=== PATIENT | female | born 1970 | race Caucasian/White ===

== ENCOUNTER 2020-05-02 09:00 | Outpatient (RCR) | payer OTHER, SELFPAY ==
[2020-04-13 12:28] VITALS: BMI 44.9
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
--- NOTE | 2020-04-14 08:54 | PC.NURSE ---
case opened in treatment team 03/14/2020
--- NOTE | 2020-04-17 14:27 | PC.NURSE ---
I called client to check in and review treatment plan. She did not answer and I left a message to call.
--- NOTE | 2020-04-20 11:51 | P.PNPSP_ITS ---
Subjective Subjective Date of Service: 04/20/20 Reason For Visit: depression Interim History: A difficult day. So many emotions. Overwhelmed with mindfulness, pt prefers a smaller group. Talked of anger-election process, confusion-symptoms, sadness, feeling exhausted, being unable to ground herself, Lorazepam/Gabapentin not helping her anxiety nor clarity. Reports she was very agitated last night- was unable to help her to calm. Discussed father leaving for [place] and not being able to have dinner with the family prior to leaving-pt had prepared dinner and wanted an opportunity to spend time with him. Having many feelings about this. Discussed options for grounding ( medications). Medication Compliance: Yes Side effects from medications: Yes (Sedation may be adverse and increasing sx.) Attending Groups: Yes Review of Systems Reports behavioral changes Psychiatric: Reports anxiety, Reports behavioral changes, Reports change in appetite, Reports depression, Reports difficulty concentrating, Reports hopelessness, Reports irritability, Reports anhedonia, Reports mood swings and Reports panic attacks Mental Status Exam Mental Status Exam Patient Orientation: Person, Place, Time and Situation Level of Consciousness: Awake, Appropriate and Alert Patient Behavior: Talkative, Hyperactive, Cooperative, Restless, Anxious, Fearful, Fatigued, Distractible and Crying Mood Description: Constricted, Fearful, Anxious, Nervous and Apprehensive Affect Description: Constricted Patient Cognition Impaired: No Ability to Follow Directions: Excellent Speech Pattern: Clear, Appropriate, Spontaneous Speech, Coherent and Rapid (at times) Memory Description: Intact Hallucinations: None Delusions: Not Present Thought Process: Intact Thought Content: positive for Intact Depressive Symptoms: Increased Anxiety, Diff. Making Decisions, Increased Irritability, Crying Spells, Loss of Int. in Activity, Feelings of Worthlessness, Hopelessness, Isolating-Friends/Family, Feelings of Guilt, Unhappiness, Increased Fatigue, Low Self Esteem, Loss of Energy and Difficulty C oncentrating Judgement: Good Diagnostics Vital Signs (24Hr): Body Mass Index 44.9 Assessment & Plan Patient educated on: medication risk/benefits and therapeutic strategies Informed Consent: understands and further education needed Reason for contiued partial hosp. stay Substantial Risk for: inability to function and rapid decompensation Certification I certify that partial hospital treatment is medically necessary due to the symptoms and problems resulting from the patient's mental illness and the failure to treat the patient at the partial hospital level of care would likely result in the patient requiring inpatient psychiatric care which could not be prevented at a less intensive level of care. Greater than 50% of the session was spent on counseling and/or coordination of care Discharge Plan Discharge Attending provider: Kehinde Macias Additional Instructions: 04/20/20: Risperdal 0.125 mg bid prn sx of PTSD where pt needs assistance in grounding. Medications: New risperidone 0.25 mg tablet 0.125 mg PO BID MDD 0.25 mg PRN (Reason: agitation) Qty: 10 RF: 0 No Action fexofenadine [Emily] 180 mg Tablet 540 mg PO BID RF: 0 atorvastatin 80 mg Tablet 80 mg PO DAILY RF: 0 gabapentin 600 mg Tablet 600 mg PO BEDTIME RF: 0 tizanidine 2 mg Tablet 2 mg PO DAILY PRN (Reason: Muscle Pain) RF: 0 cetirizine [Zyrtec] 10 mg Tablet 10 mg PO DAILY RF: 0 tizanidine 4 mg Tablet 4 mg PO BEDTIME PRN (Reason: Muscle Pain) RF: 0 methylphenidate HCl [Ritalin] 10 mg Tablet 10 mg PO DAILY RF: 0 clopidogrel 75 mg Tablet 75 mg PO DAILY RF: 0 carvedilol 3.125 mg Tablet 3.125 mg PO BID RF: 0 pantoprazole 40 mg Tablet,Delayed Release (Dr/Ec) 40 mg PO DAILY RF: 0 metformin 1,000 mg Tablet 1,000 mg PO BID RF: 0 aspirin 81 mg Tablet,Chewable 81 mg PO DAILY RF: 0 montelukast [Singulair] 10 mg Tablet 10 mg PO BEDTIME RF: 0 hydroxychloroquine 200 mg Tablet 200 mg PO BID RF: 0 albuterol sulfate [ProAir HFA] 90 mcg/actuation Hfa Aerosol Inhaler 2 puff INHALATION Q4H PRN (Reason: Shortness Of Breath) RF: 0 glipizide 5 mg Tablet 15 mg PO BID RF: 0 oxycodone 5 mg Tablet 5 mg PO Q8H PRN (Reason: Pain) RF: 0 gabapentin 300 mg Tablet 300 mg PO BID PRN (Reason: Pain) RF: 0 cholecalciferol (vitamin D3) [Vitamin D3] 25 mcg (1,000 unit) Tablet 25 mcg PO DAILY RF: 0 magnesium chloride 70 mg Tablet,Delayed Release (Dr/Ec) 70 mg PO BID RF: 0 lorazepam 1 mg Tablet 1 mg PO BID PRN (Reason: Anxiety) RF: 0 fluoxetine [Prozac] 20 mg Capsule 60 mg PO DAILY RF: 0 Lantus Solostar U-100 Insulin 100 unit/mL (3 mL) Insulin Pen 31 unit SUBCUT QPM RF: 0 Trulicity 1.5 mg/0.5 mL Pen Injector 1.5 mg SUBCUT QWEEK RF: 0
--- NOTE | 2020-04-21 15:36 | PC.NURSE ---
the client called yesterday afternoon to let us know that she was admitted to the medical unit of the hospital for observation of some possible cardiac issues. She called this afternoon to let me know that she will be discharged from the hospital on Friday and will return to [facility] on Friday
--- NOTE | 2020-04-24 14:12 | PC.NURSE ---
Angie called to cancel today stating that she has severe shoulder pain and didn't sleep well. She took a tylenol pm early this am and is very tired.
--- NOTE | 2020-04-24 15:44 | HO.PHPPROGNO ---
Subjective Subjective Date of Service: 04/24/20 Reason For Visit: depression Interim History: Angie reports feeling groggy this a.m. with shoulder pain which increased on 04/22/20. She used Tylenol PM and Naprosyn for sleep/pain last evening as she did not sleep on 04/22/20. Shoulder pain has been a symptom for many years. She has talked with her medical team about MRI, injections as she has calcifications and narrowing, hx of pinched nerves, L4-L5 arthritis, cervical arthritis. She believes there may be a frozen shoulder or torn rotator at this time. Oxycontin 5 mg has not helped on 04/22 as well. She attributes increase in pain to increase in involvement in daily activities on 04/22 as she used Risperdal x 2 doses with positive results. On 04/21 she used a prn in group and found it helped her to ground and focus, with less lability. She used another prn on 04/21 evening and mood was improved, thoughts grounded, focus specific. This carried into 04/22 where she describes her mood as with amazing relief from symptoms. Pt discussed return to work paperwork. She will return on 05/08/20. Medication Compliance: Yes Side effects from medications: No Attending Groups: No (home today due to feeling sedated from pain medications.) Review of Systems Musculoskeletal: Reports other (shoulder pain) Psychiatric: Reports abnormal sleep pattern and Reports depression Mental Status Exam Mental Status Exam Patient Appearance: Well Grooomed Patient Orientation: Person, Place, Time and Situation Level of Consciousness: Awake and Alert Patient Behavior: Appropriate Mood Description: Calm Affect Description: Calm Patient Cognition Impaired: No Ability to Follow Directions: Excellent Speech Pattern: Clear, Appropriate and Spontaneous Speech Memory Description: Intact Hallucinations: None Delusions: Not Present Thought Process: Intact and Goal Oriented Thought Content: positive for Intact Depressive Symptoms: Insomnia, Difficulty Sleeping, Muscle Pain and Significant Weight Gain Judgement: Good Diagnostics Vital Signs (24Hr): Body Mass Index 44.9 Assessment & Plan Patient educated on: medication risk/benefits and therapeutic strategies Informed Consent: understands and further education needed Reason for contiued partial hosp. stay Substantial Risk for: inability to function and med/psych decompensation Certification I certify that partial hospital treatment is medically necessary due to the symptoms and problems resulting from the patient's mental illness and the failure to treat the patient at the partial hospital level of care would likely result in the patient requiring inpatient psychiatric care which could not be prevented at a less intensive level of care. Greater than 50% of the session was spent on counseling and/or coordination of care Discharge Plan Discharge Attending provider: Kehinde Macias Additional Instructions: 04/20/20: Risperdal 0.125 mg bid prn sx of PTSD where pt needs assistance in grounding. 04/24/20: Continue Risperdal prn Medications: New risperidone 0.25 mg tablet 0.125 mg PO BID MDD 0.25 mg PRN (Reason: agitation) Qty: 10 RF: 0 No Action fexofenadine [Emily] 180 mg Tablet 540 mg PO BID RF: 0 atorvastatin 80 mg Tablet 80 mg PO DAILY RF: 0 gabapentin 600 mg Tablet 600 mg PO BEDTIME RF: 0 tizanidine 2 mg Tablet 2 mg PO DAILY PRN (Reason: Muscle Pain) RF: 0 cetirizine [Zyrtec] 10 mg Tablet 10 mg PO DAILY RF: 0 tizanidine 4 mg Tablet 4 mg PO BEDTIME PRN (Reason: Muscle Pain) RF: 0 methylphenidate HCl [Ritalin] 10 mg Tablet 10 mg PO DAILY RF: 0 clopidogrel 75 mg Tablet 75 mg PO DAILY RF: 0 carvedilol 3.125 mg Tablet 3.125 mg PO BID RF: 0 pantoprazole 40 mg Tablet,Delayed Release (Dr/Ec) 40 mg PO DAILY RF: 0 metformin 1,000 mg Tablet 1,000 mg PO BID RF: 0 aspirin 81 mg Tablet,Chewable 81 mg PO DAILY RF: 0 montelukast [Singulair] 10 mg Tablet 10 mg PO BEDTIME RF: 0 hydroxychloroquine 200 mg Tablet 200 mg PO BID RF: 0 albuterol sulfate [ProAir HFA] 90 mcg/actuation Hfa Aerosol Inhaler 2 puff INHALATION Q4H PRN (Reason: Shortness Of Breath) RF: 0 glipizide 5 mg Tablet 15 mg PO BID RF: 0 oxycodone 5 mg Tablet 5 mg PO Q8H PRN (Reason: Pain) RF: 0 gabapentin 300 mg Tablet 300 mg PO BID PRN (Reason: Pain) RF: 0 cholecalciferol (vitamin D3) [Vitamin D3] 25 mcg (1,000 unit) Tablet 25 mcg PO DAILY RF: 0 magnesium chloride 70 mg Tablet,Delayed Release (Dr/Ec) 70 mg PO BID RF: 0 lorazepam 1 mg Tablet 1 mg PO BID PRN (Reason: Anxiety) RF: 0 fluoxetine [Prozac] 20 mg Capsule 60 mg PO DAILY RF: 0 Lantus Solostar U-100 Insulin 100 unit/mL (3 mL) Insulin Pen 31 unit SUBCUT QPM RF: 0 Trulicity 1.5 mg/0.5 mL Pen Injector 1.5 mg SUBCUT QWEEK RF: 0
--- NOTE | 2020-04-27 16:08 | HO.PHPPROGNO ---
Subjective Subjective Date of Service: 04/27/20 Reason For Visit: depression Interim History: I am confused about the medicine Reports using prn Risperdal on Friday and feeling tired, Friday, along with Gabapentin and feeling improved. Reports mood lability as well. Discussed uses for prn medications and possibly adding a regularly scheduled mood stabilizer. Pt also talked of her difficulty with telehealth-wanting to be here, with people, with the team and feels the experience is suffering for her as a result. Medication Compliance: Yes Side effects from medications: No Attending Groups: Yes Review of Systems Musculoskeletal: Reports arthralgias, Reports limited range of motion, Reports muscle weakness and Reports other Comments: shoulder pain Reports behavioral changes Psychiatric: Reports behavioral changes Mental Status Exam Mental Status Exam Patient Orientation: Person, Place, Time and Situation Level of Consciousness: Awake and Alert Patient Behavior: Appropriate, Talkative, Cooperative and Anxious Mood Description: Constricted, Depressed, Anxious and Sad Affect Description: Flat Patient Cognition Impaired: No Ability to Follow Directions: Excellent Speech Pattern: Clear, Appropriate, Spontaneous Speech and Coherent Memory Description: Intact Hallucinations: None Delusions: Not Present Thought Process: Intact and Rumination Thought Content: positive for Intact, positive for [place] and positive for Circumstantial Depressive Symptoms: Increased Anxiety, Increased Irritability, Hopelessness and Unhappiness Judgement: Good Diagnostics Vital Signs (24Hr): Body Mass Index 44.9 Assessment & Plan Patient educated on: medication risk/benefits (Review of how to utilize prn medications) and therapeutic strategies Informed Consent: understands and further education needed Reason for contiued partial hosp. stay Substantial Risk for: inability to function and rapid decompensation Certification I certify that partial hospital treatment is medically necessary due to the symptoms and problems resulting from the patient's mental illness and the failure to treat the patient at the partial hospital level of care would likely result in the patient requiring inpatient psychiatric care which could not be prevented at a less intensive level of care. Greater than 50% of the session was spent on counseling and/or coordination of care Discharge Plan Discharge Attending provider: Kehinde Macias Additional Instructions: 04/20/20: Risperdal 0.125 mg bid prn sx of PTSD where pt needs assistance in grounding. 04/24/20: Continue Risperdal prn 04/27/20: Begin Lamictal 25 mg daily Medications: New risperidone 0.25 mg tablet 0.125 mg PO BID MDD 0.25 mg PRN (Reason: agitation) Qty: 10 RF: 0 lamotrigine [Lamictal] 25 mg tablet 25 mg PO DAILY 14 Days Qty: 14 RF: 0 No Action fexofenadine [Emily] 180 mg Tablet 540 mg PO BID RF: 0 atorvastatin 80 mg Tablet 80 mg PO DAILY RF: 0 gabapentin 600 mg Tablet 600 mg PO BEDTIME RF: 0 tizanidine 2 mg Tablet 2 mg PO DAILY PRN (Reason: Muscle Pain) RF: 0 cetirizine [Zyrtec] 10 mg Tablet 10 mg PO DAILY RF: 0 tizanidine 4 mg Tablet 4 mg PO BEDTIME PRN (Reason: Muscle Pain) RF: 0 methylphenidate HCl [Ritalin] 10 mg Tablet 10 mg PO DAILY RF: 0 clopidogrel 75 mg Tablet 75 mg PO DAILY RF: 0 carvedilol 3.125 mg Tablet 3.125 mg PO BID RF: 0 pantoprazole 40 mg Tablet,Delayed Release (Dr/Ec) 40 mg PO DAILY RF: 0 metformin 1,000 mg Tablet 1,000 mg PO BID RF: 0 aspirin 81 mg Tablet,Chewable 81 mg PO DAILY RF: 0 montelukast [Singulair] 10 mg Tablet 10 mg PO BEDTIME RF: 0 hydroxychloroquine 200 mg Tablet 200 mg PO BID RF: 0 albuterol sulfate [ProAir HFA] 90 mcg/actuation Hfa Aerosol Inhaler 2 puff INHALATION Q4H PRN (Reason: Shortness Of Breath) RF: 0 glipizide 5 mg Tablet 15 mg PO BID RF: 0 oxycodone 5 mg Tablet 5 mg PO Q8H PRN (Reason: Pain) RF: 0 gabapentin 300 mg Tablet 300 mg PO BID PRN (Reason: Pain) RF: 0 cholecalciferol (vitamin D3) [Vitamin D3] 25 mcg (1,000 unit) Tablet 25 mcg PO DAILY RF: 0 magnesium chloride 70 mg Tablet,Delayed Release (Dr/Ec) 70 mg PO BID RF: 0 lorazepam 1 mg Tablet 1 mg PO BID PRN (Reason: Anxiety) RF: 0 fluoxetine [Prozac] 20 mg Capsule 60 mg PO DAILY RF: 0 Lantus Solostar U-100 Insulin 100 unit/mL (3 mL) Insulin Pen 31 unit SUBCUT QPM RF: 0 Trulicity 1.5 mg/0.5 mL Pen Injector 1.5 mg SUBCUT QWEEK RF: 0
--- NOTE | 2020-05-01 14:15 | HO.PHPPROGNO ---
Subjective Subjective Date of Service: 05/01/20 Reason For Visit: depression Interim History: Difficult weekend. Pt believes Lamictal to be acting adversely. Reports panic attacks in public on 04/29 and irritability, anger today. Will hold Lamictal for 48 hours and re-evaluate efficacy/contribution to mood. Medication Compliance: Yes Side effects from medications: Yes (possibly) Attending Groups: No (Internet is not working today in pt's home.) Review of Systems Reports behavioral changes Psychiatric: Reports anxiety, Reports behavioral changes, Reports depression, Reports difficulty concentrating, Reports hopelessness, Reports irritability, Reports anhedonia, Reports mood swings and Reports panic attacks Mental Status Exam Mental Status Exam Patient Orientation: Person, Place, Time and Situation Level of Consciousness: Awake, Appropriate and Alert Patient Behavior: Appropriate, Cooperative and Anxious Mood Description: Constricted, Labile, Angry and Apprehensive Affect Description: Constricted Patient Cognition Impaired: No Ability to Follow Directions: Excellent Speech Pattern: Clear, Appropriate and Spontaneous Speech Memory Description: Intact Hallucinations: None Delusions: Not Present Thought Process: Distracted and Rumination Thought Content: positive for [place], positive for Circumstantial and positive for Perseveration Depressive Symptoms: Increased Anxiety, Increased Irritability, Hopelessness and Unhappiness Judgement: Fair Diagnostics Vital Signs (24Hr): Body Mass Index 44.9 Assessment & Plan Patient educated on: medication risk/benefits and therapeutic strategies Informed Consent: further education needed Reason for contiued partial hosp. stay Substantial Risk for: inability to function and rapid decompensation Certification I certify that partial hospital treatment is medically necessary due to the symptoms and problems resulting from the patient's mental illness and the failure to treat the patient at the partial hospital level of care would likely result in the patient requiring inpatient psychiatric care which could not be prevented at a less intensive level of care. Greater than 50% of the session was spent on counseling and/or coordination of care Discharge Plan Discharge Attending provider: Kehinde Macias Additional Instructions: 04/20/20: Risperdal 0.125 mg bid prn sx of PTSD where pt needs assistance in grounding. 04/24/20: Continue Risperdal prn 04/27/20: Begin Lamictal 25 mg daily 05/01/20: Hold Lamictal on 05/02- as pt experiencing lability and panic attacks. Medications: New risperidone 0.25 mg tablet 0.125 mg PO BID MDD 0.25 mg PRN (Reason: agitation) Qty: 10 RF: 0 lamotrigine [Lamictal] 25 mg tablet 25 mg PO DAILY 14 Days Qty: 14 RF: 0 No Action fexofenadine [Emily] 180 mg Tablet 540 mg PO BID RF: 0 atorvastatin 80 mg Tablet 80 mg PO DAILY RF: 0 gabapentin 600 mg Tablet 600 mg PO BEDTIME RF: 0 tizanidine 2 mg Tablet 2 mg PO DAILY PRN (Reason: Muscle Pain) RF: 0 cetirizine [Zyrtec] 10 mg Tablet 10 mg PO DAILY RF: 0 tizanidine 4 mg Tablet 4 mg PO BEDTIME PRN (Reason: Muscle Pain) RF: 0 methylphenidate HCl [Ritalin] 10 mg Tablet 10 mg PO DAILY RF: 0 clopidogrel 75 mg Tablet 75 mg PO DAILY RF: 0 carvedilol 3.125 mg Tablet 3.125 mg PO BID RF: 0 pantoprazole 40 mg Tablet,Delayed Release (Dr/Ec) 40 mg PO DAILY RF: 0 metformin 1,000 mg Tablet 1,000 mg PO BID RF: 0 aspirin 81 mg Tablet,Chewable 81 mg PO DAILY RF: 0 montelukast [Singulair] 10 mg Tablet 10 mg PO BEDTIME RF: 0 hydroxychloroquine 200 mg Tablet 200 mg PO BID RF: 0 albuterol sulfate [ProAir HFA] 90 mcg/actuation Hfa Aerosol Inhaler 2 puff INHALATION Q4H PRN (Reason: Shortness Of Breath) RF: 0 glipizide 5 mg Tablet 15 mg PO BID RF: 0 oxycodone 5 mg Tablet 5 mg PO Q8H PRN (Reason: Pain) RF: 0 gabapentin 300 mg Tablet 300 mg PO BID PRN (Reason: Pain) RF: 0 cholecalciferol (vitamin D3) [Vitamin D3] 25 mcg (1,000 unit) Tablet 25 mcg PO DAILY RF: 0 magnesium chloride 70 mg Tablet,Delayed Release (Dr/Ec) 70 mg PO BID RF: 0 lorazepam 1 mg Tablet 1 mg PO BID PRN (Reason: Anxiety) RF: 0 fluoxetine [Prozac] 20 mg Capsule 60 mg PO DAILY RF: 0 Lantus Solostar U-100 Insulin 100 unit/mL (3 mL) Insulin Pen 31 unit SUBCUT QPM RF: 0 Trulicity 1.5 mg/0.5 mL Pen Injector 1.5 mg SUBCUT QWEEK RF: 0
--- NOTE | 2020-05-04 15:52 | HO.OPPROGNO ---
Subjective Subjective Date of Service: 05/04/20 Reason For Visit: depression Interim History: Angie reports no real change with holding Lamictal except she does not have the intensity of anger. Reports feeling irritable with mood swings, lability. Feels her thought process is clearer, less crying-continues to find Risperdal helpful. Plans a return to work on 05/08/20. Medication Compliance: Yes Side effects from medications: No Review of Systems Psychiatric: Reports anxiety, Reports irritability and Reports mood swings Mental Status Exam Mental Status Exam Patient Orientation: Person, Place, Time and Situation Level of Consciousness: Awake and Appropriate Patient Behavior: Appropriate and Cooperative Mood Description: Constricted and Anxious Affect Description: Constricted Patient Cognition Impaired: No Ability to Follow Directions: Excellent Speech Pattern: Clear Memory Description: Intact Hallucinations: None Delusions: Not Present Thought Process: Intact Thought Content: positive for Intact and positive for Goal Oriented Depressive Symptoms: Increased Irritability Judgement: Good Diagnostics Vital Signs (24Hr): Body Mass Index 44.9 Discharge Plan Discharge Attending provider: Kehinde Macias Additional Instructions: 04/20/20: Risperdal 0.125 mg bid prn sx of PTSD where pt needs assistance in grounding. 04/24/20: Continue Risperdal prn 04/27/20: Begin Lamictal 25 mg daily 05/01/20: Hold Lamictal on 05/02- as pt experiencing lability and panic attacks. 05/04/20: Re-start Lamictal 25 mg daily Medications: Continued lamotrigine [Lamictal] 25 mg tablet 25 mg PO DAILY 14 Days Qty: 14 RF: 1 risperidone 0.25 mg tablet 0.125 mg PO BID MDD 0.25 mg PRN (Reason: agitation) Qty: 14 RF: 1 No Action fexofenadine [Emily] 180 mg Tablet 540 mg PO BID RF: 0 atorvastatin 80 mg Tablet 80 mg PO DAILY RF: 0 gabapentin 600 mg Tablet 600 mg PO BEDTIME RF: 0 tizanidine 2 mg Tablet 2 mg PO DAILY PRN (Reason: Muscle Pain) RF: 0 cetirizine [Zyrtec] 10 mg Tablet 10 mg PO DAILY RF: 0 tizanidine 4 mg Tablet 4 mg PO BEDTIME PRN (Reason: Muscle Pain) RF: 0 methylphenidate HCl [Ritalin] 10 mg Tablet 10 mg PO DAILY RF: 0 clopidogrel 75 mg Tablet 75 mg PO DAILY RF: 0 carvedilol 3.125 mg Tablet 3.125 mg PO BID RF: 0 pantoprazole 40 mg Tablet,Delayed Release (Dr/Ec) 40 mg PO DAILY RF: 0 metformin 1,000 mg Tablet 1,000 mg PO BID RF: 0 aspirin 81 mg Tablet,Chewable 81 mg PO DAILY RF: 0 montelukast [Singulair] 10 mg Tablet 10 mg PO BEDTIME RF: 0 hydroxychloroquine 200 mg Tablet 200 mg PO BID RF: 0 albuterol sulfate [ProAir HFA] 90 mcg/actuation Hfa Aerosol Inhaler 2 puff INHALATION Q4H PRN (Reason: Shortness Of Breath) RF: 0 glipizide 5 mg Tablet 15 mg PO BID RF: 0 oxycodone 5 mg Tablet 5 mg PO Q8H PRN (Reason: Pain) RF: 0 gabapentin 300 mg Tablet 300 mg PO BID PRN (Reason: Pain) RF: 0 cholecalciferol (vitamin D3) [Vitamin D3] 25 mcg (1,000 unit) Tablet 25 mcg PO DAILY RF: 0 magnesium chloride 70 mg Tablet,Delayed Release (Dr/Ec) 70 mg PO BID RF: 0 lorazepam 1 mg Tablet 1 mg PO BID PRN (Reason: Anxiety) RF: 0 fluoxetine [Prozac] 20 mg Capsule 60 mg PO DAILY RF: 0 Lantus Solostar U-100 Insulin 100 unit/mL (3 mL) Insulin Pen 31 unit SUBCUT QPM RF: 0 Trulicity 1.5 mg/0.5 mL Pen Injector 1.5 mg SUBCUT QWEEK RF: 0 Assessment & Plan Patient educated on: medication risk/benefits and therapeutic strategies Informed Consent: understands Reason for contiued therapy Substantial Risk for: inability to function Greater than 50% of the session was spent on counseling and/or coordination of care
--- NOTE | 2020-05-10 16:12 | P.PNPSO_ITS ---
Subjective Subjective Date of Service: 05/10/20 Reason For Visit: depression Interim History: Call from pt- reports I feel strange and reports weight gain. Asks if Lamictal/Risperdal will cause these SE. Education provided. Pt reports she feels out of it spacey . Slept well last night. Medication Compliance: Yes Side effects from medications: Yes Review of Systems Psychiatric: Reports as per [facility] Mental Status Exam Mental Status Exam Patient Orientation: Person, Place, Time and Situation Level of Consciousness: Awake, Appropriate and Alert Patient Behavior: Appropriate Mood Description: Calm Affect Description: Calm Patient Cognition Impaired: No Ability to Follow Directions: Excellent Speech Pattern: Clear, Appropriate and Spontaneous Speech Memory Description: Intact Hallucinations: None Delusions: Not Present Thought Process: Intact Thought Content: positive for Intact Depressive Symptoms: Increased Anxiety Judgement: Good Diagnostics Vital Signs (24Hr): Body Mass Index 44.9 Discharge Plan Discharge Attending provider: Kehinde Macias Additional Instructions: 04/20/20: Risperdal 0.125 mg bid prn sx of PTSD where pt needs assistance in grounding. 04/24/20: Continue Risperdal prn 04/27/20: Begin Lamictal 25 mg daily 05/01/20: Hold Lamictal on 05/02- as pt experiencing lability and panic attacks. 05/04/20: Re-start Lamictal 25 mg daily Medications: Continued lamotrigine [Lamictal] 25 mg tablet 25 mg PO DAILY 14 Days Qty: 14 RF: 1 risperidone 0.25 mg tablet 0.125 mg PO BID MDD 0.25 mg PRN (Reason: agitation) Qty: 14 RF: 1 No Action fexofenadine [Emily] 180 mg Tablet 540 mg PO BID RF: 0 atorvastatin 80 mg Tablet 80 mg PO DAILY RF: 0 gabapentin 600 mg Tablet 600 mg PO BEDTIME RF: 0 tizanidine 2 mg Tablet 2 mg PO DAILY PRN (Reason: Muscle Pain) RF: 0 cetirizine [Zyrtec] 10 mg Tablet 10 mg PO DAILY RF: 0 tizanidine 4 mg Tablet 4 mg PO BEDTIME PRN (Reason: Muscle Pain) RF: 0 methylphenidate HCl [Ritalin] 10 mg Tablet 10 mg PO DAILY RF: 0 clopidogrel 75 mg Tablet 75 mg PO DAILY RF: 0 carvedilol 3.125 mg Tablet 3.125 mg PO BID RF: 0 pantoprazole 40 mg Tablet,Delayed Release (Dr/Ec) 40 mg PO DAILY RF: 0 metformin 1,000 mg Tablet 1,000 mg PO BID RF: 0 aspirin 81 mg Tablet,Chewable 81 mg PO DAILY RF: 0 montelukast [Singulair] 10 mg Tablet 10 mg PO BEDTIME RF: 0 hydroxychloroquine 200 mg Tablet 200 mg PO BID RF: 0 albuterol sulfate [ProAir HFA] 90 mcg/actuation Hfa Aerosol Inhaler 2 puff INHALATION Q4H PRN (Reason: Shortness Of Breath) RF: 0 glipizide 5 mg Tablet 15 mg PO BID RF: 0 oxycodone 5 mg Tablet 5 mg PO Q8H PRN (Reason: Pain) RF: 0 gabapentin 300 mg Tablet 300 mg PO BID PRN (Reason: Pain) RF: 0 cholecalciferol (vitamin D3) [Vitamin D3] 25 mcg (1,000 unit) Tablet 25 mcg PO DAILY RF: 0 magnesium chloride 70 mg Tablet,Delayed Release (Dr/Ec) 70 mg PO BID RF: 0 lorazepam 1 mg Tablet 1 mg PO BID PRN (Reason: Anxiety) RF: 0 fluoxetine [Prozac] 20 mg Capsule 60 mg PO DAILY RF: 0 Lantus Solostar U-100 Insulin 100 unit/mL (3 mL) Insulin Pen 31 unit SUBCUT QPM RF: 0 Trulicity 1.5 mg/0.5 mL Pen Injector 1.5 mg SUBCUT QWEEK RF: 0 Assessment & Plan Assessment & Plan (1) Recurrent major depression: Status: Acute Code(s): F33.9 - Major depressive disorder, recurrent, unspecified Assessment and Plan: Decrease Lamictal to 12.5 mg daily Hold Risperdal-will review on 05/15/20. Greater than 50% of the session was spent on counseling and/or coordination of care
--- NOTE | 2020-05-15 16:37 | P.EN_ITS ---
Event Note Date of Service: 05/15/20 Event Note: Pt reports a.m. panic attack today. She has stopped Lamictal and b elieves it makes her feel less grounded and more symptomatic overall. She will resume Risperdal prn with the remainder of her regime.
== END 2020-05-02 23:55 | disposition home or self-care (01) ==
LOC: HO.PHPA 09:00
PROVIDERS: Visit Provider Psychiatry & Neurology Psychiatry
DX: F33.2 Major depressive disorder, recurrent severe without psychotic features (principal)
CPT/HCPCS: 90792; 90853; 99213; 99214

== ENCOUNTER 2020-05-10 15:00 | Outpatient (RCR) | payer OTHER, SELFPAY | END 2020-06-15 23:55 | disposition home or self-care (01) | LOC: HO.PAOS 15:00 | PROVIDERS: Visit Provider Clinical Nurse Specialist Psychiatric/Mental Health, Adult | DX: F32.9 Major depressive disorder, single episode, unspecified (principal) ==

== ENCOUNTER 2020-05-15 07:09 | Outpatient (REF) | payer OTHER, SELFPAY ==
[2020-05-15 07:57] LABS: COVID-19 Test Negative (Negative); IDNOW Serial# 55D5AD1C
== END 2020-05-15 07:10 | disposition home or self-care (01) ==
LOC: HO.EMPCOV 07:09
PROVIDERS: Visit Provider Internal Medicine
DX: Z20.828 Contact with and (suspected) exposure to other viral communicable diseases (principal)
CPT/HCPCS: 87635; C9803

== ENCOUNTER 2020-05-17 11:20 | Outpatient (REF) | payer OTHER, SELFPAY ==
[2020-05-17 11:40] LABS: COVID-19 Test Negative (Negative)
== END 2020-05-17 11:21 | disposition home or self-care (01) ==
LOC: HO.LAB 11:20
PROVIDERS: PCP Internal Medicine Sports Medicine; Visit Provider Internal Medicine
DX: Z20.828 Contact with and (suspected) exposure to other viral communicable diseases (principal)
CPT/HCPCS: 87635; C9803

== ENCOUNTER 2020-05-22 18:00 | Outpatient (RCR) | payer OTHER, SELFPAY | END 2020-05-25 23:55 | disposition home or self-care (01) | LOC: HO.PAOS 18:00 | PROVIDERS: Visit Provider Counselor Mental Health | DX: F33.2 Major depressive disorder, recurrent severe without psychotic features (principal); F41.0 Panic disorder [episodic paroxysmal anxiety] | CPT/HCPCS: 90832; 90834 ==

== ENCOUNTER → 2020-06-20 11:24 | Outpatient (REF) | payer OTHER, SELFPAY ==
--- NOTE | 2020-06-20 11:30 | CA_ITS ---
Transthoracic Echocardiogram Patient (Last, First, Middle): Angie Lomax M Gender: Female Date of : 1970 Age: 49 Procedure Date: 06/20/2020 Procedure Type: Transthoracic Echocardiogram Location: OP Height: 165.1 cm Weight: 122.47 kg BSA: 2.25 m2 Heart Rate: bpm BP: 102 / 70 mmHg Heading Repairer: EBONY Referring MD: Clarisse Coe DEPUTY K 9-C Symptoms: I21.11 STEMI,Z95.5 STENTED COR ART, I10 HTN E11.8 DM E78.5 H Study Quality: Fair ECG Rhythm: Sinus Conclusions: - The left ventricular systolic function is normal. The visually estimated ejection fraction is between 55-60%. - No obvious valvular pathology seen on this study. Findings Procedure Information Contrast agent, definity, is being given per protocol without apparent complications. Left Ventricle Normal left ventricular cavity size. There is mildly increased left ventricular wall thickness. The left ventricular systolic function is normal. The visually estimated ejection fraction is between 55-60%. There is no evidence of regional wall motion abnormalities. E/E prime ratio is between 8 and 15 consistent with indeterminate filling pressures. Evidence suggests grade I (mild) diastolic dysfunction. Right Ventricle Normal right ventricular cavity size and systolic function. Atria The left atrium is normal in size. The right atrium is normal in size. Aortic Valve The aortic valve was not well visualized. There is no aortic valve stenosis. There is no aortic valve regurgitation. Mitral Valve The mitral valve appears normal. There is no mitral valve regurgitation. There is no mitral valve stenosis. Pulmonic Valve The pulmonic valve was not well visualized. Tricuspid Valve There is trace tricuspid valve regurgitation. The pulmonary artery systolic pressure is normal. Great Vessels The aortic annulus, sinuses of valsalva, and asc aorta are normal in size. Venous The inferior vena cava was not well visualized. Pericardium/Pleural There is no evidence of pericardial effusion. Prior Study Comparison Changes noted compared to prior study dated: 03/16/2019. Previously described wall motion abnormalities not seen, but image quality is also less than optimal. Recommendations, Care & Conclusions No obvious valvular pathology seen on this study. Measurements 2D Linear Measurements IVSd: 1.25 0.6-0.9/0.6-1.0 cm LVIDd: 4.76 3.9-5.3/4.2-5.9 cm LVIDd Index: 2.12 2.4-3.2/2.2-3.1 cm/m2 LVIDs: 2.95 2.0-3.6 cm LVPWd: 1.27 0.7-1.1 cm Ao Root: 3.10 2.1-3.5 cm LA Diam: 3.30 2.7-3.8/3.0-4.0 cm LAIDs Index: 1.47 1.5-2.3 cm/m2 LV Mass: 289.10 67-162/88-224 g LV Mass Index: 128.49 43-95/49-115 g/m2 LVOT Diam: 2.00 3.0+(-)1.3 cm 2D Systolic Function EF 4C: 56.50 >55% EF 2C: 58.40 >55% EF BiP: 56.10 >55% Mitral Valve MV Pk E: 0.99 MV PK A: 0.95 MV Decel Time: 145.00 E/A: 1.00 E'Lateral: 7.45 E'Medial: 6.29 E/E' Med: 15.70 E/E' Lat: 13.20 PHT: 43.00 MVA PHT: 5.12 Decel [place]: 6.78 Aortic Valve AoV Pk Zaid: 1.81 AoV Pk Grad: 13.00 LVOT LVOT Pk Zaid: 1.10 LVOT Mn Zaid: 0.76 LVOT VTI: 0.24 LVOT Pk Grad: 5.00 LVOT Mn Grad: 3.00 LVOT Diam: 2.00 LVOT Area: 3.14 Diastolic Function MV Pk E: 0.99 MV Pk A: 0.95 E/A: 1.00 E'Medial: 6.29 E/E' Med: 15.70 E' Laterial: 7.45 E/E' Lat: 13.20 Tricuspid Valve TR Pk Zaid: 1.94 TR Pk Grad: 15.00 Great Vessels Aorta Ao Root-2D: 3.10 2.0-3.7 cm Ao Asc: 3.00 2.1-3.4 cm Updated in Other Vendor System with Status of Final Stanislav Mendez MD electronically signed on 06/20/2020 4:57:18 PM with status of Final
== END ==
LOC: HO.CARD 11:24
PROVIDERS: Visit Provider Nurse Practitioner Family
DX: I21.11 ST elevation (STEMI) myocardial infarction involving right coronary artery (principal); I10 Essential (primary) hypertension; E78.5 Hyperlipidemia, unspecified; E11.8 Type 2 diabetes mellitus with unspecified complications; Z95.5 Presence of coronary angioplasty implant and graft
CPT/HCPCS: 93306; Q9957

== ENCOUNTER 2020-06-29 09:07 | Emergency (ER) | payer OTHER, SELFPAY ==
[2020-06-29 09:11] VITALS: BP 133/80; PULSE 95; RESP 17; TEMP 36.8; O2SAT 96; BMI 45.7
--- NOTE | 2020-06-29 09:42 | CT_ITS ---
EXAMINATION: CT HEAD WITHOUT CONTRAST (STROKE PROTOCOL) CLINICAL INFORMATION: Stroke protocol. . Numbness left face and arm, sudden onset COMPARISON: None TECHNIQUE: Contiguous axial imaging was performed from the skull base to vertex without intravenous administration of contrast. This CT examination was performed using dose optimization techniques as appropriate, variously including the following: *Automated exposure control *Adjustment of mA and/or kV according to patient size (this includes techniques or standardized protocols for targeted exams where dose is matched to indication/reason for exam; i.e. extremities or head) *Use of iterative reconstruction technique DLP: 696 mGy-cm FINDINGS: There is no intracranial hemorrhage, hematoma, or extra-axial fluid collection. The ventricles are normal in size. There is no hydrocephalus, edema, or mass effect. The philippe-white matter differentiation appears symmetric. There is no acute infarct or mass lesion. The calvarium appears intact. There is no pneumocephalus or orbital emphysema. The visualized sinuses and middle ears and mastoid air cells show no significant mucosal thickening. There are no air-fluid levels. CT/CT head for stroke IMPRESSION: No acute intracranial process seen. This critical result was discussed with RADHA Summers at 11:00 AM. It was ascertained that the content and urgency of the report was understood at the time of direct communication.
--- NOTE | 2020-06-29 09:42 | ECG_ITS ---
Test Reason : STROKE SYMPTOMS Blood Pressure : / mmHG Vent. Rate : 090 BPM Atrial Rate : 090 BPM P-R Int : 142 ms QRS Dur : 086 ms QT Int : 376 ms P-R-T Axes : 045 -13 002 degrees QTc Int : 459 ms Normal sinus rhythm Inferior infarct (cited on or before 08-SEP-2019) Abnormal ECG When compared with ECG of 08-SEP-2019 13:43, Premature atrial complexes are no longer Present Referred By: Sussy Valerio Electronically Signed By:RAMÍREZ DEUTSCH MD
--- NOTE | 2020-06-29 09:42 | XR_ITS ---
EXAMINATION: XR CHEST CLINICAL INFORMATION: Left arm and face numbness. COMPARISON: January 14, 2019 TECHNIQUE: 2 views of the chest were obtained. FINDINGS: No significant abnormality is noted involving the heart, lungs, mediastinum, bony thorax or soft tissues. XR/XR chest 2V IMPRESSION: No acute disease.
--- NOTE | 2020-06-29 10:00 | ED.GENADULT ---
HPI - General Adult General Chief complaint: General Medical Stated complaint: see stated Time Seen by Provider: 06/29/20 09:11 Source: patient Mode of arrival: ambulatory Limitations: no limitations History of Present Illness HPI narrative: 49yoF c PMHx of NC, DM type II, anxiety, depression, PTSD, neuropathy, arthritis and asthma presenting to the ED after having sudden onset of numbness to her left shoulder after receiving her 2nd COVID vaccine prior to arrival with associated dizziness shortly after. Reports since then she feels dizzy with any type of movement even opening her eyes and she feels like her brain is ?numb , per patient. She reports the numbness has now spread to the left side of her face. She reports she feels like she may be having an allergic reaction she feels like her left side of her face she feels numbness around her mouth and cheek on the left side she compares it to when she gets allergic reactions from eating coconut. Denies any headaches, prior head trauma, changes in vision including blurry vision or loss of vision, nausea vomiting, jaw pain, chest pain, shortness of breath, neck pain, dyspnea on exertion, orthopnea, palpitations, any symptoms. Related Data Home Medications Medication Instructions Recorded Confirmed albuterol sulfate [ProAir HFA] 2 puff INHALATION Q4H PRN 04/13/20 04/13/20 aspirin 81 mg PO DAILY 04/13/20 04/13/20 atorvastatin 80 mg PO DAILY 04/13/20 04/13/20 carvedilol 3.125 mg PO BID 04/13/20 04/13/20 cetirizine [Zyrtec] 10 mg PO DAILY 04/13/20 04/13/20 cholecalciferol (vitamin D3) 25 mcg PO DAILY 04/13/20 04/13/20 [Vitamin D3] clopidogrel 75 mg PO DAILY 04/13/20 04/13/20 dulaglutide [Trulicity] 1.5 mg SUBCUT QWEEK 04/13/20 04/13/20 fexofenadine [Emily] 540 mg PO BID 04/13/20 04/13/20 fluoxetine [Prozac] 60 mg PO DAILY 04/13/20 04/13/20 gabapentin 300 mg PO BID PRN 04/13/20 04/13/20 gabapentin 600 mg PO BEDTIME 04/13/20 04/13/20 glipizide 15 mg PO BID 04/13/20 04/13/20 hydroxychloroquine 200 mg PO BID 04/13/20 04/13/20 insulin glargine [Lantus Solostar 31 unit SUBCUT QPM 04/13/20 04/13/20 U-100 Insulin] lorazepam 1 mg PO BID PRN 04/13/20 04/13/20 magnesium chloride 70 mg PO BID 04/13/20 04/13/20 metformin 1,000 mg PO BID 04/13/20 04/13/20 methylphenidate HCl [Ritalin] 10 mg PO DAILY 04/13/20 04/13/20 montelukast [Singulair] 10 mg PO BEDTIME 04/13/20 04/13/20 oxycodone 5 mg PO Q8H PRN 04/13/20 04/13/20 pantoprazole 40 mg PO DAILY 04/13/20 04/13/20 tizanidine 2 mg PO DAILY PRN 04/13/20 04/13/20 tizanidine 4 mg PO BEDTIME PRN 04/13/20 04/13/20 Previous Rx's Medication Instructions Recorded lamotrigine [Lamictal] 25 mg PO DAILY 14 Days #14 tab 05/04/20 risperidone 0.125 mg PO BID PRN #14 tab MDD 05/04/20 0.25 mg meclizine 25 mg PO TID PRN #10 tab 06/29/20 Allergies Allergy/AdvReac Type Severity Reaction Status Date / Time bee pollen [BEE STINGS] Allergy Severe ANAPHYLAXIS Verified 06/29/20 09:15 coconut [COCONUT] Allergy Unknown HIVES Unverified 03/02/20 19:41 buspirone [BUSPIRONE] AdvReac Intermediate Sedation Unverified 03/02/20 19:41 bees Allergy Unknown swelling Uncoded 02/14/20 00:00 nuts Allergy Unknown swelling,hi Uncoded 02/14/20 00:00 ves Review of Systems Review of Systems: Constitutional : No Fever, No Chills, No Night Sweats, No Fatigue, No Malaise ENT/Mouth : No Ear Pain, No Nasal Congestion, No Sinus Pain, No sore throat, No Rhinorrhea Eyes: No Eye Pain, No Swelling, No Redness, No Foreign Body, No Discharge, No Vision Changes Cardiovascular : No Chest Pain, No SOB, No Dyspnea on Exertion, No Orthopnea, No Palpitations Respiratory : No Cough, No Sputum, No Wheezing, No Dyspnea Gastrointestinal : No Nausea, No Vomiting, No Diarrhea, No Constipation, No abdominal Pain, No Hematochezia, No Melena Genitourinary : No Dysuria, No Urinary Frequency, No Urinary Incontinence, No Urgency, No Flank Pain Musculoskeletal : No joint pain, No Myalgias Skin : No lacerations Neuro : + Numbness, + Paresthesias, + Dizziness, No Loss of Consciousness, No Headache Yes all other systems are reviewed and are negative [facility] Past Medical History Attestation statement: The following information was validated with the patient. Medical History Anxiety Arthritis Asthma Bleeding ulcer delivery delivered History of heart attack Hives Left shoulder pain Neuropathy Recurrent major depression Type 2 diabetes mellitus Social History Social History Household Members: Spouse, Children and Other Alcohol intake: unknown Smoking Status: Unknown if ever smoked Smoked in Last 30 Days: No Use of substances other than those prescribed or required for medical reasons: Unknown Advance Directives: No Advance Directives Information Provided: No Physical Exam Vital Signs: Vital Signs: Last Vital Signs Temp 98.3 F 06/29/20 09:11 Pulse 98 06/29/20 10:44 Resp 17 06/29/20 09:11 BP 113/60 06/29/20 10:44 Pulse Ox 96 06/29/20 09:11 Body Mass Index 45.7 Vital signs have been reviewed as normal and appeared to be correct. Blood pressure normal. Heart rate normal. Respiration rate normal. Temperature normal. Oxygen saturation normal. Appearance: Alert. Oriented X3. No acute distress. Head: Normal external exam. Normocephalic. Atraumatic. Able to rotate head bilaterally. Eyes: PERRLA. EOMI. No nystagmus noted. Conjunctiva and sclera normal. Eyelids normal. Corneal reflex normal. ENT: EAC normal. TM's Normal. Hearing normal. Pharynx normal. Uvula midline. tongue midline. Moist mucous membranes. No trismus noted. No drooling noted. No muffled voice noted. Neck: Normal inspection. Neck supple. FROM. No adenopathy. Thyroid Normal. No meningeal signs. No neck mass noted. CVS: Normal heart rate and rhythm. Heart sound normal. No murmurs noted. Pulses normal throughout. Respiratory: No respiratory distress. Painless inspiration. Breath sounds normal. No wheezes/rales/rhonchi noted. Chest nontender. No accessory muscle usage noted or decreased air movement noted. Abdomen: Soft and nontender. Bowel sounds normal in all 4 quadrants. No distention noted. No organomegaly noted. No visible injury noted. Back: No CVA tenderness. Full range of motion noted. Skin: Skin warm and dry. Normal skin color. Normal skin turgor. No rashes/lesions/lacerations noted. Extremities: No lower extremity edema. Extremities exhibit normal range of motion. Extremities nontender. Able to shrug shoulders bilaterally and keep up against resistance. Neuro: Oriented X 3. No motor deficit. No sensory deficit. Reflexes normal. Moving all extremities. No focal motor deficits. Cranial nerves II-XI intact bilaterally. Facial strength normal. Normal cognition. Speech normal. Gait normal. Strength 5/5 throughout. No pronator drift. No tremor noted. No fasciculations noted. Muscle tone normal throughout. No asterixis noted. [id number] test normal. Heel to soria test normal. Tandem gait normal. Does not sway with eyes open. Romberg test negative. Rapid alternating movement upper extremity normal. Rapid alternating movement lower extremity normal. Hand drop from overhead-Missess. face. No rigidity noted. NIHSS score 0. NIH Stroke Scale Internal: Initial- Upon Arrival Time: 09:42 Level of Consciousness: Alert Level of Consciousness Questions: Answers both questions correctly Level of Consciousness Commands: Performs both tasks correctly Best Gaze: Normal Visual: No visual loss Facial Palsy: Normal Motor Arm (Right): No drift Motor Arm (Left): No drift Motor Leg (Right): No drift Motor Leg (Left): No drift Limb Ataxia: Absent Sensory: Normal Best Language: No aphasia Dysarthia: Normal Extinction and Inattention: No abnormality Score: 0 Course Course Course Narrative: 9;42am - 49yoF c PMHx of NC, DM type II, anxiety, depression, PTSD, neuropathy, arthritis and asthma presenting to the ED c sudden onset of paresthesias to the left arm/face/head with associated dizziness after receiving her 2nd COVID vaccine. - on exam patient is alert and oriented x3. No acute focal neuro deficits noted. Vital signs are within normal limits. NIHSS score is 0 at this time. - Plan: Labs, CXR, EKG, CT scan of brain then consult with Neurology and re-evaluate. Reevaluation(s) Reevaluation #1: - magnesium 1.5. - otherwise all other labs WNL. - CT scan of brain within normal limits no acute processes noted. EKG normal sinus rhythm no acute ischemic changes noted similar when compared to prior EKG.CXR WNL no acute processes noted. Orthostatic vitals within normal limits. - patient was offered Ativan although she refused and reported she took an Ativan in the parking lot prior to arriving to work due to she was already anxious about the COVID vaccine. Reports that she usually takes Ativan intermittently before work and she has never had dizziness before. I offered the patient meclizine and she agreed to take 50 mg. Will replace the patient's magnesium with p.o. magnesium at this time. - Dr. Marcial came and evaluated the patient and he believes that this could be an adverse effect due to the vaccine and conversion reaction. He reported that the patient did not need any further imaging such as a CTA of the brain and neck or MRI. Plan is to discharge the patient with a family member and to return if any new or worsening symptoms. Patient understands agrees with this plan. Time: 11:21 Medical Decision Making Medical Records Medical records reviewed: Yes I reviewed the patient's medical records. Lab Data Lab results reviewed: Yes I reviewed the patient's lab results. Result diagrams: 06/29/20 10:26 06/29/20 10:26 Labs: Lab Results 06/29/20 06/29/20 06/29/20 Range/Units 09:57 10:01 10:18 WBC (4.8-10.8) X10*3/uL RBC (4.20-5.50) X10*6/uL Hgb (12.0-16.0) g/dl Hct (37-47) % MCV (80-98) fL MCH (27.0-33.0) pg MCHC (31.0-35.0) g/dl RDW (11.0-16.0) % Plt Count (160-400) X10*3/uL MPV (9.4-12.3) fL Immature Gran % (Auto) (0.0-0.4) % Neut % (Auto) (45-73) % Lymph % (Auto) (20-40) % [place] % (Auto) (2-11) % Eos % (Auto) (0-4) % Baso % (Auto) (0-2) % Lymph # (Auto) (1.2-4.9) X10*3/uL [place] # (Auto) (0.1-1.2) X10*3/uL Eos # (Auto) (0.0-0.4) X10*3/uL Baso # (Auto) (0.0-0.2) X10*3/uL Abs Immat Gran (auto) (0.00-0.03) X10*3/uL Absolute Neuts (auto) (2.0-8.3) X10*3/uL Absolute Nucleated RBC (0.0-0.012) X10*3/uL Nucleated RBC % (auto) (0.0-0.2) /100WBC PT (10.8-13.0) SEC Whole Blood PT 11.5 (11.1-13.5) sec INR (0.9-1.1) Whole Blood INR 1.0 (0.9-1.1) APTT (24.1-38.0) SEC Sodium (135-145) mmol/L Potassium (3.3-5.1) mmol/l Chloride (96-108) mmol/L Carbon Dioxide (22-29) mmol/L Anion Gap (12-20) BUN (9-16) mg/dL Creatinine (0.5-1.4) mg/dL Estim Creat Clear Calc Estimated GFR POC Glucose 282 H (60-115) mg/dL Random Glucose (60-115) mg/dL Calcium (8.4-10.2) mg/dL Magnesium (1.6-2.6) mg/dL Total Bilirubin (0.0-1.0) mg/dL Direct Bilirubin (0.0-0.5) mg/dL AST (5-31) U/L ALT (0-31) U/L Alkaline Phosphatase (39-117) U/L Total Creatine Kinase (26-140) U/L Troponin I High Sens (<3.5-17.0) ng/L Total Protein (6.5-8.0) g/dL Albumin (3.5-5.0) g/dL TSH (0.32-4.0) uIU/mL Coronavirus (PCR) NEGATIVE (Negative) Influenza Type A (PCR) NEGATIVE (Negative) Influenza Type B (PCR) NEGATIVE (Negative) RSV RNA Qual (PCR) NEGATIVE (Negative) 06/29/20 06/29/20 06/29/20 Range/Units 10:26 10:26 10:26 WBC 7.2 (4.8-10.8) X10*3/uL RBC 4.64 (4.20-5.50) X10*6/uL Hgb 12.9 (12.0-16.0) g/dl Hct 39.2 (37-47) % MCV 84.5 (80-98) fL MCH 27.8 (27.0-33.0) pg MCHC 32.9 (31.0-35.0) g/dl RDW 13.6 (11.0-16.0) % Plt Count 234 (160-400) X10*3/uL MPV 10.5 (9.4-12.3) fL Immature Gran % (Auto) 0.1 (0.0-0.4) % Neut % (Auto) 67.1 (45-73) % Lymph % (Auto) 23.2 (20-40) % [place] % (Auto) 5.6 (2-11) % Eos % (Auto) 3.6 (0-4) % Baso % (Auto) 0.4 (0-2) % Lymph # (Auto) 1.7 (1.2-4.9) X10*3/uL [place] # (Auto) 0.4 (0.1-1.2) X10*3/uL Eos # (Auto) 0.3 (0.0-0.4) X10*3/uL Baso # (Auto) 0.0 (0.0-0.2) X10*3/uL Abs Immat Gran (auto) 0.01 (0.00-0.03) X10*3/uL Absolute Neuts (auto) 4.8 (2.0-8.3) X10*3/uL Absolute Nucleated RBC 0.000 (0.0-0.012) X10*3/uL Nucleated RBC % (auto) 0.0 (0.0-0.2) /100WBC PT 11.4 (10.8-13.0) SEC Whole Blood PT (11.1-13.5) sec INR 1.0 (0.9-1.1) Whole Blood INR (0.9-1.1) APTT 26.0 (24.1-38.0) SEC Sodium 138 (135-145) mmol/L Potassium 4.6 (3.3-5.1) mmol/l Chloride 105 (96-108) mmol/L Carbon Dioxide 22 (22-29) mmol/L Anion Gap 16 (12-20) BUN 10 (9-16) mg/dL Creatinine 0.75 (0.5-1.4) mg/dL Estim Creat Clear Calc 120.4 Estimated GFR > 60 POC Glucose (60-115) mg/dL Random Glucose 292 H (60-115) mg/dL Calcium 8.4 (8.4-10.2) mg/dL Magnesium 1.5 L (1.6-2.6) mg/dL Total Bilirubin 0.7 (0.0-1.0) mg/dL Direct Bilirubin 0.3 (0.0-0.5) mg/dL AST 12 (5-31) U/L ALT 20 (0-31) U/L Alkaline Phosphatase 63 (39-117) U/L Total Creatine Kinase 25 L (26-140) U/L Troponin I High Sens (<3.5-17.0) ng/L Total Protein 5.8 L (6.5-8.0) g/dL Albumin 3.8 (3.5-5.0) g/dL TSH 1.07 (0.32-4.0) uIU/mL Coronavirus (PCR) (Negative) Influenza Type A (PCR) (Negative) Influenza Type B (PCR) (Negative) RSV RNA Qual (PCR) (Negative) 06/29/20 Range/Units 10:26 WBC (4.8-10.8) X10*3/uL RBC (4.20-5.50) X10*6/uL Hgb (12.0-16.0) g/dl Hct (37-47) % MCV (80-98) fL MCH (27.0-33.0) pg MCHC (31.0-35.0) g/dl RDW (11.0-16.0) % Plt Count (160-400) X10*3/uL MPV (9.4-12.3) fL Immature Gran % (Auto) (0.0-0.4) % Neut % (Auto) (45-73) % Lymph % (Auto) (20-40) % [place] % (Auto) (2-11) % Eos % (Auto) (0-4) % Baso % (Auto) (0-2) % Lymph # (Auto) (1.2-4.9) X10*3/uL [place] # (Auto) (0.1-1.2) X10*3/uL Eos # (Auto) (0.0-0.4) X10*3/uL Baso # (Auto) (0.0-0.2) X10*3/uL Abs Immat Gran (auto) (0.00-0.03) X10*3/uL Absolute Neuts (auto) (2.0-8.3) X10*3/uL Absolute Nucleated RBC (0.0-0.012) X10*3/uL Nucleated RBC % (auto) (0.0-0.2) /100WBC PT (10.8-13.0) SEC Whole Blood PT (11.1-13.5) sec INR (0.9-1.1) Whole Blood INR (0.9-1.1) APTT (24.1-38.0) SEC Sodium (135-145) mmol/L Potassium (3.3-5.1) mmol/l Chloride (96-108) mmol/L Carbon Dioxide (22-29) mmol/L Anion Gap (12-20) BUN (9-16) mg/dL Creatinine (0.5-1.4) mg/dL Estim Creat Clear Calc Estimated GFR POC Glucose (60-115) mg/dL Random Glucose (60-115) mg/dL Calcium (8.4-10.2) mg/dL Magnesium (1.6-2.6) mg/dL Total Bilirubin (0.0-1.0) mg/dL Direct Bilirubin (0.0-0.5) mg/dL AST (5-31) U/L ALT (0-31) U/L Alkaline Phosphatase (39-117) U/L Total Creatine Kinase (26-140) U/L Troponin I High Sens < 3.5 (<3.5-17.0) ng/L Total Protein (6.5-8.0) g/dL Albumin (3.5-5.0) g/dL TSH (0.32-4.0) uIU/mL Coronavirus (PCR) (Negative) Influenza Type A (PCR) (Negative) Influenza Type B (PCR) (Negative) RSV RNA Qual (PCR) (Negative) Imaging Data Chest x-ray: Attestation: I personally reviewed and interpreted this imaging study as follows: Radiologist's impression: FINDINGS: No significant abnormality is noted involving the heart, lungs, mediastinum, bony thorax or soft tissues. XR/XR chest 2V IMPRESSION: No acute disease. CT scan - head: Attestation: I personally reviewed and interpreted this imaging study as follows: Radiologist's impression: [place] [id number] CT Scan Report Signed Patient: Angie Lomax [facility]#: [id number] : 1970Acct:[id number] Age/Sex: 49 / FADM Date: 06/29/20 Loc: HO.ED Attending Dr: Ordering Physician: SIDDHARTHA JARRETT Date of Service: 06/29/20 Procedure(s): CT head for stroke Accession Number(s): [id number] cc: SIDDHARTHA JARRETT~ EXAMINATION: CT HEAD WITHOUT CONTRAST (STROKE PROTOCOL) CLINICAL INFORMATION: Stroke protocol. . Numbness left face and arm, sudden onset COMPARISON: None TECHNIQUE: Contiguous axial imaging was performed from the skull base to vertex without intravenous administration of contrast. This CT examination was performed using dose optimization techniques as appropriate, variously including the following: *Automated exposure control *Adjustment of mA and/or kV according to patient size (this includes techniques or standardized protocols for targeted exams where dose is matched to indication/reason for exam; i.e. extremities or head) *Use of iterative reconstruction technique DLP: 696 mGy-cm FINDINGS: There is no intracranial hemorrhage, hematoma, or extra-axial fluid collection. The ventricles are normal in size. There is no hydrocephalus, edema, or mass effect. The philippe-white matter differentiation appears symmetric. There is no acute infarct or mass lesion. The calvarium appears intact. There is no pneumocephalus or orbital emphysema. The visualized sinuses and middle ears and mastoid air cells show no significant mucosal thickening. There are no air-fluid levels. CT/CT head for stroke IMPRESSION: No acute intracranial process seen. This critical result was discussed with RADHA Summers at 11:00 AM. It was ascertained that the content and urgency of the report was understood at the time of direct communication. ECG Data Attestation: I personally reviewed and interpreted this ECG as follows: Interpretation: Normal sinus rhythm with a ventricular rate of [address] changes no acute ischemic changes today. Similar compared to prior EKG on 09/08/2019. Critical Care Time Critical Care Time Critical Care Time: Yes Total Critical Care Time: 60 Attestation: I personally attest to this time spent taking care of the patient Discharge Plan Discharge Clinical Impression: Low blood magnesium, Dizziness, Paresthesias, Post-vaccination reaction Patient Disposition: Home, Self-Care Instructions: Paresthesia (ED), Hypomagnesemia (ED), Dizziness (ED) Prescriptions: New meclizine 25 mg tablet 25 mg PO TID PRN (Reason: dizziness) Qty: 10 RF: 0 No Action fexofenadine [Emily] 180 mg Tablet 540 mg PO BID RF: 0 atorvastatin 80 mg Tablet 80 mg PO DAILY RF: 0 gabapentin 600 mg Tablet 600 mg PO BEDTIME RF: 0 tizanidine 2 mg Tablet 2 mg PO DAILY PRN (Reason: Muscle Pain) RF: 0 cetirizine [Zyrtec] 10 mg Tablet 10 mg PO DAILY RF: 0 tizanidine 4 mg Tablet 4 mg PO BEDTIME PRN (Reason: Muscle Pain) RF: 0 methylphenidate HCl [Ritalin] 10 mg Tablet 10 mg PO DAILY RF: 0 clopidogrel 75 mg Tablet 75 mg PO DAILY RF: 0 carvedilol 3.125 mg Tablet 3.125 mg PO BID RF: 0 pantoprazole 40 mg Tablet,Delayed Release (Dr/Ec) 40 mg PO DAILY RF: 0 metformin 1,000 mg Tablet 1,000 mg PO BID RF: 0 aspirin 81 mg Tablet,Chewable 81 mg PO DAILY RF: 0 montelukast [Singulair] 10 mg Tablet 10 mg PO BEDTIME RF: 0 hydroxychloroquine 200 mg Tablet 200 mg PO BID RF: 0 albuterol sulfate [ProAir HFA] 90 mcg/actuation Hfa Aerosol Inhaler 2 puff INHALATION Q4H PRN (Reason: Shortness Of Breath) RF: 0 glipizide 5 mg Tablet 15 mg PO BID RF: 0 oxycodone 5 mg Tablet 5 mg PO Q8H PRN (Reason: Pain) RF: 0 gabapentin 300 mg Tablet 300 mg PO BID PRN (Reason: Pain) RF: 0 cholecalciferol (vitamin D3) [Vitamin D3] 25 mcg (1,000 unit) Tablet 25 mcg PO DAILY RF: 0 magnesium chloride 70 mg Tablet,Delayed Release (Dr/Ec) 70 mg PO BID RF: 0 lorazepam 1 mg Tablet 1 mg PO BID PRN (Reason: Anxiety) RF: 0 fluoxetine [Prozac] 20 mg Capsule 60 mg PO DAILY RF: 0 Lantus Solostar U-100 Insulin 100 unit/mL (3 mL) Insulin Pen 31 unit SUBCUT QPM RF: 0 Trulicity 1.5 mg/0.5 mL Pen Injector 1.5 mg SUBCUT QWEEK RF: 0 lamotrigine [Lamictal] 25 mg tablet 25 mg PO DAILY 14 Days Qty: 14 RF: 1 risperidone 0.25 mg tablet 0.125 mg PO BID MDD 0.25 mg PRN (Reason: agitation) Qty: 14 RF: 1 Referrals: Jefferson Sinclair MD [Primary Care Provider] - 2 days Stand Alone Forms: Work/School Release Print Language: Yi
[2020-06-29 10:05] LABS: Glucose, Whole Blood 282 mg/dL (60-115)
[2020-06-29 10:07] LABS: Prothrombin Time Whole Bld POC 11.5 sec (11.1-13.5)
[2020-06-29 10:29] LABS: MANUAL DIFF FLAG NO
[2020-06-29 10:33] LABS: Basophils Percent Auto 0.4 % (0-2); Eosinophils Absolute Auto 0.3 X10*3/uL (0.0-0.4); Eosinophils Percent Auto 3.6 % (0-4); Hematocrit 39.2 % (37-47); Hemoglobin 12.9 g/dl (12.0-16.0); Imm Gran Abs Auto 0.01 X10*3/uL (0.00-0.03); Imm Gran Pct Auto 0.1 % (0.0-0.4); Lymphocytes Absolute Auto 1.7 X10*3/uL (1.2-4.9); Lymphocytes Percent Auto 23.2 % (20-40); Mean Corpuscular HGB Conc 32.9 g/dl (31.0-35.0); Mean Corpuscular Hemoglobin 27.8 pg (27.0-33.0); Mean Corpuscular Volume 84.5 fL (80-98); Mean Platelet Volume 10.5 fL (9.4-12.3); Monocytes Absolute Auto 0.4 X10*3/uL (0.1-1.2); Monocytes Percent Auto 5.6 % (2-11); Neutrophils Absolute Auto 4.8 X10*3/uL (2.0-8.3); Neutrophils Percent Auto 67.1 % (45-73); Platelet Count 234 X10*3/uL (160-400); Red Blood Count 4.64 X10*6/uL (4.20-5.50); Red Cell Distribution Width 13.6 % (11.0-16.0); White Blood Count 7.2 X10*3/uL (4.8-10.8)
--- NOTE | 2020-06-29 10:34 | PM.NEUROCN ---
History of Present Illness Data of Consult Service Date: 06/29/20 Primary Care Provider: Jefferson Sinclair MD 49 years old woman with underlying history of anxiety/panic disorder, diabetes, coronary artery disease who had COVID injection or vaccination today after which she started having symptoms bring her to emergency room. She said that she had a numb feeling and pain in left side of her arm and neck and then the numb feeling traveling to her face on the left side and then to the other side and it was like her whole brain was numb. She had complained of numbness on left side of her body. She was brought to emergency room and a stroke alert was called. I saw her before she was going to have CT scan of brain. There was no nausea or vomiting and she denied any headache. She did say that she had a headache few days ago and she was not getting frequent headaches. Review of Systems Review of Systems: No recent cold or flu-like illness or trauma. [facility] Past Medical History Medical History (Updated 06/29/20 @ 10:39 by Dmitriy Marcial MD) Anxiety Arthritis Asthma Bleeding ulcer delivery delivered History of heart attack Hives Left shoulder pain Neuropathy Recurrent major depression Type 2 diabetes mellitus Social History Social History Household Members: Spouse, Children and Other Smoking Status: Unknown if ever smoked Advance Directives: No Advance Directives Information Provided: No Meds Allergies Allergy/AdvReac Type Severity Reaction Status Date / Time bee pollen [BEE STINGS] Allergy Severe ANAPHYLAXIS Verified 06/29/20 09:15 coconut [COCONUT] Allergy Unknown HIVES Unverified 03/02/20 19:41 buspirone [BUSPIRONE] AdvReac Intermediate Sedation Unverified 03/02/20 19:41 bees Allergy Unknown swelling Uncoded 02/14/20 00:00 nuts Allergy Unknown swelling,hi Uncoded 02/14/20 00:00 ves Home Medications Medication Instructions Recorded Confirmed Type albuterol sulfate [ProAir HFA] 2 puff INHALATION Q4H PRN 04/13/20 04/13/20 History aspirin 81 mg PO DAILY 04/13/20 04/13/20 History atorvastatin 80 mg PO DAILY 04/13/20 04/13/20 History carvedilol 3.125 mg PO BID 04/13/20 04/13/20 History cetirizine [Zyrtec] 10 mg PO DAILY 04/13/20 04/13/20 History cholecalciferol (vitamin D3) 25 mcg PO DAILY 04/13/20 04/13/20 History [Vitamin D3] clopidogrel 75 mg PO DAILY 04/13/20 04/13/20 History dulaglutide [Trulicity] 1.5 mg SUBCUT QWEEK 04/13/20 04/13/20 History fexofenadine [Emily] 540 mg PO BID 04/13/20 04/13/20 History fluoxetine [Prozac] 60 mg PO DAILY 04/13/20 04/13/20 History gabapentin 300 mg PO BID PRN 04/13/20 04/13/20 History gabapentin 600 mg PO BEDTIME 04/13/20 04/13/20 History glipizide 15 mg PO BID 04/13/20 04/13/20 History hydroxychloroquine 200 mg PO BID 04/13/20 04/13/20 History insulin glargine [Lantus Solostar 31 unit SUBCUT QPM 04/13/20 04/13/20 History U-100 Insulin] lorazepam 1 mg PO BID PRN 04/13/20 04/13/20 History magnesium chloride 70 mg PO BID 04/13/20 04/13/20 History metformin 1,000 mg PO BID 04/13/20 04/13/20 History methylphenidate HCl [Ritalin] 10 mg PO DAILY 04/13/20 04/13/20 History montelukast [Singulair] 10 mg PO BEDTIME 04/13/20 04/13/20 History oxycodone 5 mg PO Q8H PRN 04/13/20 04/13/20 History pantoprazole 40 mg PO DAILY 04/13/20 04/13/20 History tizanidine 2 mg PO DAILY PRN 04/13/20 04/13/20 History tizanidine 4 mg PO BEDTIME PRN 04/13/20 04/13/20 History Physical Exam Vital Signs: Vital Signs: Last Vital Signs Temp 98.3 F 06/29/20 09:11 Pulse 95 06/29/20 09:11 Resp 17 06/29/20 09:11 BP 133/80 06/29/20 09:11 Pulse Ox 96 06/29/20 09:11 Body Mass Index 45.7 Results Labs CBC & Chem 7: 06/29/20 10:26 06/29/20 10:26 Labs: Short CBC 06/29/20 Range/Units 10:26 WBC 7.2 (4.8-10.8) X10*3/uL Hgb 12.9 (12.0-16.0) g/dl Hct 39.2 (37-47) % Plt Count 234 (160-400) X10*3/uL She was alert and awake with normal spontaneity of speech fluency comprehension and anxious affect. Pupils were equal reactive to light. External ocular muscles were intact. Visual rosas are full. Face was symmetrical. There was no definite focal weakness though she was slow to lift her arms or legs. Deep tendon reflexes are 1+ with flexor planters. Noncontrast head CT did not reveal any significant abnormality. Chest x-ray did not reveal any significant abnormality. Assessment and Plan (1) Conversion reaction: Status: Acute 49 years old woman with complicated underlying medical and psychiatric history who had number of symptoms after COVID vaccination. Overall symptomatology its description and presentation was suggestive of conversion reaction triggered by psychological factors. Mainstay of management is reassurance and education.
[2020-06-29 10:36] LABS: Prothrombin Time 11.4 SEC (10.8-13.0)
[2020-06-29 10:40] LABS: Stroke Lab Use COMPLETE
[2020-06-29 10:42] VITALS: BP 105/53; PULSE 87
[2020-06-29 10:43] VITALS: BP 116/64; PULSE 99
[2020-06-29 10:44] VITALS: BP 113/60; PULSE 98
[2020-06-29] MEDS: Meclizine HCl 25 MG TABLET 50 MG PO (10:49)
[2020-06-29 10:54] LABS: Alanine Aminotransferase 20 U/L (0-31); Albumin Level 3.8 g/dL (3.5-5.0); Alkaline Phosphatase 63 U/L (39-117); Anion Gap 16 (12-20); Aspartate Amino Transferase 12 U/L (5-31); Bilirubin Direct 0.3 mg/dL (0.0-0.5); Bilirubin Total 0.7 mg/dL (0.0-1.0); Blood Urea Nitrogen 10 mg/dL (9-16); Calcium 8.4 mg/dL (8.4-10.2); Carbon Dioxide 22 mmol/L (22-29); Chloride 105 mmol/L (96-108); Creatinine Clr Calc Pharmacy 120.4; Estimated Glomerular Filt Rate > 60; Glucose Random 292 mg/dL (60-115); Magnesium 1.5 mg/dL (1.6-2.6); Potassium 4.6 mmol/l (3.3-5.1); Sodium 138 mmol/L (135-145); Total Protein 5.8 g/dL (6.5-8.0)
[2020-06-29 11:00] LABS: Troponin-I High Sensitivity < 3.5 ng/L (<3.5-17.0)
[2020-06-29 11:15] LABS: Thyroid Stimulating Hormone 1.07 uIU/mL (0.32-4.0)
[2020-06-29 11:27] LABS: Influenza A PCR NEGATIVE (Negative); Influenza B PCR NEGATIVE (Negative); Resp Syncy Virus RNA Qual PCR NEGATIVE (Negative); SARS COV2 PCR INHOUSE NEGATIVE (Negative)
[2020-06-29] MEDS: Magnesium Oxide 400 MG TABLET 800 MG PO (11:28)
--- NOTE | 2020-06-29 11:39 | MHC.STROKE ---
0907 WALK-IN. NOTIFIED [address] DR KENNEDY OF A STROKE PROTOCOL ACTIVATION. CT HEAD DONE. AT 0949, COMPLETED AT 0956, I ALSO VERIFIED THAT DR HURT CALLED THE RESULTS AT [address]1. SEE DR KENNEDY'S CONSULTATION NOTE.
== END 2020-06-29 11:53 | disposition home or self-care (01) ==
PROVIDERS: Physician Assistant Medical; Emergency Provider Emergency Medicine Emergency Medical Services; PCP Internal Medicine Sports Medicine
DX: R20.0 Anesthesia of skin (principal); R42 Dizziness and giddiness; E83.40 Disorders of magnesium metabolism, unspecified; T88.1XXA Other complications following immunization, not elsewhere classified, initial encounter; X58.XXXA Exposure to other specified factors, initial encounter; Z20.822 Contact with and (suspected) exposure to COVID-19
CPT/HCPCS: 0241U; 36415; 70450; 71046; 80048; 80076; 82550; 82947; 83735; 84443; 84484; 85025; 85610; 85730; 93005; 96360; 99284; 99291

== ENCOUNTER 2020-07-11 13:10 | Emergency (ER) | payer OTHER, SELFPAY ==
--- NOTE | 2020-07-11 13:22 | CT_ITS ---
EXAMINATION: CT HEAD WITHOUT CONTRAST CLINICAL INFORMATION: Left-sided facial numbness and weakness COMPARISON: None TECHNIQUE: Contiguous axial imaging was performed from the skull base to vertex without intravenous administration of contrast. This CT examination was performed using dose optimization techniques as appropriate, variously including the following: *Automated exposure control *Adjustment of mA and/or kV according to patient size (this includes techniques or standardized protocols for targeted exams where dose is matched to indication/reason for exam; i.e. extremities or head) *Use of iterative reconstruction technique DLP: 698 mGy-cm FINDINGS: There is no evidence of acute intracranial hemorrhage or territorial infarction. No abnormal mass effect or midline shift is seen. [place] to white matter differentiation is well preserved. No extra-axial fluid collections are identified. The ventricles are normal in size. There is no abnormal attenuation within the brain parenchyma. The osseous structures and soft tissues are normal. The mastoid air cells and visualized portions of the paranasal sinuses are well aerated. CT/CT head/brain wo con IMPRESSION: No acute intracranial process seen
--- NOTE | 2020-07-11 13:22 | ECG_ITS ---
Test Reason : R/O CVA Blood Pressure : / mmHG Vent. Rate : 077 BPM Atrial Rate : 077 BPM P-R Int : 152 ms QRS Dur : 096 ms QT Int : 400 ms P-R-T Axes : 125 184 168 degrees QTc Int : 452 ms Suspect limb lead reversal, interpretation assumes no reversal Unusual P axis, possible ectopic atrial rhythm Right superior axis deviation Abnormal ECG When compared with ECG of 29-JUN-2020 10:08, Ectopic atrial rhythm has replaced Sinus rhythm QRS axis Shifted left Referred By: Kaitlyn Garcia Electronically Signed By:David Redd
--- NOTE | 2020-07-11 13:27 | ED_ITS ---
HPI - Neuro Symptoms/Deficit General Chief Complaint: Weakness Stated Complaint: STROKE SYMPTONS Time Seen by Provider: 07/11/20 13:21 Source: patient Mode of arrival: wheelchair (from her job) Limitations: no limitations History of Present Illness HPI Narrative: just seen about 10 days ago with dizziness, facial numbness - had workup including Neurology consult and dx with conversion disorder at that time the PA on staff in ED felt this was related to benzo use, today she tells me and RN she took 1mg ativan this AM drove here (driving scares me) then worked until her co workers urged her to come, she c/o facial numbness and dizziness since last night Its the same thing I just had after the vaccine but she did not receive the vaccine today Onset (ago): hour(s) (12) Location: left face and other (dizziness) History of same: Yes Severity: moderate Quality: numb and constant Relieving factors: none Exacerbating factors: none Context: sudden onset On Anticoagulants: No Associated symptoms: vertigo and weakness Treatments Prior to Arrival: none Related Data Home Medications Medication Instructions Recorded Confirmed albuterol sulfate [ProAir HFA] 2 puff INHALATION Q4H PRN 04/13/20 04/13/20 aspirin 81 mg PO DAILY 04/13/20 04/13/20 atorvastatin 80 mg PO DAILY 04/13/20 04/13/20 carvedilol 3.125 mg PO BID 04/13/20 04/13/20 cetirizine [Zyrtec] 10 mg PO DAILY 04/13/20 04/13/20 cholecalciferol (vitamin D3) 25 mcg PO DAILY 04/13/20 04/13/20 [Vitamin D3] clopidogrel 75 mg PO DAILY 04/13/20 04/13/20 dulaglutide [Trulicity] 1.5 mg SUBCUT QWEEK 04/13/20 04/13/20 fexofenadine [Emily] 540 mg PO BID 04/13/20 04/13/20 fluoxetine [Prozac] 60 mg PO DAILY 04/13/20 04/13/20 gabapentin 300 mg PO BID PRN 04/13/20 04/13/20 gabapentin 600 mg PO BEDTIME 04/13/20 04/13/20 glipizide 15 mg PO BID 04/13/20 04/13/20 hydroxychloroquine 200 mg PO BID 04/13/20 04/13/20 insulin glargine [Lantus Solostar 31 unit SUBCUT QPM 04/13/20 04/13/20 U-100 Insulin] lorazepam 1 mg PO BID PRN 04/13/20 04/13/20 magnesium chloride 70 mg PO BID 04/13/20 04/13/20 metformin 1,000 mg PO BID 04/13/20 04/13/20 methylphenidate HCl [Ritalin] 10 mg PO DAILY 04/13/20 04/13/20 montelukast [Singulair] 10 mg PO BEDTIME 04/13/20 04/13/20 oxycodone 5 mg PO Q8H PRN 04/13/20 04/13/20 pantoprazole 40 mg PO DAILY 04/13/20 04/13/20 tizanidine 2 mg PO DAILY PRN 04/13/20 04/13/20 tizanidine 4 mg PO BEDTIME PRN 04/13/20 04/13/20 Previous Rx's Medication Instructions Recorded lamotrigine [Lamictal] 25 mg PO DAILY 14 Days #14 tab 05/04/20 risperidone 0.125 mg PO BID PRN #14 tab MDD 05/04/20 0.25 mg meclizine 25 mg PO TID PRN #10 tab 06/29/20 Allergies Allergy/AdvReac Type Severity Reaction Status Date / Time bee pollen [BEE STINGS] Allergy Severe ANAPHYLAXIS Verified 07/11/20 15:22 coconut [COCONUT] Allergy Unknown HIVES Verified 07/11/20 15:22 buspirone [BUSPIRONE] AdvReac Intermediate Sedation Verified 07/11/20 15:22 bees Allergy Unknown swelling Uncoded 02/14/20 00:00 Review of Systems Review of Systems: Constitutional : No Weight loss, No Fever, No Chills, No Fatigue, No Malaise ENT/Mouth : No sore throat, No Rhinorrhea Eyes: No Eye Pain, No Swelling, No Redness Cardiovascular : No Chest Pain, No SOB, No Dyspnea on Exertion, No Orthopnea, No Edema, No Palpitations Respiratory : No Cough, No Sputum, No Wheezing Gastrointestinal : No Nausea, No Vomiting, No Diarrhea, No Constipation, No abdominal Pain, No Hematochezia, No Melena Genitourinary : No Dysuria, No Urinary Frequency, No Hematuria, Musculoskeletal : No joint pain, No Myalgias, No Joint Swelling Skin : No Skin Lesions, No rash Neuro : No Weakness, pos Numbness, pos Dizziness, No Headache Psych : No Anxiety/Panic, No Depression Heme/Lymph: No Bruising, No Bleeding,No Lymphadenopathy Endocrine : No Polyuria, No Polydipsia All other systems reviewed and are negative [facility] Past Medical History Attestation statement: The following information was validated with the patient. Medical History Anxiety Arthritis Asthma Bleeding ulcer delivery delivered History of heart attack Hives Left shoulder pain Neuropathy Recurrent major depression Type 2 diabetes mellitus Social History Social History Household Members: Spouse, Children and Other Alcohol intake: current Alcohol intake frequency: a few times a month Smoking Status: Never smoker Use of substances other than those prescribed or required for medical reasons: No Advance Directives: No Advance Directives Information Provided: No Physical Exam Vital Signs: Vital Signs: Last Vital Signs Temp 98.0 F 07/11/20 13:53 Pulse 73 07/11/20 15:24 Resp 15 07/11/20 15:24 BP 133/79 07/11/20 15:24 Pulse Ox 99 07/11/20 15:24 Body Mass Index 44.9 Appearance: sluggish. Oriented X3. No acute distress. Eyes: Pupils equal, round and reactive to light. no nystagmus no visual field deficits ENT: Pharynx normal. Neck: Normal inspection. Neck supple. CVS: Normal heart rate and rhythm. Pulses normal. Respiratory: No respiratory distress. Breath sounds normal. Abdomen: Soft and nontender. Skin: Skin warm and dry. Normal skin color. Normal skin turgor. Extremities: No lower extremity edema. No calf ttp Neuro: Oriented X 3. No motor deficit. L sided facial numbness per her report, no drift, will not ambulate comes in WC - she has intermittent L sided facial weakness at mouth only but then it resolves Course Course Course Narrative: mag repleted at this time, no focal deficits, states she feels fine, RN machining and assembly supervisor involved repeat neuro exam, she attempted to have L sided facial weakness - I asked her to please stop and she had full symmetric smile, at this time DC home with work connection follow up MDM - Neuro Symptoms/Deficit MDM Narrative Medical decision making narrative: 49 yo female with [place] on asa and plavix, PTSD just seen by Neurology for same exact symptoms dx with conversion disorder at this time the patient has L sided facial numbness L facial weakness that seems intermittent and reported dizziness onset last night - my concern is that the patient appears under the influence, she is laughing at times, appears it is hard to focus, she is sedated, she admits to taking ativan prior to driving and coming to work. I suspect some of her symptoms might be due to benzodiazepine intoxication - labs, ETOH, drugs of abuse, EKG, repeat CT scan dispo per results, I have notified RN machining and assembly supervisor as I am concerned about her driving and coming to work after ativan use. Lab Data Result diagrams: 07/11/20 14:08 07/11/20 14:08 Labs: Lab Results 07/11/20 07/11/20 07/11/20 Range/Units 14:08 14:08 14:08 WBC 7.7 (4.8-10.8) X10*3/uL RBC 4.71 (4.20-5.50) X10*6/uL Hgb 13.3 (12.0-16.0) g/dl Hct 39.8 (37-47) % MCV 84.5 (80-98) fL MCH 28.2 (27.0-33.0) pg MCHC 33.4 (31.0-35.0) g/dl RDW 13.9 (11.0-16.0) % Plt Count 190 (160-400) X10*3/uL MPV 11.0 (9.4-12.3) fL Immature Gran % (Auto) 0.4 (0.0-0.4) % Neut % (Auto) 65.0 (45-73) % Lymph % (Auto) 24.2 (20-40) % [place] % (Auto) 6.1 (2-11) % Eos % (Auto) 3.9 (0-4) % Baso % (Auto) 0.4 (0-2) % Lymph # (Auto) 1.9 (1.2-4.9) X10*3/uL [place] # (Auto) 0.5 (0.1-1.2) X10*3/uL Eos # (Auto) 0.3 (0.0-0.4) X10*3/uL Baso # (Auto) 0.0 (0.0-0.2) X10*3/uL Abs Immat Gran (auto) 0.03 (0.00-0.03) X10*3/uL Absolute Neuts (auto) 5.0 (2.0-8.3) X10*3/uL Absolute Nucleated RBC 0.000 (0.0-0.012) X10*3/uL Nucleated RBC % (auto) 0.0 (0.0-0.2) /100WBC Sodium 135 (135-145) mmol/L Potassium 4.4 (3.3-5.1) mmol/l Chloride 102 (96-108) mmol/L Carbon Dioxide 23 (22-29) mmol/L Anion Gap 14 (12-20) BUN 9 (9-16) mg/dL Creatinine 0.72 (0.5-1.4) mg/dL Estim Creat Clear Calc 124.1 Estimated GFR > 60 Random Glucose 199 H (60-115) mg/dL Calcium 8.5 (8.4-10.2) mg/dL Magnesium 1.5 L (1.6-2.6) mg/dL Total Bilirubin 0.6 (0.0-1.0) mg/dL Direct Bilirubin 0.2 (0.0-0.5) mg/dL AST 16 (5-31) U/L ALT 19 (0-31) U/L Alkaline Phosphatase 55 (39-117) U/L Troponin I High Sens < 3.5 (<3.5-17.0) ng/L Total Protein 6.0 L (6.5-8.0) g/dL Albumin 3.7 (3.5-5.0) g/dL Urine Color Urine Appearance Urine pH (5.0-8.0) Ur Specific [place] (1.005-1.025) Urine Protein (NEG-TRACE) MG/DL Urine Glucose (UA) (NEG) MG/DL Urine Ketones (NEG) MG/DL Urine Blood (NEG) Urine Nitrite (NEG) Ur Leukocyte Esterase (NEG) Urine Opiates Screen (Not Detect) Ur Barbiturates Screen (Not Detect) Ur Phencyclidine Scrn (Not Detect) Ur Amphetamines Screen (Not Detect) U Benzodiazepines Scrn (Not Detect) Urine Cocaine Screen (Not Detect) U Marijuana (THC) Screen (Not Detect) Ethyl Alcohol mg/dL 07/11/20 07/11/20 07/11/20 Range/Units 14:08 14:43 14:50 WBC (4.8-10.8) X10*3/uL RBC (4.20-5.50) X10*6/uL Hgb (12.0-16.0) g/dl Hct (37-47) % MCV (80-98) fL MCH (27.0-33.0) pg MCHC (31.0-35.0) g/dl RDW (11.0-16.0) % Plt Count (160-400) X10*3/uL MPV (9.4-12.3) fL Immature Gran % (Auto) (0.0-0.4) % Neut % (Auto) (45-73) % Lymph % (Auto) (20-40) % [place] % (Auto) (2-11) % Eos % (Auto) (0-4) % Baso % (Auto) (0-2) % Lymph # (Auto) (1.2-4.9) X10*3/uL [place] # (Auto) (0.1-1.2) X10*3/uL Eos # (Auto) (0.0-0.4) X10*3/uL Baso # (Auto) (0.0-0.2) X10*3/uL Abs Immat Gran (auto) (0.00-0.03) X10*3/uL Absolute Neuts (auto) (2.0-8.3) X10*3/uL Absolute Nucleated RBC (0.0-0.012) X10*3/uL Nucleated RBC % (auto) (0.0-0.2) /100WBC Sodium (135-145) mmol/L Potassium (3.3-5.1) mmol/l Chloride (96-108) mmol/L Carbon Dioxide (22-29) mmol/L Anion Gap (12-20) BUN (9-16) mg/dL Creatinine (0.5-1.4) mg/dL Estim Creat Clear Calc Estimated GFR Random Glucose (60-115) mg/dL Calcium (8.4-10.2) mg/dL Magnesium (1.6-2.6) mg/dL Total Bilirubin (0.0-1.0) mg/dL Direct Bilirubin (0.0-0.5) mg/dL AST (5-31) U/L ALT (0-31) U/L Alkaline Phosphatase (39-117) U/L Troponin I High Sens (<3.5-17.0) ng/L Total Protein (6.5-8.0) g/dL Albumin (3.5-5.0) g/dL Urine Color YELLOW Urine Appearance CLEAR Urine pH 5.5 (5.0-8.0) Ur Specific [place] 1.010 (1.005-1.025) Urine Protein NEG (NEG-TRACE) MG/DL Urine Glucose (UA) NEG (NEG) MG/DL Urine Ketones NEG (NEG) MG/DL Urine Blood TRACE (NEG) Urine Nitrite NEG (NEG) Ur Leukocyte Esterase TRACE H (NEG) Urine Opiates Screen Not Detected (Not Detect) Ur Barbiturates Screen Not Detected (Not Detect) Ur Phencyclidine Scrn Not Detected (Not Detect) Ur Amphetamines Screen Not Detected (Not Detect) U Benzodiazepines Scrn Not Detected (Not Detect) Urine Cocaine Screen Not Detected (Not Detect) U Marijuana (THC) Screen Not Detected (Not Detect) Ethyl Alcohol < 10 mg/dL ECG Data Attestation: I personally reviewed and interpreted this ECG as follows: ECG interpretation date: 07/11/20 ECG interpretation time: 14:05 Interpretation: Rate: 79 Rhythm: NSR [place]: left Normal P waves. Normal JAYMIE. Normal QRS complex. ST T wave : normal, no MIRYAM qTC: normal prior studies: no acute ischemia The study has been interpreted contemporaneously by me. . Discharge Plan Discharge Clinical Impression: Anxiety, Hypomagnesemia Patient Disposition: Home, Self-Care Instructions: Hypomagnesemia (ED), Anxiety (ED) Additional Instructions: return to ED for any worsening symptoms or concerns Prescriptions: No Action fexofenadine [Emily] 180 mg Tablet 540 mg PO BID RF: 0 atorvastatin 80 mg Tablet 80 mg PO DAILY RF: 0 gabapentin 600 mg Tablet 600 mg PO BEDTIME RF: 0 tizanidine 2 mg Tablet 2 mg PO DAILY PRN (Reason: Muscle Pain) RF: 0 cetirizine [Zyrtec] 10 mg Tablet 10 mg PO DAILY RF: 0 tizanidine 4 mg Tablet 4 mg PO BEDTIME PRN (Reason: Muscle Pain) RF: 0 methylphenidate HCl [Ritalin] 10 mg Tablet 10 mg PO DAILY RF: 0 clopidogrel 75 mg Tablet 75 mg PO DAILY RF: 0 carvedilol 3.125 mg Tablet 3.125 mg PO BID RF: 0 pantoprazole 40 mg Tablet,Delayed Release (Dr/Ec) 40 mg PO DAILY RF: 0 metformin 1,000 mg Tablet 1,000 mg PO BID RF: 0 aspirin 81 mg Tablet,Chewable 81 mg PO DAILY RF: 0 montelukast [Singulair] 10 mg Tablet 10 mg PO BEDTIME RF: 0 hydroxychloroquine 200 mg Tablet 200 mg PO BID RF: 0 albuterol sulfate [ProAir HFA] 90 mcg/actuation Hfa Aerosol Inhaler 2 puff INHALATION Q4H PRN (Reason: Shortness Of Breath) RF: 0 glipizide 5 mg Tablet 15 mg PO BID RF: 0 oxycodone 5 mg Tablet 5 mg PO Q8H PRN (Reason: Pain) RF: 0 gabapentin 300 mg Tablet 300 mg PO BID PRN (Reason: Pain) RF: 0 cholecalciferol (vitamin D3) [Vitamin D3] 25 mcg (1,000 unit) Tablet 25 mcg PO DAILY RF: 0 magnesium chloride 70 mg Tablet,Delayed Release (Dr/Ec) 70 mg PO BID RF: 0 lorazepam 1 mg Tablet 1 mg PO BID PRN (Reason: Anxiety) RF: 0 fluoxetine [Prozac] 20 mg Capsule 60 mg PO DAILY RF: 0 Lantus Solostar U-100 Insulin 100 unit/mL (3 mL) Insulin Pen 31 unit SUBCUT QPM RF: 0 Trulicity 1.5 mg/0.5 mL Pen Injector 1.5 mg SUBCUT QWEEK RF: 0 lamotrigine [Lamictal] 25 mg tablet 25 mg PO DAILY 14 Days Qty: 14 RF: 1 risperidone 0.25 mg tablet 0.125 mg PO BID MDD 0.25 mg PRN (Reason: agitation) Qty: 14 RF: 1 meclizine 25 mg tablet 25 mg PO TID PRN (Reason: dizziness) Qty: 10 RF: 0 Referrals: Jefferson Sinclair MD [Primary Care Provider] - 2 days Stand Alone Forms: Work/School Release
[2020-07-11 13:53] VITALS: BP 154/85; PULSE 80; RESP 17; TEMP 36.7; O2SAT 99; BMI 44.9
[2020-07-11 14:17] LABS: MANUAL DIFF FLAG NO
[2020-07-11 14:23] LABS: Basophils Percent Auto 0.4 % (0-2); Eosinophils Absolute Auto 0.3 X10*3/uL (0.0-0.4); Eosinophils Percent Auto 3.9 % (0-4); Hematocrit 39.8 % (37-47); Hemoglobin 13.3 g/dl (12.0-16.0); Imm Gran Abs Auto 0.03 X10*3/uL (0.00-0.03); Imm Gran Pct Auto 0.4 % (0.0-0.4); Lymphocytes Absolute Auto 1.9 X10*3/uL (1.2-4.9); Lymphocytes Percent Auto 24.2 % (20-40); Mean Corpuscular HGB Conc 33.4 g/dl (31.0-35.0); Mean Corpuscular Hemoglobin 28.2 pg (27.0-33.0); Mean Corpuscular Volume 84.5 fL (80-98); Monocytes Absolute Auto 0.5 X10*3/uL (0.1-1.2); Monocytes Percent Auto 6.1 % (2-11); Platelet Count 190 X10*3/uL (160-400); Red Blood Count 4.71 X10*6/uL (4.20-5.50); Red Cell Distribution Width 13.9 % (11.0-16.0); White Blood Count 7.7 X10*3/uL (4.8-10.8)
[2020-07-11 14:49] LABS: Ethanol < 10 mg/dL
[2020-07-11 14:54] LABS: Alanine Aminotransferase 19 U/L (0-31); Albumin Level 3.7 g/dL (3.5-5.0); Alkaline Phosphatase 55 U/L (39-117); Anion Gap 14 (12-20); Aspartate Amino Transferase 16 U/L (5-31); Bilirubin Direct 0.2 mg/dL (0.0-0.5); Bilirubin Total 0.6 mg/dL (0.0-1.0); Blood Urea Nitrogen 9 mg/dL (9-16); Calcium 8.5 mg/dL (8.4-10.2); Carbon Dioxide 23 mmol/L (22-29); Chloride 102 mmol/L (96-108); Creatinine Clr Calc Pharmacy 124.1; Estimated Glomerular Filt Rate > 60; Glucose Random 199 mg/dL (60-115); Magnesium 1.5 mg/dL (1.6-2.6); Potassium 4.4 mmol/l (3.3-5.1); Sodium 135 mmol/L (135-145)
[2020-07-11 14:55] LABS: Troponin-I High Sensitivity < 3.5 ng/L (<3.5-17.0)
[2020-07-11] MEDS: Magnesium Sulfate/H2O 2 GM/50 ML PIGGYBACK IV (15:21)
[2020-07-11 15:24] VITALS: BP 133/79; PULSE 73; RESP 15; O2SAT 99
[2020-07-11 15:25] LABS: Amphetamine Screen Urine Not Detected (Not Detect); Barbiturates, Urine Not Detected (Not Detect); Benzodiazepines Screen Urine Not Detected (Not Detect); Cannabinoid Screen Urine Not Detected (Not Detect); Cocaine Screen Urine Not Detected (Not Detect); Opiate Screen Urine Not Detected (Not Detect); Phencyclidine Screen Urine Not Detected (Not Detect)
[2020-07-11 16:30] LABS: Glucose Urine UA NEG (NEG); Leukocyte Esterase Urine TRACE (NEG); Nitrite Urine NEG (NEG); PH 5.5 (5.0-8.0); UACC Culture Trigger YES; Urine Blood TRACE (NEG); Urine Ketones NEG (NEG); Urine Protein NEG (NEG-TRACE)
[2020-07-11 16:32] LABS: Appearance Urine CLEAR; Color Urine YELLOW
--- NOTE | 2020-07-11 16:37 | PC.NURSE ---
Pt able to speak clearly with no noticed facial droop. When asked to evaluate pt's face pt appears to have a droop.
[2020-07-11 16:45] LABS: Bacteria Urine 1+ /LPF; RBC Urine 0 /HPF (0); Squamous Epithelial Cell Urine TRACE /LPF
--- NOTE | 2020-07-11 17:04 | PC.NURSE ---
It was explained to jeremy by Luisa Moya at the [facility] that she needs to return to work connection tomorrow at 8am The patient agrees with this plan.
== END 2020-07-11 16:49 | disposition home or self-care (01) ==
PROVIDERS: Emergency Provider Emergency Medicine; PCP Internal Medicine Sports Medicine
DX: F41.9 Anxiety disorder, unspecified (principal); E83.42 Hypomagnesemia; E11.9 Type 2 diabetes mellitus without complications; F33.9 Major depressive disorder, recurrent, unspecified; Z79.899 Other long term (current) drug therapy; Z79.4 Long term (current) use of insulin
CPT/HCPCS: 36415; 70450; 80048; 80076; 80307; 80320; 81001; 81003; 83735; 84484; 85025; 87086; 87088; 87186; 93005; 96365; 99284; J3475

== ENCOUNTER 2020-07-26 11:34 | Outpatient (REF) | payer OTHER, SELFPAY ==
[2020-07-26 12:06] LABS: COVID-19 Test Positive (Negative)
== END 2020-07-26 11:35 | disposition home or self-care (01) ==
LOC: HO.EMPCOV 11:34
PROVIDERS: Visit Provider Internal Medicine
DX: Z20.822 Contact with and (suspected) exposure to COVID-19 (principal)
CPT/HCPCS: 36415; 87635; C9803

== ENCOUNTER 2020-08-02 08:28 | Emergency (ER) | payer OTHER, SELFPAY ==
--- NOTE | ~2020-08-02 | XR_ITS ---
EXAMINATION: XR CHEST CLINICAL INFORMATION: Shortness of breath COMPARISON: Chest radiographs 06/29/2020, 01/14/2019 TECHNIQUE: Portable upright AP view of the chest was obtained. FINDINGS: There are low lung volumes with inspiration to the posterior sixth intercostal spaces. There is subtle AP groundglass opacities bilateral mid zones and perihilar region. No lobar segmental airspace consolidation. Tapering cardiac apex is consistent with areolar tissue. The vascularity is normal. The costophrenic sulci are clear. The heart is normal in size. The hilar and mediastinal contours and bony structures are unremarkable. XR/XR chest 1V IMPRESSION: Low lung volumes. Subtle streaky airspace opacities bilateral perihilar region.
[2020-08-02 08:37] VITALS: BP 130/80; BP 135/78; PULSE 107; PULSE 109; RESP 18; TEMP 37.3; O2SAT 97; BMI 46.5
--- NOTE | 2020-08-02 08:46 | PC.NURSE ---
pt seen by provider, ambulating to bathroom w steady gait, rr even/unlabored, speaking in full clear sentences.
--- NOTE | 2020-08-02 08:49 | ECG_ITS ---
Test Reason : SOB Blood Pressure : / mmHG Vent. Rate : 104 BPM Atrial Rate : 104 BPM P-R Int : 126 ms QRS Dur : 088 ms QT Int : 340 ms P-R-T Axes : 046 -06 016 degrees QTc Int : 447 ms Sinus tachycardia Inferior infarct (cited on or before 02-AUG-2020) Abnormal ECG When compared with ECG of 11-JUL-2020 13:45, Sinus rhythm has replaced Ectopic atrial rhythm QRS axis Shifted right Questionable change in initial forces of Inferior leads T wave inversion no longer evident in Lateral leads Referred By: Edith Yañez Electronically Signed By:David Redd
--- NOTE | 2020-08-02 08:51 | ED.SOB ---
HPI - SOB/Dyspnea General Chief Complaint: Dyspnea Stated Complaint: +COVID,INCREASED SOB W/ COUGH,GAMA,CHILLS,N/V,FEVER Time Seen by Provider: 08/02/20 08:39 Source: patient and EMS Mode of arrival: EMS Limitations: no limitations History of Present Illness HPI Narrative: 49 yo female with past medical history of cardiac stents on plavix, chronic idiopathic hives on hydroxychloroquine, PTSD, NIDDM, neuropathy, asthma, anxiety, depression, HLD, HTN here known covid positive 07/26 (received 2nd vaccine 3 weeks prior symptoms began) here with complaints of nausea/vomiting/diarrhea/abdominal pain/fevers/chills/body aches/headache/cough and shortness of breath. No chest pain, leg swelling or pain. MD elicited complaint: shortness of breath and cough Related Data Home Medications Medication Instructions Recorded Confirmed albuterol sulfate [ProAir HFA] 2 puff INHALATION Q4H PRN 04/13/20 04/13/20 aspirin 81 mg PO DAILY 04/13/20 04/13/20 atorvastatin 80 mg PO DAILY 04/13/20 04/13/20 carvedilol 3.125 mg PO BID 04/13/20 04/13/20 cetirizine [Zyrtec] 10 mg PO DAILY 04/13/20 04/13/20 cholecalciferol (vitamin D3) 25 mcg PO DAILY 04/13/20 04/13/20 [Vitamin D3] clopidogrel 75 mg PO DAILY 04/13/20 04/13/20 dulaglutide [Trulicity] 1.5 mg SUBCUT QWEEK 04/13/20 04/13/20 fexofenadine [Emily] 540 mg PO BID 04/13/20 04/13/20 fluoxetine [Prozac] 60 mg PO DAILY 04/13/20 04/13/20 gabapentin 300 mg PO BID PRN 04/13/20 04/13/20 gabapentin 600 mg PO BEDTIME 04/13/20 04/13/20 glipizide 15 mg PO BID 04/13/20 04/13/20 hydroxychloroquine 200 mg PO BID 04/13/20 04/13/20 insulin glargine [Lantus Solostar 31 unit SUBCUT QPM 04/13/20 04/13/20 U-100 Insulin] lorazepam 1 mg PO BID PRN 04/13/20 04/13/20 magnesium chloride 70 mg PO BID 04/13/20 04/13/20 metformin 1,000 mg PO BID 04/13/20 04/13/20 methylphenidate HCl [Ritalin] 10 mg PO DAILY 04/13/20 04/13/20 montelukast [Singulair] 10 mg PO BEDTIME 04/13/20 04/13/20 oxycodone 5 mg PO Q8H PRN 04/13/20 04/13/20 pantoprazole 40 mg PO DAILY 04/13/20 04/13/20 tizanidine 2 mg PO DAILY PRN 04/13/20 04/13/20 tizanidine 4 mg PO BEDTIME PRN 04/13/20 04/13/20 Previous Rx's Medication Instructions Recorded lamotrigine [Lamictal] 25 mg PO DAILY 14 Days #14 tab 05/04/20 risperidone 0.125 mg PO BID PRN #14 tab MDD 05/04/20 0.25 mg meclizine 25 mg PO TID PRN #10 tab 06/29/20 benzonatate [Tessalon Perles] 100 mg PO BID PRN #14 cap 08/02/20 cefuroxime axetil 250 mg PO BID 7 Days #14 tab 08/02/20 doxycycline monohydrate 100 mg PO BID 10 Days #20 cap 08/02/20 Allergies Allergy/AdvReac Type Severity Reaction Status Date / Time bee pollen [BEE STINGS] Allergy Severe ANAPHYLAXIS Verified 07/11/20 15:22 coconut [COCONUT] Allergy Unknown HIVES Verified 07/11/20 15:22 buspirone [BUSPIRONE] AdvReac Intermediate Sedation Verified 07/11/20 15:22 bees Allergy Unknown swelling Uncoded 02/14/20 00:00 Review of Systems Review of Systems: Yes all other systems are reviewed and are negative Constitutional: Constitutional: Reports no additional constitutional complaints, Reports body ache(s), Reports chills, Reports fever(s), Reports headache(s) and Denies weakness Eyes: Eyes: Reports no additional eye complaints and Denies change in vision ENT: Reports system reviewed and no additional complaints, except as documented, Denies dizziness, Reports headache(s), Denies nasal congestion, Denies nasal discharge and Denies neck pain Cardiovascular: Cardiovascular: Reports no additional cardiovascular complaints, Denies chest pain, Denies leg edema and Reports dyspnea Respiratory: Respiratory: Reports no additional respiratory complaints, Reports cough and Reports dyspnea Gastrointestinal: Gastrointestinal: Reports no additional gastrointestinal complaints, Reports abdominal pain, Reports diarrhea, Reports nausea and Reports vomiting Genitourinary: Genitourinary: Reports no additional female genitourinary complaints and Denies urinary incontinence Musculoskeletal: Musculoskeletal: Reports no additional musculoskeletal complaints, Denies back pain, Denies arthralgias, Denies joint swelling, Denies neck pain, Denies numbness and Denies tingling Integumentary/Breasts: Skin/Breast: Reports system reviewed and no additional complaints, except as docu and Denies rash Neurologic: Reports system reviewed and no additional complaints, except as documented, Denies Abnormal speech present, Denies dizziness, Reports headache(s), Denies numbness, Denies tingling and Denies weakness PMFSH Past Medical History Attestation statement: The following information was validated with the patient. Source: old records reviewed and nursing notes reviewed Medical History Anxiety Arthritis Asthma Bleeding ulcer delivery delivered History of heart attack Hives Left shoulder pain Neuropathy Recurrent major depression Type 2 diabetes mellitus Social History Social History Household Members: Spouse, Children and Other Alcohol intake: never Smoking Status: Former smoker Smoked in Last 30 Days: No Use of substances other than those prescribed or required for medical reasons: No Advance Directives: No Advance Directives Information Provided: No Physical Exam Vital Signs: Vital Signs: Last Vital Signs Temp 99.1 F 08/02/20 08:37 Pulse 109 H 08/02/20 08:37 Resp 18 08/02/20 08:37 BP 135/78 08/02/20 08:37 Pulse Ox 97 08/02/20 08:37 Body Mass Index 46.5 Const: General: cooperative, healthy appearing, comfortable and no acute distress Orientation/consciousness: patient oriented x3 Limitations: no limitations HENMT: Head: Yes normal to inspection Ears: hearing grossly normal bilaterally General nose exam: Normal external nose present Face and sinus: Yes normal facial exam Mouth: Normal oral and palatal mucosa present Throat: Yes posterior oropharynx normal Eyes: General: appearance normal, both eyes and all related structures Pupils: Equal, round and reactive pupils present Neck: Neck: Yes normal visual inspection Chest: Chest palpation & inspection: normal inspection of the chest Resp: Other: Speaking short phrases, mild tachypnea Auscultation: clear to auscultation bilaterally Cardio: Rate: regular rate Rhythm: regular rhythm Peripheral pulses: Peripheral pulses 2+ throughout GI: Inspection: Yes normal to inspection Palpation (GI): Soft to palpation, nontender and no guarding Auscultation: normal bowel sounds Back/Spine/Pelvis: Thoracic/Lumbar Spine: thoracic and lumbar spine normal to inspection Skin: General skin exam: no rashes or lesions noted Neuro: General: patient oriented x3, no focal motor deficits and normal sensation to monofilament Cranial nerves: Yes Equal, round and reactive pupils present Cognition (Neuro): normal cognition Speech: No Abnormal speech present Gait exam (Neuro): Normal gait present Motor exam (neuro): 5/5 motor strength present throughout Extrem: General: Yes normal to inspection, Yes no pedal edema and Yes no calf tenderness Course Course Course Narrative: 49 yo female known COVID positive here with complaints of nausea/vomiting/diarrhea/abdominal pain/fevers/chills/body aches/headache/cough and shortness of breath x 7 days. On arrival stable vital signs (w/ exception of mild tachycardia with rate 110). Speaking short phrases with mild tachypnea but clear lung sounds. No leg swelling or pain. No abdominal pain on exam. Overall well appearing. Will check labs including blood cultures, lactic acid, CXR, EKG. 1030-CXR shows low lung volumes. Subtle streaky airspace opacities. Antibiotics ordered 0945. 1200-Labs unremarkable. Patient ambulated with oxygen saturation >96%. Patient feels improved. Plan for discharge home to continue antibiotics. Recommended obtaining pulse oximeter for home. Reviewed worrisome signs/symptoms with patient and when to return to ED. Comfortable with discharge home. MDM - SOB/Dyspnea MDM Narrative Medical decision making narrative: viral syndrome, pna, pe Less likely PE with no clinical signs/symptoms of DVT with PERC score 1 for tachycardia which improved with rest and was transient. CXR c/w with PNA Medical Records Attestation: I reviewed the patient's medical records. Lab Data Attestation: I reviewed the patient's lab results. Result diagrams: 08/02/20 09:12 08/02/20 10:02 Labs: Lab Results 08/02/20 08/02/20 08/02/20 Range/Units 09:12 09:12 09:12 WBC 6.5 (4.8-10.8) X10*3/uL RBC 4.80 (4.20-5.50) X10*6/uL Hgb 13.1 (12.0-16.0) g/dl Hct 39.1 (37-47) % MCV 81.5 (80-98) fL MCH 27.3 (27.0-33.0) pg MCHC 33.5 (31.0-35.0) g/dl RDW 13.5 (11.0-16.0) % Plt Count 214 (160-400) X10*3/uL MPV 10.1 (9.4-12.3) fL Immature Gran % (Auto) 0.3 (0.0-0.4) % Neut % (Auto) 83.0 H (45-73) % Lymph % (Auto) 9.5 L (20-40) % Sabine % (Auto) 6.7 (2-11) % Eos % (Auto) 0.3 (0-4) % Baso % (Auto) 0.2 (0-2) % Lymph # (Auto) 0.6 L (1.2-4.9) X10*3/uL Sabine # (Auto) 0.4 (0.1-1.2) X10*3/uL Eos # (Auto) 0.0 (0.0-0.4) X10*3/uL Baso # (Auto) 0.0 (0.0-0.2) X10*3/uL Abs Immat Gran (auto) 0.02 (0.00-0.03) X10*3/uL Absolute Neuts (auto) 5.4 (2.0-8.3) X10*3/uL Absolute Nucleated RBC 0.000 (0.0-0.012) X10*3/uL Nucleated RBC % (auto) 0.0 (0.0-0.2) /100WBC Smear Tech's Comments VERIFIED PT 14.3 H D (10.8-13.0) SEC INR 1.2 H (0.9-1.1) Sodium (135-145) mmol/L Potassium (3.3-5.1) mmol/L Chloride (96-108) mmol/L Carbon Dioxide (22-29) mmol/L Anion Gap (12-20) BUN (9-16) mg/dL Creatinine (0.5-1.4) mg/dL Estim Creat Clear Calc Estimated GFR Random Glucose (60-115) mg/dL Lactic Acid 1.6 (0.5-2.0) mmol/L Calcium (8.4-10.2) mg/dL Magnesium (1.6-2.6) mg/dL Total Bilirubin (0.0-1.0) mg/dL Direct Bilirubin (0.0-0.5) mg/dL AST (5-31) U/L ALT (0-31) U/L Alkaline Phosphatase (39-117) U/L Troponin I High Sens (<3.5-17.0) ng/L Total Protein (6.5-8.0) g/dL Albumin (3.5-5.0) g/dL 08/02/20 08/02/20 Range/Units 09:12 10:02 WBC (4.8-10.8) X10*3/uL RBC (4.20-5.50) X10*6/uL Hgb (12.0-16.0) g/dl Hct (37-47) % MCV (80-98) fL MCH (27.0-33.0) pg MCHC (31.0-35.0) g/dl RDW (11.0-16.0) % Plt Count (160-400) X10*3/uL MPV (9.4-12.3) fL Immature Gran % (Auto) (0.0-0.4) % Neut % (Auto) (45-73) % Lymph % (Auto) (20-40) % Sabine % (Auto) (2-11) % Eos % (Auto) (0-4) % Baso % (Auto) (0-2) % Lymph # (Auto) (1.2-4.9) X10*3/uL Sabine # (Auto) (0.1-1.2) X10*3/uL Eos # (Auto) (0.0-0.4) X10*3/uL Baso # (Auto) (0.0-0.2) X10*3/uL Abs Immat Gran (auto) (0.00-0.03) X10*3/uL Absolute Neuts (auto) (2.0-8.3) X10*3/uL Absolute Nucleated RBC (0.0-0.012) X10*3/uL Nucleated RBC % (auto) (0.0-0.2) /100WBC Smear Tech's Comments PT (10.8-13.0) SEC INR (0.9-1.1) Sodium 131 L (135-145) mmol/L Potassium 4.6 (3.3-5.1) mmol/L Chloride 97 (96-108) mmol/L Carbon Dioxide 24 (22-29) mmol/L Anion Gap 15 (12-20) BUN 7 L (9-16) mg/dL Creatinine 0.82 (0.5-1.4) mg/dL Estim Creat Clear Calc 111.4 Estimated GFR > 60 Random Glucose 295 H D (60-115) mg/dL Lactic Acid (0.5-2.0) mmol/L Calcium 7.8 L D (8.4-10.2) mg/dL Magnesium 1.8 (1.6-2.6) mg/dL Total Bilirubin 0.7 (0.0-1.0) mg/dL Direct Bilirubin 0.2 (0.0-0.5) mg/dL AST 24 D (5-31) U/L ALT 16 (0-31) U/L Alkaline Phosphatase 56 (39-117) U/L Troponin I High Sens 4.7 (<3.5-17.0) ng/L Total Protein 6.2 L (6.5-8.0) g/dL Albumin 3.4 L (3.5-5.0) g/dL Imaging Data Chest x-ray: Attestation: I personally reviewed and interpreted this imaging study as follows: Radiologist's impression: EXAMINATION: XR CHEST CLINICAL INFORMATION: Shortness of breath COMPARISON: Chest radiographs 06/29/2020, 01/14/2019 TECHNIQUE: Portable upright AP view of the chest was obtained. FINDINGS: There are low lung volumes with inspiration to the posterior sixth intercostal spaces. There is subtle AP groundglass opacities bilateral mid zones and perihilar region. No lobar segmental airspace consolidation. Tapering cardiac apex is consistent with areolar tissue. The vascularity is normal. The costophrenic sulci are clear. The heart is normal in size. The hilar and mediastinal contours and bony structures are unremarkable. XR/XR chest 1V IMPRESSION: Low lung volumes. Subtle streaky airspace opacities bilateral perihilar region ECG Data Attestation: I personally reviewed and interpreted this ECG as follows: ECG interpretation date: 08/02/20 ECG interpretation time: 08:52 Interpretation: ST with rate 104, normal pr, normal qrs, normal qtc Discharge Plan Discharge Clinical Impression: COVID-19, Pneumonia Patient Disposition: Home, Self-Care Instructions: Bacterial Pneumonia (ED), COVID-19 (Coronavirus Disease 2019) (ED) Additional Instructions: Start the ceftin tomorrow Start doxycyline today Increase fluids, rest Consider buying a pulse oximeter to monitor your oxygen saturation Return for worsening symptoms as discussed Prescriptions: New doxycycline monohydrate 100 mg capsule 100 mg PO BID 10 Days Qty: 20 RF: 0 benzonatate [Tessalon Perles] 100 mg capsule 100 mg PO BID PRN (Reason: cough) Qty: 14 RF: 0 cefuroxime axetil 250 mg tablet 250 mg PO BID 7 Days Qty: 14 RF: 0 No Action fexofenadine [Emily] 180 mg Tablet 540 mg PO BID RF: 0 atorvastatin 80 mg Tablet 80 mg PO DAILY RF: 0 gabapentin 600 mg Tablet 600 mg PO BEDTIME RF: 0 tizanidine 2 mg Tablet 2 mg PO DAILY PRN (Reason: Muscle Pain) RF: 0 cetirizine [Zyrtec] 10 mg Tablet 10 mg PO DAILY RF: 0 tizanidine 4 mg Tablet 4 mg PO BEDTIME PRN (Reason: Muscle Pain) RF: 0 methylphenidate HCl [Ritalin] 10 mg Tablet 10 mg PO DAILY RF: 0 clopidogrel 75 mg Tablet 75 mg PO DAILY RF: 0 carvedilol 3.125 mg Tablet 3.125 mg PO BID RF: 0 pantoprazole 40 mg Tablet,Delayed Release (Dr/Ec) 40 mg PO DAILY RF: 0 metformin 1,000 mg Tablet 1,000 mg PO BID RF: 0 aspirin 81 mg Tablet,Chewable 81 mg PO DAILY RF: 0 montelukast [Singulair] 10 mg Tablet 10 mg PO BEDTIME RF: 0 hydroxychloroquine 200 mg Tablet 200 mg PO BID RF: 0 albuterol sulfate [ProAir HFA] 90 mcg/actuation Hfa Aerosol Inhaler 2 puff INHALATION Q4H PRN (Reason: Shortness Of Breath) RF: 0 glipizide 5 mg Tablet 15 mg PO BID RF: 0 oxycodone 5 mg Tablet 5 mg PO Q8H PRN (Reason: Pain) RF: 0 gabapentin 300 mg Tablet 300 mg PO BID PRN (Reason: Pain) RF: 0 cholecalciferol (vitamin D3) [Vitamin D3] 25 mcg (1,000 unit) Tablet 25 mcg PO DAILY RF: 0 magnesium chloride 70 mg Tablet,Delayed Release (Dr/Ec) 70 mg PO BID RF: 0 lorazepam 1 mg Tablet 1 mg PO BID PRN (Reason: Anxiety) RF: 0 fluoxetine [Prozac] 20 mg Capsule 60 mg PO DAILY RF: 0 Lantus Solostar U-100 Insulin 100 unit/mL (3 mL) Insulin Pen 31 unit SUBCUT QPM RF: 0 Trulicity 1.5 mg/0.5 mL Pen Injector 1.5 mg SUBCUT QWEEK RF: 0 lamotrigine [Lamictal] 25 mg tablet 25 mg PO DAILY 14 Days Qty: 14 RF: 1 risperidone 0.25 mg tablet 0.125 mg PO BID MDD 0.25 mg PRN (Reason: agitation) Qty: 14 RF: 1 meclizine 25 mg tablet 25 mg PO TID PRN (Reason: dizziness) Qty: 10 RF: 0 Referrals: Jefferson Sinclair MD [Primary Care Provider] - 2 days Interventions: ED Discharge Assessment Last Done: 08/02/20 12:28 Discharge Date/Time: 08/02/20 12:29
[2020-08-02 09:31] LABS: Basophils Percent Auto 0.2 % (0-2); Eosinophils Percent Auto 0.3 % (0-4); Hematocrit 39.1 % (37-47); Hemoglobin 13.1 g/dl (12.0-16.0); Imm Gran Abs Auto 0.02 X10*3/uL (0.00-0.03); Imm Gran Pct Auto 0.3 % (0.0-0.4); Lymphocytes Absolute Auto 0.6 X10*3/uL (1.2-4.9); Lymphocytes Percent Auto 9.5 % (20-40); Mean Corpuscular HGB Conc 33.5 g/dl (31.0-35.0); Mean Corpuscular Hemoglobin 27.3 pg (27.0-33.0); Mean Corpuscular Volume 81.5 fL (80-98); Monocytes Absolute Auto 0.4 X10*3/uL (0.1-1.2); Monocytes Percent Auto 6.7 % (2-11); Neutrophils Absolute Auto 5.4 X10*3/uL (2.0-8.3); Platelet Count 214 X10*3/uL (160-400); Red Cell Distribution Width 13.5 % (11.0-16.0); White Blood Count 6.5 X10*3/uL (4.8-10.8)
[2020-08-02 09:32] LABS: MANUAL DIFF FLAG SCAN; SCAN SMEAR FLAG 1
[2020-08-02 09:34] LABS: Mean Platelet Volume 10.1 fL (9.4-12.3)
[2020-08-02 09:45] LABS: INTERNATIONAL NORM RATIO 1.2 (0.9-1.1); Prothrombin Time 14.3 SEC (10.8-13.0)
[2020-08-02 09:50] LABS: Lactic Acid 1.6 mmol/L (0.5-2.0)
[2020-08-02 09:53] LABS: SLIDE REVIEW VERIFIED
[2020-08-02 09:59] LABS: Troponin-I High Sensitivity 4.7 ng/L (<3.5-17.0)
[2020-08-02] MEDS: cefTRIAXone sodium 1 GM in 0.9 % Sodium Chloride 50 ML IV (10:04)
[2020-08-02 10:47] LABS: Alanine Aminotransferase 16 U/L (0-31); Albumin Level 3.4 g/dL (3.5-5.0); Alkaline Phosphatase 56 U/L (39-117); Anion Gap 15 (12-20); Aspartate Amino Transferase 24 U/L (5-31); Bilirubin Direct 0.2 mg/dL (0.0-0.5); Bilirubin Total 0.7 mg/dL (0.0-1.0); Blood Urea Nitrogen 7 mg/dL (9-16); Calcium 7.8 mg/dL (8.4-10.2); Carbon Dioxide 24 mmol/L (22-29); Chloride 97 mmol/L (96-108); Creatinine Clr Calc Pharmacy 111.4; Estimated Glomerular Filt Rate > 60; Glucose Random 295 mg/dL (60-115); Magnesium 1.8 mg/dL (1.6-2.6); Potassium 4.6 mmol/L (3.3-5.1); Sodium 131 mmol/L (135-145); Total Protein 6.2 g/dL (6.5-8.0)
--- NOTE | 2020-08-02 12:21 | PC.NURSE ---
pt ambulated through iso unit, lowest 02 sat 96% on ra. provider aware, comfortable w discharge home.
[2020-08-03 07:18] LABS: Glucose, Whole Blood 292 mg/dL (60-115)
== END 2020-08-02 12:29 | disposition home or self-care (01) ==
PROVIDERS: Nurse Practitioner Family; Emergency Provider Emergency Medicine; PCP Internal Medicine Sports Medicine
DX: U07.1 COVID-19 (principal); J12.82 Pneumonia due to coronavirus disease 2019; R06.00 Dyspnea, unspecified; R05 Cough; R50.9 Fever, unspecified; Z79.899 Other long term (current) drug therapy; Z87.891 Personal history of nicotine dependence
CPT/HCPCS: 36415; 71045; 80048; 80076; 82947; 83605; 83735; 84484; 85025; 85610; 87040; 93005; 96365; 99284; J0696

== ENCOUNTER → 2020-08-14 14:33 | Outpatient (BNVA) | payer OTHER, SELFPAY | PROVIDERS: PCP Internal Medicine Sports Medicine; Visit Provider Internal Medicine Pulmonary Disease ==

== ENCOUNTER → 2020-09-04 12:48 | Outpatient (BNVA) | payer OTHER, SELFPAY | PROVIDERS: PCP Internal Medicine Sports Medicine; Visit Provider Internal Medicine Pulmonary Disease ==

== ENCOUNTER 2020-09-04 13:12 | Outpatient (REF) | payer OTHER, SELFPAY ==
--- NOTE | 2020-09-04 16:40 | PFT_ITS ---
INDICATIONS: Cough and shortness of breath. SPIROMETRY: The FEV1 to FVC of 87% with an FEV1 of 2.49 L, which is 85% predicted, and an FVC of 2.86 L, which is 78% predicted. No significant response to bronchodilators noted. Maximum voluntary ventilation 87% predicted. LUNG VOLUMES: Total lung capacity 87% predicted with an expiratory reserve volume of 27% predicted secondary to an elevated BMI. DIFFUSION CAPACITY: DLCO of 70% predicted. This does correct to 82% predicted when corrected for alveolar volume. COMPARISONS: None. COMMENTS: The patient was coughing throughout the procedure, making it difficult to complete the study, but she was able to tolerate it well. INTERPRETATION: No obstructive nor restrictive ventilatory defects identified. No significant response to bronchodilators noted. Normal maximum voluntary ventilation. The patient has a low normal total lung capacity, and significantly decreased expiratory reserve volume, which may be due to her elevated BMI. The patient does have isolated mild diffusion impairment. Clinical correlation warranted. Should also correct for hemoglobin. MD ROLY Forbes/MODL / [id number]
== END 2020-09-04 13:13 | disposition home or self-care (01) ==
LOC: HO.RESP 13:12
PROVIDERS: PCP Internal Medicine Sports Medicine; Visit Provider Internal Medicine Pulmonary Disease
DX: J45.909 Unspecified asthma, uncomplicated (principal); R06.00 Dyspnea, unspecified
CPT/HCPCS: 94060; 94727; 94729

== ENCOUNTER → 2020-10-10 12:56 | Outpatient (REF) | payer OTHER, SELFPAY | LOC: HO.SL 12:56 | PROVIDERS: PCP Internal Medicine Sports Medicine; Visit Provider Internal Medicine Pulmonary Disease | DX: G47.33 Obstructive sleep apnea (adult) (pediatric) (principal); F51.12 Insufficient sleep syndrome; E66.9 Obesity, unspecified; R40.0 Somnolence | CPT/HCPCS: 95806 ==

== ENCOUNTER → 2020-10-24 11:34 | Outpatient (BNVA) | payer OTHER, SELFPAY | PROVIDERS: PCP Internal Medicine Sports Medicine; Visit Provider Nurse Practitioner Family ==

== ENCOUNTER → 2020-10-31 16:02 | Outpatient (BNVA) | payer OTHER, SELFPAY | PROVIDERS: PCP Internal Medicine Sports Medicine; Visit Provider Internal Medicine Pulmonary Disease ==

== ENCOUNTER 2020-11-10 12:59 | Outpatient (REF) | payer OTHER, SELFPAY ==
[2020-11-10 13:28] LABS: COVID-19 Test Negative (Negative)
== END 2020-11-10 13:00 | disposition home or self-care (01) ==
LOC: HO.EMPCOV 12:59
PROVIDERS: Visit Provider Internal Medicine
DX: Z20.822 Contact with and (suspected) exposure to COVID-19 (principal)
CPT/HCPCS: 36415; 87635; C9803

== ENCOUNTER 2020-12-15 11:45 | Outpatient (RCR) | payer OTHER, SELFPAY ==
[2020-12-01 13:35] VITALS: BMI 46.5
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
--- NOTE | 2020-12-04 14:34 | PC.NURSE ---
While in group patient told staff she did not feel well and that she was having GI issues. Called patient to f/u, left message for patient to call me back.
--- NOTE | 2020-12-05 13:32 | PC.NURSE ---
Left a message on patients voicemail to call me back yesterday. Patient did not call me back. Today staff stated patient called out again stating she was not feeling well. I called patient and followed up. Patient stated she thinks she has the, stomach bug . Stated that she vomited yesterday and had diarrhea. Reports today that she is still having some diarrhea however no vomiting and is able to tolerate some food including toast and an egg and is drinking fluids. Patient reports her blood sugars have been fine and that she will continue to drink fluids. Advised patient to call her PCP if she needs an adjustment in her insulin. Patient reports she is feeling better today. Advised patient to discontinue Abilify which was recently started per Kellie Segal NP and patient will be scheduled to see the prescriber tomorrow. Patient plans on resting for today and plans on attending groups tomorrow.
--- NOTE | 2020-12-06 14:26 | PM.EVENT ---
Event Note Date of Service: 12/06/20 Event Note: NO SHOW AT PHP
--- NOTE | 2020-12-07 14:43 | HO.PHPPROGNO ---
Subjective Subjective Date of Service: 12/07/20 Reason For Visit: MDD/Anxiety Medical Problems Affecting Mental Status: No Interim History: Angie reports move improved since starting Abilify 2 mg daily. She did experience approximately 24 hours of nausea and vomiting along with body aches. We discussed side effects of Abilify, of which N&V are notable. She states however that she believes it simply a 24 hour stomach bug. She denies any type of symptoms regarding side effects at this time. No safety concerns. Reports she feels that she is gaining useful skills in information in groups, in that at the same time she feels as if ?I am helping other people ?. She did explain that she and her will be leaving over 17 of December weekend to visit her [id number]-oyz who is experiencing an aggressive cancer. She states that she feels if she does do this S, she will regret it later, as this may be the last time she is able to sit and spend any time with her [id number]. She would like to continue with Abilify 2 mg daily for now. Medication Compliance: Yes Side effects from medications: No (reports brief nausea and vomiting, believes not r/t abilify ) Attending Groups: Yes Review of Systems Review of Systems Yes all other systems are reviewed and are negative Mental Status Exam Mental Status Exam Patient Appearance: Well Grooomed and Appropriate Patient Orientation: Person, Place, Time and Situation Level of Consciousness: Awake, Appropriate and Alert Patient Behavior: Appropriate and Cooperative Mood Description: Appropriate, Depressed, Anxious and Sad (reports sadness over upcoming trip to visit dying [id number]. ) Affect Description: Appropriate, Depressed, Anxious and Sad Patient Cognition Impaired: No Ability to Follow Directions: Excellent Speech Pattern: Clear and Appropriate Memory Description: Intact Hallucinations: None Delusions: Not Present Thought Process: Intact Thought Content: positive for Intact Depressive Symptoms: Increased Anxiety, Loss of Int. in Activity and Increased Fatigue Judgement: Fair Diagnostics Vital Signs (24Hr): Body Mass Index 46.5 Assessment & Plan Assessment & Plan (1) Recurrent major depression: Status: Acute Code(s): F33.9 - Major depressive disorder, recurrent, unspecified Assessment and Plan: Patient reports some mood improvement with addition of Abilify. Would like to continue at current dose 2 mg daily. No changes to any other meds at this time. Plan: Script for 7 days of Abilify 2 mg sent electronically to pharmacy. Will follow-up next week, sooner if needed. (2) Anxiety: Status: Acute Code(s): F41.9 - Anxiety disorder, unspecified Assessment and Plan: Patient currently has medications and place that she is utilizing for anxiety. Does report some level of anxiety, but feels it is beginning to subside and she participates in program. No anxiety medication changes at this time. Patient educated on: diagnosis, medication risk/benefits and therapeutic strategies Informed Consent: understands Reason for contiued partial hosp. stay Substantial Risk for: inability to function and med/psych decompensation Certification I certify that partial hospital treatment is medically necessary due to the symptoms and problems resulting from the patient's mental illness and the failure to treat the patient at the partial hospital level of care would likely result in the patient requiring inpatient psychiatric care which could not be prevented at a less intensive level of care. Greater than 50% of the session was spent on counseling and/or coordination of care Discharge Plan Discharge Attending provider: Sukhi Lemus Medications: New aripiprazole [Abilify] 2 mg tablet 2 mg PO DAILY Qty: 7 RF: 0 No Action pantoprazole 40 mg tablet,delayed release (DR/EC) 40 mg PO BID Qty: 30 RF: 2 tizanidine 2 mg Tablet 2 mg PO Q6H PRN (Reason: Muscle Pain) RF: 0 cetirizine [Zyrtec] 10 mg Tablet 10 mg PO BEDTIME RF: 0 metformin 1,000 mg Tablet 1,000 mg PO BID RF: 0 montelukast [Singulair] 10 mg Tablet 10 mg PO BEDTIME RF: 0 hydroxychloroquine 200 mg Tablet 200 mg PO BID RF: 0 albuterol sulfate [ProAir HFA] 90 mcg/actuation Hfa Aerosol Inhaler 2 puff INHALATION Q4H PRN (Reason: Shortness Of Breath) RF: 0 glipizide 5 mg Tablet 15 mg PO BID RF: 0 lorazepam 1 mg Tablet 1 mg PO BID PRN (Reason: Anxiety) RF: 0 fluoxetine [Prozac] 20 mg Capsule 60 mg PO DAILY RF: 0 Lantus Solostar U-100 Insulin 100 unit/mL (3 mL) Insulin Pen 36 unit SUBCUT QPM RF: 0 atorvastatin 80 mg tablet 80 mg PO BEDTIME RF: 0 gabapentin 600 mg Tablet 600 mg PO BID RF: 0 gabapentin 600 mg Tablet 900 mg PO BEDTIME RF: 0 cholecalciferol (vitamin D3) [Vitamin D3] 50 mcg (2,000 unit) Capsule 50 mcg PO DAILY RF: 0 magnesium chloride [Mag 64] 64 mg Tablet,Delayed Release (Dr/Ec) 64 mg PO BID RF: 0 Trulicity 3 mg/0.5 mL Pen Injector 3 mg SUBCUT QWEEK RF: 0 carvedilol 3.125 mg tablet 3.125 mg PO BID 90 Days Qty: 180 RF: 1 clopidogrel 75 mg tablet 75 mg PO DAILY 90 Days Qty: 90 RF: 1 aspirin 81 mg tablet,chewable 81 mg PO DAILY Qty: 90 RF: 3 Telehealth Telehealth Location of provider rendering services: practice address Location of patient: address on file Patient Identification confirmed using: Name, : Yes Telehealth method: video Patient verbally consented to treatment: Yes Patient verbally consented to billing insurance company: Yes Patient informed of any privacy concerns related to visit: Yes Time spent with patient (mins): 15
--- NOTE | 2020-12-14 13:21 | HO.PHPPROGNO ---
Subjective Subjective Date of Service: 12/14/20 Reason For Visit: MDD/Anxiety Subjective Notes: Tavera Warning Guardianship: No Medical Problems Affecting Mental Status: No Interim History: Angie reports feeling improved mood since she has started Abilify 2 mg. however, she states that as day progresses, especially late afternoon or early evening, she feels that the effect of the Abilify begins to wear down. She would like to discuss an increase in medication. We did review her meds, and it was recommended that she try 5 mg daily Abilify. She was instructed that if she experienced uncomfortable side effects, or felt that it was too much, that she could break the 5 mg tablet in half and take 2.5 daily. She stated that she understood, and that she thinks the 5 mg dose will be very helpful to her going forward. Script sent to pharmacy for abilify 5mg daily, with 1 refill, to bridge her until she sees her outpatient psychiatric provider on 01/31/2021. No safety concerns. Medication Compliance: Yes Side effects from medications: No Attending Groups: Yes Review of Systems Review of Systems A full review of systems was completed and was negative with the exception of pertinent positives noted in history of presenting illness. Yes all other systems are reviewed and are negative Mental Status Exam Mental Status Exam Narrative: Well-groomed, well-developed female, in no apparent distress. Patient Appearance: Well Grooomed and Appropriate Patient Orientation: Person, Place, Time and Situation Level of Consciousness: Awake, Appropriate and Alert Patient Behavior: Appropriate and Cooperative Mood Description: Appropriate Affect Description: Calm and Appropriate Patient Cognition Impaired: No Ability to Follow Directions: Excellent Speech Pattern: Clear, Appropriate and Spontaneous Speech Memory Description: Intact Hallucinations: None Delusions: Not Present Thought Process: Intact Thought Content: positive for Intact Depressive Symptoms: Increased Anxiety and Feelings of Guilt (finds herself overeating at night, has guilt feelings surrounding it. ) Judgement: Good Diagnostics Vital Signs (24Hr): Body Mass Index 46.5 Assessment & Plan Assessment & Plan (1) Recurrent major depression: Status: Acute Code(s): F33.9 - Major depressive disorder, recurrent, unspecified Assessment and Plan: Addiction of abilify appears to be helping manage depressive symptoms. Patient is asking for increased dose, as the 2mg dose does well during am and mid-day, but she notices a lessened effect later in afternoon / evening hours. PLAN: Increase abilfy to 5mg daily. Script sent to pharmacy. Follow-up as per protocol. Patient educated on: diagnosis, medication risk/benefits and therapeutic strategies Informed Consent: understands Reason for contiued partial hosp. stay Substantial Risk for: inability to function Certification I certify that partial hospital treatment is medically necessary due to the symptoms and problems resulting from the patient's mental illness and the failure to treat the patient at the partial hospital level of care would likely result in the patient requiring inpatient psychiatric care which could not be prevented at a less intensive level of care. Greater than 50% of the session was spent on counseling and/or coordination of care Discharge Plan Discharge Attending provider: Sukhi Lemus Medications: New aripiprazole [Abilify] 5 mg tablet 5 mg PO DAILY 30 Days Qty: 30 RF: 1 No Action pantoprazole 40 mg tablet,delayed release (DR/EC) 40 mg PO BID Qty: 30 RF: 2 tizanidine 2 mg Tablet 2 mg PO Q6H PRN (Reason: Muscle Pain) RF: 0 cetirizine [Zyrtec] 10 mg Tablet 10 mg PO BEDTIME RF: 0 metformin 1,000 mg Tablet 1,000 mg PO BID RF: 0 montelukast [Singulair] 10 mg Tablet 10 mg PO BEDTIME RF: 0 hydroxychloroquine 200 mg Tablet 200 mg PO BID RF: 0 albuterol sulfate [ProAir HFA] 90 mcg/actuation Hfa Aerosol Inhaler 2 puff INHALATION Q4H PRN (Reason: Shortness Of Breath) RF: 0 glipizide 5 mg Tablet 15 mg PO BID RF: 0 lorazepam 1 mg Tablet 1 mg PO BID PRN (Reason: Anxiety) RF: 0 fluoxetine [Prozac] 20 mg Capsule 60 mg PO DAILY RF: 0 Lantus Solostar U-100 Insulin 100 unit/mL (3 mL) Insulin Pen 36 unit SUBCUT QPM RF: 0 atorvastatin 80 mg tablet 80 mg PO BEDTIME RF: 0 gabapentin 600 mg Tablet 600 mg PO BID RF: 0 gabapentin 600 mg Tablet 900 mg PO BEDTIME RF: 0 cholecalciferol (vitamin D3) [Vitamin D3] 50 mcg (2,000 unit) Capsule 50 mcg PO DAILY RF: 0 magnesium chloride [Mag 64] 64 mg Tablet,Delayed Release (Dr/Ec) 64 mg PO BID RF: 0 Trulicity 3 mg/0.5 mL Pen Injector 3 mg SUBCUT QWEEK RF: 0 carvedilol 3.125 mg tablet 3.125 mg PO BID 90 Days Qty: 180 RF: 1 clopidogrel 75 mg tablet 75 mg PO DAILY 90 Days Qty: 90 RF: 1 aspirin 81 mg tablet,chewable 81 mg PO DAILY Qty: 90 RF: 3 Stand Alone Forms: Patient Portal Discharge page Telehealth Telehealth Location of provider rendering services: practice address Location of patient: address on file Patient Identification confirmed using: Name, : Yes Telehealth method: video Patient verbally consented to treatment: Yes Patient verbally consented to billing insurance company: Yes Patient informed of any privacy concerns related to visit: Yes Time spent with patient (mins): 15
--- NOTE | 2020-12-15 09:44 | PC.NURSE ---
Patient is scheduled to be discharged from [facility] today. Reviewed patient medications with patient. Patient reports taking them as prescribed. Medication education provided. Patient feeling anxious about leaving the program. No safety concerns per patient.
== END 2020-12-21 07:47 | disposition home or self-care (01) ==
LOC: HO.PHPA 11:45
PROVIDERS: Visit Provider Psychiatry & Neurology Psychiatry
DX: F33.9 Major depressive disorder, recurrent, unspecified (principal); F43.10 Post-traumatic stress disorder, unspecified; F41.9 Anxiety disorder, unspecified; Z79.899 Other long term (current) drug therapy
CPT/HCPCS: 90791; 90853

== ENCOUNTER → 2021-04-30 11:03 | Outpatient (BNVA) | payer OTHER, SELFPAY | PROVIDERS: Visit Provider Internal Medicine | DX: I25.10 Atherosclerotic heart disease of native coronary artery without angina pectoris (principal); E11.8 Type 2 diabetes mellitus with unspecified complications ==

== ENCOUNTER → 2021-11-14 13:59 | Outpatient (BNVA) | payer OTHER, SELFPAY | PROVIDERS: PCP Internal Medicine; Visit Provider Nurse Practitioner Family | DX: I25.10 Atherosclerotic heart disease of native coronary artery without angina pectoris (principal); I10 Essential (primary) hypertension; E78.5 Hyperlipidemia, unspecified; M62.81 Muscle weakness (generalized); Z95.5 Presence of coronary angioplasty implant and graft | CPT/HCPCS: 93005 ==

== ENCOUNTER 2022-04-17 11:19 | Observation (INO) | payer OTHER, SELFPAY ==
--- NOTE | 2022-04-17 | ECG_ITS ---
Test Reason : chest pain Blood Pressure : / mmHG Vent. Rate : 080 BPM Atrial Rate : 080 BPM P-R Int : 146 ms QRS Dur : 084 ms QT Int : 378 ms P-R-T Axes : 050 -06 018 degrees QTc Int : 435 ms Normal sinus rhythm Normal ECG When compared with ECG of 02-AUG-2020 08:52, Heart rate has decreased RSR' or QR pattern in V1 suggests right ventricular conduction delay is no longer Present Referred By: Generic ED Physician Electronically Signed By:MAGGI MADRID MD
--- NOTE | ~2022-04-17 | NM_ITS ---
Exercise Myocardial perfusion study Indication: Atypical chest pain with prior coronary disease to evaluate for myocardial ischemia Technique: The patient was brought in for an exercise perfusion study on 04/18/2022. Patient performed exercise as per Jasbir protocol and was injected 40 mCi of sestamibi was given intravenously one target HR was achieved. Images were obtained using the SPECT gamma camera interlaced with the gating device. Images were obtained in supine position. Resting perfusion study was performed on 04/19/2022. Patient was administered 40 mCi of sestamibi intravenously at rest. Images were then obtained in supine position. Images obtained with and without CT attenuation total DLP 136 mGy-cm. Images were processed with the software and compared side to side in short axis, horizontal long axis and vertical long axis views. Findings: The stress perfusion study showed both attenuated as well as non attenuated corrected images show moderately reduced uptake in the basal inferior wall of the LV myocardium. There is suggestion of left ventricle hypertrophy.. The gated study shows normal LV systolic function with calculated LVEF of 58%. LV cavity is normal in size. The gated study shows normal systolic wall thickening and contraction of all segments. There is no transient ischemic dilation. Resting study shows no change in perfusion pattern compared to stress perfusion study. Gating at rest reveals normal systolic wall motion with ejection fraction at 66%. The findings are consistent with no reversible defect suggestive of ischemia. Fixed basal inferior defect most likely soft tissue attenuation or nontransmural infarct cannot be ruled out.. NM/NM stephen perf SPECT rest & str Impression: 1. No myocardial ischemia with fixed basal inferior wall defect most suggestive soft tissue attenuation 2. Gated LVEF is 58% 3. Transient ischemic dilatation not present Stress EKG is negative for ischemia
--- NOTE | ~2022-04-17 | MR_ITS ---
EXAMINATION: MR BRAIN WITHOUT CONTRAST CLINICAL INFORMATION: Facial numbness. COMPARISON: CT head from 07/11/2020. TECHNIQUE: MRI of the brain was obtained using routine sequences without contrast. FINDINGS: No focal restricted diffusion is demonstrated to suggest acute or subacute cerebral ischemia. No evidence of acute or chronic hemorrhagic products on heme-sensitive imaging. Few nonspecific scattered periventricular and deep white matter T2 FLAIR hyperintensities most commonly seen with mild underlying microangiopathy. The ventricles are normal in morphology and size. No abnormal mass effect. No midline shift. Normal appearance of the pituitary gland. Normal positioning of the cerebellar tonsils. Normal arterial and venous vascular flow voids are present. Normal, homogeneous marrow signal. Mild mucosal thickening of the paranasal sinuses. No signal abnormalities within the mastoids. MR/MR head/brain wo con IMPRESSION: 1. No acute intracranial abnormalities. 2. Mild nonspecific white matter changes most commonly seen with mild underlying microangiopathy.
[2022-04-17 12:01] VITALS: BP 126/83; PULSE 87; RESP 18; TEMP 36.7; O2SAT 100; BMI 44.9
[2022-04-17 12:43] LABS: MANUAL DIFF FLAG NO
[2022-04-17 12:44] LABS: Basophils Percent Auto 0.2 % (0-2); Eosinophils Absolute Auto 0.2 X10*3/uL (0.0-0.4); Hematocrit 42.5 % (37.0-47.0); Hemoglobin 13.7 g/dl (12.0-16.0); Imm Gran Abs Auto 0.01 X10*3/uL (0.00-0.03); Imm Gran Pct Auto 0.1 % (0.0-0.4); Lymphocytes Percent Auto 24.5 % (20-40); Mean Corpuscular HGB Conc 32.2 g/dl (31.0-35.0); Mean Corpuscular Hemoglobin 27.5 pg (27.0-33.0); Mean Corpuscular Volume 85.3 fL (80.0-98.0); Mean Platelet Volume 10.5 fL (9.4-12.3); Monocytes Absolute Auto 0.5 X10*3/uL (0.1-1.2); Monocytes Percent Auto 6.2 % (2-11); Neutrophils Absolute Auto 5.3 x10*3/uL (2.0-8.3); Platelet Count 189 X10*3/uL (160-400); Red Blood Count 4.98 X10*6/uL (4.20-5.50); Red Cell Distribution Width 15.6 % (11.0-16.0)
[2022-04-17 12:59] LABS: D Dimer High Sensitivity < 150 NG/ML
[2022-04-17 13:04] LABS: Anion Gap 17 (12-20); Blood Urea Nitrogen 16 mg/dL (9-16); Calcium 9.2 mg/dL (8.4-10.2); Carbon Dioxide 23 mmol/L (22-29); Chloride 102 mmol/L (96-108); Creatinine Clr Calc Pharmacy 99.3; Estimated Glomerular Filt Rate > 60; Glucose Random 135 mg/dL (60-115); Sodium 137 mmol/L (135-145)
[2022-04-17 13:11] LABS: Troponin-I High Sensitivity < 3.5 ng/L (<3.5-17.0)
[2022-04-17 20:37] VITALS: BP 129/68; PULSE 81; RESP 15; O2SAT 99
--- NOTE | 2022-04-17 20:41 | PC.NURSE ---
patient endorses persistent weird feeling to the left side of her chest and face. HX [place], CVA in the past, on plavix. states she has received tpa in the past. 5/5 strength in all extremities noted. pupils are 4mm and briskly reactive to light. she is alert, oriented x4. speech is clear, patient states she's tired. no facial asymmetry noted.
--- NOTE | 2022-04-17 20:46 | ED_ITS ---
HPI - Chest Pain General Chief Complaint: Chest Pain Stated Complaint: chest pain into r arm headache Time Seen by Provider: 04/17/22 20:46 Source: patient Mode of arrival: ambulatory Limitations: no limitations History of Present Illness HPI narrative: 51-year-old female who presents emergency department for evaluation of chest pain. 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 She points to her upper sternum asked to localize the pain. She states the pain radiated to her left chest left shoulder and down her left arm to her elbow. She states that the pain was a constant sharp, heaviness, 6/10 from 09:00 until noon time and then it resolved. She states that while she was waiting in the emergency department and sitting in the waiting room pain came back at around 14:00 and has been constant since that time. Patient states that she is having pain at the time of my evaluation describes the pain is a heaviness which is 4/10. Pain does radiate down her left arm to her elbow. Patient states that over the last week she has been feeling lightheaded and developed sweats with exertion. She did not have any chest pain until today. She denied shortness of breath or dyspnea on exertion. She also states she has been having headaches for approximately 3 months with ringing in her ears and she has been evaluated by a neurology at this facility.. Patient's cardiac risk factors include high BMI 44.9, diabetes, hypertension hyperlipidemia coronary artery disease. Patient states she had a myocardial infarction 3 years prior and had 4 stents.. Following was obtained from cardiology note dated 11/14/2021: -Inferior STEMI 01/30/2019. Cardiac catheterization done in [place] showing occlusion of the mid RCA and 2 ARIEL is placed, mid circumflex 100% stenosis, ARIEL placed and mid LAD 90% stenosis, ARIEL placed, EF 40%. -Follow up echo 06/20/2020 showing EF 55-60%, no reported wall motion abnormalities MD complaint: chest pain Pertinent past history: coronary artery disease, prior SD and [employer] Onset (ago): hour(s) (12) Timing of current episode: episodic Prior episodes: Yes Onset: during rest Pain location: substernal and left chest Pain radiation: left arm Severity: moderate Pain scale (0-10): 6 Quality: heaviness and sharp Relieving factors: nothing Exacerbating factors: nothing Associated symptoms: diaphoresis and other Treatment prior to arrival: none Risk Factors Coronary artery disease risk factors: diabetes, smoking history, hyperlipidemia and hypertension Related Data Home Medications Medication Instructions Recorded Confirmed albuterol sulfate 90 mcg/actuation 2 puff inhalation Q4H PRN 04/13/20 02/05/22 aerosol inhaler (ProAir HFA) Shortness Of Breath fluoxetine 20 mg capsule (Prozac) 60 mg PO DAILY 04/13/20 02/05/22 insulin glargine 100 unit/mL (3 36 unit subcut QPM 04/13/20 02/05/22 mL) subcutaneous pen (Lantus Solostar U-100 Insulin) lorazepam 1 mg tablet 1 mg PO BID PRN Anxiety 04/13/20 02/05/22 metformin 1,000 mg tablet 1,000 mg PO BID 04/13/20 02/05/22 tizanidine 2 mg tablet 2 mg PO Q6H PRN Muscle Pain 04/13/20 02/05/22 cholecalciferol (vitamin D3) 50 50 mcg PO DAILY 12/01/20 02/05/22 mcg (2,000 unit) capsule (Vitamin D3) dulaglutide 3 mg/0.5 mL 3 mg subcut QWEEK 12/01/20 02/05/22 subcutaneous pen injector (Trulicity) gabapentin 600 mg tablet 600 mg PO BID 12/01/20 02/05/22 gabapentin 600 mg tablet 900 mg PO BEDTIME 12/01/20 02/05/22 magnesium chloride 64 mg 64 mg PO BID 12/01/20 02/05/22 (magnesium chloride) tablet,delayed release (Mag 64) omeprazole 20 mg capsule,delayed 20 mg PO BID 11/14/21 02/05/22 release duloxetine 30 mg capsule,delayed 30 mg PO DAILY 02/05/22 02/05/22 release empagliflozin 10 mg tablet 10 mg PO DAILY 02/05/22 02/05/22 (Jardiance) ferrous sulfate 325 mg (65 mg 325 mg PO DAILY 02/05/22 02/05/22 iron) tablet (iron) lisinopril 2.5 mg tablet 2.5 mg PO DAILY 02/05/22 02/05/22 Previous Rx's Medication Instructions Recorded atorvastatin 80 mg tablet 80 mg PO BEDTIME 90 days #90 tabs 04/27/21 carvedilol 3.125 mg tablet 3.125 mg PO BID 90 days #180 tabs 04/27/21 clopidogrel 75 mg tablet 75 mg PO DAILY 90 days #90 tabs 04/27/21 aspirin 81 mg chewable tablet 81 mg PO DAILY #90 tabs 11/01/21 meclizine 12.5 mg tablet 12.5 - 25 mg PO TID PRN dizziness 02/05/22 14 days #30 tabs ondansetron 4 mg disintegrating 4 mg PO Q6H PRN nausea and 02/05/22 tablet vomiting 30 days #20 tabs riboflavin (vitamin B2) 400 mg 400 mg PO DAILY 30 days #30 tabs 02/05/22 tablet topiramate 25 mg tablet See Rx Instructions PO BEDTIME 30 02/05/22 days #60 tabs Allergies Allergy/AdvReac Type Severity Reaction Status Date / Time bee pollen [BEE STINGS] Allergy Severe ANAPHYLAXIS Verified 02/05/22 08:36 coconut [COCONUT] Allergy Unknown HIVES Verified 02/05/22 08:36 buspirone [BUSPIRONE] AdvReac Intermediate Sedation Verified 02/05/22 08:36 Review of Systems Review of Systems: Yes all other systems are reviewed and are negative [facility] Past Medical History [facility] Narrative: Social history: The patient is a former smoker, she stop smoking 12 years prior, she smoked up to 1 pack per day on and off for 20 years. She rarely drinks alcohol. She denies drug use. Medical History Anxiety Arthritis Asthma Bleeding ulcer delivery delivered Coronary artery disease History of heart attack Hives Hyperlipidemia Left shoulder pain Neuropathy Recurrent major depression Type 2 diabetes mellitus Surgical History Stented coronary artery Social History Social History Household Members: Family Household Members Other:: oldest son's girlfriend also resides in the home. Alcohol intake: never Patient Tobacco Use Status: Former Tobacco user Tobacco use type: Cigarette Advance Directives: No Physical Exam Vital Signs: Vital Signs: Last Vital Signs Temp 98.0 F 04/17/22 12:01 Pulse 81 04/17/22 20:37 Resp 15 04/17/22 20:37 BP 129/68 04/17/22 20:37 Pulse Ox 99 04/17/22 20:37 O2 Del Method 04/17/22 20:37 BMI result Body Mass Index 44.9 Const: Other: Awake, alert, female patient, very pleasant cooperative, does not appear to distress, elevated BMI 44.9 HEENT: Head: Yes normal to inspection, Yes normocephalic and Yes atraumatic Ears: external ears normal General nose exam: Normal external nose present Face and sinus: Yes normal facial exam Mouth: Normal oral and palatal mucosa present Throat: Yes posterior oropharynx normal Eyes: General: appearance normal, both eyes and all related structures Pupils: Equal, round and reactive pupils present Neck: Neck: Yes normal visual inspection, Yes no lymphadenopathy, Yes trachea midline and Yes supple Chest: Chest palpation & inspection: normal inspection of the chest and tenderness (Mild left chest wall tenderness) Resp: Effort & Inspection: normal respiratory effort and able to speak in complete sentences Auscultation: clear to auscultation bilaterally Cardio: Rate: regular rate Rhythm: regular rhythm Heart sounds: S1 normal heart sound present, S2 normal heart sound present and no murmurs GI: Inspection: Yes normal to inspection Palpation (GI): Soft to palpation, nontender and no guarding Auscultation: normal bowel sounds : General: Yes no CVA tenderness Back/Spine/Pelvis: Back: no CVA tenderness Skin: General skin exam: no rashes or lesions noted Neuro: Cranial nerves: Yes CN's II-XII intact bilaterally and Yes Equal, round and reactive pupils present Cognition (Neuro): normal cognition Motor exam (neuro): 5/5 motor strength present throughout Extrem: General: Yes normal to inspection Psych: Appearance: grossly normal Speech and movement: Normal speech and movement present Affect: normal affect Attitude: cooperative Thought process: Normal thought process present Thought content: Normal thought content present Course Course Course Narrative: 51-year-old female with significant cardiac risk factors including previous inferior myocardial infarction in 2019 who presents emergency department for evaluation of 1 week of lightheadedness and diaphoresis with exertion and chest pain that began this morning at 09:00 hours while she was not exerting herself at work. Patient has had intermittent episodes of chest pain while she has been waiting here in the emergency department and was having 4/10 chest pain radiating to her left arm at the time of my evaluation. Patient's laboratory evaluation revealed a normal CBC and BMP with a slight elevation of her glucose of 135. The patient's 1st troponin at 12:34 was below detectable limits, repeat troponin at 21:20 was also below detectable limits. Patient's 1st EKG revealed no evidence for an STEMI or ischemia, repeat EKG at 07/05/2037 was unchanged from the 1st EKG. I did discuss this patient's presentation over tiger text with the on-call counterperson, Dr. Mendez. He recommended the patient be admitted here for further evaluation of her symptoms, therefore I will discuss admission with the covering hospitalist. MDM - Chest Pain Medical Records Data Attestation: I reviewed the patient's medical records. Lab Data Attestation: I reviewed the patient's lab results. Result diagrams: 04/17/22 12:34 04/17/22 12:34 Labs: Lab Results 04/17/22 04/17/22 04/17/22 Range/Units 12:34 12:34 12:34 WBC 8.0 (4.8-10.8) X10*3/uL RBC 4.98 (4.20-5.50) X10*6/uL Hgb 13.7 (12.0-16.0) g/dl Hct 42.5 (37.0-47.0) % MCV 85.3 (80.0-98.0) fL MCH 27.5 (27.0-33.0) pg MCHC 32.2 (31.0-35.0) g/dl RDW 15.6 (11.0-16.0) % Plt Count 189 (160-400) X10*3/uL MPV 10.5 (9.4-12.3) fL Immature Gran % (Auto) 0.1 (0.0-0.4) % Neut % (Auto) 66.0 (45-73) % Lymph % (Auto) 24.5 (20-40) % [place] % (Auto) 6.2 (2-11) % Eos % (Auto) 3.0 (0-4) % Baso % (Auto) 0.2 (0-2) % Lymph # (Auto) 2.0 (1.2-4.9) X10*3/uL [place] # (Auto) 0.5 (0.1-1.2) X10*3/uL Eos # (Auto) 0.2 (0.0-0.4) X10*3/uL Baso # (Auto) 0.0 (0.0-0.2) X10*3/uL Abs Immat Gran (auto) 0.01 (0.00-0.03) X10*3/uL Absolute Neuts (auto) 5.3 (2.0-8.3) x10*3/uL Absolute Nucleated RBC 0.000 (0.0-0.012) X10*3/uL Nucleated RBC % (auto) 0.0 (0.0-0.2) /100WBC D-Dimer High Sensitivty NG/ML Sodium 137 (135-145) mmol/L Potassium 5.0 (3.3-5.1) mmol/L Chloride 102 (96-108) mmol/L Carbon Dioxide 23 (22-29) mmol/L Anion Gap 17 (12-20) BUN 16 (9-16) mg/dL Creatinine 0.88 (0.5-1.4) mg/dL Estim Creat Clear Calc 99.3 Estimated GFR > 60 Random Glucose 135 H (60-115) mg/dL Calcium 9.2 D (8.4-10.2) mg/dL Troponin I High Sens < 3.5 (<3.5-17.0) ng/L 04/17/22 Range/Units 12:34 WBC (4.8-10.8) X10*3/uL RBC (4.20-5.50) X10*6/uL Hgb (12.0-16.0) g/dl Hct (37.0-47.0) % MCV (80.0-98.0) fL MCH (27.0-33.0) pg MCHC (31.0-35.0) g/dl RDW (11.0-16.0) % Plt Count (160-400) X10*3/uL MPV (9.4-12.3) fL Immature Gran % (Auto) (0.0-0.4) % Neut % (Auto) (45-73) % Lymph % (Auto) (20-40) % [place] % (Auto) (2-11) % Eos % (Auto) (0-4) % Baso % (Auto) (0-2) % Lymph # (Auto) (1.2-4.9) X10*3/uL [place] # (Auto) (0.1-1.2) X10*3/uL Eos # (Auto) (0.0-0.4) X10*3/uL Baso # (Auto) (0.0-0.2) X10*3/uL Abs Immat Gran (auto) (0.00-0.03) X10*3/uL Absolute Neuts (auto) (2.0-8.3) x10*3/uL Absolute Nucleated RBC (0.0-0.012) X10*3/uL Nucleated RBC % (auto) (0.0-0.2) /100WBC D-Dimer High Sensitivty < 150 NG/ML Sodium (135-145) mmol/L Potassium (3.3-5.1) mmol/L Chloride (96-108) mmol/L Carbon Dioxide (22-29) mmol/L Anion Gap (12-20) BUN (9-16) mg/dL Creatinine (0.5-1.4) mg/dL Estim Creat Clear Calc Estimated GFR Random Glucose (60-115) mg/dL Calcium (8.4-10.2) mg/dL Troponin I High Sens (<3.5-17.0) ng/L ECG Data EKG 1 and 2: Interpretation: 1225: Normal sinus rhythm rate of 80, normal WI interval, normal QRS duration, normal QTC interval, no ST segment elevation, no ST segment depression, no PACs, no PVCs, Q-waves in 3 and AVF unchanged from previous EKG 2138: Normal sinus rhythm rate of 80, normal WI, QRS and QTC intervals, no ST segment elevation, no ST segment depression, no T-wave abnormalities, no PACs, no PVCs, Q-waves in 3 and AVF unchanged from EKG at 12:25 Critical Care Time Critical Care Time Total Critical Care Time: 30 Attestation: Critical Care: The patient was critically ill with a high probability of imminent or life threatening deterioration. I spent greater than 30 minutes of discontinuous time evaluating the patient,delivering critical care at the bedside, discussing and evaluating pertinent data with consultants. Critical care time does not include time spent performing separately billable procedures or teaching. Total time spent performing critical care was 30 minutes. Discharge Plan Discharge Clinical Impression: Chest pain Patient Disposition: Admitted As Inpatient Prescriptions: No Action carvedilol 3.125 mg tablet 3.125 mg PO BID 90 Days Qty: 180 3RF clopidogrel 75 mg tablet 75 mg PO DAILY 90 Days Qty: 90 3RF atorvastatin 80 mg tablet 80 mg PO BEDTIME 90 Days Qty: 90 3RF aspirin 81 mg tablet,chewable 81 mg PO DAILY Qty: 90 3RF tizanidine 2 mg Tablet 2 mg PO Q6H PRN (Reason: Muscle Pain) Rx Instructions: Last filled 09/05/20 metformin 1,000 mg Tablet 1,000 mg PO BID Rx Instructions: Take before breakfast and before dinner albuterol sulfate [ProAir HFA] 90 mcg/actuation Hfa Aerosol Inhaler 2 puff INHALATION Q4H PRN (Reason: Shortness Of Breath) Rx Instructions: Last filled December 2019 Patient reports she last used in September 2020 lorazepam 1 mg Tablet 1 mg PO BID PRN (Reason: Anxiety) fluoxetine [Prozac] 20 mg Capsule 60 mg PO DAILY Lantus Solostar U-100 Insulin 100 unit/mL (3 mL) Insulin Pen 36 unit SUBCUT QPM gabapentin 600 mg Tablet 600 mg PO BID Rx Instructions: Take 1 tab in the morning and 1 tab in the afternoon gabapentin 600 mg Tablet 900 mg PO BEDTIME Rx Instructions: Take 1 1/2 tab at HS cholecalciferol (vitamin D3) [Vitamin D3] 50 mcg (2,000 unit) Capsule 50 mcg PO DAILY magnesium chloride [Mag 64] 64 mg Tablet,Delayed Release (Dr/Ec) 64 mg PO BID Label Comments: Patient prescribed 2 tabs daily, patient takes 1 tab BID Trulicity 3 mg/0.5 mL Pen Injector 3 mg SUBCUT QWEEK Rx Instructions: Weekly on Friday omeprazole 20 mg capsule,delayed release(DR/EC) 20 mg PO BID Jardiance 10 mg tablet 10 mg PO DAILY ferrous sulfate [iron] 325 mg (65 mg iron) tablet 325 mg PO DAILY duloxetine 30 mg capsule,delayed release(DR/EC) 30 mg PO DAILY lisinopril 2.5 mg tablet 2.5 mg PO DAILY topiramate 25 mg tablet See Rx Instructions PO BEDTIME 30 Days Qty: 60 2RF Rx Instructions: 1 tab qhs x's 2 weeks, then may increase to 2 tabs qhs orally bedtime; 1 tab riboflavin (vitamin B2) 400 mg tablet 400 mg PO DAILY 30 Days Qty: 30 6RF ondansetron 4 mg tablet,disintegrating 4 mg PO Q6H PRN (Reason: nausea and vomiting) 30 Days Qty: 20 2RF meclizine 12.5 mg tablet 12.5 - 25 mg PO TID PRN (Reason: dizziness) 14 Days Qty: 30 2RF
--- NOTE | 2022-04-17 21:22 | ECG_ITS ---
Test Reason : CHEST PAIN Blood Pressure : / mmHG Vent. Rate : 080 BPM Atrial Rate : 080 BPM P-R Int : 146 ms QRS Dur : 090 ms QT Int : 382 ms P-R-T Axes : 057 000 026 degrees QTc Int : 440 ms Normal sinus rhythm Normal ECG When compared with ECG of 17-APR-2022 12:25, No significant change was found Referred By: Tanner Wynne Electronically Signed By:AMGGI MADRID MD
[2022-04-17] MEDS: Aspirin 81 MG TAB.CHEW 324 MG PO (21:24)
[2022-04-17 21:39] VITALS: RESP 17
[2022-04-17] MEDS: Morphine Sulfate 4 MG/ML CARTRIDGE IVPUSH ×2 (21:39→23:00)
[2022-04-17 21:44] LABS: Troponin-I High Sensitivity < 3.5 ng/L (<3.5-17.0)
[2022-04-17] MEDS: ondansetron HCL 4 MG/2 ML VIAL IVPUSH (21:49)
[2022-04-17 22:04] VITALS: BP 115/76; PULSE 78; RESP 12; TEMP 36.8; O2SAT 96
[2022-04-17 22:50] LABS: Prothrombin Time 10.9 SEC (10.0-13.1)
[2022-04-17 22:52] LABS: Partial Thromboplastin Time 34.8 SEC (26.0-36.4)
[2022-04-17 22:59] VITALS: RESP 19
[2022-04-17 23:00] VITALS: RESP 17
[2022-04-17 23:33] LABS: COVID-19 Test Negative (Negative); IDNOW Serial# 16C4AD1C; Influenza A Negative (Negative); Influenza B2 Negative (Negative)
--- NOTE | 2022-04-17 23:55 | P.HPHOSP_ITS ---
History of Present Illness Date of Service: 04/17/22 Chief Complaint: Chest pain 51-year-old female with past medical history of coronary artery disease status post ID, and stents, type 2 diabetes, asthma, PTSD, anxiety, hypertension, hyperlipidemia, HENRIK, presents to the hospital with complaints of chest pain radi ating to the left arm. Patient reports that her symptoms started the day of presentation, she is also complaining of diaphoresis, left-sided face numbness, headache, and dizziness. Patient reports that she felt this may be related to her anxiety and having a panic attack but because the pain radiated to her left arm she decided to come to the hospital. She describes the pain as heaviness, intermittent, lasting few hours, resolving spontaneously. She is able to reproduce the pain when she palpates on her chest. She is also complaining of diffuse headache, and numbness in her skull as well as left face. She denies any numbness tingling or weakness in her upper or lower extremities. She denies any nausea, no vomiting, no change in vision, no no double or blurry vision, no nausea or vomiting, no abdominal pain, no diarrhea constipation, no urinary symptoms and no lower extremity edema. 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 EKG shows no evidence of ST T-wave changes suggestive of ACS Discussed with Cardiology by ED physician, wants patient to be admitted for further evaluation Review of Systems Review of Systems: Yes all other systems are reviewed and are negative [facility] Medical History Anxiety Arthritis Asthma Bleeding ulcer delivery delivered Coronary artery disease History of heart attack Hives Hyperlipidemia Left shoulder pain Neuropathy Recurrent major depression Type 2 diabetes mellitus Surgical History Stented coronary artery Social History Household Members: Family Household Members Other:: oldest son's girlfriend also resides in the home. Alcohol intake: never Patient Tobacco Use Status: Former Tobacco user Tobacco use type: Cigarette Advance Directives: No Meds Allergies Allergy/AdvReac Type Severity Reaction Status Date / Time bee pollen [BEE STINGS] Allergy Severe ANAPHYLAXIS Verified 02/05/22 08:36 coconut [COCONUT] Allergy Unknown HIVES Verified 02/05/22 08:36 buspirone [BUSPIRONE] AdvReac Intermediate Sedation Verified 02/05/22 08:36 Active Medications: Current Medications Pharmacy Consult (Consult Rx Perform Med Rec) 1 each MISCELLANE ONCE PRN PRN Reason: Consult order Home Medications Medication Instructions Recorded Confirmed Last Taken Type albuterol sulfate 90 mcg/actuation 2 puff inhalation Q4H PRN 04/13/20 02/05/22 Unknown History aerosol inhaler (ProAir HFA) Shortness Of Breath fluoxetine 20 mg capsule (Prozac) 60 mg PO DAILY 04/13/20 02/05/22 12/01/20 10:30 History insulin glargine 100 unit/mL (3 36 unit subcut QPM 04/13/20 02/05/22 11/30/20 20:00 History mL) subcutaneous pen (Lantus Solostar U-100 Insulin) lorazepam 1 mg tablet 1 mg PO BID PRN Anxiety 04/13/20 02/05/22 11/28/20 History metformin 1,000 mg tablet 1,000 mg PO BID 04/13/20 02/05/22 12/01/20 10:30 History tizanidine 2 mg tablet 2 mg PO Q6H PRN Muscle Pain 04/13/20 02/05/22 Unknown History cholecalciferol (vitamin D3) 50 50 mcg PO DAILY 12/01/20 02/05/22 12/01/20 10:30 History mcg (2,000 unit) capsule (Vitamin D3) dulaglutide 3 mg/0.5 mL 3 mg subcut QWEEK 12/01/20 02/05/22 11/28/20 History subcutaneous pen injector (Trulicity) gabapentin 600 mg tablet 600 mg PO BID 12/01/20 02/05/22 12/01/20 10:30 History gabapentin 600 mg tablet 900 mg PO BEDTIME 12/01/20 02/05/22 11/30/20 20:00 History magnesium chloride 64 mg 64 mg PO BID 12/01/20 02/05/22 12/01/20 10:30 History (magnesium chloride) tablet,delayed release (Mag 64) omeprazole 20 mg capsule,delayed 20 mg PO BID 11/14/21 02/05/22 Unknown History release duloxetine 30 mg capsule,delayed 30 mg PO DAILY 02/05/22 02/05/22 Unknown History release empagliflozin 10 mg tablet 10 mg PO DAILY 02/05/22 02/05/22 Unknown History (Jardiance) ferrous sulfate 325 mg (65 mg 325 mg PO DAILY 02/05/22 02/05/22 Unknown History iron) tablet (iron) lisinopril 2.5 mg tablet 2.5 mg PO DAILY 02/05/22 02/05/22 Unknown History Physical Exam Vital Signs and Narrative: Vital Signs: Last Vital Signs Temp 98.2 F 04/17/22 22:04 Pulse 78 04/17/22 22:04 Resp 17 04/17/22 23:00 BP 115/76 04/17/22 22:04 Pulse Ox 96 04/17/22 22:04 O2 Del Method 04/17/22 22:04 BMI result Body Mass Index 44.9 Const: General: cooperative and no acute distress Orientation/consciousness: patient oriented x3 Eyes: General: appearance normal, both eyes and all related structures Chest: Other: Reproducible chest pain in the left area Resp: Effort & Inspection: normal respiratory effort Auscultation: clear to auscultation bilaterally Cardio: Rate: regular rate Rhythm: regular rhythm GI: Palpation (GI): Soft to palpation Auscultation: normal bowel sounds Skin: General skin exam: no rashes or lesions noted Neuro: Other: No neurological deficits, strength is 5/5 in all extremities, cranial nerves 2- 12 intact General: patient oriented x3 Cognition (Neuro): normal cognition Extrem: General: Yes normal to inspection and Yes no pedal edema Results Labs CBC and Chem 7: 04/18/22 04:30 04/18/22 04:30 Labs: Laboratory Results - last 24 hr 04/17/22 04/17/22 04/17/22 12:34 12:34 12:34 MCV 85.3 MCH 27.5 MCHC 32.2 RDW 15.6 Plt Count 189 MPV 10.5 Immature Gran % (Auto) 0.1 Neut % (Auto) 66.0 Lymph % (Auto) 24.5 [place] % (Auto) 6.2 Eos % (Auto) 3.0 Baso % (Auto) 0.2 Lymph # (Auto) 2.0 [place] # (Auto) 0.5 Eos # (Auto) 0.2 Baso # (Auto) 0.0 Abs Immat Gran (auto) 0.01 Absolute Neuts (auto) 5.3 Absolute Nucleated RBC 0.000 Nucleated RBC % (auto) 0.0 PT INR APTT D-Dimer High Sensitivty Anion Gap 17 Estim Creat Clear Calc 99.3 Estimated GFR > 60 Random Glucose 135 H Calcium 9.2 D Troponin I High Sens < 3.5 COVID-19 (MERLY) COVID-19 Clin Com Influenza Type A (BECKY) Influenza Type B (BECKY) Influenza A & B Note 04/17/22 04/17/22 04/17/22 12:34 21:20 21:52 MCV MCH MCHC RDW Plt Count MPV Immature Gran % (Auto) Neut % (Auto) Lymph % (Auto) [place] % (Auto) Eos % (Auto) Baso % (Auto) Lymph # (Auto) [place] # (Auto) Eos # (Auto) Baso # (Auto) Abs Immat Gran (auto) Absolute Neuts (auto) Absolute Nucleated RBC Nucleated RBC % (auto) PT 10.9 INR 1.0 APTT 34.8 D-Dimer High Sensitivty < 150 Anion Gap Estim Creat Clear Calc Estimated GFR Random Glucose Calcium Troponin I High Sens < 3.5 COVID-19 (MERLY) COVID-19 Clin Com Influenza Type A (BECKY) Influenza Type B (BECKY) Influenza A & B Note 04/17/22 04/17/22 23:10 23:10 MCV MCH MCHC RDW Plt Count MPV Immature Gran % (Auto) Neut % (Auto) Lymph % (Auto) [place] % (Auto) Eos % (Auto) Baso % (Auto) Lymph # (Auto) [place] # (Auto) Eos # (Auto) Baso # (Auto) Abs Immat Gran (auto) Absolute Neuts (auto) Absolute Nucleated RBC Nucleated RBC % (auto) PT INR APTT D-Dimer High Sensitivty Anion Gap Estim Creat Clear Calc Estimated GFR Random Glucose Calcium Troponin I High Sens COVID-19 (MERLY) Negative COVID-19 Clin Com See Note Influenza Type A (BECKY) Negative Influenza Type B (BECKY) Negative Influenza A & B Note See Note Assessment and Plan (1) Chest pain: Status: Acute (2) Facial numbness: Status: Acute Plan 51-year-old female with past medical history of CAD status post ID, stents, hypertension, hyperlipidemia, HENRIK, documented history of possible stroke on 08/2021 status post tPA presents to the hospital with complaints of chest pain # chest pain -atypical-likely secondary to musculoskeletal - reproducible - troponin negative x2, no EKG changes suggestive of ACS - will treat with 1 dose of ibuprofen - given her past medical history of coronary artery disease and high risk, patient will be admitted with consult to Cardiology # facial numbness t - this is concerning given her history of CVA ( functional as documented) in the past - will obtain MRI - at this time no neurological deficit - neurology consult her MRI findings # hypertension - stable - continue home antihypertensives # HENRIK - does not tolerate CPAP # history of coronary artery disease - continue aspirin, Plavix, lisinopril and lisinopril and carvedilol # diabetes - hold oral antihyperglycemics - start low-dose sliding scale insulin - diabetic diet DVT prophylaxis: Early ambulation Quality Stroke Does the patient have a stroke diagnosis?: No VTE Prior VTE?: No VTE Risk Level:: Medical - low VTE Device Contraindication: Treatment Not Indicated VTE Drug Contraindication: Treatment Not Indicated
[2022-04-18] MEDS: 0.9 % Sodium Chloride Flush 3 ML SYRINGE IVFLUSH ×2 (00:01→08:23)
[2022-04-18 00:08] VITALS: BP 113/70; PULSE 80; RESP 16; O2SAT 96
--- OUTSIDE RECORDS SUMMARY | 2022-04-18 00:21 | XMS_ITS | Continuity of Care Document ---
:1970 Author Organization [facility] Address [address] [place] [address]- Care Team Providers Name Role Phone Jefferson Sinclair MD Primary Care Physician Encounter [facility] [place] Date(s): 05/04/20 - 06/03/20 [facility] [address] [place] [id number] Allergies, Adverse Reactions, Alerts No Known Medication Allergies Medications albuterol (OP) See Instructions, two puffs q 4 hours prn for SOB, 0 Refills, Maintenance, 2 Start Date: 11/05/18 Status: OrderedAuvi-Q 0.3 mg injectable kit = 0.3 mg, Intramuscular, Once, PRN Other, PRN for allergic reaction, 0 Refills, Maintenance, 11/12/18 14:25:02 EDT Start Date: 11/12/18 Status: OrderedClaritin 10 mg oral tablet See Instructions, 2 tablet By Mouth Daily and 1 tab at bedtime, Refills 0, Maintenance, 11/05/18 9:44:51 EDT, Instructions Replace Required Details Start Date: 11/05/18 Status: OrderedFlonase 1 sprays, Nares, Both, 2 times a day, 0 Refills, Maintenance, 11/05/18 9:49:38 EDT Start Date: 11/05/18 Status: Orderedgabapentin 300 mg oral capsule 300 mg, 1, capsule, By Mouth, Daily at bedtime, Refills 0, Maintenance, 11/05/18 9:41:55 EDT Start Date: 11/05/18 Status: OrderedGlucophage 1000 mg oral tablet 1 tablet = 1,000 mg, By Mouth, 2 times a day, # 60 tablet, 0 Refills, Maintenance, 11/05/18 9:33:39 EDT, Tablet Start Date: 11/05/18 Status: OrderedGlucotrol 5 mg oral tablet 15 mg, By Mouth, 2 times a day, Refills 0, Maintenance, 11/05/18 9:34:38 EDT Start Date: 11/05/18 Status: OrderedKlonoPIN 0.5 mg oral tablet 1/2 tab, By Mouth, 2 times a day, 0 Refills, Maintenance, 11/05/18 9:39:04 EDT Start Date: 11/05/18 Status: OrderedLidocaine See Instructions, one 5% patch daily, 0 Refills, Maintenance, 11/05/18 9:43:04 EDT Start Date: 11/05/18 Status: Orderedomeprazole 40 mg oral enteric coated capsule 1 capsule = 40 mg, By Mouth, Daily, # 30 capsule, 0 Refills, Maintenance, 11/05/18 9:37:17 EDT, EC Capsule Start Date: 11/05/18 Status: OrderedPROzac 40 mg oral capsule 2 capsule = 80 mg, By Mouth, Daily, 0 Refills, Maintenance, 11/05/18 9:38:08 EDT Start Date: 11/05/18 Status: OrderedRobaxin 500 mg oral tablet See Instructions, Q 12 hours daily prn, 0 Refills, Maintenance, 11/05/18 9:40:19 EDT Start Date: 11/05/18 Status: OrderedVictoza 18 mg/3 mL subcutaneous solution = 1.2 mg, Subcutaneous Injection, Daily at bedtime, # 6 mL, 0 Refills, Maintenance, 11/05/18 9:35:48EDT, Solution Start Date: 11/05/18 Status: OrderedXolair 150 mg subcutaneous injection Subcutaneous Infusion, 0 Refills, Maintenance, 11/05/18 9:47:09 EDT Start Date: 11/05/18 Status: OrderedXolair 150 mg subcutaneous injection See Instructions, 300 mg Subcutaneous Injection; one shot monthly, 0 Refills, Maintenance, 11/05/18 9:47:15 EDT Start Date: 11/05/18 Status: Ordered Social History Social History Type Response Smoking Status Former smoker, quit more lauren n 30 days ago entered on: 11/05/18 Sex
--- OUTSIDE RECORDS SUMMARY | 2022-04-18 00:21 | XMS_ITS ---
:1970 Author Care Team Providers Name Role Phone Zoya Lackey Primary Care Provider Unavailable Allergies Code Code System Name Reaction Severity Status Onset NKDA ? Medications Name Status Start Date Stop Date ? ? amoxicillin 875 mg-potassium clavulanate 125 mg tablet Completed ? 12/02/2016 Aviane 0.1 mg-20 mcg tablet Unknown ? Not available Take 1 tablet every day by oral route for 28 days. benzonatate 100 mg capsule Completed ? 12/02 carisoprodol 350 mg tablet Completed ? 12/02 TAKE 1 TABLET 3 TIMES A DAY NEEDED Claritin 10 mg tablet Active ? Not availa ble Take 2 tablets every day by oral route. clindamycin 2 % vaginal cream Completed ? Insert 1 applicatorful every day by vaginal route at bedtime fo r 7 days. dexamethasone 4 mg tablet Completed ? 2016 fluconazole 150 mg tablet Active ? Not av ailable fluoxetine 40 mg capsule Active ? Not harshil ilable TAKE ONE CAPSULE BY MOUTH EVERY DAY glipizide 5 mg tablet Completed ? 12/02/2016 glipizide ER 5 mg tablet, extended release 24 hr Active ? Not available hydrocodone 5 mg-acetaminophen 325 mg tablet Completed ? 12/02/2016 metformin 1,000 mg tablet Active ? Not av ailable methylprednisolone 4 mg tablets in a dose pack Completed ? 12/02/2016 nitrofurantoin monohydrate/macrocrystals 100 mg capsule Active ? Not available TAKE ONE CAPSULE BY MOUTH TWICE A DAY FOR 7 DAYS OneTouch Ultra Test strips Active ? Not a vailable OneTouch UltraMini kit Active ? Not avail able OneTouch UltraSoft Lancets Active ? Not a vailable oxycodone-acetaminophen 5 mg-325 mg tablet Completed ? 12/02/2016 peg 3350-electrolytes 236 gram-22.74 gram-6.74 gram-5.86 Complet ed ? 12/02/2016 gram solution prednisone 20 mg tablet Unknown ? Not avai lable promethazine 6.25 mg-codeine 10 mg/5 mL syrup Unknown ? Not available sulfamethoxazole 800 mg-trimethoprim 160 mg tablet Unknown ? Not available Voltaren 1 % topical gel Completed ? 017 Notes: over the counter acid reflux me d. Problems Name Status Onset Date Source ? Diabetes Mellitus Active 12/02/2016 ? Candidal Vulvovaginitis Active ? Encounte r Vulvitis Active ? Encounter Procedures Date Name Performed by ? 06/16/2007 Dilation and Curettage Information not a vailable Notes: 201006/16/1993 Caesarean Section Information not avai lable Notes: 1998,06/16/1989 Other Information not avai lable Notes: ankle ? Other Information not avai lable Notes: eye surgery 10/25/2013 MAMMO, Screening, Digital, Bilateral [facility] (Radiology) [address], [place] [address] (Work Place) Results Lab Results Date Name Specimen Result Interpretation Description Value Range Status Address ? 12/02/2016 Culture, UCC ? Comments ? ? Final [facility]: Urine [address] [facility] Dep[facility] ? ? UCC ? Urine life ? Final [facility]: Culture laboratories [address] [facility] [address] [facility] [place] [address] 10/25/2013 Pap, LB ? [id number] ? ? Final [facility] , Cytopathol ogy Service: 08 07 [facility] ? [place], ? Clue Cells negative ? ? In-Office Vaginal Order: In ternal Use Only D O Not Attach Compendium DO Not Attach Compendium , Do Not Delete/hafsa ge ? ? ? Trichomonas negative ? ? In -Office Order: Int ernal Use Only D O Not Attach Compendium DO Not Attach Compendium , Do Not Delete/hafsa ge ? ? ? Hyphae positive ? ? In-Offi ce Order: Int ernal Use Only D O Not Attach Compendium DO Not Attach Compendium , Do Not Delete/hafsa ge ? ? ? Atrophic negative ? ? In-Of fice Epithelium Order: Internal Use Only D O Not Attach Compendium DO Not Attach Compendium , Do Not Delete/hafsa ge ? Urinalysis, ? Glu Negative ? ? In- Office Dipstick Order: I nternal Use Only D O Not Attach Compendium DO Not Attach Compendium , Do Not Delete/hafsa ge ? ? ? Brian Negative ? ? In-Offic e Order: Int ernal Use Only D O Not Attach Compendium DO Not Attach Compendium , Do Not Delete/hafsa ge ? ? ? Ket Negative ? ? In-Offic e Order: Int ernal Use Only D O Not Attach Compendium DO Not Attach Compendium , Do Not Delete/hafsa ge ? ? ? Sg 1.010 ? ? In-Office Order: Int ernal Use Only D O Not Attach Compendium DO Not Attach Compendium , Do Not Delete/hafsa ge ? ? ? Blo Negative ? ? In-Offic e Order: Int ernal Use Only D O Not Attach Compendium DO Not Attach Compendium , Do Not Delete/hafsa ge ? ? ? Ph 5.0 ? ? In-Office Order: Int ernal Use Only D O Not Attach Compendium DO Not Attach Compendium , Do Not Delete/hafsa ge ? ? ? Pro Negative ? ? In-Offic e Order: Int ernal Use Only D O Not Attach Compendium DO Not Attach Compendium , Do Not Delete/hafsa ge ? ? ? Uro 0.2 E.U. / dl ? ? In- Office Order: Int ernal Use Only D O Not Attach Compendium DO Not Attach Compendium , Do Not Delete/hafsa ge ? ? ? Nit negative ? ? In-Offic e Order: Int ernal Use Only D O Not Attach Compendium DO Not Attach Compendium , Do Not Delete/hafsa ge ? ? ? Gillian Trace ? ? In-Office Order: Int ernal Use Only D O Not Attach Compendium DO Not Attach Compendium , Do Not Delete/hafsa ge ? Wet [place], ? Clue Cells positive ? ? In-Office Vaginal Order: In ternal Use Only D O Not Attach Compendium DO Not Attach Compendium , Do Not Delete/hafsa ge ? ? ? Trichomonas negative ? ? In -Office Order: Int ernal Use Only D O Not Attach Compendium DO Not Attach Compendium , Do Not Delete/hafsa ge ? ? ? Hyphae positive ? ? In-Offi ce Order: Int ernal Use Only D O Not Attach Compendium DO Not Attach Compendium , Do Not Delete/hafsa ge ? ? ? Atrophic negative ? ? In-Of fice Epithelium Order: Internal Use Only D O Not Attach Compendium DO Not Attach Compendium , Do Not Delete/hafsa ge ? Fecal ? Occult Blood negative ? ? I n-Office Occult Order: Int ernal Blood, Use Only D O Not Stool Attach Compendium DO Not Attach Compendium , Do Not Delete/hafsa ge Past Encounters None recorded. Social History Tobacco Smoking Status Former Smoker Vaccine List Vaccine Type influenza, unspecified formulation 03/16/2013 03/18/2016 Tdap 11/15/2011 Plan of Care Reminders Provider Appointments None recorded. ? ? Lab None recorded. ? ? Referral None recorded. ? ? Procedures None recorded. ? ? Surgeries None recorded. ? ? Imaging None recorded. ? ? Vitals 12/02/2016 03:00PM SAME DAY 20 Height Weight BMI Blood Pressure 5 ft 5 in 268 lbs 44.6 kg/m2 145/78 mm[Hg] 10/25/2013 11:30AM ANNUAL EXAM Height Weight BMI Blood Pressure 5 ft 5 in 262.2 lbs 43.6 kg/m2 127/90 mm[Hg]
--- OUTSIDE RECORDS SUMMARY | 2022-04-18 00:21 | XMS_ITS | Continuity of Care Document ---
:1970 Author Organization [facility] Address [address] [place] [address]- Care Team Providers Name Role Phone Jefferson Sinclair MD Primary Care Physician Encounter [facility] [place] Date(s): 10/18/20 - 11/17/20 [facility] [address] [place], [place] [address] Allergies, Adverse Reactions, Alerts No Known Medication [...]
[2022-04-18 03:30] VITALS: BP 109/70; PULSE 80; RESP 17; TEMP 36.5; O2SAT 96
[2022-04-18 04:39] LABS: MANUAL DIFF FLAG NO
[2022-04-18 04:40] LABS: Basophils Percent Auto 0.3 % (0-2); Eosinophils Absolute Auto 0.2 X10*3/uL (0.0-0.4); Eosinophils Percent Auto 3.4 % (0-4); Hemoglobin 13.2 g/dl (12.0-16.0); Imm Gran Abs Auto 0.01 X10*3/uL (0.00-0.03); Imm Gran Pct Auto 0.1 % (0.0-0.4); Lymphocytes Absolute Auto 1.9 X10*3/uL (1.2-4.9); Lymphocytes Percent Auto 28.5 % (20-40); Mean Corpuscular HGB Conc 32.2 g/dl (31.0-35.0); Mean Corpuscular Hemoglobin 27.7 pg (27.0-33.0); Mean Corpuscular Volume 86.1 fL (80.0-98.0); Mean Platelet Volume 10.8 fL (9.4-12.3); Monocytes Absolute Auto 0.5 X10*3/uL (0.1-1.2); Neutrophils Percent Auto 60.7 % (45-73); Platelet Count 168 X10*3/uL (160-400); Red Blood Count 4.76 X10*6/uL (4.20-5.50); Red Cell Distribution Width 15.5 % (11.0-16.0); White Blood Count 6.7 X10*3/uL (4.8-10.8)
[2022-04-18 04:58] LABS: Anion Gap 15 (12-20); Blood Urea Nitrogen 16 mg/dL (9-16); Calcium 8.9 mg/dL (8.4-10.2); Carbon Dioxide 25 mmol/L (22-29); Chloride 105 mmol/L (96-108); Creatinine Clr Calc Pharmacy 98.2; Estimated Glomerular Filt Rate > 60; Glucose Random 208 mg/dL (60-115); Potassium 4.8 mmol/L (3.3-5.1); Sodium 140 mmol/L (135-145)
--- NOTE | 2022-04-18 07:21 | PHA.MEDREC ---
Pharmacy Consult ? Medication Reconciliation Pharmacy has completed the medication reconciliation. Reviewed med rec done by nursing
--- NOTE | 2022-04-18 07:30 | PC.NURSE ---
pt of to mri
[2022-04-18 08:22] VITALS: BP 110/75; PULSE 73; RESP 18; O2SAT 98
[2022-04-18 08:27] LABS: Glucose, Whole Blood 142 mg/dL (60-115)
--- NOTE | 2022-04-18 08:27 | PC.NURSE ---
pt alert and oriented, skin pwd, respirations even and unlabored, pt denies pain at this time, no nuro deficits at this time, sinus on the monitor, vs stable
--- NOTE | 2022-04-18 09:01 | CA_ITS ---
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 Nuclear images pending. Test reviewed with Dr Mendez Referred By: Stanislav Mendez Overread By: SONY ESCALANTE
--- NOTE | 2022-04-18 09:21 | PC.NURSE ---
pt going to cardiology for a stress test, wants to hold off her morning medications at this time because she does not want to take before walking on a treadmill
--- NOTE | 2022-04-18 10:05 | PM.CNCAR ---
History of Present Illness History of Present Illness Date of Service: 04/18/22 Chief complaint: Rule out ACS Narrative: This is a cardiology consultation regarding chest pain and left arm pain. She has a history of coronary disease. She comes to our clinic. To recall, in 2019 she went to the [facility] for a visit. At that time, had severe chest pain leading to hospitalization. Diagnosed to have inferior wall ND. Cardiac catheterization then showed multivessel CAD. She had a thrombotic lesion in the mid RCA that was stented. Also had stents in circumflex and LAD. Since that time, generally getting along. Last seen a few months ago. Current admission is because of recurrent episodes of chest discomfort as well as left arm discomfort. She states that she was also feeling dizzy. Episodes of diaphoresis. She apparently checked her blood sugars and they were okay. Subsequently, seen in the ER. EKG/troponins were unremarkable. Because of high risk history, she has been admitted and Cardiology consult. Currently, she states that she is comfortable. Review of Systems Review of Systems: Yes all other systems are reviewed and are negative Constitutional: Constitutional: Reports as per HPI Eyes: Eyes: Reports as per HPI ENT: Reports as per HPI Cardiovascular: Cardiovascular: Reports as per HPI, Denies acrocyanosis, Denies cool extremities, Reports chest pain, Denies leg edema, Denies lightheadedness, Denies palpitations and Denies dyspnea Respiratory: Respiratory: Reports as per HPI, Reports no additional respiratory complaints and Denies dyspnea Gastrointestinal: Gastrointestinal: Reports as per HPI and Reports no additional gastrointestinal complaints Genitourinary: Genitourinary: Reports as per HPI Musculoskeletal: Musculoskeletal: Reports no additional musculoskeletal complaints and Reports as per HPI Integumentary/Breasts: Skin/Breast: Reports system reviewed and no additional complaints, except as docu Neurologic: Reports system reviewed and no additional complaints, except as documented and Reports as per HPI Psychiatric: Psychiatric: Reports no additional psychiatric complaints and Reports as per HPI Endocrine: Endocrine: Reports no additional endocrine complaints, Reports as per HPI and Denies palpitations Hematologic/Lymphatic: Hematologic/Lymphatic: Reports no additional hematologic/lymphatic complaints and Reports as per HPI Allergic/Immunologic: Allergic/Immunologic: Reports no additional allergic/immunologic complaints and Reports as per HPI [facility] Past Medical History Medical History Anxiety Arthritis Asthma Bleeding ulcer delivery delivered Coronary artery disease History of heart attack Hives Hyperlipidemia Left shoulder pain Neuropathy Recurrent major depression Type 2 diabetes mellitus Family History Family History (Updated 04/18/22 @ 10:08 by Stanislav Mendez MD) Father Coronary artery disease Surgical History Surgical History Stented coronary artery Social History Social History Household Members: Family Household Members Other:: oldest son's girlfriend also resides in the home. Alcohol intake: never Patient Tobacco Use Status: Former Tobacco user Tobacco use type: Cigarette Advance Directives: No Meds Allergies Allergy/AdvReac Type Severity Reaction Status Date / Time bee pollen [BEE STINGS] Allergy Severe ANAPHYLAXIS Verified 02/05/22 08:36 coconut [COCONUT] Allergy Unknown HIVES Verified 02/05/22 08:36 buspirone [BUSPIRONE] AdvReac Intermediate Sedation Verified 02/05/22 08:36 Active Medications: Current Medications Acetaminophen (Acetaminophen 325 Mg Tablet) 650 mg PO Q6H PRN PRN Reason: Pain, Mild (Pain Scale 1-3) Albuterol Sulfate (Albuterol Sulfate 90 Mcg 8 Gm Inhaler) 2 puff INHALE Q4H PRN PRN Reason: Shortness Of Breath Aspirin (Aspirin 81 Mg Tab.Chew) 81 mg PO DAILY [facility] Atorvastatin Calcium (Atorvastatin Calcium 80 Mg Tablet) 80 mg PO BEDTIME [facility] Carvedilol (Carvedilol 3.125 Mg Tablet) 3.125 mg PO BID BETSY; Protocol Clopidogrel Bisulfate (Clopidogrel Bisulfate 75 Mg Tablet) 75 mg PO DAILY [facility] Dextrose (Dextrose 50 % 25 Gm/50 Ml Syringe) 25 gm IVPUSH Q15M PRN; Protocol PRN Reason: per Hypoglycemia Standing Ord. Docusate Sodium (Docusate Sodium 100 Mg Capsule) 100 mg PO DAILY PRN PRN Reason: Constipation Duloxetine HCl (Duloxetine Hcl 30 Mg Capsule.) 30 mg PO DAILY [facility] Ferrous Sulfate (Ferrous Sulfate 324 Mg Tablet.) 324 mg PO DAILY [facility] Fluoxetine HCl (Fluoxetine Hcl 20 Mg Capsule) 60 mg PO DAILY [facility] Gabapentin (Gabapentin 600 Mg Tablet) 600 mg PO BID@0900,1200 [facility] Gabapentin (Gabapentin 600 Mg Tablet) 900 mg PO BEDTIME [facility] Glucose (Glucose Gel 15 Gm Gel..Gram.) 15 gm PO Q15M PRN; Protocol PRN Reason: per Hypoglycemia Standing Ord. Insulin Glargine (Insulin Glargine,Hum.Rec.Anlog 100 Unit/Ml 10 Ml Vial) 60 unit SUBCUT BEDTIME [facility] Insulin Human Lispro (Insulin Lispro 100 Unit/Ml 3 Ml Vial) 0 unit SUBCUT QIDACHS [facility]; Protocol Last Admin: 04/18/22 08:23 Dose: Not Given Lorazepam (Lorazepam 1 Mg Tablet) 1 mg PO BID PRN PRN Reason: Anxiety Meclizine HCl (Meclizine Hcl 12.5 Mg Tablet) 12.5 mg PO TID PRN PRN Reason: dizziness Omeprazole (Omeprazole 20 Mg Capsule.Dr) 20 mg PO BID@0630,1630 [facility] Ondansetron HCl (Ondansetron Hcl 4 Mg/2 Ml Vial) 4 mg IVPUSH Q8H PRN PRN Reason: Nausea and Vomiting Pharmacy Consult (Consult Rx Perform Med Rec) 1 each MISCELLANE ONCE PRN PRN Reason: Consult order Sodium Chloride (0.9 % Sodium Chloride Flush 3 Ml Syringe) 3 ml IVFLUSH QSHIFT [facility] Last Admin: 04/18/22 08:23 Dose: 3 ml Tizanidine HCl (Tizanidine Hcl 4 Mg Tablet) 2 mg PO Q6H PRN PRN Reason: Muscle Pain Topiramate (Topiramate 25 Mg Tablet) 50 mg PO BEDTIME [facility] Vitamin D (Cholecalciferol (Vitamin D3) 25 Mcg Tablet) 50 mcg PO DAILY [facility] Home Medications Medication Instructions Recorded Confirmed Last Taken Type albuterol sulfate 90 mcg/actuation 2 puff inhalation Q4H PRN 04/13/20 04/18/22 Unknown History aerosol inhaler (ProAir HFA) Shortness Of Breath fluoxetine 20 mg capsule (Prozac) 60 mg PO DAILY 04/13/20 04/18/22 12/01/20 10:30 History insulin glargine 100 unit/mL (3 60 unit subcut BEDTIME 04/13/20 04/18/22 11/30/20 20:00 History mL) subcutaneous pen (Lantus Solostar U-100 Insulin) lorazepam 1 mg tablet 1 mg PO BID PRN Anxiety 04/13/20 04/18/2211/28/21 History metformin 1,000 mg tablet 1,000 mg PO BID 04/13/20 04/18/22 12/01/20 10:30 History tizanidine 2 mg tablet 2 mg PO Q6H PRN Muscle Pain 04/13/20 04/18/22 Unknown History cholecalciferol (vitamin D3) 50 50 mcg PO DAILY 12/01/20 04/18/22 12/01/20 10:30 History mcg (2,000 unit) capsule (Vitamin D3) dulaglutide 3 mg/0.5 mL 3 mg subcut TU 12/01/20 04/18/22 11/28/20 History subcutaneous pen injector (Trulicity) gabapentin 600 mg tablet 600 mg PO BID 12/01/20 04/18/22 12/01/20 10:30 History gabapentin 600 mg tablet 900 mg PO BEDTIME 12/01/20 04/18/22 11/30/20 20:00 History magnesium chloride 64 mg 64 mg PO BID 12/01/20 04/18/22 12/01/20 10:30 History (magnesium chloride) tablet,delayed release (Mag 64) omeprazole 20 mg capsule,delayed 20 mg PO BID 11/14/21 04/18/22 Unknown History release duloxetine 30 mg capsule,delayed 30 mg PO DAILY 02/05/22 04/18/22 Unknown History release ferrous sulfate 325 mg (65 mg 325 mg PO DAILY 02/05/22 04/18/22 Unknown History iron) tablet (iron) lisinopril 2.5 mg tablet 2.5 mg PO DAILY 02/05/22 04/18/22 Unknown History empagliflozin 25 mg tablet 25 mg PO DAILY 04/18/22 04/18/22 Unknown History (Jardiance) topiramate 25 mg tablet 50 mg PO BEDTIME 04/18/22 04/18/22 Unknown History Physical Exam Vital Signs: Vital Signs: Last Vital Signs Temp 97.7 F 04/18/22 03:30 Pulse 73 04/18/22 08:22 Resp 18 04/18/22 08:22 BP 110/75 04/18/22 08:22 Pulse Ox 98 04/18/22 08:22 O2 Del Method 04/18/22 08:22 BMI result Body Mass Index 44.9 Const: General: comfortable and no acute distress Orientation/consciousness: patient oriented x3 HEENT: Other: Unremarkable Head: Yes normal to inspection Neck: Neck: Yes normal visual inspection Chest: Chest palpation & inspection: normal inspection of the chest Resp: Auscultation: clear to auscultation bilaterally Cardio: Palpation: normal PMI Heart sounds: S1 normal heart sound present, S2 normal heart sound present, no gallops, no murmurs and no rubs GI: Palpation (GI): Soft to palpation Back/Spine/Pelvis: Other: unremarkable Skin: General skin exam: no rashes or lesions noted Neuro: General: patient oriented x3 Extrem: General: Yes normal to inspection Psych: Mental Status: mental status grossly normal Objective Labs and Meds Result diagrams: 04/18/22 04:30 04/18/22 04:30 Lab results: Laboratory Results - last 24 hr 04/17/22 04/17/22 04/17/22 12:34 12:34 12:34 WBC 8.0 RBC 4.98 Hgb 13.7 Hct 42.5 MCV 85.3 MCH 27.5 MCHC 32.2 RDW 15.6 Plt Count 189 MPV 10.5 Immature Gran % (Auto) 0.1 Neut % (Auto) 66.0 Lymph % (Auto) 24.5 [place] % (Auto) 6.2 Eos % (Auto) 3.0 Baso % (Auto) 0.2 Lymph # (Auto) 2.0 [place] # (Auto) 0.5 Eos # (Auto) 0.2 Baso # (Auto) 0.0 Abs Immat Gran (auto) 0.01 Absolute Neuts (auto) 5.3 Absolute Nucleated RBC 0.000 Nucleated RBC % (auto) 0.0 PT INR APTT D-Dimer High Sensitivty Sodium 137 Potassium 5.0 Chloride 102 Carbon Dioxide 23 Anion Gap 17 BUN 16 Creatinine 0.88 Estim Creat Clear Calc 99.3 Estimated GFR > 60 POC Glucose Random Glucose 135 H Calcium 9.2 D Troponin I High Sens < 3.5 COVID-19 (MERLY) COVID-19 Clin Com Influenza Type A (BECKY) Influenza Type B (BECKY) Influenza A & B Note 04/17/22 04/17/22 04/17/22 12:34 21:20 21:52 WBC RBC Hgb Hct MCV MCH MCHC RDW Plt Count MPV Immature Gran % (Auto) Neut % (Auto) Lymph % (Auto) [place] % (Auto) Eos % (Auto) Baso % (Auto) Lymph # (Auto) [place] # (Auto) Eos # (Auto) Baso # (Auto) Abs Immat Gran (auto) Absolute Neuts (auto) Absolute Nucleated RBC Nucleated RBC % (auto) PT 10.9 INR 1.0 APTT 34.8 D-Dimer High Sensitivty < 150 Sodium Potassium Chloride Carbon Dioxide Anion Gap BUN Creatinine Estim Creat Clear Calc Estimated GFR POC Glucose Random Glucose Calcium Troponin I High Sens < 3.5 COVID-19 (MERLY) COVID-19 Clin Com Influenza Type A (BECKY) Influenza Type B (BECKY) Influenza A & B Note 04/17/22 04/17/22 04/18/22 23:10 23:10 04:30 WBC 6.7 RBC 4.76 Hgb 13.2 Hct 41.0 MCV 86.1 MCH 27.7 MCHC 32.2 RDW 15.5 Plt Count 168 MPV 10.8 Immature Gran % (Auto) 0.1 Neut % (Auto) 60.7 Lymph % (Auto) 28.5 [place] % (Auto) 7.0 Eos % (Auto) 3.4 Baso % (Auto) 0.3 Lymph # (Auto) 1.9 [place] # (Auto) 0.5 Eos # (Auto) 0.2 Baso # (Auto) 0.0 Abs Immat Gran (auto) 0.01 Absolute Neuts (auto) 4.0 Absolute Nucleated RBC 0.000 Nucleated RBC % (auto) 0.0 PT INR APTT D-Dimer High Sensitivty Sodium Potassium Chloride Carbon Dioxide Anion Gap BUN Creatinine Estim Creat Clear Calc Estimated GFR POC Glucose Random Glucose Calcium Troponin I High Sens COVID-19 (MERLY) Negative COVID-19 Clin Com See Note Influenza Type A (BECKY) Negative Influenza Type B (BECKY) Negative Influenza A & B Note See Note 04/18/22 04/18/22 04:30 08:20 WBC RBC Hgb Hct MCV MCH MCHC RDW Plt Count MPV Immature Gran % (Auto) Neut % (Auto) Lymph % (Auto) [place] % (Auto) Eos % (Auto) Baso % (Auto) Lymph # (Auto) [place] # (Auto) Eos # (Auto) Baso # (Auto) Abs Immat Gran (auto) Absolute Neuts (auto) Absolute Nucleated RBC Nucleated RBC % (auto) PT INR APTT D-Dimer High Sensitivty Sodium 140 Potassium 4.8 Chloride 105 Carbon Dioxide 25 Anion Gap 15 BUN 16 Creatinine 0.89 Estim Creat Clear Calc 98.2 Estimated GFR > 60 POC Glucose 142 H Random Glucose 208 H Calcium 8.9 Troponin I High Sens COVID-19 (MERLY) COVID-19 Clin Com Influenza Type A (BECKY) Influenza Type B (BECKY) Influenza A & B Note ECG Interpretation: EKG with sinus rhythm at 80/Min. Old inferior wall infarct but otherwise unremarkable. Imaging Radiologist's impression: Impressions Brain MRI 04/18/22 08:00 IMPRESSION: 1. No acute intracranial abnormalities. 2. Mild nonspecific white matter changes most commonly seen with mild underlying microangiopathy. Assessment and Plan (1) Chest pain: Status: Acute (2) Atherosclerotic cardiovascular disease: Status: Acute Plan Known multivessel CAD now presenting for chest pain, diaphoresis, left arm discomfort. EKG as well as high sensitivity troponins are unremarkable. Not clear if it is still anginal or something else. We will plan on getting an exercise stress perfusion imaging study for further evaluation. Will follow up with you. Procedures Date of Service Date of Service: 04/18/22
[2022-04-18 11:42] LABS: Glucose, Whole Blood 241 mg/dL (60-115)
[2022-04-18 11:45] VITALS: BP 110/60; PULSE 78; RESP 18; O2SAT 97
[2022-04-18] MEDS: Cholecalciferol (Vitamin D3) 25 MCG TABLET 50 MCG PO (11:47)
[2022-04-18] MEDS: carvediloL 3.125 MG TABLET PO (11:47)
[2022-04-18] MEDS: Aspirin 81 MG TAB.CHEW PO (11:47)
[2022-04-18] MEDS: FLUoxetine HCl 20 MG CAPSULE 60 MG PO (11:47)
[2022-04-18] MEDS: Ferrous Sulfate 324 MG TABLET.DR PO (11:47)
[2022-04-18] MEDS: Omeprazole 20 MG CAPSULE.DR PO (11:48)
[2022-04-18] MEDS: Gabapentin 600 MG TABLET PO (11:48)
[2022-04-18] MEDS: Clopidogrel Bisulfate 75 MG TABLET PO (11:48)
[2022-04-18] MEDS: Insulin Lispro 100 UNIT/ML 3 ML VIAL SUBCUT (11:48)
--- NOTE | 2022-04-18 11:57 | PC.NURSE ---
pt a&ox3, vss, am medications held due to pt in MRI and for stress test, pt ate late breakfast on arrival back to ED, medicated per provider order. pt requesting that cymbalta get rescheduled as pm medication. pharmacy notified.
[2022-04-18 12:58] VITALS: BP 116/77; PULSE 88; RESP 20; O2SAT 99
[2022-04-18 16:43] LABS: Glucose, Whole Blood 175 mg/dL (60-115)
[2022-04-18 16:54] VITALS: BP 119/67; PULSE 81; RESP 14; TEMP 36.3; O2SAT 98
--- NOTE | 2022-04-18 16:58 | P.DS_ITS ---
DS: Providers Provider Date of Service: 04/18/22 Date of admission: 04/17/22 23:53 Date of discharge: 04/18/22 Primary care physician: Elizabeth Todd MD Consults: 04/17/22 21:47 Consult to Cardiology Stat Consulting Provider: Stanislav Mendez Reason for consultation: Chest pain at rest, with diaphoresis and lightheaded with exertion Has provider been notified: Yes 04/18/22 08:17 Consult to Cardiology Routine Consulting Provider: Stanislav Mendez Reason for consultation: chest pain Has provider been notified: No Attending physician on discharge: Gunnar Dumont Discharging clinician: Chapis Neil DS: Diagnosis Discharge Diagnosis (1) Chest pain: Status: Acute (2) Atherosclerotic cardiovascular disease: Status: Acute DS: Summary Hospital Course Hospital Course: From H&P on day of admission 51-year-old female with past medical history of co ronary artery disease status post OK, and stents, type 2 diabetes, asthma, PTSD, anxiety, hypertension, hyperlipidemia, HENRIK, presents to the hospital with complaints of chest pain radiating to the left arm.? Patient reports that her symptoms started the day of presentation, she is also complaining of diaphoresis, left-sided face numbness, headache, and dizziness.? Patient reports that she felt this may be related to her anxiety and having a panic attack but because the pain radiated to her left arm she decided to come to the hospital.? She describes the pain as heaviness, intermittent, lasting few hours, resolving spontaneously.? She is able to reproduce the pain when she palpates on her chest.? She is also complaining of diffuse headache, and numbness in her skull as well as left face.? She denies any numbness tingling or weakness in her upper or lower extremities.? She denies any nausea, no vomiting, no change in vision, no no double or blurry vision, no nausea or vomiting, no abdominal pain, no diarrhea constipation, no urinary symptoms and no lower extremity edema.? 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 EKG shows no evidence of ST T-wave changes suggestive of ACS Discussed with Cardiology by ED physician, wants patient to be admitted for further evaluation chest pain - cardiac enzymes were flat and EKG showed no acute ischemic changes. However given her history of coronary artery disease a decision was made to admit her to the hospital for further management. She was seen in consultation by Cardiology who recommended stress test. She had the 1st part of her stress past today and this looked okay, patient requested to be discharged to complete the 2nd part of her stress test tomorrow as an outpatient. Cardiology agreed and have scheduled her to complete the test tomorrow. she is currently chest pain free. She will continue at her baseline aspirin, Plavix, carvedilol Due to some left-sided facial tingling the patient underwent MRI of the brain which showed no acute intracranial abnormalities. It did show mild nonspecific white matter changes commonly seen with mild underlying microangiopathy. No focal neurological deficits were appreciated. No changes to baseline medications were made Time Spent with Patient Time attestation: Total time spent providing and/or coordinating discharge services: Discharge coordination time: Greater than 30 minutes Quality: Safe Use of Opioids Does Pt have an Active Cancer Diagnosis on the Problem List?: No Quality: Stroke Does the patient have a stroke diagnosis?: No Physical Exam Vital Signs: Vital Signs: Last Vital Signs Temp 97.3 F 04/18/22 16:54 Pulse 81 04/18/22 16:54 Resp 14 04/18/22 16:54 BP 119/67 04/18/22 16:54 Pulse Ox 98 04/18/22 16:54 O2 Del Method 04/18/22 16:54 BMI result Body Mass Index 44.9 Const: General: cooperative, comfortable, well developed, alert and awake Nutritional Appearance: obese Orientation/consciousness: patient oriented x3 Resp: Effort & Inspection: normal respiratory effort and able to speak in complete sentences Auscultation: clear to auscultation bilaterally Cardio: Rate: regular rate Heart sounds: S1 normal heart sound present and S2 normal heart sound present GI: Inspection: No distended Palpation (GI): Soft to palpation and nontender Neuro: Other: moving all 4 extremities spontaneously General: patient oriented x3 and CN's II-XI intact bilaterally Extrem: General: Yes no pedal edema DS: Data Data Completed and Pending Labs on day of discharge: Laboratory Results - last 24 hr 04/17/22 04/17/22 04/17/22 21:20 21:52 23:10 WBC RBC Hgb Hct MCV MCH MCHC RDW Plt Count MPV Immature Gran % (Auto) Neut % (Auto) Lymph % (Auto) [place] % (Auto) Eos % (Auto) Baso % (Auto) Lymph # (Auto) [place] # (Auto) Eos # (Auto) Baso # (Auto) Abs Immat Gran (auto) Absolute Neuts (auto) Absolute Nucleated RBC Nucleated RBC % (auto) PT 10.9 INR 1.0 APTT 34.8 Sodium Potassium Chloride Carbon Dioxide Anion Gap BUN Creatinine Estim Creat Clear Calc Estimated GFR POC Glucose Random Glucose Calcium Troponin I High Sens < 3.5 COVID-19 (MERLY) COVID-19 Clin Com Influenza Type A (BECKY) Negative Influenza Type B (BECKY) Negative Influenza A & B Note See Note 04/17/22 04/18/22 04/18/22 23:10 04:30 04:30 WBC 6.7 RBC 4.76 Hgb 13.2 Hct 41.0 MCV 86.1 MCH 27.7 MCHC 32.2 RDW 15.5 Plt Count 168 MPV 10.8 Immature Gran % (Auto) 0.1 Neut % (Auto) 60.7 Lymph % (Auto) 28.5 [place] % (Auto) 7.0 Eos % (Auto) 3.4 Baso % (Auto) 0.3 Lymph # (Auto) 1.9 [place] # (Auto) 0.5 Eos # (Auto) 0.2 Baso # (Auto) 0.0 Abs Immat Gran (auto) 0.01 Absolute Neuts (auto) 4.0 Absolute Nucleated RBC 0.000 Nucleated RBC % (auto) 0.0 PT INR APTT Sodium 140 Potassium 4.8 Chloride 105 Carbon Dioxide 25 Anion Gap 15 BUN 16 Creatinine 0.89 Estim Creat Clear Calc 98.2 Estimated GFR > 60 POC Glucose Random Glucose 208 H Calcium 8.9 Troponin I High Sens COVID-19 (MERLY) Negative COVID-19 Clin Com See Note Influenza Type A (BECKY) Influenza Type B (BECKY) Influenza A & B Note 04/18/22 04/18/22 04/18/22 08:20 11:34 16:34 WBC RBC Hgb Hct MCV MCH MCHC RDW Plt Count MPV Immature Gran % (Auto) Neut % (Auto) Lymph % (Auto) [place] % (Auto) Eos % (Auto) Baso % (Auto) Lymph # (Auto) [place] # (Auto) Eos # (Auto) Baso # (Auto) Abs Immat Gran (auto) Absolute Neuts (auto) Absolute Nucleated RBC Nucleated RBC % (auto) PT INR APTT Sodium Potassium Chloride Carbon Dioxide Anion Gap BUN Creatinine Estim Creat Clear Calc Estimated GFR POC Glucose 142 H 241 H 175 H Random Glucose Calcium Troponin I High Sens COVID-19 (MERLY) COVID-19 Clin Com Influenza Type A (BCEKY) Influenza Type B (BECKY) Influenza A & B Note Discharge Plan Discharge Patient Disposition: Home, Self-Care Discharge Diagnosis: chest pain Referrals: Elizabeth Todd MD [Primary Care Provider] - 1 Week Discharge Medications: Continued carvedilol 3.125 mg tablet 3.125 mg PO BID 90 Days Qty: 180 3RF clopidogrel 75 mg tablet 75 mg PO DAILY 90 Days Qty: 90 3RF atorvastatin 80 mg tablet 80 mg PO BEDTIME 90 Days Qty: 90 3RF aspirin 81 mg tablet,chewable 81 mg PO DAILY Qty: 90 3RF tizanidine 2 mg Tablet 2 mg PO Q6H PRN (Reason: Muscle Pain) Rx Instructions: Last filled 09/05/20 metformin 1,000 mg Tablet 1,000 mg PO BID Rx Instructions: Take before breakfast and before dinner albuterol sulfate [ProAir HFA] 90 mcg/actuation Hfa Aerosol Inhaler 2 puff INHALATION Q4H PRN (Reason: Shortness Of Breath) Rx Instructions: Last filled December 2019 Patient reports she last used in September 2020 lorazepam 1 mg Tablet 1 mg PO BID PRN (Reason: Anxiety) fluoxetine [Prozac] 20 mg Capsule 60 mg PO DAILY insulin glargine [Lantus Solostar U-100 Insulin] 100 unit/mL (3 mL) Insulin Pen 60 unit SUBCUT BEDTIME gabapentin 600 mg Tablet 600 mg PO BID Rx Instructions: Take 1 tab in the morning and 1 tab in the afternoon gabapentin 600 mg Tablet 900 mg PO BEDTIME Rx Instructions: Take 1 1/2 tab at HS cholecalciferol (vitamin D3) [Vitamin D3] 50 mcg (2,000 unit) Capsule 50 mcg PO DAILY Mag 64 64 mg Tablet,Delayed Release (Dr/Ec) 64 mg PO BID Label Comments: Patient prescribed 2 tabs daily, patient takes 1 tab BID Trulicity 3 mg/0.5 mL Pen Injector 3 mg SUBCUT Rx Instructions: Weekly on Friday Jardiance 25 mg Tablet 25 mg PO DAILY topiramate 25 mg tablet 50 mg PO BEDTIME omeprazole 20 mg capsule,delayed release(DR/EC) 20 mg PO BID ferrous sulfate [iron] 325 mg (65 mg iron) tablet 325 mg PO DAILY duloxetine 30 mg capsule,delayed release(DR/EC) 30 mg PO DAILY lisinopril 2.5 mg tablet 2.5 mg PO DAILY riboflavin (vitamin B2) 400 mg tablet 400 mg PO DAILY 30 Days Qty: 30 6RF meclizine 12.5 mg tablet 12.5 - 25 mg PO TID PRN (Reason: dizziness) 14 Days Qty: 30 2RF Discharge Orders: Discharge Order (Routine); Ordered 04/18/22 Ordered By: Chapis Neil Activity on Discharge: As tolerated Stand Alone Forms: Patient Portal Discharge page, Work/School Release Care Plan Goals: see below Health Concerns: chest pain facial tingling Plan of Treatment: first part of stress test done, to complete second part tomorrow as outpatient as requested Brain MRI shows no acute intracranial abnormalities Assessment: follow up tomorrow as scheduled to complete stress test for chest pain call to schedule follow up with PCP Discharge Date/Time: 04/18/22 17:39
--- NOTE | 2022-04-18 17:04 | MHC.CM.PN ---
Addendum entered by Selin Jang 04/18/22 18:06: Returned at 1750 to complete CM assessment, but patient had requested discharge, to complete further testing on outpatient basis. Pt gone when CM returned. Unable to complete CM assessment or review KATZ. Original Note: CM attempted to meet with patient in regards to discharge planning, but pt sleeping. Will attempt again when patient wakes.
== END 2022-04-18 17:39 | disposition home or self-care (01) ==
LOC: HO.ED 21:57 → HO.EDOVER 04-18 00:20
PROVIDERS: Admitting Provider Internal Medicine; Emergency Provider Emergency Medicine Emergency Medical Services; PCP Internal Medicine; Visit Provider Physician Assistant Medical
DX: R07.89 Other chest pain (principal); R20.0 Anesthesia of skin; I25.10 Atherosclerotic heart disease of native coronary artery without angina pectoris; E11.9 Type 2 diabetes mellitus without complications; I10 Essential (primary) hypertension; R51.9 Headache, unspecified; I25.2 Old myocardial infarction; G47.33 Obstructive sleep apnea (adult) (pediatric); Z20.822 Contact with and (suspected) exposure to COVID-19; Z79.899 Other long term (current) drug therapy; Z87.891 Personal history of nicotine dependence; Z79.84 Long term (current) use of oral hypoglycemic drugs; Z79.82 Long term (current) use of aspirin; Z79.01 Long term (current) use of anticoagulants
CPT/HCPCS: 36415; 70551; 78452; 80048; 82947; 84484; 85025; 85379; 85610; 85730; 87502; 87635; 93005; 93017; 96374; 96375; 96376; 99215; 99218; 99285; A9500; J2270; J2405

== ENCOUNTER 2023-04-14 14:54 | Outpatient (AMB) | payer OTHER, SELFPAY ==
[2023-04-14 14:56] VITALS: BP 140/72; PULSE 73; BMI 48.1
--- NOTE | 2023-04-14 14:56 | MHC.OFFVIS ---
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: No Allergies bee pollen [BEE STINGS] Allergy (Severe, Verified 04/14/23 15:00) ANAPHYLAXIS coconut [COCONUT] Allergy (Unknown, Verified 04/14/23 15:00) HIVES buspirone [BUSPIRONE] Adverse Reaction (Intermediate, Verified 04/14/23 15:00) Sedation Medication List - Last Reconciled 04/14/23 by VICTORINA Mcdaniel albuterol sulfate 90 mcg/actuation (ProAir HFA) 2 puffs inhalation Q4H PRN aspirin 81 mg PO DAILY aspirin 81 mg PO DAILY atorvastatin 80 mg PO BEDTIME carvedilol 3.125 mg PO BID cholecalciferol (vitamin D3) (Vitamin D3) 50 mcg PO DAILY clopidogrel 75 mg PO DAILY dulaglutide (Trulicity) 3 mg subcut TU empagliflozin (Jardiance) 25 mg PO DAILY ferrous sulfate (iron) 325 mg PO DAILY fluoxetine (Prozac) 60 mg PO DAILY gabapentin 600 mg PO BID gabapentin 900 mg PO BEDTIME insulin glargine (Lantus Solostar U-100 Insulin) 60 units subcut BEDTIME lisinopril 2.5 mg PO DAILY magnesium chloride (Mag 64) 64 mg PO BID omeprazole 20 mg PO BID riboflavin (vitamin B2) 400 mg PO DAILY 30 days tizanidine 2 mg PO Q6H PRN HPI 6 month follow up HPI Details Angie is a 52-year-old female with past medical history of morbid obesity, hypertension, hyperlipidemia, diabetes, obstructive sleep apnea, multi-vessel CAD with coronary stents, TIA/CVA who presents for follow-up. Her last prior visit to our office was 11/14/2021. today she reports that since her last visit she has gained over 20 lb. She says she is now doing a job that is more sedentary. She has not had any ER visits or hospital admissions since 04/2022. She denies any chest discomfort at rest or with activity. She denies shortness of breath at rest, palpitations, presyncope, syncope, PND, orthopnea or edema. she does have some shortness of breath with activity which she relates to her current weight. She takes her medications as directed. No bleeding issues reported. No recurrent neurological issues. [facility] Medical History Atherosclerotic cardiovascular disease Hyperlipidemia Coronary artery disease Anxiety Recurrent major depression Arthritis Left shoulder pain delivery delivered Bleeding ulcer Neuropathy History of heart attack Hives Asthma Type 2 diabetes mellitus Surgical History Stented coronary artery Family History Father Coronary artery disease Social History Household Members: Family Household Members Other:: oldest son's girlfriend also resides in the home. Alcohol intake: never Patient Tobacco Use Status: Former Tobacco user Tobacco use type: Cigarette Review of Systems Const All systems reviewed & are unremarkable except as noted in HPI and below ENT Denies dizziness Card Denies chest pain, Denies chest pain at rest, Denies chest pain with activity, Denies rapid heart rate, Denies pedal edema, Denies edema, Denies leg edema, Denies lightheadedness, Denies palpitations, Denies dyspnea, Denies dyspnea on exertion and Denies orthopnea Resp Denies cough, Denies dyspnea and Denies dyspnea on exertion GI Denies hematochezia and Denies change in stool character Musc Details: soreness left thorax and left knee from recent fall on playground Denies abnormal gait, Denies limited range of motion, Denies muscle cramps, Denies muscle weakness, Denies numbness, Denies radiating pain into limb, Denies stiffness and Denies tingling Neuro Denies abnormal gait, Denies dizziness, Denies numbness and Denies tingling Endo Denies palpitations Physical Exam Vital Signs: Last Vital Signs Pulse 73 04/14/23 14:56 BP 140/72 H 04/14/23 14:56 BMI result Body Mass Index 48.1 Const Other: morbidly obese General: cooperative, comfortable and no acute distress Orientation/consciousness: patient oriented x3 Neck Neck: Yes normal visual inspection Resp Effort & Inspection: normal respiratory effort Auscultation: clear to auscultation bilaterally, no crackles, no rales, no rhonchi and no wheezes Cardio Jugular venous distension: no JVD Rate: regular rate Rhythm: regular rhythm Heart sounds: S1 normal heart sound present, S2 normal heart sound present, no gallops, no murmurs and no rubs Neuro General: patient oriented x3 Extrem General: Yes normal to inspection Psych Appearance: grossly normal Mental Status: mental status grossly normal Speech and movement: Normal speech and movement present Office Procedures EKG Details: Today, read by me, SR, inferior infarct, rate 73, QTc 429ms [id number], Complete Assessment & Plan Assessment & Plan (1) Coronary artery disease: Code(s): I25.10 - Atherosclerotic heart disease of tribe coronary artery without angina pectoris Qualifiers: Coronary Disease-Associated Artery/Lesion type: tribe artery [place] vs. transplanted heart: tribe heart Associated angina: without angina Qualified Code(s): I25.10 - Atherosclerotic heart disease of tribe coronary artery without angina pectoris Plan: Inferior STEMI 01/30/2019. Cardiac catheterization done in [place] showing occlusion of the mid RCA and 2 ARIEL is placed, mid circumflex 100% stenosis, ARIEL placed and mid LAD 90% stenosis, ARIEL placed, EF 40%. Echo 03/17/2019 with EF 60-65%, grade 1 diastolic dysfunction, mid inferior and mid inferior lateral hypokinesis. She was continued on appropriate medical mgt and Follow up echo 06/20/2020 showing EF 55-60%, no reported wall motion abnormalities. She was admitted to [facility] 04/2022 with report of chest discomfort. She ruled out for ACS. A nuclear stress test was done at that time showing no ischemia, a fixed defect most suggestive of soft tissue artifact. Today she reports no recurrent hospital admissions since that time. She has not had issues with chest discomfort recently. Her primary concern is of weight gain. She has some shortness of breath with activity. She is now doing a more sedentary job and has put on 20 lb recently. EKG done today shows sinus rhythm with inferior infarct, unchanged from prior, rate 73. her shortness of breath symptom may be related to weight and deconditioning. Will update echocardiogram to reassess EF and look for any recurrent wall motion abnormalities. If abnormal then will require a pharmacological nuclear stressTest. Plan to call her with results. If echo is unchanged from last than her cardiology could follow-up can be 6 months from now. Benefits of weight loss and increasing her physical activity reviewed with her. May benefit from bariatric Referral. (2) Stented coronary artery: Code(s): Z95.5 - Presence of coronary angioplasty implant and graft Plan: RCA, LAD, LCx 03/2019 (3) Hypertension: Code(s): I10 - Essential (primary) hypertension Qualifiers: Hypertension type: primary hypertension Qualified Code(s): I10 - Essential (primary) hypertension Plan: Adequately controlled at present. Continue carvedilol and lisinopril. Weight lost would Help with blood pressure controlled. She has known sleep apnea but is unable to tolerate CPAP. (4) Hyperlipidemia: Code(s): E78.5 - Hyperlipidemia, unspecified Plan: [place] LDL goal less than 70 and patient with diabetes and known CAD. no recent labs in our system. She says labs are done by her PCP. Continue statin therapy. Will request most recent labs from her PCP at [place]. (5) Left-sided muscle weakness: Comment: Onset 08/23/21 w/ left facial/LUE/LLE weakness, dysarthria, and RUE weakness. TPA tx given. Head CT, TTE, head/neck CTA, BLE doppler US- neg (at [facility]). [facility] neurology raised ? functional process. Code(s): M62.81 - Muscle weakness (generalized) Plan: Pt tells me that she on the 2nd day of her new job in August 2021, she developed slurred speech and left arm/ leg weakness. She was taken by ambulance to [facility] and was treated with TPA for possible CVA. She was monitored for few days, had scans ( CT/ MRI) which she state were normal. She says she was told that she did Not have a CVA. She initially felt some mild residual weakness if left leg which has since fully resolved. she has had no recurrent episodes of slurred speech or arm/leg weakness in the last year. Records from [facility] reviewed last year and no definite finding of CVA reported. no history of atrial fibrillation. EKG today shows SR. Continue on her usual DAPT at this time. Emergency care if she feels any recurrent stroke like symptoms. Orders: Orders CA echo transthoracic complete Today I25.10 - Atherosclerotic heart disease of tribe coronary artery without angina pectoris, R01.1 - Cardiac murmur, unspecified Medications: New aspirin 81 mg PO DAILY 90 tabs 3RF Refilled clopidogrel 75 mg PO DAILY 90 tabs 3RF Coding Level of Care Code Est Pt Level 4 (23217) Diagnoses Coronary artery disease involving tribe coronary artery of tribe heart without angina pectoris I25.10 Coronary Disease-Associated Artery/Lesion type: tribe artery [place] vs. transplanted heart: tribe heart Associated angina: without angina Stented coronary artery Z95.5 Primary hypertension I10 Hypertension type: primary hypertension Hyperlipidemia E78.5 Left-sided muscle weakness M62.81 CPT Codes EKG - CPT: 21018-[id number], Complete ([id number]) Time Spent (min) 28
== END 2023-04-14 15:27 | disposition home or self-care (01) ==
PROVIDERS: PCP Internal Medicine; Visit Provider Nurse Practitioner Family
DX: I25.10 Atherosclerotic heart disease of native coronary artery without angina pectoris (principal); Z95.5 Presence of coronary angioplasty implant and graft; I10 Essential (primary) hypertension; E78.5 Hyperlipidemia, unspecified; M62.81 Muscle weakness (generalized)
CPT/HCPCS: 93010; 99214

== ENCOUNTER → 2023-04-14 14:54 | Outpatient (BNVA) | payer SELFPAY | PROVIDERS: PCP Internal Medicine; Visit Provider Nurse Practitioner Family | DX: I25.2 Old myocardial infarction (principal); I10 Essential (primary) hypertension; E78.5 Hyperlipidemia, unspecified; M62.81 Muscle weakness (generalized); Z95.2 Presence of prosthetic heart valve; Z79.899 Other long term (current) drug therapy | CPT/HCPCS: 93005 ==

== ENCOUNTER → 2024-05-07 14:44 | Outpatient (REF) | payer OTHER, SELFPAY ==
--- NOTE | 2024-05-07 14:47 | CA_ITS ---
Transthoracic Echocardiogram Patient (Last, First, Middle): Angie Lomax M Gender: Female Date of : 1970 Age: 53 Procedure Date: 05/07/2024 Procedure Type: Transthoracic Echocardiogram Location: OP Height: 165.1 cm Weight: 127.01 kg BSA: 2.28 m2 Heart Rate: bpm BP: 124 / 80 mmHg Software Designer: HUONG Referring MD: Clarisse Coe MARITIME ENGINEER-[employer]a [employer] Consultant: Rocco Martin MD Symptoms: I21.9 - Acute myocardial infarction, H/X of [place], stents Study Quality: Technically Difficult due to body habitus ECG Rhythm: Sinus Conclusions: - 1. Technically difficult study 2. Normal LV ejection fraction 55-60% with mild LVH with grade 2 diastolic dysfunction 3. Early mild aortic stenosis Findings Procedure Information Contrast agent, definity, is being given per protocol without apparent complications. Left Ventricle Normal left ventricular size and systolic function. There is mildly increased left ventricular wall thickness. The visually estimated ejection fraction is between 55-60%. Spectral Doppler is indicative of a pseudonormal filling pattern. E/E prime ratio is >15, consistent with elevated filling pressures. Evidence suggests grade II (moderate) diastolic dysfunction. Right Ventricle The right ventricle was not well visualized. There is normal right ventricular systolic function. Atria The left atrium is normal in size. Interatrial shunt cannot be excluded. The right atrium was not well visualized. Aortic Valve The aortic valve was not well visualized. There is mild aortic valve stenosis. The peak aortic velocity is 2.12 m/s with a calculated peak gradient of 18 mmHg. The mean gradient is 9 mmHg. The aortic valve area is 2.15 cm2. There is no aortic valve regurgitation. Mitral Valve The mitral valve was not well visualized. There is no mitral valve regurgitation. There is no mitral valve stenosis. Pulmonic Valve The pulmonic valve was not well visualized. Tricuspid Valve The tricuspid valve was not well visualized. Tricuspid regurgitation envelope is inadequate for calculation of right ventricular systolic pressure. Normal right atrial pressure. Great Vessels The aorta was not well visualized. The pulmonary artery was not well visualized. Venous The inferior vena cava is normal in size and collapses greater than 50% with inspiration. Pericardium/Pleural The pericardium was not well visualized. Prior Study Comparison Changes noted compared to prior study dated: 06/20/2020. mild early aortic stenosis noted Measurements 2D Linear Measurements IVSd: 1.28 0.6-0.9/0.6-1.0 cm LVIDd: 4.29 3.9-5.3/4.2-5.9 cm LVIDd Index: 1.88 2.4-3.2/2.2-3.1 cm/m2 LVIDs: 2.92 2.0-3.6 cm LVPWd: 1.24 0.7-1.1 cm Ao Root: 3.40 2.1-3.5 cm LA Diam: 3.10 2.7-3.8/3.0-4.0 cm LAIDs Index: 1.36 1.5-2.3 cm/m2 LV Mass: 246.34 67-162/88-224 g LV Mass Index: 108.04 43-95/49-115 g/m2 LVOT Diam: 2.20 3.0+(-)1.3 cm 2D Systolic Function EF 4C: 57.50 >55% EF 2C: 51.30 >55% EF BiP: 55.90 >55% Mitral Valve MV Pk E: 1.05 MV PK A: 0.92 MV Decel Time: 168.00 E/A: 1.10 E'Lateral: 6.31 E'Medial: 4.35 E/E' Med: 24.10 E/E' Lat: 16.60 PHT: 49.00 MVA PHT: 4.49 Decel Mellette: 6.21 Aortic Valve AoV Pk Zaid: 2.12 AoV Mn Zaid: 1.37 AoV VTI: 0.41 AoV Pk Grad: 18.00 Aov Mn Grad: 9.00 ARIELLE Cont.VTI: 2.15 LVOT LVOT Pk Zaid: 1.11 LVOT Mn Zaid: 0.68 LVOT VTI: 0.23 LVOT Pk Grad: 5.00 LVOT Mn Grad: 2.00 LVOT Diam: 2.20 LVOT Area: 3.80 Diastolic Function MV Pk E: 1.05 MV Pk A: 0.92 E/A: 1.10 E'Medial: 4.35 E/E' Med: 24.10 E' Laterial: 6.31 E/E' Lat: 16.60 Tricuspid Valve TR Pk Zaid: 1.89 TR Pk Grad: 14.00 Great Vessels Aorta Ao Root-2D: 3.40 2.0-3.7 cm Ao Asc: 3.50 2.1-3.4 cm Pulmonary Valve PV Pk Zaid: 1.07 Peak PV Grad: 5.00 Updated in Other Vendor System with Status of Final Rocco Martin MD electronically signed on 05/08/2024 10:33:26 AM with status of Final
== END ==
LOC: HO.CARD 14:44
PROVIDERS: PCP Internal Medicine; Visit Provider Nurse Practitioner Family
DX: I21.9 Acute myocardial infarction, unspecified (principal); I25.10 Atherosclerotic heart disease of native coronary artery without angina pectoris; I10 Essential (primary) hypertension; R01.1 Cardiac murmur, unspecified
CPT/HCPCS: 93306; Q9957

== ENCOUNTER → 2024-05-07 14:47 | Outpatient (BNV) | payer OTHER, SELFPAY | PROVIDERS: PCP Internal Medicine; Visit Provider Internal Medicine Cardiovascular Disease | DX: I35.0 Nonrheumatic aortic (valve) stenosis (principal); I21.9 Acute myocardial infarction, unspecified | CPT/HCPCS: 93306 ==

== ENCOUNTER 2024-10-06 20:31 | Inpatient (IN) | payer MEDICAID, SELFPAY ==
[2024-10-06 20:34] VITALS: BP 154/87; PULSE 82; RESP 18; TEMP 36.7; O2SAT 96; BMI 46.6
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
[2024-10-06 21:03] LABS: MANUAL DIFF FLAG NO
[2024-10-06 21:04] LABS: Basophils Percent Auto 0.5 % (0-2); Eosinophils Absolute Auto 0.2 X10*3/uL (0.0-0.4); Eosinophils Percent Auto 2.2 % (0-4); Hematocrit 43.9 % (37.0-47.0); Imm Gran Abs Auto 0.03 X10*3/uL (0.00-0.03); Imm Gran Pct Auto 0.3 % (0.0-0.4); Lymphocytes Absolute Auto 1.7 X10*3/uL (1.2-4.9); Lymphocytes Percent Auto 20.1 % (20-40); Mean Corpuscular HGB Conc 34.2 g/dl (31.0-35.0); Mean Corpuscular Hemoglobin 28.2 pg (27.0-33.0); Mean Corpuscular Volume 82.5 fL (80.0-98.0); Mean Platelet Volume 10.5 fL (9.4-12.3); Monocytes Absolute Auto 0.5 X10*3/uL (0.1-1.2); Neutrophils Absolute Auto 6.1 x10*3/uL (2.0-8.3); Neutrophils Percent Auto 70.9 % (45-73); Platelet Count 192 X10*3/uL (160-400); Red Blood Count 5.32 X10*6/uL (4.20-5.50); White Blood Count 8.6 X10*3/uL (4.8-10.8)
[2024-10-06 21:06] LABS: Appearance Urine Clear; Color Urine Yellow; Glucose Urine UA >=1000 mg/dL (Negative); Leukocyte Esterase Urine Trace (Negative); Nitrite Urine Negative (Negative); Specific Gravity - Urine >= 1.030 (1.005-1.025); UMIC TRIGGER UACC YES; Urine Blood Negative (Negative); Urine Ketones Negative (Negative); Urine Protein Negative (Neg-Trace)
[2024-10-06 21:07] LABS: UPreg QC Valid YES; Urine Pregnancy NEGATIVE (NEGATIVE)
--- OUTSIDE RECORDS SUMMARY | 2024-10-06 21:09 | XMS_ITS | Encounter Summary ---
Author Organization [facility] Address [address] [place] [address] Care Team Providers Care Pigment Mixer Name Role Phone Jefferson Sinclair MD Primary Care Provider [place] [facility] Hallie Todd MD Primary Care Provider [phone] Encounter Details Date Type Department Care Team Description 02/01/2019 Hospital Medical Records [address] [place] [address] Abstract, Provider Social History Tobacco Use Types Packs/Day Years Used Date Smoking Tobacco: Former Cigarettes Q uit: 02/14/2009 Smokeless Tobacco: Never Alcohol Use Standard Drinks/Week Comments Yes 0 (1 standard drink = 0.6 oz pur e alcohol) 1 drink per month Sex Assigned at Date Recorded Not on file Job Start Date Occupation Industry Not on file Not on file Not on file documented as of this encounter Plan of Treatment Not on file documented as of this encounter Visit Diagnoses Not on filedocumented in this encounter Care Teams Pigment Mixer Relationship Specialty Start Date End Date Jefferson Sinclair MD PCP - General Internal Medicine 05/01/17 01/08/21 Hallie Todd MD [address] [place] [id number] PCP - General Internal Medicine 01/09/21 documented as of this encounter
--- OUTSIDE RECORDS SUMMARY | 2024-10-06 21:09 | XMS_ITS | Encounter Summary ---
Author Organization [facility] Address [address] [place] [address] Care Team Providers Care Recyclable Materials Distributor Name Role Phone Jefferson Sinclair MD Primary [facility] Hallie Todd MD Primary Care Provider [phone] Encounter Details Date Type Department Care Team Description 10/12/2019 [employer] Report Medical Records [address] [place] [address] Clarisse Coe FNP Social History Tobacco Use Types Packs/Day Years Used Date Smoking Tobacco: Former Cigarettes Q uit: 02/14/2009 Smokeless Tobacco: Never Comments:5 cig/ day Alcohol Use Standard Drinks/Week Comments Yes 0 [...] on filedocumented in this encounter Care Teams Recyclable Materials Distributor Relationship Specialty Start Date End Date Jefferson Sinclair MD PCP - General Internal Medicine 05/01/17 01/08/21 Hallie Todd MD [address] [place] [address] PCP - General Internal Medicine 01/09/21 documented as of this encounter
--- OUTSIDE RECORDS SUMMARY | 2024-10-06 21:09 | XMS_ITS ---
Author Name [facility] Unknown Encounters Encounter Type Encounter Reason Primary Diagnosis Location Date Ambulatory Contusion of right front wall of thorax, subsequent encounter Contusion of right front wall of thorax, subsequent encounter [facility] 05/01/2023 Ambulatory Contusion of right front wall of thorax, subsequent encounter Contusion of right front wall of thorax, subsequent encounter [facility] 04/24/2023 Ambulatory Contusion of right front wall of thorax, subsequent encounter Contusion of right front wall of thorax, subsequent encounter [facility] 04/18/2023 Ambulatory Contusion of right front wall of thorax, subsequent encounter Contusion of right front wall of thorax, subsequent encounter [facility] 04/14/2023 Ambulatory Contusion of right front wall of thorax, initial encounter Contusion of right front wall of thorax, initial encounter [facility] 04/10/2023 Ambulatory Civilian activity done for income or pay Civilian activity done for income or pay [facility] 04/07/2023 Ambulatory Time Warden 02/12/2023 Care Team Organization Name Specialty Phone Email Start Date End Da te [facility] PCP,No Primary Care 02/12/2023 09/01/2024 [facility] NO PCP Primary Care 02/12/2023 02/12/2023
--- OUTSIDE RECORDS SUMMARY | 2024-10-06 21:09 | XMS_ITS | Encounter Summary ---
Author Organization [facility] Address [address] [place] [address] Care Team Providers Care Polishing Machine Tender Name Role Phone Hallie Todd MD Primary Care Provider [phone] Encounter Details Date Type Department Care Team Description 09/19/2022 Refill Respiratory and Diabetes Medicaid/[employer] Pharmacist [address] [place] [address] [id number] Teresa Bernal, Pharm.D [address] [place] [phone] Social History Tobacco Use Types Packs/Day Years [...] file Not on file Not on file COVID-19 Exposure Response Date Recorded In the last 10 days, have yo u been in contact with someone who was confirmed or suspected to have Coronavirus/COVID-19? Unable to assess 08/29/2022 7:55 AM EDT documented as of this encounter Plan of Treatment Not on file documented as of this encounter Visit Diagnoses Not on filedocumented in this encounter Care Teams Polishing Machine Tender Relationship Specialty Start Date End Date Hallie Todd, [address] [place] [address] [place] [address] PCP - General Internal Medicine 01/09/21 documented as of this encounter
--- OUTSIDE RECORDS SUMMARY | 2024-10-06 21:09 | XMS_ITS | Encounter Summary ---
Author Organization [facility] Address [address] [place] [address] Care Team Providers Care Supervisor Firearms Name Role Phone Jefferson Sinclair MD Primary Care Provider Unava jodi Todd Ch MD Primary Care Provider +1 [phone] Reason for Referral * EXTERNAL (Routine) - Authorized/Booked Specialty Diagnoses / Procedures Referred By Contac t Referred To Contact Home Health Care / Home care Procedures REFERRAL TO HOME CARE Kelin Lei PA-C [address] [place] [id number] [place] [address] Referral ID Status Reason Start Date Expiration Date V isits Requested Visits Authorized SEE REVIEW 05/28 Authorized/ Booked 05/29/2017 08/28/2017 1 1 Reason for Visit * Reason Onset Date Comments Provider Call Back 05/28/2017 Encounter Details Date Type Department Care Team Description 05/28/2017 Telephone General Surgery - [address] [place] [address] eKlin Lei PA-C Provider Call Back Social History Tobacco Use Types Packs/Day Years [...] on file documented as of this encounter Miscellaneous Notes * Telephone Encounter - Bee Mendez L.P.N. - 05/30/2017 11:07 AM EST Spoke to [facility] and given referral info and faxed. Not able to go out today. Called pt and scheduled her for in office dressing change today. * Telephone Encounter - Patricia Kumar - 05/30/2017 10:41 AM EST Patient called to follow up for VNA services. Pt states she still has not heard anything about it. Pt would like to know if she can come in to the office today and have her dressing change. Pls review. She can be reached at [phone]. * Telephone Encounter - Kelin Lei PA-C - 05/29/2017 9:[address] an order * Telephone Encounter - Bee Mendez L.P.N. - 05/29/2017 9:23 AM EST Spoke to pt and she would like VNA services. [facility] if possible. She doesn't have any one to do dressing change today. Encouraged pt to shower and take pain meds prior to a visit today Packing change * Telephone Encounter - Gaby Leon - 05/29/2017 9:14 AM EST Patient returning nurse call she can be reached at . * Telephone Encounter - Bee Mendez L.P.N. - 05/28/2017 12:58 PM EST Tried to call patient at this number * Telephone Encounter - Nancy Lange - 05/28/2017 12:08 PM EST Patient returned your call. * Telephone Encounter - Pastor Dempsey - 05/28/2017 12:00 PM EST Patient is returning nurse call. She can be reached on cell phone at [phone] * Telephone Encounter - Bee Mendez L.P.N. - 05/28/2017 10:06 AM EST Callled and had to leave message for patient to return call. * Telephone Encounter - Kelin Lei PA-C - 05/28/2017 9:58 AM EST Can you please contact the patient to see if she would like daily VNA services? If so, she will need daily VNA services for packing of the back wound with iodoform gauze and daily dry dressing changes with gauze and tape. Thank you! documented in this encounter Plan of Treatment Not on file documented as of this encounter Visit Diagnoses Not on filedocumented in this encounter Care Teams Supervisor Firearms Relationship Specialty Start Date End Date Jefferson Sinclair MD PCP - General Internal Medicine 05/01/17 01/08/21 Hallie Todd MD [address] [place] [address] PCP - General Internal Medicine 01/09/21 documented as of this encounter
--- OUTSIDE RECORDS SUMMARY | 2024-10-06 21:09 | XMS_ITS | Encounter Summary ---
Author Organization [facility] Address [address] [place] [address] Care Team Providers Care Quality Assurance Assessor Name Role Phone Jefferson Sinclair MD Primary Care Provider Unava jodi Todd Ch MD Primary Care Provider +1 [phone] Reason for Referral * EXTERNAL (Routine) - Authorized/Booked Specialty Diagnoses / Procedures Referred By Contac t Referred To Contact Pulmonology Diagnoses Moderate persistent asthma without complication Procedures REFERRAL TO PULMONOLOGY Jefferson Sinclair MD [address] [place] [address] Louie Dye MD [address] [place] [phone] Referral ID Status Reason Start Date Expiration Date V isits Requested Visits Authorized SEE NOTE Authorized/B ooked 01/03/2019 04/07/2019 1 1 Encounter Details Date Type Department Care Team Description 01/01/2019 Pt. Non Urgent Medical Question Medicine/Pediatrics - [address] [phone] Jefferson Sinclair MD Moderate persistent asthma without complication (Primary Dx) Social History Tobacco Use Types Packs/Day Years [...] on file documented as of this encounter Progress Notes * Concepción Noble RN - 01/01/2019 9:31 AM EDTFrom: Angie Lomax To: Jefferson Sinclair MD Sent: 01/01/2019 12:24 AM EDT Subject: Referral Dr. Sinclair, I do need a referral to Pulmonary Dr. Tillman here at [facility]. Also the steroid inhaler is not working at the dosage you started me on. I think we need to go up in dosage like we discussed. Thank you. documented in this encounter Plan of Treatment Not on file documented as of this encounter Visit Diagnoses Diagnosis Moderate persistent asthma without complication- Primary Unspecified asthma documented in this encounter Care Teams Quality Assurance Assessor Relationship Specialty Start Date End Date Jefferson Sinclair MD PCP - General Internal Medicine 05/01/17 01/08/21 Hallie Todd MD [address] [place] [address] PCP - General Internal Medicine 01/09/21 documented as of this encounter
--- OUTSIDE RECORDS SUMMARY | 2024-10-06 21:09 | XMS_ITS | Encounter Summary ---
Author Organization [facility] Address [address] [place] [address] Care Team Providers Care Crib Clerk Name Role Phone Jefferson Sinclair MD Primary Care Provider [facility] Hallie Todd MD Primary Care Provider [phone] Encounter Details Date Type Department Care Team Description 03/23/2020 Orders Only Medicine/Pediatrics - [address] [phone] Jefferson Sinclair MD Social History Tobacco Use Types Packs/Day Years [...] Exposure Response Date Recorded In the last month, have you been in contact with someone who was confirmed or suspected to have Coronavirus / COVID-19? Unable to assess 03/06/2020 8:36 AM EDT documented as of this encounter Plan of Treatment Not on file documented as of this encounter Visit Diagnoses Not on filedocumented in this encounter Care Teams Crib Clerk Relationship Specialty Start Date End Date Jefferson Sinclair MD PCP - General Internal Medicine 05/01/17 01/08/21 Hallie Todd, [address] [place] [address] [place] [address] PCP - General Internal Medicine 01/09/21 documented as of this encounter
--- OUTSIDE RECORDS SUMMARY | 2024-10-06 21:09 | XMS_ITS | Encounter Summary ---
Author Organization [facility] Address [address] [place] [address] Care Team Providers Care Accident Report Clerk Name Role Phone Jefferson Sinclair MD Primary Care Provider Unava dcwero Todd Ch MD Primary Care Provider [phone] [phone] Reason for Visit * Reason Onset Date Comments Error 01/14/2019 Encounter Details Date Type Department Care Team Description 01/14/2019 Refill Medicine/Pediatrics - [address] [phone] Jefferson Sinclair MD Error Social History Tobacco Use Types Packs/Day Years [...] encounter Miscellaneous Notes * Telephone Encounter - Caity Elaine - 01/14/2019 3:06 PM EDT documented in this encounter Plan of Treatment Not on file documented as of this encounter Visit Diagnoses Not on filedocumented in this encounter Care Teams Accident Report Clerk Relationship Specialty Start Date End Date Jefferson Sinclair MD PCP - General Internal Medicine 05/01/17 01/08/21 Hallie Todd, [address] [place] [address] PCP - General Internal Medicine 01/09/21 documented as of this encounter
--- OUTSIDE RECORDS SUMMARY | 2024-10-06 21:09 | XMS_ITS | Encounter Summary ---
Author Organization [facility] Address [address] [place] [address] Care Team Providers Care Foam Rubber Molder Name Role Phone Kirill Hou Primary Care Provider Jefferson Dinh MD Primary Care Provider Ana Mariava jodi Todd Ch MD Primary Care Provider [phone] [phone] Encounter Details Date Type Department Care Team Description 06/20/2010 Nuclear Fuel Enrichment Technician Report Medical Records [address] [place] [address] Monica Dexter MD Social History Tobacco Use Types Packs/Day Years Used Date Smoking Tobacco: Former Cigarettes Q uit: 02/14/2009 Comments:5 cig/ day Alcohol Use Standard Drinks/Week Comments Yes 0 (1 standard drink = 0.6 oz pur e alcohol) occassionally Sex Assigned at Date Recorded Not on file Job Start Date Occupation Industry Not on file Not on file Not on file documented as of this encounter Plan of Treatment Not on file documented as of this encounter Visit Diagnoses Not on filedocumented in this encounter Care Teams Foam Rubber Molder Relationship Specialty Start Date End Date Kirill Hou PCP - General 04/10/09 04/30/17 Jefferson Sinclair MD PCP - General Internal Medicine 05/01/17 01/08/21 Hallie Todd, [address] [place] [id number] PCP - General Internal Medicine 01/09/21 documented as of this encounter
--- OUTSIDE RECORDS SUMMARY | 2024-10-06 21:09 | XMS_ITS | Encounter Summary ---
Author Organization [facility] Address [address] [place] [address] Care Team Providers Care C++ Quant Developer Name Role Phone Jefferson Sinclair MD Primary Care Provider Unava mtwero Todd Ch MD Primary Care Provider [phone] [phone] Encounter Details Date Type Department Care Team Description 05/26/2017 Telephone Adult Medicine - [place] [address] [place] [address] Hallie Todd MD [address] [place] [address] Social History Tobacco Use Types Packs/Day Years [...] encounter Miscellaneous Notes * Telephone Encounter - Kelin Lei PA-C - 05/27/2017 7:58 AM EST Yes, the patient was seen in the surgical clinic yesterday. We are planning incision and drainage and debridement of involved tissue today in the OR. Please let me know if you have any questions, or anything I can help with, thank you. * Telephone Encounter - Hallie Todd MD - 05/26/2017 7:36 PM EST Unable to reach patient but it looks like she has an infection she is on diabetes meds did not leave a message because no identifying name on answering machine documented in this encounter Plan of Treatment Not on file documented as of this encounter Visit Diagnoses Not on filedocumented in this encounter Care Teams C++ Quant Developer Relationship Specialty Start Date End Date Jefferson Sinclair MD PCP - General Internal Medicine 05/01/17 01/08/21 Hallie Todd MD [address] [place] [address] PCP - General Internal Medicine 01/09/21 documented as of this encounter
--- OUTSIDE RECORDS SUMMARY | 2024-10-06 21:09 | XMS_ITS | Clinical Summary ---
Author Organization [facility] Address [address] [place] [address] Care Team Providers Care Manager Union Name Role Phone Pcp, No Primary Care Provider Unavailabl e Allergies Active Allergy Reactions Criticality Noted Date Comments Bee Venom Swelling Medium 05/20/2017 Age 19 - arm swelled and was tired, treated with Epipen; Age 50: stepped on bee and leg swelled Coconut Oil Hives,Swelling Medium 05/20/2017 Lip swelled Medications albuterol (PROVENTIL HFA; VENTOLIN HFA) 108 (90 Base) MCG/ACT inhaler Inhale 2 puffs 4 times daily (every 6 hours) as needed. Active ALPRAZolam (XANAX) 0.25 MG tablet 3 Active ARIPiprazole (ABILIFY) 5 MG tablet 3 Active Aspirin Low Dose 81 MG EC tablet Take 81 mg by mouth daily. 3 Active atorvastatin (LIPITOR) 80 MG tablet Take 80 mg by mouth. Active Symbicort 80-4.5 MCG/ACT inhaler INHALE 2 PUFFS INTO THE LUNGS TWICE A DAY 3 Active carvedilol (COREG) 3.125 MG tablet Take 3.125 mg by mouth 2 (two) times a day. 3 Active clonazePAM (KlonoPIN) 0.5 MG disintegrating tablet Take 0.5 mg by mouth 2 (two) times a day as needed. Active clopidogrel (PLAVIX) 75 MG tablet Take 75 mg by mouth daily. 3 Active dulaglutide (Trulicity) 1.5 MG/0.5ML prefilled pen injection Inject 3 mg under the skin. Active Jardiance 25 MG tablet Take 1 tablet by mouth every morning. 3 Active FLUoxetine (PROzac) 40 MG capsule Take 60 mg by mouth. Active fluticasone (FloNASE) 50 mcg/spray nasal spray 1 spray into each nostril. Active gabapentin (NEURONTIN) 600 MG tablet TAKE 1 TABLET BY MOUTH EVERY MORNING, 1 TAB IN THE AFTERNOON, AND 1 AND 1/2 TABETS AT NIGHT 3 Active glipiZIDE (GLUCOTROL XL) 10 mg 24 hr tablet Take 15 mg by mouth. Active insulin glargine, BASAGLAR LATRICIAIKPEN, 100 UNIT/ML prefilled pen injection INJECT 60 UNITS INTO THE SKIN AT BEDTIME. 90 DAY SUPPLY 3 Active lisinopril (PRINIVIL,ZeSTRIL) 2.5 MG tablet Take 1 tablet by mouth daily. 3 Active metFORMIN (FORTAMET) 1000 MG (OSM) 24 hr tablet Take 1,000 mg by mouth. Active montelukast (SINGULAIR) 10 MG tablet Take 10 mg by mouth. Active OMEprazole (PriLOSEC) 40 MG capsule Take 40 mg by mouth. Active riboflavin (VITAMIN B-2) 100 MG tablet Take 4 tablets by mouth nightly. Active tiZANidine (ZANAFLEX) 2 MG tablet Take 2 mg by mouth 4 times daily (every 6 hours) as needed. for pain 3 Active traZODone (DESYREL) 50 MG tablet 3 Active Immunizations Immunization Administration Dates Next Due MMR 01/06/2019,11/30/2018 Tdap 06/04/2021 Social History Tobacco Use Types Packs/Day Years Used Date Smoking Tobacco: Former Cigarettes Q uit: 07/17/2008 Tobacco Cessation:Counseling Given: Not Answered Alcohol Use Standard Drinks/Week Comments Yes 2 (1 standard drink = 0.6 oz pur e alcohol) Comments No Sex and Gender Information Value Date Recorded Sex Assigned at Female 04/09/2023 6:00 PM EDT Legal Sex Female 11:03 AM EDT Gender Identity Female 04/09/2023 6:00 PM EDT Sexual Orientation Heterosexual (straight) 04/09 6:00 PM EDT Last Filed Vital Signs Vital Sign Reading Time Taken Comments Blood Pressure 110/74 04/24/2023 2:43 PM EST Pulse 80 04/24/2023 2:43 PM EST Temperature 36.9 ??C (98.4 ??F) 04/24/2023 2:43 PM ES T Respiratory Rate 18 04/07/2023 3:03 PM EDT Oxygen Saturation 98% 04/24/2023 2:43 PM EST Inhaled Oxygen Concentration - - Weight 129 kg (285 lb) 04/10/2023 2:50 PM EDT Height 165.1 cm (5' 5 ) 04/10/2023 2:50 PM EDT Body Mass Index 47.43 04/10/2023 2:50 PM EDT Plan of Treatment Health Maintenance Due Date Last Done Comments Hepatitis C Virus Screening 1970 HIV Screening 1983 Hepatitis B Vaccines (1 of 3 - 19+ 3-dose series) 1989 Pap Smear (Ages 21-65) 1991 Mammogram 2010 Colonoscopy 2015 Pneumococcal Vaccines 50+ (1 of 1 - PCV) 2020 Zoster (Shingles) Vaccine (1 of 2) 2020 Influenza Vaccine 01/15/2024 04/14/2019, , 02/21/2010 COVID-19 Vaccine (2023- season) 2024 03/22/2021, 06/29/2020, 06/06/2020 DTaP/Tdap/Td Vaccines (2 - T d or Tdap) 06/04/2031 06/04/[address] [place] [phone] [place] [address] [place] [address] [place] [address] Care Teams Manager Union Relationship Specialty Start Date End Date Pcp, No [address] [place] [address] PCP - General 02/03/23
--- OUTSIDE RECORDS SUMMARY | 2024-10-06 21:09 | XMS_ITS | Encounter Summary ---
Author Organization [employer] [facility] Address [address] [place] [address] Care Team Providers Care Agricultural Pilot Name Role Phone Jefferson Sinclair MD Primary Care Provider Unava jodi Todd Ch MD Primary Care Provider [phone] Reason for Visit * Reason Comments E-prescribe Rx Request Encounter Details Date Type Department Care Team Description 08/27/2020 Refill Allergy Sweet Grass [address] [place] [phone] Orquidea Vargas MD E-prescribe Rx Request Social History Tobacco Use Types Packs/Day Years [...] or suspected to have Coronavirus / COVID-19? No / Unsure 08/17/2020 8:39 AM EST documented as of this encounter Miscellaneous Notes * Telephone Encounter - Kristine Garcia LPN - 08/29/2020 9:39 AM EDT PRIYANKA: 08/17/20 F/U: due 02/17/21, not scheduled BSR- please schedule the f/u appointment. documented in this encounter Plan of Treatment Not on file documented as of this encounter Visit Diagnoses Diagnosis Chronic idiopathic urticaria Idiopathic urticaria documented in this encounter Care Teams Agricultural Pilot Relationship Specialty Start Date End Date Jefferson Sinclair MD PCP - General Internal Medicine 05/01/17 01/08/21 Hallie Todd MD [address] [place] [address] PCP - General Internal Medicine 01/09/21 documented as of this encounter
--- OUTSIDE RECORDS SUMMARY | 2024-10-06 21:09 | XMS_ITS | Encounter Summary ---
Author Organization [facility] Address [address] [place] [address] Care Team Providers Care Flexo Folder Gluer Operator Name Role Phone Kirill Hou Primary Care Provider Jefferson Dinh MD Primary Care Provider Ana Mariava jodi Todd Ch MD Primary Care Provider [phone] [phone] Encounter Details Date Type Department Care Team Description 06/20/2010 Relationship Banker Report Medical Records [address] [place] [address] Monica Dexter MD Social History Tobacco Use [...] on filedocumented in this encounter Care Teams Flexo Folder Gluer Operator Relationship Specialty Start Date End Date Kirill Hou PCP - General 04/10/09 04/30/17 Jefferson Sinclair MD PCP - General Internal Medicine 05/01/17 01/08/21 Hallie Todd, [address] [place] [address] PCP - General Internal Medicine 01/09/21 documented as of this encounter
--- OUTSIDE RECORDS SUMMARY | 2024-10-06 21:09 | XMS_ITS | Encounter Summary ---
Author Organization [facility] Address [address] [place] [address] Care Team Providers Care Paper Colorer Name Role Phone Jefferson Sinclair MD Primary Care Provider [facility] Todd Ch MD Primary Care Provider [phone] Encounter Details Date Type Department Care Team Description 12/22/2017 Pt. Non Urgent Medic al Question Medicine/Pediatrics - [address] [phone] Jefferson Sinclair MD Social History Tobacco Use [...] as of this encounter Progress Notes * Tiffanie Queen L.P.N. - 12/22/2017 3:26 PM EDTFrom: Angie Lomax To: Jefferson Sinclair MD Sent: 12/22/2017 2:48 PM EDT Subject: X/R results Was wonder exactly what these results mean and could any of this be causing my pain? It???s gettingworse rather than better documented in this encounter Plan of Treatment Not on file documented as of this encounter Visit Diagnoses Not on filedocumented in this encounter Care Teams Paper Colorer Relationship Specialty Start Date End Date Jefferson Sinclair MD PCP - General Internal Medicine 05/01/17 01/08/21 Hallie Todd MD [address] [place] [address] PCP - General Internal Medicine 01/09/21 documented as of this encounter
--- OUTSIDE RECORDS SUMMARY | 2024-10-06 21:09 | XMS_ITS | Encounter Summary ---
Author Organization [facility] Address [address] [place] [address] Care Team Providers Care Jacquard Card Cutter Name Role Phone Jefferson Sinclair MD Primary Care Provider [facility] Hallie Todd MD Primary Care Provider [phone] [phone] Encounter Details Date Type Department Care Team Description 08/14/2020 Client Retention Specialist Report Medical Records [address] [place] [address] Louie Dye MD Social History Tobacco Use Types Packs/Day [...] AM EST documented as of this encounter Plan of Treatment Not on file documented as of this encounter Visit Diagnoses Not on filedocumented in this encounter Care Teams Jacquard Card Cutter Relationship Specialty Start Date End Date Jefferson Sinclair MD PCP - General Internal Medicine 05/01/17 01/08/21 Hallie Todd MD [address] [place] [address] PCP - General Internal Medicine 01/09/21 documented as of this encounter
--- OUTSIDE RECORDS SUMMARY | 2024-10-06 21:09 | XMS_ITS | Encounter Summary ---
Author Organization [employer] [facility] Address [address] [place] [address] Care Team Providers Care Campus Chaplain Name Role Phone Jefferson Sinclair MD Primary Care Provider [facility] Hallie Todd MD Primary Care Provider [phone] [phone] Encounter Details Date Type Department Care Team Description 02/23/2019 Door Closer Mechanic Report Medical Records [address] [place] [address] Stanislav Mendez MD Social History Tobacco Use Types Packs/Day [...] on filedocumented in this encounter Care Teams Campus Chaplain Relationship Specialty Start Date End Date Jefferson Sinclair MD PCP - General Internal Medicine 05/01/17 01/08/21 Hallie Todd MD [address] [place] [address] PCP - General Internal Medicine 01/09/21 documented as of this encounter
--- OUTSIDE RECORDS SUMMARY | 2024-10-06 21:09 | XMS_ITS | Encounter Summary ---
Author Organization [facility] Address [address] [place] [address] Care Team Providers Care Poultry Scientist Name Role Phone Jefferson Sinclair MD Primary Care Provider [facility] Hallie Todd MD Primary Care Provider [phone] [phone] Encounter Details Date Type Department Care Team Description 09/04/2020 Machine Ii Trimmer Report Medical Records [address] [place] [address] Louie Dye MD Social History Tobacco Use [...] on filedocumented in this encounter Care Teams Poultry Scientist Relationship Specialty Start Date End Date Jefferson Sinclair MD PCP - General Internal Medicine 05/01/17 01/08/21 Hallie Todd MD [address] [place] [address] PCP - General Internal Medicine 01/09/21 documented as of this encounter
--- OUTSIDE RECORDS SUMMARY | 2024-10-06 21:09 | XMS_ITS | Encounter Summary ---
Author Organization [employer] [facility] Address [address] [place] [address] Care Team Providers Care Panelbeater Name Role Phone Jefferson Sinclair MD Primary [facility] Ch MD Primary Care Provider [phone] [phone] Reason for Visit * Reason Onset Date Comments anxiety 12/03/2017 Encounter Details Date Type Department Care Team Description 12/03/2017 Telephone Medicine/Pediatrics - [address] [phone] Jefferson Sinclair MD anxiety Social History Tobacco Use Types Packs/Day Years [...] encounter Miscellaneous Notes * Telephone Encounter - Concepción Noble RN - 12/03/2017 3:22 PM EDT Patient continues to complain of pain, anxiety. Advised of below. Appt scheduled for tomorrow at 10:30 with PA Blanks, no availability with PCP Advised patient to seek ED care if pain worsens or she can't get comfortable * Telephone Encounter - Jefferson Sinclair MD - 12/03/2017 2:23 PM EDT Patient needs to come to office for visit to further discuss, I will not have time to call until after 5pm today. thanks * Telephone Encounter - Concepción Noble RN - 12/03/2017 1:49 PM EDT Pain is in chest, down arms back of arms hard time breathing In car driving home Cries easily. Driving home Hoping for call from Dr. Sinclair * Telephone Encounter - Judy Mccoy - 12/03/2017 1:42 PM EDT See patients mychart message Made an appt with gastro to rule that out but it is not until December 23. ??I did not sleep a wink last night my axiety is thru the roof. ??Pain is all the time now having pain down both arms on the inside and very nauseous and dry heaving. ??What else can be done I can???t do this pain until December 23 and it keeps spiking my anxiety majorly documented in this encounter Plan of Treatment Not on file documented as of this encounter Visit Diagnoses Not on filedocumented in this encounter Care Teams Panelbeater Relationship Specialty Start Date End Date Jefferson Sinclair MD PCP - General Internal Medicine 05/01/17 01/08/21 Hallie Todd MD [facility] [place] [address] PCP - General Internal Medicine 01/09/21 documented as of this encounter
--- OUTSIDE RECORDS SUMMARY | 2024-10-06 21:09 | XMS_ITS | Encounter Summary ---
Author Organization [facility] Address [address] [place] [address] Care Team Providers Care Cloth Desizing Range Tender Name Role Phone Jefferson Sinclair MD Primary Care Provider Ana Mariamd jodi Todd Ch MD Primary Care Provider [phone] [phone] Reason for Visit * Reason Comments E-prescribe Rx Request Encounter Details Date Type Department Care Team Description 05/26/2018 Refill Medicine/Pediatrics - [address] [phone] Jefferson Sinclair MD E-prescribe Rx Request Social History Tobacco [...] encounter Miscellaneous Notes * Telephone Encounter - Jefferson Sinclair MD - 06/01/2018 5:14 PM EST Scripts sent, thanks * Telephone Encounter - Concepción Noble RN - 06/01/2018 1:42 PM EST Patient reports glipizide is the same 3 tabs of the 5mg twice daily. Was never told by Endo that itwas decreased. Prozac is 80mg daily, she never picked up the script from March. Will have therapist order it after this bridge script. Pended glipizide and prozac * Telephone Encounter - Concepción Noble RN - 06/01/2018 12:27 PM EST Left message for patient to call back * Telephone Encounter - Jefferson Sinclair MD - 06/01/2018 12:16 PM EST I would still like to have clarification on both of these meds in terms of dosing. Endocrine decreased glipizide dose to 10mg twice daily, is that the dose she is taking? Also, re: prozac, I want to make sure only one provider is filling this medication. If following with Dr. Parrish, then she should fill it based on her increase. I am happy to bridge this med, but don't want two different providers refilling this med. thanks * Telephone Encounter - Concepción Lima M.A. - 06/01/2018 11:57 AM EST Pt scheduled for ov 06/23/18. RX pended with no refill. Lab Results Component Value Date HGBA1C 9.5 10/20/2017 MALBUR 69.7 10/20/2017 MALBCR 48.0 10/20/2017 CHOL 173 05/26/2017 LDL 95 05/26/2017 HDL 30 05/26/2017 TRIG 243 05/26/2017 GLU 400 04/02/2018 CREAT 0.5 04/02/2018 * Telephone Encounter - Akanksha Bowman - 06/01/2018 11:47 AM EST Patient booked med check for 06/23/18. Please refill until then. * Telephone Encounter - Jefferson Sinclair MD - 05/26/2018 10:41 PM EST Note sent to patient to clarify her glipizde dosing; her oven tender bagels recommended her decreasingdose to 10mg BID over the summer. I will await er return response prior to sending script * Telephone Encounter - Tiffanie GravesP.N. 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 * Telephone Encounter - Tiffanie GravesP.N. - 05/26/2018 9:05 AM EST Needs to be seen Before September 3 month fu for DM due in dec * Telephone Encounter - Gay Hinson - 05/26/2018 8:49 AM EST Patient would like script to be: E-PRESCRIBED/FAXED TO PHARMACY WHEN WAS THE PATIENT'S LAST APPOINTMENT IN ADULT MEDICINE? 02/25/18 WHEN WAS THE LAST TIME THE PATIENT SAW THEIR PCP? 02/23/18 Does patient have an upcoming appointment? Yes 09/15/18 (THE MEDICATION REQUESTED IS ON THE MED LIST ABOVE) All of the medications requested were on the CURRENT MEDS list Did you check the Pharmacy information above?: YES Patient wants: 90 -day supply Is this a mail order prescription request ? NO If the refill is from a FAXED refill request what is the RX # listed on the fax? N/A Patients current insurance carrier is: Payor: [employer] / Plan: [employer] EMP EPO $20/$30 / Product Type: EPO documented in this encounter Plan of Treatment Not on file documented as of this encounter Visit Diagnoses Diagnosis Controlled type 2 diabetes mellitus without complication, without long-term current use of insulin (HCC) documented in this encounter Care Teams Cloth Desizing Range Tender Relationship Specialty Start Date End Date Jefferson Sinclair MD PCP - General Internal Medicine 05/01/17 01/08/21 Hallie Todd MD [address] [place] [address] PCP - General Internal Medicine 01/09/21 documented as of this encounter
--- OUTSIDE RECORDS SUMMARY | 2024-10-06 21:09 | XMS_ITS | Encounter Summary ---
Author Organization [facility] Address [address] [place] [address] Care Team Providers Care Manager Cleaning Name Role Phone Jefferson Sinclair MD Primary Care Provider [facility] Hallie Todd MD Primary Care Provider [phone] Encounter Details Date Type Department Care Team Description 09/06/2020 Telephone Medicine/Pediatrics - [address] [phone] Jefferson Sinclair MD Social History Tobacco Use [...] on filedocumented in this encounter Care Teams Manager Cleaning Relationship Specialty Start Date End Date Jefferson Sinclair MD PCP - General Internal Medicine 05/01/17 01/08/21 Hallie Todd, [address] [facility] [place] [address] PCP - General Internal Medicine 01/09/21 documented as of this encounter
--- OUTSIDE RECORDS SUMMARY | 2024-10-06 21:09 | XMS_ITS | Encounter Summary ---
Author Organization [employer] [facility] Address [address] [place] [address] Care Team Providers Care Sheet Metal Assembler And Riveter Name Role Phone Jefferson Sinclair MD Primary Care Provider [facility] Hallie Todd MD Primary Care Provider [phone] Encounter Details Date Type Department Care Team Description 11/14/2018 Release of Information Medical Records [address] [place] [address] Abstract, Provider Social History Tobacco Use Types [...] on filedocumented in this encounter Care Teams Sheet Metal Assembler And Riveter Relationship Specialty Start Date End Date Jefferson Sinclair MD PCP - General Internal Medicine 05/01/17 01/08/21 Hallie Todd MD [address] [place] [address] PCP - General Internal Medicine 01/09/21 documented as of this encounter
--- OUTSIDE RECORDS SUMMARY | 2024-10-06 21:09 | XMS_ITS | Encounter Summary ---
Author Organization [facility] Address [address] [place] [address] Care Team Providers Care Public Health Physician Name Role Phone Jefferson Sinclair MD Primary Care [facility] Hallie Todd MD Primary Care Provider [phone] Encounter Details Date Type Department Care Team Description 05/27/2017 Hospital Medical Records [address] [place] [address] Anthony High MD [address] [place] [address] Social History Tobacco Use Types Packs/Day Years [...] on filedocumented in this encounter Care Teams Public Health Physician Relationship Specialty Start Date End Date Jefferson Sinclair MD PCP - General Internal Medicine 05/01/17 01/08/21 Hallie Todd MD [address] [place] [address] PCP - General Internal Medicine 01/09/21 documented as of this encounter
--- OUTSIDE RECORDS SUMMARY | 2024-10-06 21:09 | XMS_ITS | Encounter Summary ---
[facility] Address [address] [place] [address] Care Team Providers Care Digital Community Manager Name Role Phone Hallie Todd MD Primary Care Provider [phone] Reason for Visit * Reason Onset Date Comments lab test 07/27/2021 tb test and vari abraham vaccine Encounter Details Date Type Department Care Team Description 07/27/2021 Telephone Adult Medicine - [place] [address] [place] [address] Hallie Todd MD [address] [place] [address] lab test (tb test and varicella vaccine) Social History Tobacco Use Types Packs/Day Years [...] encounter Miscellaneous Notes * Telephone Encounter - Berta Dyer M.A. - 07/30/2021 12:46 PM EST Spoke to patient and message was given below. * Telephone Encounter - Hallie Todd MD - 07/30/2021 12:18 PM EST Order signed * Telephone Encounter - Carmen Mcadams M.A. - 07/27/2021 1:48 PM EST Patient requesting blood work for quantiferon gold and varicella. Lab work pending * Telephone Encounter - Marysol Bhakta - 07/27/2021 1:22 PM EST Patient calling to request labs be ordered: What lab work is patient requesting? Patient is requesting to have tb test and receive varicella vaccine Does patient have an upcoming appointment, if yes when and WITH WHO? no Patients PCP is: Elizabeth Todd documented in this encounter Plan of Treatment Not on file documented as of this encounter Results * VARICELLA-ZOSTER ANTIBODY SCREENING (08/07/2021 2:48 PM EST) [facility] VARICELLA ANTIBODY IGG POSITIVE POSITIVE 08/10/2021 8:43 AM EST [facility] Varicella IGG Quant 221.4 >165 INDEX 08/10/2021 8:43 AM EST [facility] Comment:>165 Index is consid ered to be consistent with Immunity. 08/07/2021 2:48 PM EST 08/07/2021 2:48 PM EST Narrative [facility] - 08/10/2021 8:43 AM EST Release to patient->Immediate Hallie Todd MD LAB [facility] * QUANTIFERON TB GOLD (08/07/2021 2:48 PM EST) [facility] QFT PLUS INTERPRETATION NEGATIVE NEGATIVE 08/10/2021 11:32 AM EST [facility] 08/07/2021 2:48 PM EST 08/07/2021 2:48 PM EST Narrative [facility] - 08/10/2021 11:32 AM EST Release to patient->Immediate Ch Peyton ALVAREZ LAB [facility] [employer] documented in this encounter Visit Diagnoses Diagnosis At risk for infection- Primary Other specified conditions influencing health status documented in this encounter Care Teams Digital Community Manager Relationship Specialty Start Date End Date Hallie Todd MD [address] [place] [address] PCP - General Internal Medicine 01/09/21 documented as of this encounter
--- OUTSIDE RECORDS SUMMARY | 2024-10-06 21:10 | XMS_ITS | Encounter Summary ---
Author Organization [facility] Address [address] [place] [address] Care Team Providers Care Regional Agronomist Name Role Phone Hallie Todd MD Primary Care Provider [phone] Reason for Visit * Reason Onset Date Comments Note, Work 10/09/2021 Encounter Details Date Type Department Care Team Description 10/09/2021 Telephone Adult Medicine - [place] [address] [place] [address] Hallie Todd MD [address] [place] [address] Note, Work Social History Tobacco Use Types Packs/Day Years [...] was confirmed or suspected to have Coronavirus/COVID-19? No / Unsure 10/01/2021 9:25 AM EDT documented as of this encounter Miscellaneous Notes * Telephone Encounter - Berta Dyer M.A. - 10/10/2021 12:50 PM EDT Left voicemail to pt regarding message below * Telephone Encounter - Tiffanie Sears NP - 10/10/2021 11:40 AM EDT I thought the letter was provided by my center medical specialist. However, I looked at the chart and it has never been finished. My apologies. Letter has been created, printed and signed and ready to be picked up in my out box * Telephone Encounter - Nancy Patel - 10/09/2021 3:48 PM EDT Patient saw Tiffanie Sears on and states she was supposed to get a not from Tiffanie taking her out of work until 10/18/2021. Please advise documented in this encounter Plan of Treatment Not on file documented as of this encounter Visit Diagnoses Not on filedocumented in this encounter Care Teams Regional Agronomist Relationship Specialty Start Date End Date Hallie Todd MD [address] [place] [address] PCP - General Internal Medicine 01/09/21 documented as of this encounter
--- OUTSIDE RECORDS SUMMARY | 2024-10-06 21:10 | XMS_ITS | Encounter Summary ---
Author Organization [facility] [employer] [facility] Address [address] [place] [address] Care Team Providers Care Blueprint Processor Name Role Phone Jefferson Sinclair MD Primary Care Provider [facility] Ch MD Primary Care Provider [phone] Encounter Details Date Type Department Care Team Description 01/16/2020 Orders Only Medicine/Pediatrics - [address] [phone] Jefferson Sinclair MD Vitamin D deficiency (Primary Dx); Hypomagnesemia Social History Tobacco Use Types Packs/Day Years [...] documented as of this encounter Results * 25 HYDROXY INCLUDES FRACTIONS IF PERFORMED (04/03/2020 2:01 PM EDT) VITAMIN D, 25-HYDROXY 41 30 - 80 ng/mL 04/03/2020 5:08 PM EDT [facility] 04/03/2020 2:01 PM EDT 04/03/2020 2:06 PM EDT Jefferson Sinclair MD LAB Performing Organization Address City/[facility] [address]/ZIP Co de Phone Number [facility] * (ABNORMAL) MAGNESIUM,SERUM (04/03/2020 2:01 PM EDT) MAGNESIUM (MG) 1.8(L) 1.9 - 2.6 mg/dL 04/03/2020 4:55 PM EDT [facility] 04/03/2020 2:0 1 PM EDT 04/03/2020 2:06 PM EDT Jefferson Sinclair MD LAB Performing Organization Address [facility] [address]/[facility] Co de Phone Number [facility] documented in this encounter Visit Diagnoses Diagnosis Vitamin D deficiency- Primary Unspecified vitamin D deficiency Hypomagnesemia Disorders of magnesium metabolism documented in this encounter Care Teams Blueprint Processor Relationship Specialty Start Date End Date Jefferson Sinclair MD PCP - General Internal Medicine 05/01/17 01/08/21 Hallie Todd MD [address] [place] [address] PCP - General Internal Medicine 01/09/21 documented as of this encounter
--- OUTSIDE RECORDS SUMMARY | 2024-10-06 21:10 | XMS_ITS | Encounter Summary ---
Author Organization [facility] Address [address] [place] [address] Care Team Providers Care Finnish Rubber Name Role Phone Jefferson Sinclair MD Primary Care Provider Unawv jodi Todd Ch MD Primary Care Provider [phone] Reason for Visit * Reason Onset Date Comments pain, chest 11/24/2017 Shortness Of Breath 11/24/2017 Encounter Details Date Type Department Care Team Description 11/24/2017 Telephone Medicine/Pediatrics - [address] [phone] Jefferson Sinclair MD pain, chest; Shortness Of Breath Social History Tobacco Use Types Packs/Day Years [...] Telephone Encounter - Concepción Noble RN - 11/24/2017 11:39 AM EDT FYI Patient reports chest pain worsening through out morning, sob getting harder to catch my breath and now getting lightheaded> Advised ED due to worsening chest pain, increasing respiratory symptoms and history of chest pain. Advised not to drive * Telephone Encounter - Akanksha Bowman - 11/24/2017 11:38 AM EDT Chest pain and sob causing light headed. documented in this encounter Plan of Treatment Not on file documented as of this encounter Visit Diagnoses Not on filedocumented in this encounter Care Teams Finnish Rubber Relationship Specialty Start Date End Date Jefferson Sinclair MD PCP - General Internal Medicine 05/01/17 01/08/21 Hallie Todd MD [address] [place] [address] PCP - General Internal Medicine 01/09/21 documented as of this encounter
--- OUTSIDE RECORDS SUMMARY | 2024-10-06 21:10 | XMS_ITS | Encounter Summary ---
Author Organization [facility] Address [address] [place] [address] Care Team Providers Care Connection Worker Name Role Phone Jefferson Sinclair MD Primary Care Provider Unava ilable Hallie Todd MD Primary Care Provider [phone] Encounter Details Date Type Department Care Team Description 02/16/2020 Orders Only Medicine/Pediatrics - [address] [phone] Jefferson Sinclair MD Social History Tobacco Use [...] on filedocumented in this encounter Care Teams Connection Worker Relationship Specialty Start Date End Date Jefferson Sinclair MD PCP - General Internal Medicine 05/01/17 01/08/21 Hallie Todd MD [address] [place] [address] PCP - General Internal Medicine 01/09/21 documented as of this encounter
--- OUTSIDE RECORDS SUMMARY | 2024-10-06 21:10 | XMS_ITS | Encounter Summary ---
Author Organization [email or web address] [facility] Address [address] [place] [address] Care Team Providers Care Assembler Motor Vehicle Name Role Phone Hallie Todd MD Primary Care Provider [phone] Reason for Visit * Reason Comments E-prescribe Rx Request Encounter Details Date Type Department Care Team Description 02/29/2024 Refill Medicine/Pediatrics - [address] [phone] Kavin Cook PA-C [address] [place] [address] E-prescribe Rx Request Social History Tobacco Use [...] encounter Miscellaneous Notes * Telephone Encounter - Joana Root - 03/01/2024 2:14 PM EDT Patient would like script to be: E-PRESCRIBED/FAXED TO PHARMACY WHEN WAS THE PATIENT'S LAST APPOINTMENT IN ADULT MEDICINE? 10/13/23 WHEN WAS THE LAST TIME THE PATIENT SAW THEIR PCP? Same as above Does patient have an upcoming appointment? Yes 04/13/24 (THE MEDICATION REQUESTED IS ON THE MED [...] N/A Patients current insurance carrier is: Payor: [employer]AN / Plan: DIRECT CONNECT $0/$18 [place] [address] / Product Type: OTHER documented in this encounter Plan of Treatment Not on file documented as of this encounter Visit Diagnoses Not on filedocumented in this encounter Care Teams Assembler Motor Vehicle Relationship Specialty Start Date End Date Hallie Todd MD [address] [place] [address] PCP - General Internal Medicine 01/09/21 documented as of this encounter
--- OUTSIDE RECORDS SUMMARY | 2024-10-06 21:10 | XMS_ITS | Encounter Summary ---
Author Organization [facility] Address [address] [place] [address] Care Team Providers Care Automotive Parts Advisor Name Role Phone Jefferson Sinclair MD Primary Care Provider [facility] Hallie Todd MD Primary Care Provider [phone] Encounter Details Date Type Department Care Team Description 07/28/2019 Release of Information Medical Records [address] [place] [address] Abstract, Provider Social History Tobacco Use Types [...] on filedocumented in this encounter Care Teams Automotive Parts Advisor Relationship Specialty Start Date End Date Jefferson Sinclair MD PCP - General Internal Medicine 05/01/17 01/08/21 Hallie Todd MD [address] [place] [address] PCP - General Internal Medicine 01/09/21 documented as of this encounter
--- OUTSIDE RECORDS SUMMARY | 2024-10-06 21:10 | XMS_ITS | Clinical Summary ---
Author Organization [facility] Address [address] [place] [address] Care Team Providers Care Academic Affairs Specialist Name Role Phone Hallie Todd MD Primary Care Provider [phone] [phone] Allergies Active Allergy Reactions Severity Noted Date Comments Bee Stings Swelling/Edema 05/20/2017 Age 19 - arm swelled and was tired, treated with Epipen; Age 50: stepped on bee and leg swelled Coconut Oil Hives/Urticaria,Swel ling /Edema 05/20/2017 Lip swelled Seasonal Allergies 10/18/2021 Medications Medication Sig Dispensed Refills Start Date End Date Status Continuous Blood Gluc Sensor (TechnitrolSTYLE PAUL SENSOR SYSTEM) Misc by Does not apply route. 0 Active [facility] ASPIRIN ADULT LOW DOSE 81 MG chewable tablet Take 81 mg by mouth daily. 0 02/01/2019 Active atorvastatin (LIPITOR) 80 MG tablet Take 80 mg by mouth daily. 0 02/01/2019 Active carvedilol (COREG) 3.125 MG tablet Take by mouth 2 Times Daily. 0 02/01/2019 Active clopidogrel (PLAVIX) 75 MG tablet Take by mouth daily. 0 02/01/2019 Active lidocaine (LIDODERM) 5 %Indications:DM type 2 with diabetic peripheral neuropathy (HCC) Place 1 Patch onto the skin every 12 hours for 28 days. Apply for no more than 12 hours in any 24 hour period. Apply before bed to both feet for pain relief 56 Patch 1 08/11/2019 Active VITAMIN D, ERGOCALCIFEROL, OR Take by mouth. 0 Ac tive omeprazole (PRILOSEC) 40 MG capsule Take 40 mg by mouth daily. 0 Active ondansetron (ZOFRAN) 4 MG tablet Take 4 mg by mouth every 8 hours as needed. 0 Active Riboflavin (Vitamin B-2) 100 MG Tab Take 4 Tablets by mouth at bedtime. 0 Active Loratadine-Pseudoe phedrine (CLARITIN-D 12 HOUR OR) Take 1 Tablet by mouth daily. 0 Active Insulin Pen Needle (BD Pen Needle Jodee 2nd Gen) 32G X 4 MM MiscIndications:DM (diabetes mellitus), type 2, uncontrolled, with renal complications,Type 2 diabetes mellitus with peripheral neuropathy (HCC) Inject 1 Device into the skin every evening. 30 Each 11 11/07/2022 Active ALBUTEROL SULFATE 108 (90 Base) MCG/ACT Aero Soln Inhale 2 Puffs into the lungs every 6 hours as needed for Cough or Wheezing. 25 g 0 04/01/2023 Active alprazolam (Xanax) 0.25 MG tablet Take 1 Tablet by mouth 3 times daily as needed for Anxiety. 84 Tablet 0 05/07/2023 Active trazodone (DESYREL) 50 MG tablet Take 0.5-1 Tablets by mouth at bedtime. 30 Tablet 0 05/07/2023 Active tizanidine (ZANAFLEX) 2 MG tablet Take 1 Tablet by mouth every 6 hours as needed for Other (pain). 45 Tablet 5 05/14/2023 Active Continuous Blood Gluc Sensor (FreeStyle Paul 2 Sensor) Mis 1 Applicator by Does not apply route every 14 days. 90 day supply 6 Each 3 05/20/2023 Active Magnesium Chloride 64 MG Tab EC TAKE 2 TABLETS BY MOUTH EVERY DAY 180 Tablet 0 07/11/2023 Active Meclizine HCl 25 MG Tab Take 1 Tablet by mouth 3 times daily as needed (dizziness). 45 Tablet 1 09/05/2023 Active Empagliflozin (Jardiance) 25 MG Tab TAKE 1 TABLET BY MOUTH EVERY DAY IN THE MORNING 90 Tablet 1 11/04/2023 Active fluoxetine (PROZAC) 20 MG capsule Take 3 Capsules by mouth daily. 270 Capsule 1 11/25/2023 Active aripiprazole (Abilify) 5 MG tablet Take 0.5 Tablets by mouth daily. 45 Tablet 1 11/25/2023 Active lisinopril (PRINIVIL,ZESTRIL) 2.5 MG tablet Take 1 Tablet by mouth daily. 90 Tablet 1 01/26/2024 Active gabapentin (NEURONTIN) 600 MG tabletIndications: Type 2 diabetes mellitus with peripheral neuropathy (HCC) TAKE 1 TABLET BY MOUTH EVERY MORNING, 1 TAB IN THE AFTERNOON, AND 1 AND 1/2 TABETS AT NIGHT 315 Tablet 0 02/20/2024 Active Tirzepatide (Mounjaro) 7.5 MG/0.5ML Solution Pen-injector Inject 7.5 mg into the skin once a week. 2 mL 1 03/10/2024 Active Insulin Glargine, 2 Unit Dial, (Touseema Astorga SoloStar) 300 UNIT/ML Solution Pen-injector Inject 90 Units into the skin at bedtime. 27 mL 1 04/01/2024 Active Active Problems Problem Noted Date NPDR (nonproliferative diabetic retinopa thy) 12/03/2021 COVID-19 virus infection 07/27/2020 Overview: 07/2020 per patient Anxiety 10/29/2019 Vitamin D deficiency 10/29/2019 CAD (coronary artery disease) 02/09/2019 Overview: S/p stenting x4 01/2019; [place] Hx of myocardial infarction 02/09/2019 Overview: 01/2019 s/p multipal ARIEL placement Chronic urticaria 02/09/2019 Morbidity or mortality, unknown cause Adjustment disorder with mixed anxiety a nd depressed mood 10/20/2018 Episode of recurrent major depressive di sorder 10/20/2018 Type 2 diabetes mellitus with peripheral neuropathy 09/15/2018 Chronic idiopathic urticaria 06/04/2018 Seasonal allergic rhinitis 06/04/2018 Seasonal allergic conjunctivitis 018 External hemorrhoids 12/16/2017 Osteoarthritis 08/05/2017 Overview: Spine, knee, ankle Spinal stenosis 08/05/2017 Overview: lumbar Fatty liver 08/05/2017 Overview: U/S 05/2017 Hyperlipidemia 08/05/2017 Morbid obesity with BMI of 40.0-44.9, ad ult 08/05/2017 Hypertension 08/05/2017 Overview: Patient denies this diagnosis, has had elevated BP's but no formal diagnosis Duodenal ulcer perforation 10/31/2009 Overview: 05/2009 Depression 04/17/2009 DM (diabetes mellitus), type 2, uncontro lled, with renal complications 08/04/2005 Asthma 08/04/2005 Overview: Patient denies any formal diagnostic work-up, has only used inhaler with bronchitis and pneumonia Resolved Problems Problem Noted Date Resolved Date Shortness of breath 06/04/2018 09/15/2018 Mechanical strabismus 08/04/2005 08/05/2017 Encounters Date Type Specialty Care Team Description 09/29/2024 Refill Adult Teresa Kramer, Pharm.D E-prescribe Rx Request from Last 3 Months Immunizations Name Administration Dates Next Due COVID-19 (Pfizer) 03/22/2021,06/29/2020,06/06/20 Influenza (> 6 Months) 04/11/2017,02/21/2010 Influenza Flu (PT Reported) 07/27/2021 Influenza Vaccine-preservati ve Free-quadrivalent 4 Years 04/14/2019 MMR (Oywlxxo-Wmocd-Flltekf) 01/06/2019, 9 TD (STATE SUPPLIED FOR ADULTS AND CHILDREN) 06/2000 Tdap 06/04/2021 Family History Medical History Relation Name Comments cancer other Aunt pat great aunt cervical, gaby ast ca x2 Diabetes Father No Known Problems Mother CA Prostate Paternal Grandfather ovarian cancer Paternal Grandmother DM leukemia Son 1 at age 2, cured , ADHD, autism spectrum learning disability Depression/Anxiety Son 2 ADHD, aut ism spectrum ?aspergers ?depression Son 3 pancreatic Cancer Uncle Relation Name Status Comments Aunt pat great aunt Father Alive Mother Alive Paternal Grandfather Paternal Grandmother Son 1 Alive Son 2 Alive Son 3 Alive Uncle Social History Tobacco Use Types Packs/Day Years Used Date Smoking Tobacco: Former Cigarettes Q uit: 02/14/2009 Smokeless Tobacco: Never Tobacco Cessation:Counseling Given: Not Answered Alcohol Use Standard Drinks/Week Comments Yes 0 (1 standard drink = 0.6 oz pur e alcohol) 1 drink per month Sex Assigned at Date Recorded Not on file Job Start Date Occupation Industry Not on file Not on file Not on file Last Filed Vital Signs Vital Sign Reading Time Taken Comments Blood Pressure 104/71 10/13/2023 9:05 AM EDT Pulse 98 10/13/2023 9:05 AM EDT Temperature 36.9 ??C (98.4 ??F) 10/13/2023 9:05 AM ED T Respiratory Rate 18 02/06/2023 1:01 PM EDT Oxygen Saturation 98% 09/15/2023 5:44 PM EDT Inhaled Oxygen Concentration - - Weight 129.3 kg (285 lb) 10/13/2023 9:05 AM EDT Height 162.6 cm (5' 4 ) 10/13/2023 9:05 AM EDT Body Mass Index 48.92 10/13/2023 9:05 AM EDT Plan of Treatment Health Maintenance Due Date Last Done Comments HEPATITIS C SCREENING 1988 PNEUMOCOCCAL VACCINE FOR HIG H RISK PATIENTS (#1) 1989 DIABETES: ANNUAL FOOT EXAM 10/09/2011 10/08/2010 SHINGLES VACCINE (1 of 2) 2020 MAMMOGRAM 12/08/2022 12/08/2021, 02/14, 10/22/2013 DIABETES/HEART DISEASE: ANAMARIA AL CHOLESTEROL (LDL) 11/30/2023 11/29/2022, 08/07/2021, 08/07/2021, Additional history exists DIABETES: BLOOD SUGAR CONTRO L TEST (HGBA1C) 12/05/2023 09/04/2023, 11/29/2022, 05/06/2022, Additional history exists Covid-19 Vaccine (2022-07 4 season) 2024 03/22/2021, 06/29/2020, 06/06/2020 DIABETES: ANNUAL EYE EXAM 02/25/20242022, 01/11/2023, 11/27/2021, Additional history exists BMI CHECK/ADVISE 06/16/2024 10/13/2023, , 04/01/2023, Additional history exists DIABETES: ANNUAL URINE PROTE IN TEST (MICROALBUMIN) 09/03/2024 09/04/2023, 12/07/2021, 10/20/2017, Additional history exists INFLUENZA (Season Ended) 2025 022, 04/14/2019, 04/11/2017, Additional history exists COLON CANCER SCREENING 03/31/2025 5 (External Completion), 03/31/2015 BASELINE HEALTH EXAM 40-64 10/12/202510/12, 11/29/2022, 10/11/2022, Additional history exists CERVICAL CANCER SCREENING 09/03/20262023, 07/27/2018, 11/01/2009, Additional history exists DTAP/TDAP/TD (2 - Td or Tdap) 06/04/2031 06/04/2021, 06/16/2000 Care Teams Academic Affairs Specialist Relationship Specialty Start Date End Date Hallie Todd, [address] [place] [id number] PCP - General Internal Medicine 01/09/21
--- OUTSIDE RECORDS SUMMARY | 2024-10-06 21:10 | XMS_ITS | Encounter Summary ---
Author Organization [employer] [facility] Address [address] [place] [address] Care Team Providers Care Fleet Director Name Role Phone Hallie Todd MD Primary Care Provider [phone] [phone] Encounter Details Date Type Department Care Team Description 03/06/2023 Orders Only Medical Records [address] [place] [address] Abstract, Provider Social History Tobacco Use Types [...] suspected to have Coronavirus/COVID-19? No / Unsure 02/06/2023 12:51 PM EDT documented as of this encounter Plan of Treatment Not on file documented as of this encounter Procedures Procedure Name Priority Date/Time Associated Diagnosis Comments OUTSIDE EYE EXAM Routine 02/24/2023 documented in this encounter Results * OUTSIDE EYE EXAM (02/24/2023) Provider Abstract PROCEDURES documented in this encounter Visit Diagnoses Not on filedocumented in this encounter Care Teams Fleet Director Relationship Specialty Start Date End Date Hallie Todd, [address] [place] [id number] PCP - General Internal Medicine 01/09/21 documented as of this encounter
--- OUTSIDE RECORDS SUMMARY | 2024-10-06 21:10 | XMS_ITS | Encounter Summary ---
Author Organization [facility] Address [address] [place] [address] Care Team Providers Care House Repairer Name Role Phone Hallie Todd MD Primary Care Provider [phone] [phone] Reason for Visit * Reason Onset Date Comments Appointment-Internal Referral 09/12/2021 Encounter Details Date Type Department Care Team Description 09/12/2021 Telephone PHARMACY CLINIC [address] [place] [address] Karen Felder DO Appointment-Internal Referral Social History Tobacco Use Types Packs/Day Years [...] have Coronavirus / COVID-19? No / Unsure 08/29/2021 1:16 PM EDT documented as of this encounter Miscellaneous Notes * Telephone Encounter - Leia Bell - 09/12/2021 2:10 PM EDT Referral to Pharmacy Clinic: FYI to referring. Calls made -no response. Letter sent to patient to call and book appt with Internal Spclty Scheduling. documented in this encounter Plan of Treatment Not on file documented as of this encounter Visit Diagnoses Not on filedocumented in this encounter Care Teams House Repairer Relationship Specialty Start Date End Date Hallie Todd MD [address] [place] [id number] PCP - General Internal Medicine 01/09/21 documented as of this encounter
--- OUTSIDE RECORDS SUMMARY | 2024-10-06 21:10 | XMS_ITS | Encounter Summary ---
Author Organization [facility] Address [address] [place] [address] Care Team Providers Care Head Housekeeper Name Role Phone Hallie Todd MD Primary Care Provider [phone] [phone] Reason for Visit * Reason Comments E-prescribe Rx Request Encounter Details Date Type Department Care Team Description 09/29/2024 Refill Respiratory and Diabetes Medicaid/ACO Pharmacist [address] [place], [place] [id number] Teresa Bernal, Pharm.D [address] [place] [address] E-prescribe Rx Request Social History Tobacco Use [...] on filedocumented in this encounter Care Teams Head Housekeeper Relationship Specialty Start Date End Date Hallie Todd, [address] [place] [address] PCP - General Internal Medicine 01/09/21 documented as of this encounter
--- OUTSIDE RECORDS SUMMARY | 2024-10-06 21:10 | XMS_ITS | Encounter Summary ---
Author Organization [facility] Address [address] [place] [address] Care Team Providers Care Pulper Name Role Phone Jefferson Sinclair MD Primary Care Provider Ana Mariaoh jodi Todd Ch MD Primary Care Provider [phone] [phone] Encounter Details Date Type Department Care Team Description 12/22/2019 Pt. Non Urgent Medic al Question Adult Medicine [address] [address] Jefferson Sinclair MD Social History Tobacco Use [...] Progress Notes * Tiffanie Queen L.P.N. - 12/23/2019 8:25 AM EDTFrom: Angie Lomax To: Jefferson Sinclair MD Sent: 12/22/2019 9:54 PM EDT Subject: Muscle Relaxers Dr Sinclair You have me on Tizanidine 2 MG and I find myself having to take 2 to get any relief. Is there a 4 MG on these muscle relaxers that you can prescribe? Thank you documented in this encounter Plan of Treatment Not on file documented as of this encounter Visit Diagnoses Not on filedocumented in this encounter Care Teams Pulper Relationship Specialty Start Date End Date Jefferson Sinclair MD PCP - General Internal Medicine 05/01/17 01/08/21 Hallie Todd MD [address] [place] [id number] PCP - General Internal Medicine 01/09/21 documented as of this encounter
--- OUTSIDE RECORDS SUMMARY | 2024-10-06 21:10 | XMS_ITS | Encounter Summary ---
Author Organization [facility] Address [address] [place] [address] Care Team Providers Care Vp Account Director Name Role Phone Jefferson Sinclair MD Primary [facility] Hallie Todd MD Primary Care Provider [phone] Encounter Details Date Type Department Care Team Description 12/30/2017 Golf Cart Assembler Report Medical Records [address] [place] [address] Nimisha Benton PA-C Social History Tobacco Use Types Packs/Day Years [...] on filedocumented in this encounter Care Teams Vp Account Director Relationship Specialty Start Date End Date Jefferson Sinclair MD PCP - General Internal Medicine 05/01/17 01/08/21 Hallie Todd MD [address] [place] [address] PCP - General Internal Medicine 01/09/21 documented as of this encounter
--- OUTSIDE RECORDS SUMMARY | 2024-10-06 21:10 | XMS_ITS | Encounter Summary ---
Author Organization [facility] Address [address] [place] [address] Care Team Providers Care Paving And Surfacing Labourer Name Role Phone Jefferson Sinclair MD Primary Care Provider Unanm jodi Todd Ch MD Primary Care Provider [phone] [phone] Encounter Details Date Type Department Care Team Description 12/29/2017 Pt. Non Urgent Medic al Question Medicine/Pediatrics - [address] [phone] Jefferson Sinclair MD Social History Tobacco Use [...] Progress Notes * Tiffanie Queen L.P.N. - 12/29/2017 11:36 AM EDTFrom: Angie Lomax To: Jefferson Sinclair MD Sent: 12/29/2017 11:28 AM EDT Subject: Chest and Shoulder pain I would like to be contacted by Dr Sinclair directly about this message either thru my chart or a call please. I have started Chiropractic treatment but since doing so the pain in the shoulder and chest have been getting worse due to the stretches I believe. Was up the last 2 nights with such sever pain that I did not sleep. My anxiety has been thru the roof with this pain and meds are not helping the anxiety. The Motrin and Tylenol are not helping much anymore. I really believe the chest pain has everything to with a pinched nerve now because since starting stretches the shoulder now hurts more than the chest sometimes and or triggers the chest pain even more than usual. Was trying to get a visitwith you today or Friday but you have nothing available. The only appointments you have are on Friday and the time slots are when I have my diabetes appointment. Do I come in and see another provider? Can we do steroids? I know you were afraid of the diabetes but I can???t go on like this. I have an appointment tomorrow with the diabetes doctor and I can make them aware of the steroids and maybe they can put me on something that will help my sugars while on the steroids. documented in this encounter Plan of Treatment Not on file documented as of this encounter Visit Diagnoses Not on filedocumented in this encounter Care Teams Paving And Surfacing Labourer Relationship Specialty Start Date End Date Jefferson Sinclair MD PCP - General Internal Medicine 05/01/17 01/08/21 Hallie Todd MD [address] [place] [address] PCP - General Internal Medicine 01/09/21 documented as of this encounter
--- OUTSIDE RECORDS SUMMARY | 2024-10-06 21:10 | XMS_ITS | Encounter Summary ---
Author Organization [facility] Address [address] [place] [address] Care Team Providers Care Family Consumer Science Teacher Name Role Phone Hallie Todd MD Primary Care Provider [phone] [phone] Encounter Details Date Type Department Care Team Description 10/29/2022 Pt. Referral Request [facility] MyChart [address] [place] [address] [address] Edd Social History Tobacco Use Types Packs/Day Years [...] suspected to have Coronavirus/COVID-19? No / Unsure 10/29/2022 9:19 AM EDT documented as of this encounter Plan of Treatment Not on file documented as of this encounter Visit Diagnoses Not on filedocumented in this encounter Care Teams Family Consumer Science Teacher Relationship Specialty Start Date End Date Hallie Todd, [address] [place] [address] PCP - General Internal Medicine 01/09/21 documented as of this encounter
--- OUTSIDE RECORDS SUMMARY | 2024-10-06 21:10 | XMS_ITS | Encounter Summary ---
Author Organization [facility] Address [address] [place] [address] Care Team Providers Care Mobility Scooter Repairer Name Role Phone Jefferson Sinclair MD Primary Care Provider Unava mnwero Todd Ch MD Primary Care Provider [phone] [phone] Encounter Details Date Type Department Care Team Description 12/29/2017 Telephone Medicine/Pediatrics - [address] [phone] Jefferson Sinclair MD Social History Tobacco Use [...] Telephone Encounter - Jefferson Sinclair MD - 12/29/2017 4:57 PM EDT Left message re: mycahrt message from today, will await call [facility] documented in this encounter Plan of Treatment Not on file documented as of this encounter Visit Diagnoses Not on filedocumented in this encounter Care Teams Mobility Scooter Repairer Relationship Specialty Start Date End Date Jefferson Sinclair MD PCP - General Internal Medicine 05/01/17 01/08/21 Hallie Todd, [address] [place] [address] PCP - General Internal Medicine 01/09/21 documented as of this encounter
--- OUTSIDE RECORDS SUMMARY | 2024-10-06 21:10 | XMS_ITS | Encounter Summary ---
Author Organization [facility] [facility] Address [address] [place] [address] Care Team Providers Care Mate Ship Name Role Phone Hallie Todd MD Primary Care Provider [phone] [phone] Encounter Details Date Type Department Care Team Description 12/21/2022 Refill Medicine/Pediatrics - [address] [phone] Elena Howard PA-C [address] [place] [address] Social History Tobacco Use Types Packs/Day Years [...] as of this encounter Visit Diagnoses Diagnosis Type 2 diabetes mellitus with peripheral neuropathy (HCC) documented in this encounter Care Teams Mate Ship Relationship Specialty Start Date End Date Hallie Todd MD [address] [place] [address] PCP - General Internal Medicine 01/09/21 documented as of this encounter
--- OUTSIDE RECORDS SUMMARY | 2024-10-06 21:10 | XMS_ITS | Encounter Summary ---
Author Organization [facility] Address [address] [place] [address] Care Team Providers Care Instrument Technician Helper Name Role Phone Hallie Todd MD Primary Care Provider [phone] [phone] Encounter Details Date Type Department Care Team Description 08/07/2021 Refill Adult Medicine [address] [address] Elena Howard PA-C [address] [place] [address] Social History Tobacco Use Types Packs/Day Years [...] have Coronavirus / COVID-19? No / Unsure 08/07/2021 2:48 PM EST documented as of this encounter Plan of Treatment Not on file documented as of this encounter Visit Diagnoses Not on filedocumented in this encounter Care Teams Instrument Technician Helper Relationship Specialty Start Date End Date Hallie Todd, [address] [place] [address] [place] [address] PCP - General Internal Medicine 01/09/21 documented as of this encounter
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
--- OUTSIDE RECORDS SUMMARY | 2024-10-06 21:10 | XMS_ITS | Encounter Summary ---
Author Organization [facility] Address [address] [place] [address] Care Team Providers Care Standard Machine Stitcher Name Role Phone Hallie Todd MD Primary Care Provider [phone] [phone] Reason for Visit * Reason Comments E-prescribe Rx Request Encounter Details Date Type Department Care Team Description 03/01/2024 Refill Respiratory and Diabetes Medicaid/ACO Pharmacist [address] [place] [address] Elena Howard PA-C [address] [place] [address] E-prescribe Rx Request Social History Tobacco Use [...] encounter Miscellaneous Notes * Telephone Encounter - Angeles De Leon - 03/01/2024 2:40 PM EDT Patient would like script to be: E-PRESCRIBED/FAXED TO PHARMACY WHEN WAS THE PATIENT'S LAST APPOINTMENT IN ADULT MEDICINE? 10/13/2023 WHEN WAS THE LAST TIME THE PATIENT SAW THEIR PCP? Same as above Does patient have an upcoming appointment? Yes 04/13/2024 (THE MEDICATION REQUESTED IS ON THE MED [...] N/A Patients current insurance carrier is: Payor: [facility] [employer] PLAN / Plan: DIRECT CONNECT $0/$18 [place] [id number] / Product Type: OTHER documented in this encounter Plan of Treatment Not on file documented as of this encounter Visit Diagnoses Not on filedocumented in this encounter Care Teams Standard Machine Stitcher Relationship Specialty Start Date End Date Hallie Todd MD [address] [place] [address] PCP - General Internal Medicine 01/09/21 documented as of this encounter
--- OUTSIDE RECORDS SUMMARY | 2024-10-06 21:10 | XMS_ITS | Encounter Summary ---
Author Organization [facility] Address [address] [place] [address] Care Team Providers Care Surfboard Maker Name Role Phone Juliana Levine MD Primary Care Provider Unatn jodi Todd Ch MD Primary Care Provider [phone] Reason for Visit * Reason Onset Date Comments Call From Md Office 04/09/2019 Encounter Details Date Type Department Care Team Description 04/09/2019 Telephone Medicine/Pediatrics - [address] [phone] Juliana Levine MD Call From Md Office Social History Tobacco Use Types Packs/Day Years [...] encounter Miscellaneous Notes * Telephone Encounter - Juliana Levine MD - 04/09/2019 1:46 PM EDT Will discuss with patient at visit 04/13/19 * Telephone Encounter - Zi Curtis M.A. - 04/09/2019 1:10 PM EDT negra * Telephone Encounter - Judy Mccoy - 04/09/2019 11:33 AM EDT [facility], would like to update JULIANA LEVINE, patient started rehab end up february. Came in 3 times, last time being 03/19/19. The office has tried to contact her for moreappt's and she has come returned their calls. documented in this encounter Plan of Treatment Not on file documented as of this encounter Visit Diagnoses Not on filedocumented in this encounter Care Teams Surfboard Maker Relationship Specialty Start Date End Date Juliana Levine MD PCP - General Internal Medicine 05/01/17 01/08/21 Hallie Todd MD [address] [place] [address] PCP - General Internal Medicine 01/09/21 documented as of this encounter
--- OUTSIDE RECORDS SUMMARY | 2024-10-06 21:10 | XMS_ITS | Encounter Summary ---
Author Organization [facility] Address [address] [place] [address] Care Team Providers Care Top Collar Baster Name Role Phone Jefferson Sinclair MD Primary Care Provider Ana Mariava jodi Todd Ch MD Primary Care Provider [phone] [phone] Encounter Details Date Type Department Care Team Description 03/25/2019 Pt. Non Urgent Medic al Question Allergy [place] [address] [place] [phone] Orquidea Vargas MD Social History Tobacco Use Types Packs/Day [...] as of this encounter Progress Notes * Heena Kaufamn M.A. - 03/26/2019 8:11 AM EDTFrom: Angie Lomax To: Orquidea Vargas MD Sent: 03/25/2019 6:23 PM EDT Subject: Medication Dr. Vargas, I woke up from my nap I went home to take after my visit with you today. When I woke up I called about the Sulfasalaz shayna were suppose to send in after my lab work came back but [facility] did not have it and it was 5:30 and your office was closed. Your office is not open tomorrow and I do not have anymore of the medication not even to take tonight and I am leaving for the cruise Friday and need the med. Please someone call me and let me know what's going on. documented in this encounter Plan of Treatment Not on file documented as of this encounter Visit Diagnoses Not on filedocumented in this encounter Care Teams Top Collar Baster Relationship Specialty Start Date End Date Jefferson Sinclair MD PCP - General Internal Medicine 05/01/17 01/08/21 Hallie Todd MD [address] [place] [address] PCP - General Internal Medicine 01/09/21 documented as of this encounter
--- OUTSIDE RECORDS SUMMARY | 2024-10-06 21:10 | XMS_ITS | Encounter Summary ---
Author Organization [facility] Address [address] [place] [address] Care Team Providers Care Vice President Network Development Name Role Phone Hallie Todd MD Primary Care Provider [phone] Encounter Details Date Type Department Care Team Description 08/07/2021 Telephone Adult Medicine A - [place] [address] [place] [address] Erica Dos Santos MD Social History Tobacco Use Types Packs/Day [...] PM EST documented as of this encounter Miscellaneous Notes * Telephone Encounter - Erica Dos Santos MD - 08/07/2021 8:05 PM EST Paged as overnight supervisory air intercept controller provider for critical lab of glucose 460. Called and spoke with patient who stated she did the labs after food (nonfasting). She has since rechecked her sugars and it was 219 pre dinner. She verified that she is currently on glipizide 15mg BID, metformin 1000mg BID, trulicity 3mg once weekly and insulin lantus 33 units at bedtime. She denies dizziness, fatigue, polyuria, n/v at this time. I have advised her to increase to lantus 36 units tonight, and monitor her sugars regularly QID premeals. Discussed that she should consider ED visit if having any of the above mentioned sxs. Patient verbalized understanding and was appreciative of the call. FYI to PCP documented in this encounter Plan of Treatment Not on file documented as of this encounter Visit Diagnoses Not on filedocumented in this encounter Care Teams Vice President Network Development Relationship Specialty Start Date End Date Hallie Todd MD [address] [place] [address] PCP - General Internal Medicine 01/09/21 documented as of this encounter
--- OUTSIDE RECORDS SUMMARY | 2024-10-06 21:10 | XMS_ITS | Encounter Summary ---
Author Organization [facility] Address [address] [place] [address] Care Team Providers Care Recreation Professor Name Role Phone Jefferson Sinclair MD Primary Care Provider Unava jodi Todd Ch MD Primary Care Provider [phone] Encounter Details Date Type Department Care Team Description 10/22/2017 Telephone Medicine/Pediatrics - [address] [phone] Jefferson Sinclair MD Social History Tobacco Use [...] Telephone Encounter - Jefferson Sinclair MD - 10/22/2017 12:05 PM EDT Left message, planned on discussing labs, will discuss with her at appt 10/24/17 documented in this encounter Plan of Treatment Not on file documented as of this encounter Visit Diagnoses Not on filedocumented in this encounter Care Teams Recreation Professor Relationship Specialty Start Date End Date Jefferson Sinclair MD PCP - General Internal Medicine 05/01/17 01/08/21 Hallie Todd MD [address] [place] [address] PCP - General Internal Medicine 01/09/21 documented as of this encounter
--- OUTSIDE RECORDS SUMMARY | 2024-10-06 21:10 | XMS_ITS | Encounter Summary ---
Author Organization [facility] Address [address] [place] [address] Care Team Providers Care Scraper Operator Name Role Phone Hallie Todd MD Primary Care Provider [phone] Reason for Referral * Non GERMAN (Routine) - Closed Specialty Diagnoses / Procedures Referred By Paul alvarez Referred To Contact Internal Medicine / Adult Med Procedures REFERRAL TO PHARMACY CLINIC Hallie Todd MD [address] [place] [address] Referral ID Status Reason Start Date Expiration Date Visits Re quested Visits Authorized [id number] Closed 11/06/2022 11/06/2023 1 1 Encounter Details Date Type Department Care Team Description 11/06/2022 Pt. Non Urgent Medic al Question Adult Medicine - [address] [address] Hallie Todd MD [address] [place], [place] Social History Tobacco Use Types Packs/Day Years [...] encounter Miscellaneous Notes * Telephone Encounter - La Carrington M.A. - 11/06/2022 9:40 AM EDTFrom: Angie Lomax To: Ana Todd Sent: 11/06/2022 9:39 AM EDT Subject: Pain and vomiting Dr Todd I was Minnie Contreras last week and was sent to emergency room for acute ULQ pain with nausea. Nothing was found said was probably peptic ulcers and to see a blind slat stapling machine operator (which I requested a referral thru [facility]). She did mention stopping trulicity because I was in a high dosag e of it on andoff for a while. Ernestine has discharged me from the pharmacy program and said to just have you monitor it. So should I stop the truliciy? If so do I replace it with anything? I feel she maybe right because I forgot and did take it this week and I am now having pain again and vomiting and zolfran is not helping. Should I put a call out to Ernestine and see what she suggests? Sincerely, Angie Lomax documented in this encounter Plan of Treatment Not on file documented as of this encounter Visit Diagnoses Not on filedocumented in this encounter Care Teams Scraper Operator Relationship Specialty Start Date End Date Hallie Todd MD [facility] [place] [address] PCP - General Internal Medicine 01/09/21 documented as of this encounter
--- OUTSIDE RECORDS SUMMARY | 2024-10-06 21:10 | XMS_ITS | Encounter Summary ---
Author Organization [facility] Address [address] [place] [address] Care Team Providers Care Mining And Quarrying Machinery Repairer Name Role Phone Hallie Todd MD Primary Care Provider [phone] [phone] Encounter Details Date Type Department Care Team Description 01/27/2023 Orders Only Medical Records [address] [place] [address] Abstract, Provider Social History Tobacco Use Types [...] Associated Diagnosis Comments OUTSIDE EYE EXAM Routine 01/11/2023 documented in this encounter Results * OUTSIDE EYE EXAM (01/11/2023) Provider Abstract PROCEDURES documented in this encounter Visit Diagnoses Not on filedocumented in this encounter Care Teams Mining And Quarrying Machinery Repairer Relationship Specialty Start Date End Date Hallie Todd, [address] [place] [address] PCP - General Internal Medicine 01/09/21 documented as of this encounter
--- OUTSIDE RECORDS SUMMARY | 2024-10-06 21:10 | XMS_ITS | Encounter Summary ---
Author Organization [employer] [facility] Address [address] [place] [address] Care Team Providers Care Penciller Name Role Phone Jefferson Sinclair MD Primary Care Provider [facility] Hallie Todd MD Primary Care Provider [phone] Encounter Details Date Type Department Care Team Description 10/31/2020 School Office Manager Report Medical Records [address] [place] [address] Louie Dye MD Social History Tobacco Use [...] on filedocumented in this encounter Care Teams Penciller Relationship Specialty Start Date End Date Jefferson Sinclair MD PCP - General Internal Medicine 05/01/17 01/08/21 Hallie Todd MD [address] [place] [address] PCP - General Internal Medicine 01/09/21 documented as of this encounter
--- OUTSIDE RECORDS SUMMARY | 2024-10-06 21:10 | XMS_ITS | Encounter Summary ---
Author Organization [employer] [facility] Address [address] [place] [address] Care Team Providers Care Die Caster Name Role Phone Hallie Todd MD Primary Care Provider [phone] [phone] Reason for Visit * Reason Onset Date Comments Patient Outreach 12/03/2023 Encounter Details Date Type Department Care Team Description 12/03/2023 Telephone Respiratory and Diabetes Medicaid/ACO Pharmacist [address] [place] [address] Teresa Bernal, Pharm.D [address] [place] [address] Patient Outreach Social History Tobacco Use Types Packs/Day Years [...] on filedocumented in this encounter Care Teams Die Caster Relationship Specialty Start Date End Date Hallie Todd, [address] [place] [address] PCP - General Internal Medicine 01/09/21 documented as of this encounter
--- OUTSIDE RECORDS SUMMARY | 2024-10-06 21:10 | XMS_ITS | Encounter Summary ---
Author Organization [facility] Address [address] [place] [address] Care Team Providers Care Senior Technologist Name Role Phone Hallie Todd MD Primary Care Provider [phone] Reason for Visit * Reason Comments E-prescribe Rx Request Encounter Details Date Type Department Care Team Description 06/10/2023 Refill Adult Medicine - [address] [address] Elena Howard PA-C [address] [place] [address] E-prescribe Rx Request Social History Tobacco Use [...] Miscellaneous Notes * Telephone Encounter - Joana Dk - 06/11/2023 2:46 PM EST Refills Last office visit: 04/01/23 Last pcp: 10/11/22 Next office visit: 10/13/23 documented in this encounter Plan of Treatment Not on file documented as of this encounter Visit Diagnoses Not on filedocumented in this encounter Care Teams Senior Technologist Relationship Specialty Start Date End Date Hallie Todd MD [address] [place] [address] PCP - General Internal Medicine 01/09/21 documented as of this encounter
--- OUTSIDE RECORDS SUMMARY | 2024-10-06 21:10 | XMS_ITS | Encounter Summary ---
Author Organization [facility] Address [address] [place] [address] Care Team Providers Care Software Licensing Specialist Name Role Phone Hallie Todd MD Primary Care Provider [phone] Reason for Visit * Reason Onset Date Comments Medication 09/05/2023 Encounter Details Date Type Department Care Team Description 09/05/2023 Telephone PHARMACY CLINIC [address] [place] [address] Teresa Bernal, Pharm.D [address] [place] [address] [id number] Medication Social History Tobacco Use Types Packs/Day Years [...] encounter Miscellaneous Notes * Telephone Encounter - Courtney Puente - 09/05/2023 3:34 PM EDT Call from pt requesting call back from Teresa re: medication documented in this encounter Plan of Treatment Not on file documented as of this encounter Visit Diagnoses Not on filedocumented in this encounter Care Teams Software Licensing Specialist Relationship Specialty Start Date End Date Hallie Todd MD [address] [place] [address] PCP - General Internal Medicine 01/09/21 documented as of this encounter
--- OUTSIDE RECORDS SUMMARY | 2024-10-06 21:10 | XMS_ITS | Encounter Summary ---
[facility] Address [address] [place] [address] Care Team Providers Care Director Of Enterprise Architecture Name Role Phone Hallie Todd MD Primary Care Provider [phone] [phone] Encounter Details Date Type Department Care Team Description 02/14/2021 Refill Medicine/Pediatrics - [address] [phone] Elena Howard PA-C [address] [place] [address] Social History Tobacco Use Types Packs/Day Years [...] as of this encounter Visit Diagnoses Diagnosis Duodenal ulcer perforation (HCC) Chronic or unspecified duodenal ulcer with perforation, without mention of obstruction documented in this encounter Care Teams Director Of Enterprise Architecture Relationship Specialty Start Date End Date Hallie Todd MD [address] [place], [place] PCP - General Internal Medicine 01/09/21 documented as of this encounter
--- OUTSIDE RECORDS SUMMARY | 2024-10-06 21:10 | XMS_ITS | Encounter Summary ---
Author Organization [employer] [facility] Address [address] [place] [address] Care Team Providers Care Tailings Man Name Role Phone Jefferson Sinclair MD Primary [facility] Hallie Todd MD Primary Care Provider [phone] Encounter Details Date Type Department Care Team Description 05/21/2019 Release of Information Medical Records [address] [place] [address] Abstract, Provider Social History Tobacco Use Types [...] on filedocumented in this encounter Care Teams Tailings Man Relationship Specialty Start Date End Date Jefferson Sinclair MD PCP - General Internal Medicine 05/01/17 01/08/21 Hallie Todd MD [address] [place] [address] PCP - General Internal Medicine 01/09/21 documented as of this encounter
--- OUTSIDE RECORDS SUMMARY | 2024-10-06 21:10 | XMS_ITS | Encounter Summary ---
Author Organization [employer] [facility] Address [address] [place] [address] Care Team Providers Care Flexible Babysitter Name Role Phone Hallie Todd MD Primary Care Provider [phone] [phone] Encounter Details Date Type Department Care Team Description 03/01/2021 Orders Only Adult Medicine - [place] [address] [place] [address] Hallie Todd MD [address] [place] [address] Duodenal ulcer perforation (HCC) Social History Tobacco Use Types Packs/Day Years [...] obstruction documented in this encounter Care Teams Flexible Babysitter Relationship Specialty Start Date End Date Hallie Todd MD [address] [place], [place] PCP - General Internal Medicine 01/09/21 documented as of this encounter
--- OUTSIDE RECORDS SUMMARY | 2024-10-06 21:10 | XMS_ITS | Clinical Summary ---
Author Organization [facility] [address] [facility] lding Address [address] [place] [address] Phone Care Team Providers Care Lab Support Technician Name Role Phone Elizabeth Todd MD Primary Care Prov ider Allergies Active Allergy Reactions Criticality Noted Date Comments Bee Venom Protein (Honey Bee) Swelling 05/20/2017 Age 19 - arm swelled and was tired, treated with Epipen; Age 50: stepped on bee and leg swelled Coconut Oil Hives,Swelling 05/20/2017 Lip swelled Other 10/18/2021 Medications empagliflozin (Jardiance) 25 mg tablet Take 1 tablet (25 mg total) by mouth 1 (one) time each day in the morning. 90 tablet 1 4 Active ARIPiprazole (ABILIFY) 5 mg tablet Take 0.5 tablets (2.5 mg total) by mouth 1 (one) time each day. 45 tablet 1 4 Active FLUoxetine (PROzac) 20 mg capsule Take 3 capsules (60 mg total) by mouth 1 (one) time each day. 270 capsule 1 4 Active flash glucose sensor (FreeStyle Paul 2 Sensor) kit 1 Applicator by Does not apply route every 14 days. 90 day supply 3 Active flash glucose sensor (FREESTYLE PAUL 2 SENSOR MISC) by Does not apply route. Active pen needle, diabetic 32 gauge x 5/32 needle Inject 1 Device into the skin every evening. 3 Active LORATADINE-PSEUDO EPHEDRINE ORAL Take 1 tablet by mouth 1 (one) time each day. Active magnesium chloride 64 mg magnesium tablet Take 2 tablets by mouth 1 (one) time each day. 4 Active ERGOCALCIFEROL, VITAMIN D2, ORAL Take by mouth. Active albuterol HFA (PROAIR HFA ; PROVENTIL HFA ; VENTOLIN HFA) 90 mcg/actuation inhaler Inhale 2 Puffs into the lungs every 6 hours as needed for Cough or Wheezing. 3 Active ALPRAZolam (XANAX) 0.25 mg tablet Take 1 tablet (0.25 mg total) by mouth 3 (three) times a day if needed. Max Daily Amount: 0.75 mg 3 Active atorvastatin (LIPITOR) 80 mg tablet Take 80 mg by mouth daily. 9 Active carvediloL (COREG) 3.125 mg tablet Take by mouth 2 Times Daily. 9 Active clopidogreL (PLAVIX) 75 mg tablet Take by mouth daily. 9 Active aspirin 81 mg chewable tablet Take 81 mg by mouth daily. 9 Active gabapentin (NEURONTIN) 600 mg tablet TAKE 1 TABLET BY MOUTH EVERY MORNING, 1 TAB IN THE AFTERNOON, AND 1 AND 1/2 TABETS AT NIGHT 4 Active insulin glargine U-300 conc (Toujeo Max U-300 SoloStar) 300 unit/mL (3 mL) CONCENTRATED injection pen Inject 90 Units into the skin at bedtime. 4 Active lidocaine (LIDODERM) 5 % patch Place 1 Patch onto the skin every 12 hours for 28 days. Apply for no more than 12 hours in any 24 hour period. Apply before bed to both feet for pain relief 0 Active meclizine (ANTIVERT) 25 mg tablet Take 1 Tablet by mouth 3 times daily as needed (dizziness). 4 Active omeprazole (PriLOSEC) [address] capsule Take 40 mg by mouth daily. Active ondansetron (ZOFRAN) 4 mg tablet Take 4 mg by mouth every 8 hours as needed. Active riboflavin (VITAMIN B2) 100 mg tablet Take 4 Tablets by mouth at bedtime. Active tirzepatide (Mounjaro) 7.5 mg/0.5 mL injection Inject 7.5 mg into the skin once a week. 4 Active tiZANidine (ZANAFLEX) 2 mg tablet Take 1 Tablet by mouth every 6 hours as needed for Other (pain). 3 Active traZODone (DESYREL) 50 mg tablet Take 0.5-1 Tablets by mouth at bedtime. 3 Active lisinopriL (PRINIVIL,ZESTRIL ) 2.5 mg tablet TAKE 1 TABLET BY MOUTH EVERY DAY 90 tablet 5 Active Active Problems Problem Noted Date Diagnosed Date NPDR (nonproliferative diabe tic retinopathy) ([facility] V24, [facility] V28) 12/03/2021 COVID-19 virus infection 07/27/2020 Overview (05/27/2024): 07/2020 per patient Anxiety 10/29/2019 Vitamin D deficiency 10/29/2019 CAD (coronary artery disease) 02/09/2019 Overview (05/27/2024): S/p stenting x4 01/2019; NV Chronic urticaria 02/09/2019 Hx of myocardial infarction 02/09/2019 Overview (05/27/2024): 01/2019 s/p multipal ARIEL placement Morbid obesity with BMI of 4 0.0-44.9, adult ([facility] V24, [facility] V28) 10/21/2018 Adjustment disorder with mixed anxiety and depre ssed mood 10/20/2018 Episode of recurrent major d epressive disorder ([facility] V24) 10/20/2018 Type 2 diabetes mellitus wit h peripheral neuropathy ([facility] V24, [facility] V28) 09/15/2018 Chronic idiopathic urticaria 06/04/2018 Seasonal allergic conjunctivitis 06/04/2018 Seasonal allergic rhinitis 06/04/2018 External hemorrhoids 12/16/2017 Fatty liver 08/05/2017 Overview (05/27/2024): U/S 05/2017 Hyperlipidemia 08/05/2017 Hypertension 08/05/2017 Overview (05/27/2024): Patient denies this diagnosis, has had elevated BP's but no formal diagnosis Osteoarthritis 08/05/2017 Overview (05/27/2024): Spine, knee, ankle Spinal stenosis 08/05/2017 Overview (05/27/2024): lumbar Duodenal ulcer perforation ([facility] V24, [facility] V28) 10/31/2009 Overview (05/27/2024): 05/2009 Depression 04/17/2009 Asthma 08/04/2005 Overview (05/27/2024): Patient denies any formal diagnostic work-up, has only used inhaler with bronchitis and pneumonia DM (diabetes mellitus), type 2 with renal complications ([facility] V24, [facility] V28) 08/04/2005 Encounters Date Type Department Care Team Description 07/21/2024 4:27 PM EST - 07/21/2024 11:59 PM [facility] Encounter [facility] [address] [place] [address] Fall Discharge Disposition: Home or Self Care 07/21/2024 4:27 PM EST - 07/21/2024 11:59 PM [facility] Encounter [facility] [address] [place] [address] Fall Discharge Disposition: Home or Self Care from Last 3 Months Immunizations Name Administration Dates Next Due Influenza Quadravalent, MDCK , 0.5ml, preservative free (Flucelvax) 6mo and older 04/14/2019 Influenza trivalent, 0.5mL, preservative free (Fluarix; FluLaval; Fluzone) ages 6mo and older (Afluria) 3 years and older 04/11/2017,02/21/2010 Influenza, Unspecified 07/27/2021 MMR, measles mumps and rubel la Live (Priorix; M-M-R II) 12mo and older 01/06/2019,11/30/2018 Td Tetanus diptheria (Tdvax) 7yo and older 06/16 Tdap Tetanus diptheria acell ular pertussis (Boostrix; Adacel) 7yo and older 06/04/2021 Surgical History Surgery Date Site/Laterality Comments OTHER SURGICAL HISTORY may 26 2008 PROCEDURE: [place] DILATION & CURETTAGE DX&/THER NONOBSTETRIC; COMMENT: Dr. Hill] SECTION PROCEDURE: HISTORICAL ; COMMENT: times three OTHER SURGICAL HISTORY PROCEDURE: ARTHROSCOPY PROCEDURE NEC; COMMENT: left ankle 1989 OTHER SURGICAL HISTORY 05/27/2017 PROCEDURE: ABSCESS, SOFT TISSUE DEBRIDEMENT; COMMENT: Back EYE SURGERY PROCEDURE: HISTORICAL EYE SURGERY; COMMENT: Mechanical stabismus-when age 3 and 12 COLONOSCOPY 03/31/2015 PROCEDURE: HISTORICAL COLONOSCOPY; COMMENT: external hemorrhoids UPPER GASTROINTESTINAL ENDOSCOPY 03/31/2015 PROCEDURE: [place] UPPER GI ENDOSCOPY PERFORMED; COMMENT: normal Medical History Medical History Date Comments Asthma 08/04/2005 DX:Asthma Diabetes mellitus type 2, uncomplicated ([facility] V24, [facility] V28) 08/04/2005 DX:Diabetes mellitus type 2, uncomplicated ([facility]) Osteoarthritis 08/05/2017 DX:Osteoarthriti s; COMMENT: Spine, knee, ankle Fatty liver 08/05/2017 DX:Fatty liver; COMMENT: U/S 05/2017 Depression 04/17/2009 DX:Depression Duodenal ulcer perforation ( [facility] V24, [facility] V28) 10/31/2009 DX:Duodenal ulcer perforatio n ([facility]); COMMENT: 05/2009 Spinal stenosis 08/05/2017 DX:Spinal stenos is; COMMENT: lumbar Hyperlipidemia 08/05/2017 DX:Hyperlipidemi a Morbid obesity with BMI of 4 0.0-44.9, adult ([facility] V24, [facility] V28) 08/05/2017 DX:Morbid obesity wit h BMI of 40.0-44.9, adult ([facility]) Hypertension 08/05/2017 DX:Hypertension External hemorrhoids 12/16/2017 DX:External hemorrhoids Anxiety 10/29/2019 Asthma 08/04/2005 Fatty liver 08/05/2017 Hypertension 08/05/2017 Family History Medical History Relation Name Comments Other: cancer other Aunt pat great aunt cervic al, breast ca x2 Diabetes Father No Known Problems Mother Prostate cancer Paternal Grandfather Other: ovarian cancer Paternal Grandmother DM Other: leukemia Son 1 at age 2, cu red, ADHD, autism spectrum learning disability Depression Son 2 ADHD, autism sp ectrum ?aspergers Other: ?depression Son 3 Other: pancreatic Cancer Uncle Relation Name Status Comments [...] = 0.6 oz pur e alcohol) Comments Unknown Sex and Gender Information Value Date Recorded Sex Assigned at Not on file Legal Sex Female 9:19 PM EST Gender Identity Not on file Sexual Orientation Not on file Obstetrics History Last Filed Vital Signs Vital Sign Reading Time Taken Comments Blood Pressure 104/71 10/13/2023 9:05 AM EDT Pulse 98 10/13/2023 9:05 AM EDT Temperature - - Respiratory Rate - - Oxygen Saturation - - Inhaled Oxygen Concentration - - Weight 129 kg (285 lb) 10/13/2023 9:05 AM EDT Height 162.6 cm (5' 4 ) 10/13/2023 9:05 AM EDT Body Mass Index 48.92 10/13/2023 9:05 AM EDT Plan of Treatment Upcoming Encounters Date Type Department Care Team (Late st Contact Info) Description 11/25/2024 3:45 PM EDT Office Visit Adult Medicine [facility] [address] [place] [address] Kavin Cook PA [address] [place] [address] Health Maintenance Due Date Last Done Comments Diabetes: Annual Foot Exam 1980 Diabetes: Annual Retina Eye Exam 1980 Hepatitis B Vaccines (1 of 3 - 19+ 3-dose series) 1989 Pneumococcal Vaccine: 50+ Years (1 of 2 - PCV) 1989 Pneumococcal Vaccine: Pediatrics (0 to 5 Years) and At-Risk Patients (6 to 64 Years) (1 of 2 - PCV) 1989 Zoster Vaccines (1 of 2) 2020 Depression Screening 05/24/2022 Hepatitis C Screening 05/24/2022 Social Influencers of Health Screening 05/24/2022 Diabetes: Annual GFR (Glomerular Filtration Rate) 11/30/2023 11/29/2022 Hypertension/CHF/CAD Annual BMP Blood Test 11/30/2023 11/29/2022 Breast Cancer Screening 12/09/2023 12/08/2021 COVID-19 Vaccine ( season) 2024 03/22/2021, 06/29/2020, 06/06/2020 Diabetes: Blood Sugar Control Test (HGBA1C) 03/06/2024 09/04/2023 Diabetes: Annual Urine Albumin-Creatinine Ratio (uACR) 09/03/2024 09/04/2023 Influenza Vaccine (Season Ended) 2025 07/27/2021, 07/26/2021, 04/14/2019, Additional history exists Colorectal Cancer Screening: Colonoscopy 03/31/2025 03/31/2015 Cholesterol Screening (Lipid Panel) 11/30/2027 11/29/2022 Cervical Cancer Screening: HPV 09/03/2028 09/04/2023 DTaP,Tdap,and Td Vaccines (4 - Td or Tdap) 06/04/2031 06/04/2021, 11/15/2011, 06/16/2000 HIV Screening Completed 06/22/2010 MMR Vaccines Aged Out 01/06/2019, 11/30/2018 No lo nger eligible based on patient's age to complete this topic HIB Vaccines Aged Out No longer eligi ble based on patient's age to complete this topic HPV Vaccines Aged Out No longer eligi ble based on patient's age to complete this topic Hepatitis A Vaccines Aged Out No long er eligible based on patient's age to complete this topic IPV Vaccines Aged Out No longer eligi ble based on patient's age to complete this topic Meningococcal ACWY Vaccine Aged Out N o longer eligible based on patient's age to complete this topic Meningococcal B Vaccine Aged Out No l onger eligible based on patient's age to complete this topic RSV Immunization Patients Under 20 months Aged Out No longer eligible based on patient's age to complete this topic Varicella Vaccines Aged Out No longer eligible based on patient's age to complete this topic Procedures Procedure Name Priority Date/Time Associated Diagnosis Comments XR KNEE 3 VIEWS RIGHT Routine 07/21/2024 5:32 PM EST Fall XR FINGERS 2+ VIEWS RIGHT Routine 07/21/2024 5:07 PM EST Fall HPV Routine 09/04/2023 URINE ALBUMIN CREATININE RATIO Routine 09/04/2023 HEMOGLOBIN A1C Routine 09/04/2023 ANNUAL BMP BLOOD TEST Routine 11/29/2022 LIPID PANEL Routine 11/29/2022 SCREENING MAMMOGRAPHY BI 2-VIEW BREAST INC CAD Routine 12/08/2021 1:47 PM EDT Encounter for gynecological examination (general) (routine) without abnormal findings COLONOSCOPY Routine 03/31/2015 HIV SCREENING Routine 06/22/2010 from Last 3 Months or Most Recently Relevant to Health Maintenance Results * XR Knee 3 Views Right (07/21/2024 5:32 PM EST) Anatomical Region Laterality Modality Lower Extremities, Knee Right Radiogra [facility] 07/22/2024 8:09 AM EST Impressions 07/22/2024 8:11 AM EST No acute findings. ??There is evidence of mild to moderate osteoarthritis. Code 51604 CT Teleradiology -------- FINAL REPORT -------- Dictated By: Michael Ruby Dictated Date: 07/22/2024 08:09 ET Assigned Physician: Michael Ruby Reviewed and Electronically Signed By: Michael Ruby Signed Date: 07/22/2024 08:11 ET Workstation ID: [id number] Transcribed By: Self Edit Transcribed Date: 07/22/2024 08:09 ET Narrative 07/22/2024 8:11 AM EST HISTORY: The patient is a 53-year-old female with right knee pain following a fall. FINDINGS: AP, lateral, and skyline views of the right knee are obtained. ??The study demonstrates no fracture or dislocation. ??There is narrowing of the medial compartment of the femoral-tibial joint space and there is peaking of the tibial spines. ??An osteophyte arises from the upper pole of the patella. ??These findings are consistent with mild to moderate osteoarthritis. ??No joint effusion or other soft tissue abnormality is seen. Procedure Note Michael Ruby MD - 07/22/2024 HISTORY: The patient is a 53-year-old female with right knee painfollowing a fall. FINDINGS: AP, lateral, and skyline views of the right knee are obtained.The study demonstrates no fracture or dislocation. There is narrowing ofthe medial compartment of the femoral-tibial joint space and there ispeaking of the tibial spines. An osteophyte arises from the upper pole ofthe patella. These findings are consistent with mild to moderateosteoarthritis. No joint effusion or other soft tissue abnormality isseen. IMPRESSION: No acute findings. There is evidence of mild to moderateosteoarthritis. Code 99971 CT Teleradiology -------- FINAL REPORT -------- Dictated By: Michael Ruby Dictated Date: 07/22/2024 08:09 ET Assigned Physician: Michael Ruby Reviewed and Electronically Signed By: Michael Ruby Signed Date: 07/22/2024 08:11 ET Workstation ID: [id number] Transcribed By: Self Edit Transcribed Date: 07/22/2024 08:09 ET Riky Chavez DO IMG XR PROCEDURES Final Resul t * XR Fingers 2+ Views Right (07/21/2024 5:07 PM EST) Anatomical Region Laterality Modality Upper Extremities, Fingers Right [facility] 07/22/2024 8:04 AM EST Impressions 07/22/2024 8:07 AM EST No fracture, dislocation, or other acute findings. ??There is osteoarthritis of the second through fifth distal interphalangeal joints. Code 07779 CT Teleradiology -------- FINAL REPORT -------- Dictated By: Michael Ruby Dictated Date: 07/22/2024 08:04 ET Assigned Physician: Michael Ruby Reviewed and Electronically Signed By: Michael Ruby Signed Date: 07/22/2024 08:07 ET Workstation ID: [id number] Transcribed By: Self Edit Transcribed Date: 07/22/2024 08:04 ET Narrative 07/22/2024 8:07 AM EST HISTORY: The patient is a 53-year-old female with pain in the right third finger following a fall. FINDINGS: AP radiograph of the right hand, along with coned-down oblique and lateral views of the right third finger, are obtained. ??The study demonstrates no fracture or dislocation. ??There is narrowing of the second, third, fourth, and fifth distal interphalangeal joints consistent with osteoarthritis. ??No soft tissue abnormality is seen. Procedure Note Michael Ruby MD - 07/22/2024 HISTORY: The patient is a 53-year-old female with pain in the right thirdfinger following a fall. FINDINGS: AP radiograph of the right hand, along with coned-down obliqueand lateral views of the right third finger, are obtained. The studydemonstrates no fracture or dislocation. There is narrowing of thesecond, third, fourth, and fifth distal interphalangeal joints consistentwith osteoarthritis. No soft tissue abnormality is seen. IMPRESSION: No fracture, dislocation, or other acute findings. There isosteoarthritis of the second through fifth distal interphalangealjoints. Code [address]17 CT Teleradiology -------- FINAL REPORT -------- Dictated By: Michael Ruby Dictated Date: 07/22/2024 08:04 ET Assigned Physician: Michael Ruby Reviewed and Electronically Signed By: Michael Ruby Signed Date: 07/22/2024 08:07 ET Workstation ID: [id number] Transcribed By: Self Edit Transcribed Date: 07/22/2024 08:04 ET Riky Chavez DO IMG XR PROCEDURES Final Resul t * Urine Albumin Creatinine Ratio (09/04/2023) Urine Albumin Creatinine Ratio abstracted us Historical Provider [facility] Final Result * Cervical Cancer Screening: HPV (09/04/2023) Pathologist [facility] Cervical Cancer Screening: HPV negative, abstracted Result [facility] Final Result * (ABNORMAL) Hemoglobin A1c (09/04/2023) [facility] Hemoglobin A1C 9.7(A) <=6.5 % Blood Venous blood specimen / Unknown Result [facility] BLOOD ORDERABLES [place] Result * Annual BMP Blood Test (11/29/2022) Pathologist [facility] Annual BMP Blood Test abstracted Result [facility] Final Result * Lipid panel (11/29/2022) [facility] LDL/HDL Ratio 3 0 - 4 Triglycerides 111 0 - 150 mg/dL Cholesterol 127 0 - 200 mg/dL HDL 50 >=40 mg/dL LDL Cholesterol 55 0 - 100 mg/dL Blood Venous blood specimen / Unknown Result [facility] BLOOD ORDERABLES [place] Result * SCREENING MAMMOGRAPHY BI 2-VIEW BREAST INC CAD (12/08/2021 1:47 PM EDT) Anatomical Region Laterality Modality Radiographic Kathy ging 08/14/2021 10:1 4 AM EST Narrative 12/10/2021 4:34 PM EDT This is a summary report. The complete report is available in the patient's medical record. If you cannot access the medical record, please contact the sending organization for a detailed fax or copy. Exam: Screening mammogram Findings: Digital bilateral full-field screening mammography is performed with tomosynthesis and interpreted with the aid of computer-aided detection. ??Comparison is made with 03/02/2015 and 10/14/2013. Breast parenchyma is composed of scattered fibroglandular densities. ??No new suspicious mass, architectural distortion, or suspicious calcifications. Impression: No mammographic evidence of malignancy. BI-RADS 1 - negative Procedure Note Rupinder, [place], MD - 06/04/2022 This is a summary report. The complete report is available in thepatient's medical record. If you cannot access the medical record, pleasecontact the sending organization for a detailed fax or copy. Exam: Screening mammogram Findings: Digital bilateral full-field screening mammography is performedwith tomosynthesis and interpreted with the aid of computer-aideddetection. Comparison is made with 03/02/2015 and 10/14/2013. Breast parenchyma is composed of scattered fibroglandular densities. Nonew suspicious mass, architectural distortion, or suspiciouscalcifications. Impression: No mammographic evidence of malignancy. BI-RADS 1 - negative Marium Jaramillo DO IMG XR PROCEDURES Final Resul t * Colonoscopy (03/31/2015) Colonoscopy abnormal, abstracted Anatomical Region Laterality Modality Other Historical Provider [facility] Final Result * HIV Screening (06/22/2010) HIV Screening abstracted Historical Provider [facility] Final Result from Last 3 Months or Most Recently Relevant to Health Maintenance [place] [id number] Care Teams Lab Support Technician Relationship Specialty Start Date End Date Elizabeth Todd MD [address] [place] [id number] PCP - General Internal Medicine 01/09/21
[2024-10-06 21:11] LABS: Bacteria Urine None Seen (None Seen); Hyaline Casts Urine 0-2 /LPF (0-2); RBC Urine 0-2 /HPF (0-2); UACC Culture Trigger YES; WBC Urine 21-50 /HPF (0-5)
[2024-10-06 21:17] LABS: Amphetamine Screen Urine Not Detected (Not Detect); Barbiturates, Urine Not Detected (Not Detect); Benzodiazepines Screen Urine Not Detected (Not Detect); Buprenorphine Scr Not Detected (Not Detect); Cannabinoid Screen Urine POSITIVE (Not Detect); Cocaine Screen Urine Not Detected (Not Detect); Fentanyl, urine Not Detected (Not Detect); Methadone Screen, Urine Not Detected (Not Detect); Opiate Screen Urine Not Detected (Not Detect); Oxycodone Screen Urine Not Detected (Not Detect); Phencyclidine Screen Urine Not Detected (Not Detect)
[2024-10-06 21:25] LABS: Alanine Aminotransferase 35 U/L (0-31); Albumin Level 3.9 g/dL (3.5-5.0); Alkaline Phosphatase 88 U/L (39-117); Anion Gap 15 (12-20); Aspartate Amino Transferase 20 U/L (5-31); Bilirubin Direct 0.2 mg/dL (0.0-0.5); Bilirubin Total 0.8 mg/dL (0.0-1.0); Blood Urea Nitrogen 17 mg/dL (9-16); Calcium 9.3 mg/dL (8.4-10.2); Carbon Dioxide 23 mmol/L (22-29); Chloride 100 mmol/L (96-108); Creatinine Clr Calc Pharmacy 95.9; Estimated Glomerular Filt Rate > 60; Ethanol < 10 mg/dL; Glucose Random 499 mg/dL (60-115); Magnesium 1.7 mg/dL (1.6-2.6); Potassium 4.3 mmol/L (3.3-5.1); Sodium 134 mmol/L (135-145); Total Protein 6.9 g/dL (6.5-8.0)
[2024-10-06 21:43] LABS: Influenza A PCR NEGATIVE (Negative); Influenza B PCR NEGATIVE (Negative); Resp Syncy Virus RNA Qual PCR NEGATIVE (Negative); SARS COV2 PCR INHOUSE NEGATIVE (Negative)
[2024-10-06 21:50] VITALS: BP 119/62; PULSE 74; RESP 16; TEMP 36.8; O2SAT 97
[2024-10-06 22:05] LABS: Beta-Hydroxybutyrate 0.15 mmol/L (0.02-0.27)
[2024-10-06] MEDS: 0.9 % Sodium Chloride 1,000 ML 999 ML IV (22:19)
[2024-10-06] MEDS: Insulin Regular, Human 100 UNIT/ML 10 ML VIAL 8 UNIT IVPUSH (22:27)
[2024-10-06 23:43] LABS: Glucose, Whole Blood 294 mg/dL (60-115)
[2024-10-06 23:45] VITALS: BP 135/79; PULSE 78; RESP 20; TEMP 36.4; O2SAT 98
--- NOTE | 2024-10-07 | ECG_ITS ---
Test Reason : medical clearance Blood Pressure : */* mmHG Vent. Rate : 80 BPM Atrial Rate : 80 BPM P-R Int : 144 ms QRS Dur : 92 ms QT Int : 396 ms P-R-T Axes : 57 1 11 degrees QTcB Int : 456 ms Normal sinus rhythm Normal EKG When compared with ECG of 17-Apr-2022 21:38, No significant change was found Referred By: Michael La Electronically Signed By: JT BOWERS
[2024-10-07] MEDS: 0.9 % Sodium Chloride 1,000 ML 999 ML IV (00:09)
[2024-10-07] MEDS: Gabapentin 600 MG TABLET PO ×2 (00:37→12:58)
[2024-10-07 02:18] VITALS: BP 127/54; PULSE 72; RESP 16; TEMP 36.5; O2SAT 96
[2024-10-07 02:38] LABS: Glucose, Whole Blood 250 mg/dL (60-115)
--- NOTE | 2024-10-07 08:40 | PC.NURSE ---
care team meeting with patient
[2024-10-07 08:50] LABS: Glucose, Whole Blood 274 mg/dL (60-115)
--- NOTE | 2024-10-07 09:04 | MHC.CARE ---
Pt meets the criteria for IPLOC. Section 12a in chart. Provider in agreement.
[2024-10-07] MEDS: Insulin Lispro 100 UNIT/ML 3 ML VIAL SUBCUT ×4 (09:15→20:39)
[2024-10-07 10:45] VITALS: BP 157/76; PULSE 77; RESP 16; TEMP 36.6; O2SAT 96
[2024-10-07] MEDS: FLUoxetine HCl 20 MG CAPSULE 60 MG PO (11:03)
[2024-10-07] MEDS: Aspirin Enteric Coated 81 MG TABLET.DR PO (11:03)
[2024-10-07] MEDS: ARIPiprazole 5 MG TABLET 2.5 MG PO (11:04)
[2024-10-07] MEDS: carvediloL 3.125 MG TABLET PO ×2 (11:05→20:40)
[2024-10-07] MEDS: lisinopriL 2.5 MG TABLET PO (11:05)
[2024-10-07] MEDS: Cholecalciferol (Vitamin D3) 25 MCG TABLET 50 MCG PO (11:05)
[2024-10-07] MEDS: Clopidogrel Bisulfate 75 MG TABLET PO (11:05)
[2024-10-07] MEDS: Empagliflozin 25 MG TABLET PO (11:41)
[2024-10-07 11:46] LABS: Glucose, Whole Blood 332 mg/dL (60-115)
--- NOTE | 2024-10-07 13:41 | PHA.MEDREC ---
Pharmacy Consult ? Medication Reconciliation Pharmacy has completed the medication reconciliation. Spoke with patient at bedside to confirm meds. She was able to tell me them and states she doesn't take Glargine anymore but now has Toujeo 90 units at bedtime.
[2024-10-07 15:01] VITALS: BP 139/72; PULSE 81; RESP 16; TEMP 36.1; O2SAT 95
[2024-10-07 17:15] LABS: Glucose, Whole Blood 277 mg/dL (60-115)
[2024-10-07 17:24] VITALS: BMI 44.1
[2024-10-07] MEDS: Pantoprazole Sodium 20 MG TABLET.DR 40 MG PO (18:28)
--- NOTE | 2024-10-07 18:49 | PC.ADMIT ---
Angie was admitted to M3 from [facility] ED pod on 10/07/24 at 16:52 on a CV for the treatment of depression/SI. Skin/contraband check was completed upon arrival to the unit. She reports feeling overwhelmed and was encouraged to seek help by her hospital and several of her friends. She reports financial issues and states she has not been able to afford her medications for several weeks, including her jardiance and abilify, and this has led to her feeling physically and mentally unwell. 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 She states she met with a financial counselor r/t her insurance while in the ED and would like to follow up with financial counselor while on the unit. She reports several recent stressors including two of her children recently moving out and her mother not returning her phone calls. Utox was positive for THC and she reports using edibles at night to help with sleep. She reports she seldom drinks alcohol. She denies suicidal and homicidal thoughts and intent. She denies auditory and visual hallucinations. She was pleasant and cooperative with admission process. She reports that she has attended the partial hospitalization program at [facility] twice. She was tearful when talking about financial issues. She was placed on 15 minute checks for safety and pocs QID.
[2024-10-07 20:00] VITALS: BP 123/71; PULSE 80; RESP 16; TEMP 36.3; O2SAT 96
[2024-10-07 20:22] LABS: Glucose, Whole Blood 288 mg/dL (60-115)
[2024-10-07] MEDS: Insulin Glargine,Hum.rec.anlog 100 UNIT/ML 10 ML VIAL 20 UNIT SUBCUT (20:38)
[2024-10-07] MEDS: hydrOXYzine HCL 25 MG TABLET PO (20:39)
[2024-10-07] MEDS: Atorvastatin Calcium 80 MG TABLET PO (20:40)
[2024-10-07] MEDS: Gabapentin 600 MG TABLET 900 MG PO (20:40)
[2024-10-07] MEDS: TiZANidine HCL 4 MG TABLET 2 MG PO (20:41)
[2024-10-07] MEDS: traZODone HCL 50 MG TABLET PO (20:41)
[2024-10-08] MEDS: Pantoprazole Sodium 20 MG TABLET.DR 40 MG PO ×2 (06:49→18:18)
[2024-10-08 07:52] VITALS: BP 122/63; PULSE 77; RESP 20; TEMP 36.4; O2SAT 95
[2024-10-08 07:59] LABS: Glucose, Whole Blood 224 mg/dL (60-115)
[2024-10-08] MEDS: Insulin Lispro 100 UNIT/ML 3 ML VIAL SUBCUT ×4 (08:09→21:30)
--- NOTE | 2024-10-08 08:57 | P.HPPS_ITS ---
[facility] Date of Service: 10/08/24 Chief Complaint: SI Sources of Information: patient interviewed, chart reviewed and crisis/core team assessment reviewed HPI Subjective Notes: Tavera Warning and Conditional Voluntary Narrative: Patient is a 54-year-old female with history of MDD, PTSD who self presented to ER due to suicidal ideation with plan to overdose on medications or cut herself with a box brander secondary to increased depression. Per crisis report, patient self presented to ER endorsing suicide ideation with plan to overdose on anxiety medications or cut herself with a box brander. Patient is uninsured and has not had access to her psychiatric medications for a month. She denies HI/VH/AH. This is patient's 1st inpatient psychiatric hospitalization. She has attended [facility] twice in the past. Patient was recently fired from her job due to missing too much time for her mental health issues. Patient reports she was behind on rent and life stressors are becoming overwhelming. Patient does not currently have outpatient psychiatric providers however was seeing a prescriber and therapist at [facility]. Denies substance use. Utox positive for cannabis. During admission assessment, patient presents alert and oriented x3. Calm and cooperative. Patient reports feeling depressed; pt stated, I am behind on rent in my car payment. My relationship with my mom isn't going great. My new job is also not good. I got fired from my last job . Patient reports she has not had access to her psychiatric medications for the last month due to being uninsured. Patient stated, everything combined together made me feel worthless and I felt people would be better off without me . Patient currently denies suicidal ideation; she reports she spoke to family who stated that their lives would be better with her in it. Patient denies SI/HI/VH/AH. Patient reports she would like referrals to outpatient psychiatric providers and to be restarted on her medications. Past Psychiatric History: This is patient's 1st inpatient psychiatric hospitalization. History of attending [facility] 3x Denies history of SA/SIB. Does not have outpatient psychiatric providers currently however reports she was seeing a prescriber and therapist through [facility]. Medical Evaluation Reviewed: Yes [facility] Medical History Atherosclerotic cardiovascular disease Hyperlipidemia Coronary artery disease Anxiety Recurrent major depression Arthritis Left shoulder pain delivery delivered Bleeding ulcer Neuropathy History of heart attack Hives Asthma Type 2 diabetes mellitus Surgical History Stented coronary artery Family History: anxiety, depression, bipolar disorder, addiction Pt believes her grandfather may have had schizophrenia Social History: Lives with and 24-year-old autistic son. 3 adult children total. 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 Substance History: Takes THC gummies daily for sleep. Denies any other substance use. Trauma History: Yes Diagnostics Vital Signs (24Hr): Vital Signs - 24 hr 10/07/24 10:45 10/07/24 15:01 10/07/24 20:00 Temperature 97.9 F 97.0 F 97.3 F Pulse Rate 77 81 80 Respiratory Rate 16 16 16 Blood Pressure 157/76 H 139/72 123/71 Pulse Oximetry 96 95 96 Oxygen Delivery Method Room Air Room Air Room Air 10/08/24 07:52 Temperature 97.5 F Pulse Rate 77 Respiratory Rate 20 Blood Pressure 122/63 Pulse Oximetry 95 Oxygen Delivery Method Room Air BMI result Body Mass Index 44.1 Labs 10/06/24 20:56 10/08/24 08:17 Labs: Laboratory Results - last 48 hr 10/06/24 10/06/24 10/07/24 20:56 23:37 02:33 WBC 8.6 RBC 5.32 Hgb 15.0 Hct 43.9 MCV 82.5 MCH 28.2 MCHC 34.2 RDW 14.0 Plt Count 192 MPV 10.5 Immature Gran % (Auto) 0.3 Neut % (Auto) 70.9 Lymph % (Auto) 20.1 Haines % (Auto) 6.0 Eos % (Auto) 2.2 Baso % (Auto) 0.5 Lymph # (Auto) 1.7 Haines # (Auto) 0.5 Eos # (Auto) 0.2 Baso # (Auto) 0.0 Abs Immat Gran (auto) 0.03 Absolute Neuts (auto) 6.1 Absolute Nucleated RBC 0.000 Nucleated RBC % (auto) 0.0 Sodium 134 L Potassium 4.3 Chloride 100 Carbon Dioxide 23 Anion Gap 15 BUN 17 H Creatinine 0.90 Estim Creat Clear Calc 95.9 Estimated GFR > 60 POC Glucose 294 H 250 H Random Glucose 499 H* Calcium 9.3 Magnesium 1.7 Total Bilirubin 0.8 Direct Bilirubin 0.2 AST 20 ALT 35 H Alkaline Phosphatase 88 Total Protein 6.9 Albumin 3.9 Beta-Hydroxybutyrate 0.15 Urine Color Yellow Urine Appearance Clear Urine pH 5.0 Ur Specific [place] >= 1.030 H Urine Protein Negative Urine Glucose (UA) >=1000 H Urine Ketones Negative Urine Blood Negative Urine Nitrite Negative Ur Leukocyte Esterase Trace H Urine RBC 0-2 Urine WBC 21-50 H Ur Squamous Epith Cells 3-5 Urine Bacteria None Seen Hyaline Casts 0-2 Urine Test NEGATIVE Urine Opiates Screen Not Detected Ur Buprenorphine Scrn Not Detected Ur Oxycodone Screen Not Detected Urine Methadone Screen Not Detected Urine Fentanyl Screen Not Detected Ur Barbiturates Screen Not Detected Ur Phencyclidine Scrn Not Detected Ur Amphetamines Screen Not Detected U Benzodiazepines Scrn Not Detected Urine Cocaine Screen Not Detected U Marijuana (THC) Screen POSITIVE H Ethyl Alcohol < 10 Influenza Type A (PCR) NEGATIVE Influenza Type B (PCR) NEGATIVE RSV RNA Qual (PCR) NEGATIVE SARS-CoV-2 RNA (RT-PCR) NEGATIVE 10/07/24 10/07/24 10/07/24 08:46 11:42 17:10 WBC RBC Hgb Hct MCV MCH MCHC RDW Plt Count MPV Immature Gran % (Auto) Neut % (Auto) Lymph % (Auto) Haines % (Auto) Eos % (Auto) Baso % (Auto) Lymph # (Auto) Haines # (Auto) Eos # (Auto) Baso # (Auto) Abs Immat Gran (auto) Absolute Neuts (auto) Absolute Nucleated RBC Nucleated RBC % (auto) Sodium Potassium Chloride Carbon Dioxide Anion Gap BUN Creatinine Estim Creat Clear Calc Estimated GFR POC Glucose 274 H 332 H 277 H Random Glucose Calcium Magnesium Total Bilirubin Direct Bilirubin AST ALT Alkaline Phosphatase Total Protein Albumin Beta-Hydroxybutyrate Urine Color Urine Appearance Urine pH Ur Specific [place] Urine Protein Urine Glucose (UA) Urine Ketones Urine Blood Urine Nitrite Ur Leukocyte Esterase Urine RBC Urine WBC Ur Squamous Epith Cells Urine Bacteria Hyaline Casts Urine Test Urine Opiates Screen Ur Buprenorphine Scrn Ur Oxycodone Screen Urine Methadone Screen Urine Fentanyl Screen Ur Barbiturates Screen Ur Phencyclidine Scrn Ur Amphetamines Screen U Benzodiazepines Scrn Urine Cocaine Screen U Marijuana (THC) Screen Ethyl Alcohol Influenza Type A (PCR) Influenza Type B (PCR) RSV RNA Qual (PCR) SARS-CoV-2 RNA (RT-PCR) 10/07/24 10/08/24 20:10 07:54 WBC RBC Hgb Hct MCV MCH MCHC RDW Plt Count MPV Immature Gran % (Auto) Neut % (Auto) Lymph % (Auto) Haines % (Auto) Eos % (Auto) Baso % (Auto) Lymph # (Auto) Haines # (Auto) Eos # (Auto) Baso # (Auto) Abs Immat Gran (auto) Absolute Neuts (auto) Absolute Nucleated RBC Nucleated RBC % (auto) Sodium Potassium Chloride Carbon Dioxide Anion Gap BUN Creatinine Estim Creat Clear Calc Estimated GFR POC Glucose 288 H 224 H Random Glucose Calcium Magnesium Total Bilirubin Direct Bilirubin AST ALT Alkaline Phosphatase Total Protein Albumin Beta-Hydroxybutyrate Urine Color Urine Appearance Urine pH Ur Specific [place] Urine Protein Urine Glucose (UA) Urine Ketones Urine Blood Urine Nitrite Ur Leukocyte Esterase Urine RBC Urine WBC Ur Squamous Epith Cells Urine Bacteria Hyaline Casts Urine Test Urine Opiates Screen Ur Buprenorphine Scrn Ur Oxycodone Screen Urine Methadone Screen Urine Fentanyl Screen Ur Barbiturates Screen Ur Phencyclidine Scrn Ur Amphetamines Screen U Benzodiazepines Scrn Urine Cocaine Screen U Marijuana (THC) Screen Ethyl Alcohol Influenza Type A (PCR) Influenza Type B (PCR) RSV RNA Qual (PCR) SARS-CoV-2 RNA (RT-PCR) Meds/Allergies Meds Home Medications ?Medication ?Instructions ?Recorded ?Confirmed ?Type fluoxetine 20 mg capsule (Prozac) 60 mg PO DAILY 04/13/20 10/07/24 History tizanidine 2 mg tablet 2 mg PO Q6H PRN Muscle Pain 04/13/20 10/07/24 History cholecalciferol (vitamin D3) 50 50 mcg PO DAILY 12/01/20 10/07/24 History mcg (2,000 unit) capsule (Vitamin D3) gabapentin 600 mg tablet 600 mg PO BID@0900,1300 12/01/20 10/07/24 History gabapentin 600 mg tablet 900 mg PO BEDTIME 12/01/20 10/07/24 History magnesium chloride 64 mg 64 mg PO BID 12/01/20 10/07/24 History (magnesium chloride) tablet,delayed release (Mag 64) omeprazole 20 mg capsule,delayed 20 mg PO BID 11/14/21 10/07/24 History release ferrous sulfate 325 mg (65 mg 325 mg PO DAILY 02/05/22 10/07/24 History iron) tablet (iron) lisinopril 2.5 mg tablet 2.5 mg PO DAILY 02/05/22 10/07/24 History empagliflozin 25 mg tablet 25 mg PO DAILY 04/18/22 10/07/24 History (Jardiance) aspirin 81 mg tablet,delayed 81 mg PO DAILY 04/14/23 10/07/24 History release aripiprazole 5 mg tablet 2.5 mg PO DAILY 10/07/24 10/07/24 History insulin glargine U-300 conc 300 90 unit subcut BEDTIME 10/07/24 10/07/24 History unit/mL (3 mL) subcutaneous pen (Toujeo Max U-300 SoloStar) Allergies Allergies Allergy/AdvReac Type Severity Reaction Status Date / Time bee pollen [BEE STINGS] Allergy Severe ANAPHYLAXIS Verified 10/06/24 20:37 coconut [COCONUT] Allergy Unknown HIVES Verified 10/06/24 20:37 buspirone [BUSPIRONE] AdvReac Intermediate Sedation Verified 10/06/24 20:37 Mental Status Exam Mental Status Exam Narrative: Pt is alert and oriented; behavior is cooperative and calm; dressed in casual attire; mood is described as depressed ; eye contact appropriate; Speech is normal rate, volume and not pressured; thought process is organized; Thought content is on tx; otherwise pertinent to relevant topics and without any delusional content, paranoid ideations or grandiosity; denies SI/HI/VH/AH. Assessment & Plan Assessment & Plan (1) MDD (major depressive disorder), recurrent episode, moderate: Status: Acute Code(s): F33.1 - Major depressive disorder, recurrent, moderate (2) PTSD (post-traumatic stress disorder): Status: Acute Code(s): F43.10 - Post-traumatic stress disorder, unspecified Plan Patient is a 54-year-old female with history of MDD, PTSD who self presented to ER due to suicidal ideation with plan to overdose on medications or cut herself with a box brander secondary to increased depression. Plan: CV 15 minute safety checks Continue home medications Obtain collateral Referral to outpatient psychiatric providers Encourage groups Discharge planning Patient educated on: diagnosis and medication risk/benefits Reason for continued inpatient stay Substantial Risk for: med/psych decompensation Statement Statement: I have reviewed the history and physical and performed a pertinent examination on my patient. No changes have occurred unless specified. If the History and Physical was not performed prior to admission, the Hospitalist's service will be consulted for completing the admission physical. Time Spent With Patient Time: Total time managing care of this patient today _60___ minutes.
[2024-10-08] MEDS: Ferrous Sulfate 324 MG TABLET.DR PO (09:06)
[2024-10-08] MEDS: FLUoxetine HCl 20 MG CAPSULE 60 MG PO (09:06)
[2024-10-08] MEDS: Clopidogrel Bisulfate 75 MG TABLET PO (09:06)
[2024-10-08] MEDS: Empagliflozin 25 MG TABLET PO (09:07)
[2024-10-08] MEDS: Aspirin Enteric Coated 81 MG TABLET.DR PO (09:07)
[2024-10-08] MEDS: ARIPiprazole 5 MG TABLET 2.5 MG PO (09:07)
[2024-10-08] MEDS: carvediloL 3.125 MG TABLET PO ×2 (09:07→21:13)
[2024-10-08] MEDS: Gabapentin 600 MG TABLET PO ×2 (09:07→12:09)
[2024-10-08] MEDS: Cholecalciferol (Vitamin D3) 25 MCG TABLET 50 MCG PO (09:07)
[2024-10-08] MEDS: lisinopriL 2.5 MG TABLET PO (09:07)
[2024-10-08 09:27] LABS: Estimated Average Glucose 278 mg/dL; Hemoglobin A1C 371.3954 umol/L; Hemoglobin A1c % 11.3 % (<6.0); Total Hemoglobin (HGBA1C) 3728.3613 umol/L
[2024-10-08 09:32] LABS: Alanine Aminotransferase 31 U/L (0-31); Albumin Level 3.5 g/dL (3.5-5.0); Alkaline Phosphatase 74 U/L (39-117); Anion Gap 14 (12-20); Aspartate Amino Transferase 20 U/L (5-31); Blood Urea Nitrogen 17 mg/dL (9-16); Calcium 9.5 mg/dL (8.4-10.2); Carbon Dioxide 26 mmol/L (22-29); Chloride 104 mmol/L (96-108); Cholesterol 174 mg/dL (<200); Creatinine Clr Calc Pharmacy 121.1; Estimated Glomerular Filt Rate > 60; Glucose Random 214 mg/dL (60-115); HDL Cholesterol 39 mg/dL (>40); LDL Cholesterol Calculated 90 mg/dL (<100); Potassium 4.1 mmol/L (3.3-5.1); Sodium 140 mmol/L (135-145); Total Protein 6.1 g/dL (6.5-8.0); Triglycerides 228 mg/dL (<150)
[2024-10-08 12:09] LABS: Glucose, Whole Blood 301 mg/dL (60-115)
[2024-10-08 17:08] LABS: Glucose, Whole Blood 338 mg/dL (60-115)
[2024-10-08 20:25] VITALS: BP 136/79; PULSE 81; RESP 16; TEMP 36.3; O2SAT 96
[2024-10-08 21:13] VITALS: BP 136/79; PULSE 81
[2024-10-08] MEDS: Gabapentin 600 MG TABLET 900 MG PO (21:13)
[2024-10-08] MEDS: Atorvastatin Calcium 80 MG TABLET PO (21:13)
[2024-10-08] MEDS: Insulin Glargine,Hum.rec.anlog 100 UNIT/ML 10 ML VIAL 20 UNIT SUBCUT (21:15)
[2024-10-08 21:24] LABS: Glucose, Whole Blood 360 mg/dL (60-115)
[2024-10-08] MEDS: TiZANidine HCL 4 MG TABLET 2 MG PO (21:30)
[2024-10-08] MEDS: traZODone HCL 50 MG TABLET PO (21:31)
[2024-10-08] MEDS: hydrOXYzine HCL 25 MG TABLET PO (21:31)
[2024-10-09 07:43] LABS: Glucose, Whole Blood 296 mg/dL (60-115)
[2024-10-09 08:00] VITALS: BP 103/51; PULSE 97; RESP 14; TEMP 36.4; O2SAT 97
[2024-10-09] MEDS: Acetaminophen 325 MG TABLET 650 MG PO (08:44)
[2024-10-09] MEDS: Insulin Lispro 100 UNIT/ML 3 ML VIAL SUBCUT ×3 (08:44→17:14)
[2024-10-09] MEDS: ARIPiprazole 5 MG TABLET 2.5 MG PO (08:45)
[2024-10-09] MEDS: Clopidogrel Bisulfate 75 MG TABLET PO (08:46)
[2024-10-09] MEDS: Cholecalciferol (Vitamin D3) 25 MCG TABLET 50 MCG PO (08:46)
[2024-10-09] MEDS: Gabapentin 600 MG TABLET PO ×2 (08:46→12:03)
[2024-10-09] MEDS: FLUoxetine HCl 20 MG CAPSULE 60 MG PO (08:46)
[2024-10-09] MEDS: Empagliflozin 25 MG TABLET PO (08:46)
[2024-10-09] MEDS: Pantoprazole Sodium 20 MG TABLET.DR 40 MG PO ×2 (08:47→17:15)
[2024-10-09] MEDS: lisinopriL 2.5 MG TABLET PO (08:47)
[2024-10-09] MEDS: carvediloL 3.125 MG TABLET PO ×2 (08:47→20:49)
[2024-10-09] MEDS: Aspirin Enteric Coated 81 MG TABLET.DR PO (08:48)
[2024-10-09] MEDS: Ferrous Sulfate 324 MG TABLET.DR PO (08:48)
[2024-10-09 11:41] LABS: Glucose, Whole Blood 286 mg/dL (60-115)
[2024-10-09] MEDS: Fluticasone Propionate Nasal 16 GM SPRAY 1 SPRAY NOSTRIL-B ×2 (12:54→20:47)
--- NOTE | 2024-10-09 13:45 | HO.PSYCHPN ---
Subjective Subjective Date of Service: 10/09/24 Reason For Visit: SI Interim History: Patient reports feeling much improved since admission. She asks for flonase for allergies which she uses at home. Ordered. Patient is bright. Denies SI/HI/AVH. Tolerating medications well. Review of Systems Constitutional: Denies body ache(s), Denies chills, Denies fever(s), Denies frequent falls and Denies headache(s) Eyes: Denies blurry vision and Denies exophthalmos Denies vertigo, Denies dizziness and Denies headache(s) Cardiovascular: Denies chest pain, Denies chest pain at rest and Denies dyspnea Respiratory: Denies cough and Denies dyspnea Gastrointestinal: Denies abdominal pain, Denies nausea and Denies vomiting Musculoskeletal: Denies back pain Skin/Breast: Denies breast pain Denies vertigo, Denies dizziness, Denies frequent falls and Denies headache(s) Psychiatric: Reports anxiety, Reports depression, Denies auditory hallucinations, Reports hopelessness, Denies visual hallucinations, Denies homicidal ideation and Reports suicidal ideation Mental Status Exam Mental Status Exam Narrative: Pt is alert and oriented; behavior is cooperative and calm; dressed in casual attire; mood is described as depressed ; eye contact appropriate; Speech is normal rate, volume and not pressured; thought process is organized; Thought content is on tx; otherwise pertinent to relevant topics and without any delusional content, paranoid ideations or grandiosity; denies SI/HI/VH/AH. Diagnostics Vital Signs (24Hr): Vital Signs - 24 hr 10/08/24 20:25 10/08/24 21:13 10/09/24 08:00 Temperature 97.3 F 97.6 F Pulse Rate 81 81 97 Respiratory Rate 16 14 Blood Pressure 136/79 136/79 103/51 L Pulse Oximetry 96 97 Oxygen Delivery Method Room Air Room Air BMI result Body Mass Index 44.1 Labs 10/06/24 20:56 10/08/24 08:17 Labs: Laboratory Results - last 48 hr 10/07/24 10/07/24 10/08/24 17:10 20:10 07:54 Sodium Potassium Chloride Carbon Dioxide Anion Gap BUN Creatinine Estim Creat Clear Calc Estimated GFR POC Glucose 277 H 288 H 224 H Random Glucose Estimat Average Glucose Hemoglobin A1c % Calcium Total Bilirubin AST ALT Alkaline Phosphatase Total Protein Albumin Triglycerides Cholesterol LDL Cholesterol, Calc HDL Cholesterol 10/08/24 10/08/24 10/08/24 08:17 12:04 16:57 Sodium 140 Potassium 4.1 Chloride 104 Carbon Dioxide 26 Anion Gap 14 BUN 17 H Creatinine 0.69 Estim Creat Clear Calc 121.1 Estimated GFR > 60 POC Glucose 301 H 338 H Random Glucose 214 H Estimat Average Glucose 278 Hemoglobin A1c % 11.3 H Calcium 9.5 Total Bilirubin 1.0 AST 20 ALT 31 Alkaline Phosphatase 74 Total Protein 6.1 L Albumin 3.5 Triglycerides 228 H Cholesterol 174 LDL Cholesterol, Calc 90 HDL Cholesterol 39 L 10/08/24 10/09/24 10/09/24 21:10 07:35 11:37 Sodium Potassium Chloride Carbon Dioxide Anion Gap BUN Creatinine Estim Creat Clear Calc Estimated GFR POC Glucose 360 H* 296 H 286 H Random Glucose Estimat Average Glucose Hemoglobin A1c % Calcium Total Bilirubin AST ALT Alkaline Phosphatase Total Protein Albumin Triglycerides Cholesterol LDL Cholesterol, Calc HDL Cholesterol Medications Medications Current Medications Acetaminophen (Acetaminophen 325 Mg Tablet) 650 mg PO Q6H PRN PRN Reason: Headache/Pain, Scale 1-10 Last Admin: 10/09/24 08:44 Dose: 650 mg Al Hydroxide/Mg Hydroxide (Magnesium Hydrox/Alum Hydrox 30 Ml Oral.Susp) 30 ml PO Q6H PRN PRN Reason: Heartburn/Nausea Aripiprazole (Aripiprazole 5 Mg Tablet) 2.5 mg PO DAILY [facility] Last Admin: 10/09/24 08:45 Dose: 2.5 mg Aspirin (Aspirin Enteric Coated 81 Mg Tablet.) 81 mg PO DAILY [facility] Last Admin: 10/09/24 08:48 Dose: 81 mg Atorvastatin Calcium (Atorvastatin Calcium 80 Mg Tablet) 80 mg PO BEDTIME [facility] Last Admin: 10/08/24 21:13 Dose: 80 mg Carvedilol (Carvedilol 3.125 Mg Tablet) 3.125 mg PO BID [facility]; Protocol Last Admin: 10/09/24 08:47 Dose: 3.125 mg Clopidogrel Bisulfate (Clopidogrel Bisulfate 75 Mg Tablet) 75 mg PO DAILY [facility] Last Admin: 10/09/24 08:46 Dose: 75 mg Empagliflozin (Empagliflozin 25 Mg Tablet) 25 mg PO DAILY [facility] Last Admin: 10/09/24 08:46 Dose: 25 mg Ferrous Sulfate (Ferrous Sulfate 324 Mg Tablet.) 324 mg PO DAILY [facility] Last Admin: 10/09/24 08:48 Dose: 324 mg Fluoxetine HCl (Fluoxetine Hcl 20 Mg Capsule) 60 mg PO DAILY [facility] Last Admin: 10/09/24 08:46 Dose: 60 mg Fluticasone Propionate (Fluticasone Propionate Nasal 16 Gm [place]) 1 spray NOSTRIL-B BID [facility] Last Admin: 10/09/24 12:54 Dose: 1 spray Gabapentin (Gabapentin 600 Mg Tablet) 600 mg PO BID@0900,1300 [facility] Last Admin: 10/09/24 12:03 Dose: 600 mg Gabapentin (Gabapentin 600 Mg Tablet) 900 mg PO BEDTIME [facility] Last Admin: 10/08/24 21:13 Dose: 900 mg Glucose (Glucose Gel 15 Gm Gel..Gram.) 15 gm PO Q15M PRN; Protocol PRN Reason: per Hypoglycemia Standing Ord. Hydroxyzine HCl (Hydroxyzine Hcl 25 Mg Tablet) 25 mg PO Q6H PRN PRN Reason: mild anxiety Last Admin: 10/08/24 21:31 Dose: 25 mg Insulin Glargine (Insulin Glargine,Hum.Rec.Anlog 100 Unit/Ml 10 Ml Vial) 20 unit SUBCUT BEDTIME [facility] Last Admin: 10/08/24 21:15 Dose: 20 unit Insulin Human Lispro (Insulin Lispro 100 Unit/Ml 3 Ml Vial) 0 unit SUBCUT QIDACHS [facility]; Protocol Last Admin: 10/09/24 12:03 Dose: 6 unit Lisinopril (Lisinopril 2.5 Mg Tablet) 2.5 mg PO DAILY [facility]; Protocol Last Admin: 10/09/24 08:47 Dose: 2.5 mg Magnesium Hydroxide (Milk Of Magnesia 30 Ml Oral.Susp) 30 ml PO DAILY PRN PRN Reason: Constipation Pantoprazole Sodium (Pantoprazole Sodium 20 Mg Tablet.Dr) 40 mg PO BID@0630,1830 [facility] Last Admin: 10/09/24 08:47 Dose: 40 mg Tizanidine HCl (Tizanidine Hcl 4 Mg Tablet) 2 mg PO Q6H PRN PRN Reason: Muscle Pain Last Admin: 10/08/24 21:30 Dose: 2 mg Trazodone HCl (Trazodone Hcl 50 Mg Tablet) 50 mg PO BEDTIME MRX1 PRN PRN Reason: Insomnia Last Admin: 10/08/24 21:31 Dose: 50 mg Vitamin D (Cholecalciferol (Vitamin D3) 25 Mcg Tablet) 50 mcg PO DAILY [facility] Last Admin: 10/09/24 08:46 Dose: 50 mcg Allergies Allergies Allergy/AdvReac Type Severity Reaction Status Date / Time bee pollen [BEE STINGS] Allergy Severe ANAPHYLAXIS Verified 10/06/24 20:37 coconut [COCONUT] Allergy Unknown HIVES Verified 10/06/24 20:37 buspirone [BUSPIRONE] AdvReac Intermediate Sedation Verified 10/06/24 20:37 Assessment & Plan Assessment & Plan (1) MDD (major depressive disorder), recurrent episode, moderate: Status: Acute Code(s): F33.1 - Major depressive disorder, recurrent, moderate (2) PTSD (post-traumatic stress disorder): Status: Acute Code(s): F43.10 - Post-traumatic stress disorder, unspecified Plan Patient is a 54-year-old female with history of MDD, PTSD who self presented to ER due to suicidal ideation with plan to overdose on medications or cut herself with a box stapler secondary to increased depression. Plan: CV 15 minute safety checks Continue home medications Obtain collateral Referral to outpatient psychiatric providers Encourage groups Discharge planning 10/09: continue current management and treatment plan. Reason for continued inpatient stay Substantial Risk for: harm to self and rapid decompensation Time Spent With Patient Time: Total time managing care of this patient today ____ minutes.
[2024-10-09 16:59] LABS: Glucose, Whole Blood 324 mg/dL (60-115)
[2024-10-09 19:10] VITALS: BP 114/77; PULSE 84; RESP 18; TEMP 36.4; O2SAT 95
[2024-10-09 20:27] LABS: Glucose, Whole Blood 412 mg/dL (60-115)
[2024-10-09] MEDS: Insulin Lispro 100 UNIT/ML 3 ML VIAL 12 UNIT SUBCUT (20:48)
[2024-10-09] MEDS: Insulin Glargine,Hum.rec.anlog 100 UNIT/ML 10 ML VIAL 20 UNIT SUBCUT (20:48)
[2024-10-09 20:49] VITALS: BP 115/73; PULSE 84
[2024-10-09] MEDS: Gabapentin 600 MG TABLET 900 MG PO (20:49)
[2024-10-09] MEDS: Atorvastatin Calcium 80 MG TABLET PO (20:49)
[2024-10-09] MEDS: TiZANidine HCL 4 MG TABLET 2 MG PO (21:09)
[2024-10-09] MEDS: traZODone HCL 50 MG TABLET PO (21:28)
[2024-10-09] MEDS: hydrOXYzine HCL 25 MG TABLET PO (21:28)
[2024-10-10 08:00] VITALS: BP 128/80; PULSE 89; RESP 14; TEMP 36.4; O2SAT 98
[2024-10-10 08:11] LABS: Glucose, Whole Blood 264 mg/dL (60-115)
[2024-10-10] MEDS: Aspirin Enteric Coated 81 MG TABLET.DR PO (08:21)
[2024-10-10] MEDS: carvediloL 3.125 MG TABLET PO ×2 (08:21→20:17)
[2024-10-10] MEDS: Clopidogrel Bisulfate 75 MG TABLET PO (08:21)
[2024-10-10] MEDS: Insulin Lispro 100 UNIT/ML 3 ML VIAL SUBCUT ×4 (08:21→20:18)
[2024-10-10] MEDS: ARIPiprazole 5 MG TABLET 2.5 MG PO (08:22)
[2024-10-10] MEDS: Pantoprazole Sodium 20 MG TABLET.DR 40 MG PO ×2 (08:22→19:01)
[2024-10-10] MEDS: Ferrous Sulfate 324 MG TABLET.DR PO (08:23)
[2024-10-10] MEDS: lisinopriL 2.5 MG TABLET PO (08:23)
[2024-10-10] MEDS: Cholecalciferol (Vitamin D3) 25 MCG TABLET 50 MCG PO (08:23)
[2024-10-10] MEDS: FLUoxetine HCl 20 MG CAPSULE 60 MG PO (08:23)
[2024-10-10] MEDS: Empagliflozin 25 MG TABLET PO (08:23)
[2024-10-10] MEDS: Gabapentin 600 MG TABLET PO ×2 (08:23→12:13)
[2024-10-10] MEDS: Fluticasone Propionate Nasal 16 GM SPRAY 1 SPRAY NOSTRIL-B ×2 (08:27→20:19)
[2024-10-10] MEDS: TiZANidine HCL 4 MG TABLET 2 MG PO ×2 (10:25→20:31)
[2024-10-10 12:01] LABS: Glucose, Whole Blood 376 mg/dL (60-115)
--- NOTE | 2024-10-10 14:32 | HO.PSYCHPN ---
Subjective Subjective Date of Service: 10/10/24 Reason For Visit: SI Interim History: Patient reports feeling much improved since admission. Blood sugars are running high. Will adjust Lantus. Patient is bright. Denies SI/HI/AVH. Tolerating medications well. Visible on the unit. Review of Systems Constitutional: Denies body ache(s), Denies chills, Denies fever(s), Denies frequent falls and Denies headache(s) Eyes: Denies blurry vision and Denies exophthalmos Denies vertigo, Denies dizziness and Denies headache(s) Cardiovascular: Denies chest pain, Denies chest pain at rest and Denies dyspnea Respiratory: Denies cough and Denies dyspnea Gastrointestinal: Denies abdominal pain, Denies nausea and Denies vomiting Musculoskeletal: Denies back pain Skin/Breast: Denies breast pain Denies vertigo, Denies dizziness, Denies frequent falls and Denies headache(s) Psychiatric: Reports anxiety, Reports depression, Denies auditory hallucinations, Reports hopelessness, Denies visual hallucinations, Denies homicidal ideation and Reports suicidal ideation Mental Status Exam Mental Status Exam Narrative: Pt is alert and oriented; behavior is cooperative and calm; dressed in casual attire; mood is described as depressed ; eye contact appropriate; Speech is normal rate, volume and not pressured; thought process is organized; Thought content is on tx; otherwise pertinent to relevant topics and without any delusional content, paranoid ideations or grandiosity; denies SI/HI/VH/AH. Diagnostics Vital Signs (24Hr): Vital Signs - 24 hr 10/09/24 19:10 10/09/24 20:49 10/10/24 08:00 Temperature 97.5 F 97.6 F Pulse Rate 84 84 89 Respiratory Rate 18 14 Blood Pressure 114/77 115/73 128/80 Pulse Oximetry 95 98 Oxygen Delivery Method Room Air Room Air BMI result Body Mass Index 44.1 Labs 10/06/24 20:56 10/08/24 08:17 Labs: Laboratory Results - last 48 hr 10/08/24 10/08/24 10/09/24 16:57 21:10 07:35 POC Glucose 338 H 360 H* 296 H 10/09/24 10/09/24 10/09/24 11:37 16:55 20:23 POC Glucose 286 H 324 H 412 H* 10/10/24 10/10/24 07:58 11:57 POC Glucose 264 H 376 H* Medications Medications Current Medications Acetaminophen (Acetaminophen 325 Mg Tablet) 650 mg PO Q6H PRN PRN Reason: Headache/Pain, Scale 1-10 Last Admin: 10/09/24 08:44 Dose: 650 mg Al Hydroxide/Mg Hydroxide (Magnesium Hydrox/Alum Hydrox 30 Ml Oral.Susp) 30 ml PO Q6H PRN PRN Reason: Heartburn/Nausea Aripiprazole (Aripiprazole 5 Mg Tablet) 2.5 mg PO DAILY [facility] Last Admin: 10/10/24 08:22 Dose: 2.5 mg Aspirin (Aspirin Enteric Coated 81 Mg Tablet.) 81 mg PO DAILY [facility] Last Admin: 10/10/24 08:21 Dose: 81 mg Atorvastatin Calcium (Atorvastatin Calcium 80 Mg Tablet) 80 mg PO BEDTIME [facility] Last Admin: 10/09/24 20:49 Dose: 80 mg Carvedilol (Carvedilol 3.125 Mg Tablet) 3.125 mg PO BID [facility]; Protocol Last Admin: 10/10/24 08:21 Dose: 3.125 mg Clopidogrel Bisulfate (Clopidogrel Bisulfate 75 Mg Tablet) 75 mg PO DAILY [facility] Last Admin: 10/10/24 08:21 Dose: 75 mg Empagliflozin (Empagliflozin 25 Mg Tablet) 25 mg PO DAILY [facility] Last Admin: 10/10/24 08:23 Dose: 25 mg Ferrous Sulfate (Ferrous Sulfate 324 Mg Tablet.) 324 mg PO DAILY [facility] Last Admin: 10/10/24 08:23 Dose: 324 mg Fluoxetine HCl (Fluoxetine Hcl 20 Mg Capsule) 60 mg PO DAILY [facility] Last Admin: 10/10/24 08:23 Dose: 60 mg Fluticasone Propionate (Fluticasone Propionate Nasal 16 Gm [place]) 1 spray NOSTRIL-B BID [facility] Last Admin: 10/10/24 08:27 Dose: 1 spray Gabapentin (Gabapentin 600 Mg Tablet) 600 mg PO BID@0900,1300 [facility] Last Admin: 10/10/24 12:13 Dose: 600 mg Gabapentin (Gabapentin 600 Mg Tablet) 900 mg PO BEDTIME [facility] Last Admin: 10/09/24 20:49 Dose: 900 mg Glucose (Glucose Gel 15 Gm Gel..Gram.) 15 gm PO Q15M PRN; Protocol PRN Reason: per Hypoglycemia Standing Ord. Hydroxyzine HCl (Hydroxyzine Hcl 25 Mg Tablet) 25 mg PO Q6H PRN PRN Reason: mild anxiety Last Admin: 10/09/24 21:28 Dose: 25 mg Insulin Glargine (Insulin Glargine,Hum.Rec.Anlog 100 Unit/Ml 10 Ml Vial) 20 unit SUBCUT BEDTIME [facility] Last Admin: 10/09/24 20:48 Dose: 20 unit Insulin Human Lispro (Insulin Lispro 100 Unit/Ml 3 Ml Vial) 0 unit SUBCUT QIDACHS [facility]; Protocol Last Admin: 10/10/24 12:13 Dose: 10 unit Lisinopril (Lisinopril 2.5 Mg Tablet) 2.5 mg PO DAILY [facility]; Protocol Last Admin: 10/10/24 08:23 Dose: 2.5 mg Magnesium Hydroxide (Milk Of Magnesia 30 Ml Oral.Susp) 30 ml PO DAILY PRN PRN Reason: Constipation Pantoprazole Sodium (Pantoprazole Sodium 20 Mg Tablet.Dr) 40 mg PO BID@0630,1830 [facility] Last Admin: 10/10/24 08:22 Dose: 40 mg Tizanidine HCl (Tizanidine Hcl 4 Mg Tablet) 2 mg PO Q6H PRN PRN Reason: Muscle Pain Last Admin: 10/10/24 10:25 Dose: 2 mg Trazodone HCl (Trazodone Hcl 50 Mg Tablet) 50 mg PO BEDTIME MRX1 PRN PRN Reason: Insomnia Last Admin: 10/09/24 21:28 Dose: 50 mg Vitamin D (Cholecalciferol (Vitamin D3) 25 Mcg Tablet) 50 mcg PO DAILY [facility] Last Admin: 10/10/24 08:23 Dose: 50 mcg Allergies Allergies Allergy/AdvReac Type Severity Reaction Status Date / Time bee pollen [BEE STINGS] Allergy Severe ANAPHYLAXIS Verified 10/06/24 20:37 coconut [COCONUT] Allergy Unknown HIVES Verified 10/06/24 20:37 buspirone [BUSPIRONE] AdvReac Intermediate Sedation Verified 10/06/24 20:37 Assessment & Plan Assessment & Plan (1) MDD (major depressive disorder), recurrent episode, moderate: Status: Acute Code(s): F33.1 - Major depressive disorder, recurrent, moderate (2) PTSD (post-traumatic stress disorder): Status: Acute Code(s): F43.10 - Post-traumatic stress disorder, unspecified Plan Patient is a 54-year-old female with history of MDD, PTSD who self presented to ER due to suicidal ideation with plan to overdose on medications or cut herself with a box tender secondary to increased depression. Plan: CV 15 minute safety checks Continue home medications Obtain collateral Referral to outpatient psychiatric providers Encourage groups Discharge planning 10/09: continue current management and treatment plan. 10/10: Increase Insulin Glargine to 30 mg. Consider further titration. Reason for continued inpatient stay Substantial Risk for: harm to self, rapid decompensation and med/psych decompensation Time Spent With Patient Time: Total time managing care of this patient today ____ minutes.
[2024-10-10 16:42] LABS: Glucose, Whole Blood 373 mg/dL (60-115)
[2024-10-10 20:00] VITALS: BP 126/73; PULSE 130; RESP 18; TEMP 36.1; O2SAT 97
[2024-10-10 20:09] LABS: Glucose, Whole Blood 343 mg/dL (60-115)
[2024-10-10] MEDS: Gabapentin 600 MG TABLET 900 MG PO (20:16)
[2024-10-10 20:17] VITALS: BP 123/69; PULSE 84
[2024-10-10] MEDS: hydrOXYzine HCL 25 MG TABLET PO (20:17)
[2024-10-10] MEDS: Atorvastatin Calcium 80 MG TABLET PO (20:17)
[2024-10-10] MEDS: traZODone HCL 50 MG TABLET PO ×2 (20:17→23:41)
[2024-10-10] MEDS: Insulin Glargine,Hum.rec.anlog 100 UNIT/ML 10 ML VIAL 30 UNIT SUBCUT (20:18)
[2024-10-10] MEDS: Acetaminophen 325 MG TABLET 650 MG PO (23:40)
--- NOTE | 2024-10-11 06:06 | PC.NURSE ---
Pt did not receive 0630 Pantoprazole, per pt request to not be woken before 0800.?
[2024-10-11 07:40] VITALS: BP 124/70; PULSE 88; RESP 16; TEMP 36.5; O2SAT 94
[2024-10-11 07:47] LABS: Glucose, Whole Blood 287 mg/dL (60-115)
[2024-10-11] MEDS: Fluticasone Propionate Nasal 16 GM SPRAY 1 SPRAY NOSTRIL-B ×2 (08:39→20:33)
[2024-10-11] MEDS: Pantoprazole Sodium 20 MG TABLET.DR 40 MG PO ×2 (08:41→18:27)
[2024-10-11] MEDS: Clopidogrel Bisulfate 75 MG TABLET PO (08:41)
[2024-10-11] MEDS: Gabapentin 600 MG TABLET PO ×2 (08:41→12:34)
[2024-10-11] MEDS: Cholecalciferol (Vitamin D3) 25 MCG TABLET 50 MCG PO (08:41)
[2024-10-11] MEDS: Empagliflozin 25 MG TABLET PO (08:41)
[2024-10-11 08:42] VITALS: BP 120/70; PULSE 88
[2024-10-11] MEDS: Aspirin Enteric Coated 81 MG TABLET.DR PO (08:42)
[2024-10-11] MEDS: carvediloL 3.125 MG TABLET PO ×2 (08:42→20:32)
[2024-10-11] MEDS: Ferrous Sulfate 324 MG TABLET.DR PO (08:42)
[2024-10-11] MEDS: ARIPiprazole 5 MG TABLET 2.5 MG PO (08:42)
[2024-10-11] MEDS: Insulin Lispro 100 UNIT/ML 3 ML VIAL SUBCUT ×4 (08:48→20:27)
[2024-10-11] MEDS: Acetaminophen 325 MG TABLET 650 MG PO ×2 (08:48→20:32)
[2024-10-11] MEDS: TiZANidine HCL 4 MG TABLET 2 MG PO ×2 (08:49→20:30)
[2024-10-11] MEDS: lisinopriL 2.5 MG TABLET PO (08:50)
[2024-10-11] MEDS: FLUoxetine HCl 20 MG CAPSULE 60 MG PO (08:50)
--- NOTE | 2024-10-11 10:25 | P.PNPSI_ITS ---
Subjective Subjective Date of Service: 10/11/24 Reason For Visit: SI Subjective Notes: 3 Day Interim History: Active on unit, social with peers. attending groups. Patient reports feeling better ; pt stated, I had a good weekend. I made a bunch of friends here. I have a lot to live for . Pt reports feeling better with medications. denies SI/HI/VH/AH. 3 day up on 10/11/24. Patient reports she plans on following up with her outpatient providers. Medication Compliance: Yes Side effects from medications: No Attending Groups: Yes Mental Status Exam Mental Status Exam Narrative: Pt is alert and oriented; behavior is cooperative and calm; dressed in casual attire; mood is described as good ; eye contact appropriate; Speech is normal rate, volume and not pressured; thought process is organized; Thought content is on discharge; denies SI/HI/VH/AH. Diagnostics Vital Signs (24Hr): Vital Signs - 24 hr 10/10/24 20:00 10/10/24 20:17 10/11/24 07:40 Temperature 96.9 F 97.7 F Pulse Rate 130 H 84 88 Respiratory Rate 18 16 Blood Pressure 126/73 123/69 124/70 Pulse Oximetry 97 94 Oxygen Delivery Method Room Air Room Air 10/11/24 08:42 Temperature Pulse Rate 88 Respiratory Rate Blood Pressure 120/70 Pulse Oximetry Oxygen Delivery Method BMI result Body Mass Index 44.1 Labs 10/06/24 20:56 10/08/24 08:17 Labs: Laboratory Results - last 48 hr 10/09/24 10/09/24 10/09/24 11:37 16:55 20:23 POC Glucose 286 H 324 H 412 H* 10/10/24 10/10/24 10/10/24 07:58 11:57 16:38 POC Glucose 264 H 376 H* 373 H* 10/10/24 10/11/24 20:04 07:42 POC Glucose 343 H 287 H Medications Medications Current Medications Acetaminophen (Acetaminophen 325 Mg Tablet) 650 mg PO Q6H PRN PRN Reason: Headache/Pain, Scale 1-10 Last Admin: 10/11/24 08:48 Dose: 650 mg Al Hydroxide/Mg Hydroxide (Magnesium Hydrox/Alum Hydrox 30 Ml Oral.Susp) 30 ml PO Q6H PRN PRN Reason: Heartburn/Nausea Aripiprazole (Aripiprazole 5 Mg Tablet) 2.5 mg PO DAILY [facility] Last Admin: 10/11/24 08:42 Dose: 2.5 mg Aspirin (Aspirin Enteric Coated 81 Mg Tablet.) 81 mg PO DAILY [facility] Last Admin: 10/11/24 08:42 Dose: 81 mg Atorvastatin Calcium (Atorvastatin Calcium 80 Mg Tablet) 80 mg PO BEDTIME [facility] Last Admin: 10/10/24 20:17 Dose: 80 mg Carvedilol (Carvedilol 3.125 Mg Tablet) 3.125 mg PO BID [facility]; Protocol Last Admin: 10/11/24 08:42 Dose: 3.125 mg Clopidogrel Bisulfate (Clopidogrel Bisulfate 75 Mg Tablet) 75 mg PO DAILY [facility] Last Admin: 10/11/24 08:41 Dose: 75 mg Empagliflozin (Empagliflozin 25 Mg Tablet) 25 mg PO DAILY [facility] Last Admin: 10/11/24 08:41 Dose: 25 mg Ferrous Sulfate (Ferrous Sulfate 324 Mg Tablet.) 324 mg PO DAILY [facility] Last Admin: 10/11/24 08:42 Dose: 324 mg Fluoxetine HCl (Fluoxetine Hcl 20 Mg Capsule) 60 mg PO DAILY [facility] Last Admin: 10/11/24 08:50 Dose: 60 mg Fluticasone Propionate (Fluticasone Propionate Nasal 16 Gm [place]) 1 spray NOSTRIL-B BID [facility] Last Admin: 10/11/24 08:39 Dose: 1 spray Gabapentin (Gabapentin 600 Mg Tablet) 600 mg PO BID@0900,1300 [facility] Last Admin: 10/11/24 08:41 Dose: 600 mg Gabapentin (Gabapentin 600 Mg Tablet) 900 mg PO BEDTIME [facility] Last Admin: 10/10/24 20:16 Dose: 900 mg Glucose (Glucose Gel 15 Gm Gel..Gram.) 15 gm PO Q15M PRN; Protocol PRN Reason: per Hypoglycemia Standing Ord. Hydroxyzine HCl (Hydroxyzine Hcl 25 Mg Tablet) 25 mg PO Q6H PRN PRN Reason: mild anxiety Last Admin: 10/10/24 20:17 Dose: 25 mg Insulin Glargine (Insulin Glargine,Hum.Rec.Anlog 100 Unit/Ml 10 Ml Vial) 30 unit SUBCUT BEDTIME [facility] Last Admin: 10/10/24 20:18 Dose: 30 unit Insulin Human Lispro (Insulin Lispro 100 Unit/Ml 3 Ml Vial) 0 unit SUBCUT QIDACHS [facility]; Protocol Last Admin: 10/11/24 08:48 Dose: 6 unit Lisinopril (Lisinopril 2.5 Mg Tablet) 2.5 mg PO DAILY [facility]; Protocol Last Admin: 10/11/24 08:50 Dose: 2.5 mg Magnesium Hydroxide (Milk Of Magnesia 30 Ml Oral.Susp) 30 ml PO DAILY PRN PRN Reason: Constipation Pantoprazole Sodium (Pantoprazole Sodium 20 Mg Tablet.Dr) 40 mg PO BID@0630,1830 [facility] Last Admin: 10/11/24 08:41 Dose: 40 mg Tizanidine HCl (Tizanidine Hcl 4 Mg Tablet) 2 mg PO Q6H PRN PRN Reason: Muscle Pain Last Admin: 10/11/24 08:49 Dose: 2 mg Trazodone HCl (Trazodone Hcl 50 Mg Tablet) 50 mg PO BEDTIME MRX1 PRN PRN Reason: Insomnia Last Admin: 10/10/24 23:41 Dose: 50 mg Vitamin D (Cholecalciferol (Vitamin D3) 25 Mcg Tablet) 50 mcg PO DAILY [facility] Last Admin: 10/11/24 08:41 Dose: 50 mcg Allergies Allergies Allergy/AdvReac Type Severity Reaction Status Date / Time bee pollen [BEE STINGS] Allergy Severe ANAPHYLAXIS Verified 10/06/24 20:37 coconut [COCONUT] Allergy Unknown HIVES Verified 10/06/24 20:37 buspirone [BUSPIRONE] AdvReac Intermediate Sedation Verified 10/06/24 20:37 Assessment & Plan Assessment & Plan (1) MDD (major depressive disorder), recurrent episode, moderate: Status: Acute Code(s): F33.1 - Major depressive disorder, recurrent, moderate (2) PTSD (post-traumatic stress disorder): Status: Acute Code(s): F43.10 - Post-traumatic stress disorder, unspecified Plan Patient is a 54-year-old female with history of MDD, PTSD who self presented to ER due to suicidal ideation with plan to overdose on medications or cut herself with a ammonia box tender secondary to increased depression. Plan: CV 15 minute safety checks Continue home medications Obtain collateral Referral to outpatient psychiatric providers Encourage groups Discharge planning 10/09: continue current management and treatment plan. 10/10: Increase Insulin Glargine to 30 mg. Consider further titration. 10/11: Active on unit, social with peers. attending groups. Patient reports feeling better ; pt stated, I had a good weekend. I made a bunch of friends here. I have a lot to live for . Pt reports feeling better with medications. denies SI/HI/VH/AH. 3 day up on 10/11/24. Patient reports she plans on following up with her outpatient providers. Patient educated on: diagnosis and medication risk/benefits Reason for continued inpatient stay Substantial Risk for: stable for discharge Time Spent With Patient Time: Total time managing care of this patient today _20___ minutes.
[2024-10-11 12:06] LABS: Glucose, Whole Blood 285 mg/dL (60-115)
[2024-10-11 16:50] LABS: Glucose, Whole Blood 332 mg/dL (60-115)
[2024-10-11 20:00] VITALS: BP 124/58; PULSE 88; RESP 16; TEMP 36.3; O2SAT 97
[2024-10-11 20:18] LABS: Glucose, Whole Blood 313 mg/dL (60-115)
[2024-10-11] MEDS: Insulin Glargine,Hum.rec.anlog 100 UNIT/ML 10 ML VIAL 30 UNIT SUBCUT (20:25)
[2024-10-11] MEDS: hydrOXYzine HCL 25 MG TABLET PO (20:29)
[2024-10-11] MEDS: Gabapentin 600 MG TABLET 900 MG PO (20:30)
[2024-10-11 20:32] VITALS: BP 124/58; PULSE 88
[2024-10-11] MEDS: traZODone HCL 50 MG TABLET PO (20:32)
[2024-10-11] MEDS: Atorvastatin Calcium 80 MG TABLET PO (20:32)
--- NOTE | 2024-10-12 01:02 | PC.NURSE ---
At around 2140 this evening, RN offered Navin his scheduled HS medications. Navin did make eye contact tonight, still avoided verbal responses, only shrugging his shoulders in response to questions. When asked if pt had used the bathroom, drank, or eaten, pt was observed shrugging shoulders. Declined to participate in 1:1. Pt refused to accept his scheduled HS meds. Dr. Carmen was notified.
[2024-10-12 07:41] VITALS: BP 133/83; PULSE 80; RESP 16; TEMP 36.4; O2SAT 100
[2024-10-12 07:42] LABS: Glucose, Whole Blood 295 mg/dL (60-115)
[2024-10-12] MEDS: Fluticasone Propionate Nasal 16 GM SPRAY 1 SPRAY NOSTRIL-B (09:15)
[2024-10-12] MEDS: Insulin Lispro 100 UNIT/ML 3 ML VIAL SUBCUT (09:16)
[2024-10-12] MEDS: FLUoxetine HCl 20 MG CAPSULE 60 MG PO (09:17)
[2024-10-12] MEDS: carvediloL 3.125 MG TABLET PO (09:17)
[2024-10-12] MEDS: Ferrous Sulfate 324 MG TABLET.DR PO (09:17)
[2024-10-12] MEDS: Cholecalciferol (Vitamin D3) 25 MCG TABLET 50 MCG PO (09:17)
[2024-10-12] MEDS: lisinopriL 2.5 MG TABLET PO (09:17)
[2024-10-12] MEDS: Empagliflozin 25 MG TABLET PO (09:17)
[2024-10-12] MEDS: Pantoprazole Sodium 20 MG TABLET.DR 40 MG PO (09:18)
[2024-10-12] MEDS: Aspirin Enteric Coated 81 MG TABLET.DR PO (09:18)
[2024-10-12] MEDS: Gabapentin 600 MG TABLET PO (09:18)
[2024-10-12] MEDS: Clopidogrel Bisulfate 75 MG TABLET PO (09:18)
[2024-10-12] MEDS: ARIPiprazole 5 MG TABLET 2.5 MG PO (09:18)
--- NOTE | 2024-10-12 10:25 | PM.PSYDC ---
DS: Providers Provider Date of Service: 10/12/24 Date of admission: 10/07/24 12:57 Date of discharge: 10/12/24 Primary care physician: Elizabeth Todd MD Admitting clinician: Soo Santiago Attending physician on admission: Kehinde Macias Attending physician on discharge: Kehinde Macias Discharging clinician: Soo Santiago DS: Diagnosis Discharge Diagnosis (1) MDD (major depressive disorder), recurrent episode, moderate: Status: Acute (2) PTSD (post-traumatic stress disorder): Status: Acute DS: Medications Discharge Medications Home Medications: Home Medications ?Medication ?Instructions ?Recorded ?Confirmed tizanidine 2 mg tablet 2 mg PO Q6H PRN Muscle Pain 04/13/20 10/07/24 cholecalciferol (vitamin D3) 50 50 mcg PO DAILY 12/01/20 10/07/24 mcg (2,000 unit) capsule (Vitamin D3) magnesium chloride 64 mg 64 mg PO BID 12/01/20 10/07/24 (magnesium chloride) tablet,delayed release (Mag 64) omeprazole 20 mg capsule,delayed 20 mg PO BID 11/14/21 10/07/24 release ferrous sulfate 325 mg (65 mg 325 mg PO DAILY 02/05/22 10/07/24 iron) tablet (iron) lisinopril 2.5 mg tablet 2.5 mg PO DAILY 02/05/22 10/07/24 empagliflozin 25 mg tablet 25 mg PO DAILY 04/18/22 10/07/24 (Jardiance) aspirin 81 mg tablet,delayed 81 mg PO DAILY 04/14/23 10/07/24 release insulin glargine U-300 conc 300 90 unit subcut BEDTIME 10/07/24 10/07/24 unit/mL (3 mL) subcutaneous pen (Toujeo Max U-300 SoloStar) Previous Rx's ?Medication ?Instructions ?Recorded riboflavin (vitamin B2) 400 mg 400 mg PO DAILY 30 days #30 tabs 02/05/22 tablet atorvastatin 80 mg tablet 80 mg PO BEDTIME #90 tabs 02/19/24 clopidogrel 75 mg tablet 75 mg PO DAILY #90 tabs 05/17/24 carvedilol 3.125 mg tablet 3.125 mg PO BID #180 tabs 08/23/24 aripiprazole 5 mg tablet 2.5 mg (1/2 x 5 mg) PO DAILY 30 10/11/24 days #15 tabs fluoxetine 60 mg tablet 60 mg PO DAILY 30 days #30 tabs 10/11/24 gabapentin 600 mg tablet 600 mg PO BID@0900,1300 30 days 10/11/24 #60 tabs gabapentin 600 mg tablet 900 mg (1.5 x 600 mg) PO BEDTIME 10/11/24 30 days #45 tabs Mental Status Exam Mental Status Exam Narrative: Pt is alert and oriented; behavior is cooperative and calm; dressed in casual attire; mood is described as good ; eye contact appropriate; Speech is normal rate, volume and not pressured; thought process is organized; Thought content is on discharge; denies SI/HI/VH/AH. Data Data Completed and Pending Completed studies during hospitalization [Text1]: 10/06/24 10/06/24 10/07/24 20:56 23:37 02:33 WBC 8.6 RBC 5.32 Hgb 15.0 Hct 43.9 MCV 82.5 MCH 28.2 MCHC 34.2 RDW 14.0 Plt Count 192 MPV 10.5 Immature Gran % (Auto) 0.3 Neut % (Auto) 70.9 Lymph % (Auto) 20.1 [place] % (Auto) 6.0 Eos % (Auto) 2.2 Baso % (Auto) 0.5 Lymph # (Auto) 1.7 [place] # (Auto) 0.5 Eos # (Auto) 0.2 Baso # (Auto) 0.0 Abs Immat Gran (auto) 0.03 Absolute Neuts (auto) 6.1 Absolute Nucleated RBC 0.000 Nucleated RBC % (auto) 0.0 Sodium 134 L Potassium 4.3 Chloride 100 Carbon Dioxide 23 Anion Gap 15 BUN 17 H Creatinine 0.90 Estim Creat Clear Calc 95.9 Estimated GFR > 60 POC Glucose 294 H 250 H Random Glucose 499 H* Estimat Average Glucose Hemoglobin A1c % Calcium 9.3 Magnesium 1.7 Total Bilirubin 0.8 Direct Bilirubin 0.2 AST 20 ALT 35 H Alkaline Phosphatase 88 Total Protein 6.9 Albumin 3.9 Triglycerides Cholesterol LDL Cholesterol, Calc HDL Cholesterol Beta-Hydroxybutyrate 0.15 Urine Color Yellow Urine Appearance Clear Urine pH 5.0 Ur Specific [place] >= 1.030 H Urine Protein Negative Urine Glucose (UA) >=1000 H Urine Ketones Negative Urine Blood Negative Urine Nitrite Negative Ur Leukocyte Esterase Trace H Urine RBC 0-2 Urine WBC 21-50 H Ur Squamous Epith Cells 3-5 Urine Bacteria None Seen Hyaline Casts 0-2 Urine Test NEGATIVE Urine Opiates Screen Not Detected Ur Buprenorphine Scrn Not Detected Ur Oxycodone Screen Not Detected Urine Methadone Screen Not Detected Urine Fentanyl Screen Not Detected Ur Barbiturates Screen Not Detected Ur Phencyclidine Scrn Not Detected Ur Amphetamines Screen Not Detected U Benzodiazepines Scrn Not Detected Urine Cocaine Screen Not Detected U Marijuana (THC) Screen POSITIVE H Ethyl Alcohol < 10 Influenza Type A (PCR) NEGATIVE Influenza Type B (PCR) NEGATIVE RSV RNA Qual (PCR) NEGATIVE SARS-CoV-2 RNA (RT-PCR) NEGATIVE 10/07/24 10/07/24 10/07/24 08:46 11:42 17:10 WBC RBC Hgb Hct MCV MCH MCHC RDW Plt Count MPV Immature Gran % (Auto) Neut % (Auto) Lymph % (Auto) [place] % (Auto) Eos % (Auto) Baso % (Auto) Lymph # (Auto) [place] # (Auto) Eos # (Auto) Baso # (Auto) Abs Immat Gran (auto) Absolute Neuts (auto) Absolute Nucleated RBC Nucleated RBC % (auto) Sodium Potassium Chloride Carbon Dioxide Anion Gap BUN Creatinine Estim Creat Clear Calc Estimated GFR POC Glucose 274 H 332 H 277 H Random Glucose Estimat Average Glucose Hemoglobin A1c % Calcium Magnesium Total Bilirubin Direct Bilirubin AST ALT Alkaline Phosphatase Total Protein Albumin Triglycerides Cholesterol LDL Cholesterol, Calc HDL Cholesterol Beta-Hydroxybutyrate Urine Color Urine Appearance Urine pH Ur Specific [place] Urine Protein Urine Glucose (UA) Urine Ketones Urine Blood Urine Nitrite Ur Leukocyte Esterase Urine RBC Urine WBC Ur Squamous Epith Cells Urine Bacteria Hyaline Casts Urine Test Urine Opiates Screen Ur Buprenorphine Scrn Ur Oxycodone Screen Urine Methadone Screen Urine Fentanyl Screen Ur Barbiturates Screen Ur Phencyclidine Scrn Ur Amphetamines Screen U Benzodiazepines Scrn Urine Cocaine Screen U Marijuana (THC) Screen Ethyl Alcohol Influenza Type A (PCR) Influenza Type B (PCR) RSV RNA Qual (PCR) SARS-CoV-2 RNA (RT-PCR) 10/07/24 10/08/24 10/08/24 20:10 07:54 08:17 WBC RBC Hgb Hct MCV MCH MCHC RDW Plt Count MPV Immature Gran % (Auto) Neut % (Auto) Lymph % (Auto) [place] % (Auto) Eos % (Auto) Baso % (Auto) Lymph # (Auto) [place] # (Auto) Eos # (Auto) Baso # (Auto) Abs Immat Gran (auto) Absolute Neuts (auto) Absolute Nucleated RBC Nucleated RBC % (auto) Sodium 140 Potassium 4.1 Chloride 104 Carbon Dioxide 26 Anion Gap 14 BUN 17 H Creatinine 0.69 Estim Creat Clear Calc 121.1 Estimated GFR > 60 POC Glucose 288 H 224 H Random Glucose 214 H Estimat Average Glucose 278 Hemoglobin A1c % 11.3 H Calcium 9.5 Magnesium Total Bilirubin 1.0 Direct Bilirubin AST 20 ALT 31 Alkaline Phosphatase 74 Total Protein 6.1 L Albumin 3.5 Triglycerides 228 H Cholesterol 174 LDL Cholesterol, Calc 90 HDL Cholesterol 39 L Beta-Hydroxybutyrate Urine Color Urine Appearance Urine pH Ur Specific [place] Urine Protein Urine Glucose (UA) Urine Ketones Urine Blood Urine Nitrite Ur Leukocyte Esterase Urine RBC Urine WBC Ur Squamous Epith Cells Urine Bacteria Hyaline Casts Urine Test Urine Opiates Screen Ur Buprenorphine Scrn Ur Oxycodone Screen Urine Methadone Screen Urine Fentanyl Screen Ur Barbiturates Screen Ur Phencyclidine Scrn Ur Amphetamines Screen U Benzodiazepines Scrn Urine Cocaine Screen U Marijuana (THC) Screen Ethyl Alcohol Influenza Type A (PCR) Influenza Type B (PCR) RSV RNA Qual (PCR) SARS-CoV-2 RNA (RT-PCR) 10/08/24 10/08/24 10/08/24 12:04 16:57 21:10 WBC RBC Hgb Hct MCV MCH MCHC RDW Plt Count MPV Immature Gran % (Auto) Neut % (Auto) Lymph % (Auto) [place] % (Auto) Eos % (Auto) Baso % (Auto) Lymph # (Auto) [place] # (Auto) Eos # (Auto) Baso # (Auto) Abs Immat Gran (auto) Absolute Neuts (auto) Absolute Nucleated RBC Nucleated RBC % (auto) Sodium Potassium Chloride Carbon Dioxide Anion Gap BUN Creatinine Estim Creat Clear Calc Estimated GFR POC Glucose 301 H 338 H 360 H* Random Glucose Estimat Average Glucose Hemoglobin A1c % Calcium Magnesium Total Bilirubin Direct Bilirubin AST ALT Alkaline Phosphatase Total Protein Albumin Triglycerides Cholesterol LDL Cholesterol, Calc HDL Cholesterol Beta-Hydroxybutyrate Urine Color Urine Appearance Urine pH Ur Specific [place] Urine Protein Urine Glucose (UA) Urine Ketones Urine Blood Urine Nitrite Ur Leukocyte Esterase Urine RBC Urine WBC Ur Squamous Epith Cells Urine Bacteria Hyaline Casts Urine Test Urine Opiates Screen Ur Buprenorphine Scrn Ur Oxycodone Screen Urine Methadone Screen Urine Fentanyl Screen Ur Barbiturates Screen Ur Phencyclidine Scrn Ur Amphetamines Screen U Benzodiazepines Scrn Urine Cocaine Screen U Marijuana (THC) Screen Ethyl Alcohol Influenza Type A (PCR) Influenza Type B (PCR) RSV RNA Qual (PCR) SARS-CoV-2 RNA (RT-PCR) 10/09/24 10/09/24 10/09/24 07:35 11:37 16:55 WBC RBC Hgb Hct MCV MCH MCHC RDW Plt Count MPV Immature Gran % (Auto) Neut % (Auto) Lymph % (Auto) [place] % (Auto) Eos % (Auto) Baso % (Auto) Lymph # (Auto) [place] # (Auto) Eos # (Auto) Baso # (Auto) Abs Immat Gran (auto) Absolute Neuts (auto) Absolute Nucleated RBC Nucleated RBC % (auto) Sodium Potassium Chloride Carbon Dioxide Anion Gap BUN Creatinine Estim Creat Clear Calc Estimated GFR POC Glucose 296 H 286 H 324 H Random Glucose Estimat Average Glucose Hemoglobin A1c % Calcium Magnesium Total Bilirubin Direct Bilirubin AST ALT Alkaline Phosphatase Total Protein Albumin Triglycerides Cholesterol LDL Cholesterol, Calc HDL Cholesterol Beta-Hydroxybutyrate Urine Color Urine Appearance Urine pH Ur Specific [place] Urine Protein Urine Glucose (UA) Urine Ketones Urine Blood Urine Nitrite Ur Leukocyte Esterase Urine RBC Urine WBC Ur Squamous Epith Cells Urine Bacteria Hyaline Casts Urine Test Urine Opiates Screen Ur Buprenorphine Scrn Ur Oxycodone Screen Urine Methadone Screen Urine Fentanyl Screen Ur Barbiturates Screen Ur Phencyclidine Scrn Ur Amphetamines Screen U Benzodiazepines Scrn Urine Cocaine Screen U Marijuana (THC) Screen Ethyl Alcohol Influenza Type A (PCR) Influenza Type B (PCR) RSV RNA Qual (PCR) SARS-CoV-2 RNA (RT-PCR) 10/09/24 10/10/24 10/10/24 20:23 07:58 11:57 WBC RBC Hgb Hct MCV MCH MCHC RDW Plt Count MPV Immature Gran % (Auto) Neut % (Auto) Lymph % (Auto) [place] % (Auto) Eos % (Auto) Baso % (Auto) Lymph # (Auto) [place] # (Auto) Eos # (Auto) Baso # (Auto) Abs Immat Gran (auto) Absolute Neuts (auto) Absolute Nucleated RBC Nucleated RBC % (auto) Sodium Potassium Chloride Carbon Dioxide Anion Gap BUN Creatinine Estim Creat Clear Calc Estimated GFR POC Glucose 412 H* 264 H 376 H* Random Glucose Estimat Average Glucose Hemoglobin A1c % Calcium Magnesium Total Bilirubin Direct Bilirubin AST ALT Alkaline Phosphatase Total Protein Albumin Triglycerides Cholesterol LDL Cholesterol, Calc HDL Cholesterol Beta-Hydroxybutyrate Urine Color Urine Appearance Urine pH Ur Specific [place] Urine Protein Urine Glucose (UA) Urine Ketones Urine Blood Urine Nitrite Ur Leukocyte Esterase Urine RBC Urine WBC Ur Squamous Epith Cells Urine Bacteria Hyaline Casts Urine Test Urine Opiates Screen Ur Buprenorphine Scrn Ur Oxycodone Screen Urine Methadone Screen Urine Fentanyl Screen Ur Barbiturates Screen Ur Phencyclidine Scrn Ur Amphetamines Screen U Benzodiazepines Scrn Urine Cocaine Screen U Marijuana (THC) Screen Ethyl Alcohol Influenza Type A (PCR) Influenza Type B (PCR) RSV RNA Qual (PCR) SARS-CoV-2 RNA (RT-PCR) 10/10/24 10/10/24 10/11/24 16:38 20:04 07:42 WBC RBC Hgb Hct MCV MCH MCHC RDW Plt Count MPV Immature Gran % (Auto) Neut % (Auto) Lymph % (Auto) [place] % (Auto) Eos % (Auto) Baso % (Auto) Lymph # (Auto) [place] # (Auto) Eos # (Auto) Baso # (Auto) Abs Immat Gran (auto) Absolute Neuts (auto) Absolute Nucleated RBC Nucleated RBC % (auto) Sodium Potassium Chloride Carbon Dioxide Anion Gap BUN Creatinine Estim Creat Clear Calc Estimated GFR POC Glucose 373 H* 343 H 287 H Random Glucose Estimat Average Glucose Hemoglobin A1c % Calcium Magnesium Total Bilirubin Direct Bilirubin AST ALT Alkaline Phosphatase Total Protein Albumin Triglycerides Cholesterol LDL Cholesterol, Calc HDL Cholesterol Beta-Hydroxybutyrate Urine Color Urine Appearance Urine pH Ur Specific [place] Urine Protein Urine Glucose (UA) Urine Ketones Urine Blood Urine Nitrite Ur Leukocyte Esterase Urine RBC Urine WBC Ur Squamous Epith Cells Urine Bacteria Hyaline Casts Urine Test Urine Opiates Screen Ur Buprenorphine Scrn Ur Oxycodone Screen Urine Methadone Screen Urine Fentanyl Screen Ur Barbiturates Screen Ur Phencyclidine Scrn Ur Amphetamines Screen U Benzodiazepines Scrn Urine Cocaine Screen U Marijuana (THC) Screen Ethyl Alcohol Influenza Type A (PCR) Influenza Type B (PCR) RSV RNA Qual (PCR) SARS-CoV-2 RNA (RT-PCR) 10/11/24 10/11/24 10/11/24 12:01 16:45 20:12 WBC RBC Hgb Hct MCV MCH MCHC RDW Plt Count MPV Immature Gran % (Auto) Neut % (Auto) Lymph % (Auto) [place] % (Auto) Eos % (Auto) Baso % (Auto) Lymph # (Auto) [place] # (Auto) Eos # (Auto) Baso # (Auto) Abs Immat Gran (auto) Absolute Neuts (auto) Absolute Nucleated RBC Nucleated RBC % (auto) Sodium Potassium Chloride Carbon Dioxide Anion Gap BUN Creatinine Estim Creat Clear Calc Estimated GFR POC Glucose 285 H 332 H 313 H Random Glucose Estimat Average Glucose Hemoglobin A1c % Calcium Magnesium Total Bilirubin Direct Bilirubin AST ALT Alkaline Phosphatase Total Protein Albumin Triglycerides Cholesterol LDL Cholesterol, Calc HDL Cholesterol Beta-Hydroxybutyrate Urine Color Urine Appearance Urine pH Ur Specific [place] Urine Protein Urine Glucose (UA) Urine Ketones Urine Blood Urine Nitrite Ur Leukocyte Esterase Urine RBC Urine WBC Ur Squamous Epith Cells Urine Bacteria Hyaline Casts Urine Test Urine Opiates Screen Ur Buprenorphine Scrn Ur Oxycodone Screen Urine Methadone Screen Urine Fentanyl Screen Ur Barbiturates Screen Ur Phencyclidine Scrn Ur Amphetamines Screen U Benzodiazepines Scrn Urine Cocaine Screen U Marijuana (THC) Screen Ethyl Alcohol Influenza Type A (PCR) Influenza Type B (PCR) RSV RNA Qual (PCR) SARS-CoV-2 RNA (RT-PCR) 10/12/24 07:33 WBC RBC Hgb Hct MCV MCH MCHC RDW Plt Count MPV Immature Gran % (Auto) Neut % (Auto) Lymph % (Auto) [place] % (Auto) Eos % (Auto) Baso % (Auto) Lymph # (Auto) [place] # (Auto) Eos # (Auto) Baso # (Auto) Abs Immat Gran (auto) Absolute Neuts (auto) Absolute Nucleated RBC Nucleated RBC % (auto) Sodium Potassium Chloride Carbon Dioxide Anion Gap BUN Creatinine Estim Creat Clear Calc Estimated GFR POC Glucose 295 H Random Glucose Estimat Average Glucose Hemoglobin A1c % Calcium Magnesium Total Bilirubin Direct Bilirubin AST ALT Alkaline Phosphatase Total Protein Albumin Triglycerides Cholesterol LDL Cholesterol, Calc HDL Cholesterol Beta-Hydroxybutyrate Urine Color Urine Appearance Urine pH Ur Specific [place] Urine Protein Urine Glucose (UA) Urine Ketones Urine Blood Urine Nitrite Ur Leukocyte Esterase Urine RBC Urine WBC Ur Squamous Epith Cells Urine Bacteria Hyaline Casts Urine Test Urine Opiates Screen Ur Buprenorphine Scrn Ur Oxycodone Screen Urine Methadone Screen Urine Fentanyl Screen Ur Barbiturates Screen Ur Phencyclidine Scrn Ur Amphetamines Screen U Benzodiazepines Scrn Urine Cocaine Screen U Marijuana (THC) Screen Ethyl Alcohol Influenza Type A (PCR) Influenza Type B (PCR) RSV RNA Qual (PCR) SARS-CoV-2 RNA (RT-PCR) 10/06/24 21:45 Urine clean catch - Clean Catch Midstream Urine Culture - Final DS: Summary Hospital Course Hospital Course: Patient is a 54-year-old female with history of MDD, PTSD who self presented to ER due to suicidal ideation with plan to overdose on medications or cut herself with a box office manager secondary to increased depression. Per crisis report, patient self presented to ER endorsing suicide ideation with plan to overdose on anxiety medications or cut herself with a box office manager. Patient is uninsured and has not had access to her psychiatric medications for a month. She denies HI/VH/AH. This is patient's 1st inpatient psychiatric hospitalization. She has attended [facility] twice in the past. Patient was recently fired from her job due to missing too much time for her mental health issues. Patient reports she was behind on rent and life stressors are becoming overwhelming. Patient does not currently have outpatient psychiatric providers however was seeing a prescriber and therapist at [facility]. Denies substance use. Utox positive for cannabis. During admission assessment, patient presents alert and oriented x3. Calm and cooperative. Patient reports feeling depressed; pt stated, I am behind on rent in my car payment. My relationship with my mom isn't going great. My new job is also not good. I got fired from my last job . Patient reports she has not had access to her psychiatric medications for the last month due to being uninsured. Patient stated, everything combined together made me feel worthless and I felt people would be better off without me . Patient currently denies suicidal ideation; she reports she spoke to family who stated that their lives would be better with her in it. Patient denies SI/HI/VH/AH. Patient reports she would like referrals to outpatient psychiatric providers and to be restarted on her medications. Plan: CV 15 minute safety checks Continue home medications Obtain collateral Referral to outpatient psychiatric providers Encourage groups Discharge planning Patient reports feeling much improved since admission. She asks for flonase for allergies which she uses at home. Ordered. Patient is bright. Denies SI/HI/AVH. Tolerating medications well. Active on unit, social with peers. attending groups. Patient reports feeling better ; pt stated, I had a good weekend. I made a bunch of friends here. I have a lot to live for . Pt reports feeling better with medications. denies SI/HI/VH/AH. 3 day up on 10/11/24. Patient reports she plans on following up with her outpatient providers. Status at Discharge Cognitive/behavioral status at discharge: Patient has insight and demonstrates good judgment in terms of wanting to pursue treatment. Patient has a safety plan that includes presenting to the closest ER or calling 911 if feeling unsafe. Functional status at discharge: independent ambulation Overall status at discharge: patient is back to baseline Time Spent with Patient Time attestation: Total time managing care of this patient today _20___ minutes. Time spent: Less than 30 minutes Discharge Plan Discharge Anticipated Discharge Date/Time: 10/12/24 10:30 Patient Disposition: Home, Self-Care Discharge Diagnosis: MDD, PTSD Referrals: Elizabeth Todd MD [Primary Care Provider] - 10/15/24 10:30 am (10-11-24 Your follow up appt has been scheduled with your primary care provider on 10-15-24 @ 10:30am.) Discharge Medications: Continued atorvastatin 80 mg tablet 80 mg PO BEDTIME Qty: 90 1RF clopidogrel 75 mg tablet 75 mg PO DAILY Qty: 90 3RF carvedilol 3.125 mg tablet 3.125 mg PO BID Qty: 180 1RF tizanidine 2 mg Tablet 2 mg PO Q6H PRN (Reason: Muscle Pain) Rx Instructions: Last filled 09/05/20 cholecalciferol (vitamin D3) [Vitamin D3] 50 mcg (2,000 unit) Capsule 50 mcg PO DAILY magnesium chloride [Mag 64] 64 mg Tablet,Delayed Release (Dr/Ec) 64 mg PO BID Patient Comments: Patient prescribed 2 tabs daily, patient takes 1 tab BID Jardiance 25 mg Tablet 25 mg PO DAILY insulin glargine U-300 conc [Toujeo Max U-300 SoloStar] 300 unit/mL (3 mL) Insulin Pen 90 unit SUBCUT BEDTIME gabapentin 600 mg Tablet 900 mg PO BEDTIME 30 Days Qty: 45 0RF Rx Instructions: Take 1 1/2 tab at HS gabapentin 600 mg Tablet 600 mg PO BID@0900,1300 30 Days Qty: 60 0RF Rx Instructions: Take 1 tab in the morning and 1 tab in the afternoon aripiprazole 5 mg tablet 2.5 mg PO DAILY 30 Days Qty: 15 0RF fluoxetine 60 mg tablet 60 mg PO DAILY 30 Days Qty: 30 0RF omeprazole 20 mg capsule,delayed release(DR/EC) 20 mg PO BID ferrous sulfate [iron] 325 mg (65 mg iron) tablet 325 mg PO DAILY lisinopril 2.5 mg tablet 2.5 mg PO DAILY riboflavin (vitamin B2) 400 mg tablet 400 mg PO DAILY 30 Days Qty: 30 6RF aspirin 81 mg tablet,delayed release (DR/EC) 81 mg PO DAILY Discharge Orders: Discharge Order (Routine); Ordered 10/12/24 Ordered By: Soo Santiago Diet: Regular diet Activity on Discharge: As tolerated Stand Alone Forms: Patient Portal Discharge page, Community Support Print Language: Cymro Care Plan Goals: Maintain mood and safe behaviors Take medications as prescribed Practice coping skills Continue with outpatient providers and reach out to them as needed Health Concerns: Mood stability and behaviors Plan of Treatment: Follow up with your PCP, psychiatric provider and other outpatient providers regarding above concerns Take medications as prescribed Assessment: Patient has insight and demonstrates good judgment in terms of wanting to pursue treatment. Patient has a safety plan that includes presenting to the closest ER or calling 911 if feeling unsafe. Discharge Date/Time: 10/12/24 10:53
== END 2024-10-12 10:53 | disposition home or self-care (01) | DRG 751 ==
LOC: HO.ED 10-07 10:46 → HO.PADLT16 10-07 13:26
PROVIDERS: Physician Assistant; Admitting Provider Registered Nurse; Emergency Provider Emergency Medicine; PCP Internal Medicine; Responsible Provider Registered Nurse; Visit Provider Psychiatry & Neurology Psychiatry
DX: F33.1 Major depressive disorder, recurrent, moderate (principal); R45.851 Suicidal ideations; E11.40 Type 2 diabetes mellitus with diabetic neuropathy, unspecified; F43.10 Post-traumatic stress disorder, unspecified; I25.10 Atherosclerotic heart disease of native coronary artery without angina pectoris; Z20.822 Contact with and (suspected) exposure to COVID-19; Z56.0 Unemployment, unspecified; Z79.4 Long term (current) use of insulin; Z79.02 Long term (current) use of antithrombotics/antiplatelets; Z79.82 Long term (current) use of aspirin; Z79.899 Other long term (current) drug therapy
CPT/HCPCS: 0241U; 36415; 80048; 80053; 80061; 80076; 80307; 81001; 81025; 82010; 82947; 83036; 83735; 85025; 87086; 93005; 99285; S9485

== ENCOUNTER → 2024-10-07 09:40 | Outpatient (BNV) | payer MEDICAID, SELFPAY | PROVIDERS: Admitting Provider Registered Nurse; Emergency Provider Emergency Medicine; PCP Internal Medicine; Visit Provider Internal Medicine | DX: R41.82 Altered mental status, unspecified (principal) | CPT/HCPCS: 93010 ==

== ENCOUNTER → 2024-10-07 12:57 | Outpatient (BNV) | payer OTHER, SELFPAY | PROVIDERS: Admitting Provider Registered Nurse; Emergency Provider Emergency Medicine; PCP Internal Medicine; Responsible Provider Registered Nurse; Visit Provider Registered Nurse | DX: F33.1 Major depressive disorder, recurrent, moderate (principal); F43.11 Post-traumatic stress disorder, acute | CPT/HCPCS: 99231; 99232; 99233 ==